=== PATIENT | female | born 1940 | race Caucasian/White ===

== ENCOUNTER 2019-10-02 10:52 | Inpatient (IN) | payer MEDICARE, OTHER ==
[2019-10-02] MEDS ORDERED: ACETAMINOPHEN 325 MG TABLET PO ONE (11:06)
--- NOTE | 2019-10-02 11:06 | ER Document Report ---
ED Medical Screen (RME) - General Chief Complaint: General Weakness Stated Complaint: WEAKNESS/BACK PAIN/LEG PAIN Time Seen by Provider: 10/02/19 11:01 - HPI Notes: 10/02/19 11:04 Patient is a 79-year-old female with a history of hypertension, recurrent kidney stones with 5 procedures over the past 6 months, recent fungal infection of the lower spine which she was on antibiotics for for 2 months and finished them September 08 presents with family for concern of increased lower back pain that radiates down left lower leg and decreased mobility significantly over the past 4 days. Patient has had some urinary frequency as well as occasional diarrhea. No fever, chest pain, shortness of breath. I have treated and performed a rapid initial assessment of this patient. A comprehensive ED assessment and evaluation of the patient, analysis of test results and completion of medical decision making process will be conducted by additional ED providers. PHYSICAL EXAMINATION: GENERAL: Well-appearing, well-nourished and in no acute distress. A&Ox4. Answers questions appropriately. - Related Data Allergies/Adverse Reactions: diazepam [From Valium] Allergy (Verified 10/02/19 11:02) morphine Allergy (Verified 10/02/19 11:02) Penicillins Allergy (Verified 10/02/19 11:02) Physical Exam - Vital signs Vitals: Temp Pulse Resp BP Pulse Ox 97.4 F 70 16 133/58 H 100 10/02/19 10:59 10/02/19 10:59 10/02/19 10:59 10/02/19 10:59 10/02/19 10:59 Course - Vital Signs Vital signs: Temp Pulse Resp BP Pulse Ox 97.4 F 70 16 133/58 H 100 10/02/19 10:59 10/02/19 10:59 10/02/19 10:59 10/02/19 10:59 10/02/19 10:59
--- NOTE | 2019-10-02 11:44 | ER Document Report ---
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 TRAVEL OUTSIDE OF THE [place] IN LAST 30 DAYS: No - HPI Patient complains to provider of: Low back pain radiating down the left leg through buttocks posteriorly. Onset: Other - A few days ago Onset/Duration: Gradual Quality of pain: Achy Severity: Severe Pain Level: 5 Exacerbated by: Movement, Other - Unable to get out of bed and walk as she had been doing 1 week ago. Relieved by: Other - Rest Similar symptoms previously: Yes Recently seen / treated by doctor: Yes Notes: Patient just relocated from [place] to [place] after having a protracted long stay in rehab status post multiple kidney stone passing and IV antibiotic treatment for a fungus mass in her lower back. Patient finished her therapy but 1 month ago and has was stable enough for transfer to [place] coming from a care home. Patient is now living with family members and noted in the past week this her pain is increased despite taking her pain medications and her muscle relaxants. No new injury is noted. Denies any fever or chills. Patient is incontinent of urine which is not new. - Related Data Allergies/Adverse Reactions: diazepam [From Valium] Allergy (Verified 10/02/19 11:02) morphine Allergy (Verified 10/02/19 11:02) Penicillins Allergy (Verified 10/02/19 11:02) Past Medical History - Social History Smoking Status: Never Smoker Chew tobacco use (# tins/day): No Frequency of alcohol use: None Lives with: Family Family History: Reviewed & Not Pertinent Patient has suicidal ideation: No Patient has homicidal ideation: No - Past Medical History Cardiac Medical History: Reports: Hx Heart Attack Neurological Medical History: Reports: Hx Cerebrovascular Accident Endocrine Medical History: Reports: Hx Diabetes Mellitus Type 2 Musculoskeletal Medical History: Reports Hx Arthritis, Reports Other - Back pain Infectious Medical History: Reports: Other - 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 Respiratory: No symptoms reported Gastrointestinal: No symptoms reported Genitourinary: Other - Urinary incontinence Musculoskeletal: See HPI, Back pain - Patient reports her left leg pain is worse despite taking pain medications. States she is unable to stand up and bear weight on the left leg. Physical Exam - Vital signs Vitals: Temp Pulse Resp BP Pulse Ox 97.4 F 70 16 133/58 H 100 10/02/19 10:59 10/02/19 10:59 10/02/19 10:59 10/02/19 10:59 10/02/19 10:59 Interpretation: Normal - Notes Notes: Generally weak patient with dry oral mucosa and tenting of her skin. - General General appearance: Appears well, Alert - HEENT Head: Normocephalic, Atraumatic Eyes: Normal Pupils: PERRL Mouth/Lips: Caries Mucous membranes: Dry - Respiratory Respiratory status: No respiratory distress Chest status: Nontender Breath sounds: Normal Chest palpation: Normal - Cardiovascular Rhythm: Regular Heart sounds: Normal auscultation Murmur: No - Abdominal Inspection: Normal Distension: No distension Bowel sounds: Normal Tenderness: Nontender Organomegaly: No organomegaly - Back Back: Normal, Nontender, Tender - Tenderness along midline in the lower lumbar region with radiation into the left buttocks. - Extremities General upper extremity: Normal inspection, Nontender, Normal color, Normal ROM, Normal temperature General lower extremity: Normal inspection, Nontender, Normal color, Normal ROM, Normal temperature, Normal weight bearing. No: Stephany's sign Hip: Pain with ROM, Unable to bear weight - Patient is unable to lift her leg and hold it off the gurney for 5 seconds on the left side. Patient has full range of motion of her ankle. Skin is warm and and pink. Left knee with decreased range of motion due to pain. - Neurological Neuro grossly intact: Yes Cognition: Normal Orientation: AAOx4 [place] Coma Scale Eye Opening: Spontaneous [place] Coma Scale Verbal: Oriented [place] Coma Scale Motor: Obeys Commands [place] Coma Scale Total: 15 Speech: Normal Motor strength normal: LUE, RUE, LLE, RLE Sensory: Normal - Psychological Associated symptoms: Normal affect, Normal mood - Skin Skin Temperature: Warm Skin Moisture: Dry Skin Color: Normal Irregularity with: Other - Tenting of skin Course - Re-evaluation Re-evalutation: 10/02/19 21:04 Patient with multiple medical problems including severe dehydration worsening sciatica pain due to discitis. Patient also has some metabolic acidosis with an elevated lactic acid level, and a urinary tract infection. - Vital Signs Vital signs: Temp Pulse Resp BP Pulse Ox 98.0 F 108 H 16 109/80 100 10/02/19 15:50 10/02/19 15:50 10/02/19 15:50 10/02/19 15:50 10/02/19 15:50 - Laboratory Result Diagrams: 10/02/19 13:05 10/02/19 13:05 Laboratory results interpreted by me: 10/02/19 10/02/19 10/02/19 03:05 11:14 13:05 Hgb 11.0 L Hct 33.2 L RDW 17.6 H Lymph % (Auto) 12.1 L Absolute Neuts (auto) 8.4 H Seg Neutrophils % 81.0 H Chloride Carbon Dioxide BUN Creatinine Est GFR ( Amer) Est GFR (MDRD) Non-Af Glucose Lactic Acid 2.4 H Albumin Urine Protein 100 H Urine Blood MODERATE H Leukocyte Esterase Rfl LARGE H Urine Ascorbic Acid 40 H 10/02/19 13:05 Hgb Hct RDW Lymph % (Auto) Absolute Neuts (auto) Seg Neutrophils % Chloride 112 H Carbon Dioxide 16 L BUN 34 H Creatinine 1.52 H Est GFR ( Amer) 40 L Est GFR (MDRD) Non-Af 33 L Glucose 115 H Lactic Acid Albumin 3.2 L Urine Protein Urine Blood Leukocyte Esterase Rfl Urine Ascorbic Acid - Diagnostic Test Radiology reviewed: Image reviewed, Reports reviewed Discharge - Discharge Clinical Impression: Urinary tract infection after period of immobility, Sciatica associated with disorder of lumbosacral spine, Discitis of lumbosacral region, Dehydration, Elevated lactic acid level Condition: Serious Disposition: ADMITTED INPATIENT Admitting Provider: Mikhail (Hospitalist) Unit Admitted: [facility]
[2019-10-02 11:54] LABS: APPEARANCE,URINE TURBID; BILIRUBIN,URINE NEGATIVE (NEGATIVE); COLOR,URINE YELLOW; GLUCOSE, URINE NEGATIVE (NEGATIVE); KETONES,URINE NEGATIVE (NEGATIVE); PROTEIN,URINE 100 mg/dL (NEGATIVE); URINE SPECIFIC GRAVITY 1.013; UROBILINOGEN,URINE NEGATIVE mg/dL (<2.0)
--- NOTE | 2019-10-02 12:25 | RADIOLOGY REPORT (SQ) ---
EXAM DESCRIPTION: L SPINE WHOLE COMPLETED DATE/TIME: 10/02/2019 12:01 pm REASON FOR STUDY: low back pain, recent fungal infxn of spine COMPARISON: None. NUMBER OF VIEWS: Five views including obliques. TECHNIQUE: AP, lateral, oblique, and sacral radiographic images acquired of the lumbar spine. LIMITATIONS: None. FINDINGS: MINERALIZATION: Normal. SEGMENTATION: Normal. No transitional anatomy. ALIGNMENT: Mild dextroscoliosis. There appears to be a grade 1-2 anterolisthesis of L5 on S1. VERTEBRAE: Maintained height. No fracture or worrisome bone lesion. DISCS: There is mild disc narrowing from L1-S1. Marginal osteophytes are present. POSTERIOR ELEMENTS: Hypertrophic facet changes are present from L4-S1. HARDWARE: None in the spine. PARASPINAL SOFT TISSUES: Normal. PELVIS: Intact as visualized. No fractures or worrisome bone lesions. SI joints intact. OTHER: No other significant finding. IMPRESSION: Mild scoliosis. Anterolisthesis of L5 on S1. Degenerative disc disease, spondylosis, a nd facet arthropathy. TECHNICAL DOCUMENTATION: JOB ID: [id number] [employer]- All Rights Reserved Reading location - IP/workstation name: [email or web address]
[2019-10-02] MEDS ORDERED: NORMAL SALINE 500 ML IV ONE ×2 (12:42→14:19)
[2019-10-02] MEDS ORDERED: HYDROMORPHONE HCL INJ/PF 2 MG/ML AMPULE IV ONE (12:49)
[2019-10-02] MEDS ORDERED: DEXAMETHASONE SOD PHOS INJ 10 MG/1 ML VIAL IV ONE (12:59)
[2019-10-02] MEDS ORDERED: CIPROFLOXACIN 400 MG/D5W RTU 400 MG/200 ML RTUPB IV SCH (13:00)
--- NOTE | 2019-10-02 13:38 | RADIOLOGY REPORT (SQ) ---
EXAM DESCRIPTION: CT LUMBAR SPINE WITHOUT COMPLETED DATE/TIME: 10/02/2019 1:17 pm REASON FOR STUDY: low back pain/left radiculopathy COMPARISON: None. TECHNIQUE: Axial images acquired through the lumbar spine without intravenous contrast. Images revi ewed with lung, soft tissue and bone windows. Reconstructed coronal and sagittal MPR images reviewed . All images stored on PACS. All CT scanners at this facility use dose modulation, iterative reconstruction, and/or weight based d osing when appropriate to reduce radiation dose to as low as reasonably achievable (ALARA). [facility]: Dose Right [facility]: CareDose [facility]: Dose Right [facility]: Teradose 4D [facility]: SupplierSync RADIATION DOSE: mGy. LIMITATIONS: None. FINDINGS: Bones are osteopenic. Grade 1 spondylolisthesis L5-S1. There is disc space narrowing and osteophyte formation at multiple levels. Erosive changes in the endplates at L5-S1. No obvious acu te disc herniation. Facet arthropathy, especially L4-5 and L5-S1. Sacrum intact as visualized. Dilated left renal collecting system. IMPRESSION: 1. Spondylosis, facet arthropathy and malalignment. Erosive endplate changes at L5-S1 probably due t o chronic inflammation, however cannot exclude discitis. Clinical correlation is needed. 2. Dilated left renal collecting system of uncertain chronicity and etiology. TECHNICAL DOCUMENTATION: JOB ID: [id number] Quality ID # [id number]: Final reports with documentation of one or more dose reduction techniques (e.g., Au tomated exposure control, adjustment of the mA and/or kV according to patient size, use of iterative reconstruction technique) 2010 [employer]- All Rights Reserved Reading location - IP/workstation name: [email or web address]
[2019-10-02 13:45] LABS: ABSOLUTE BASOPHILS # (AUTO) 0.1 10^3/uL (0.0-0.2); ABSOLUTE LYMPHOCYTES (AUTO) 1.2 10^3/uL (0.5-4.7); ABSOLUTE MONOCYTES (AUTO) 0.6 10^3/uL (0.1-1.4); ABSOLUTE NEUT (AUTO) 8.4 10^3/uL (1.7-8.2); BASOPHILS % (AUTO) 0.5 % (0-2); EOSINOPHILS % (AUTO) 0.2 % (0-6); HEMATOCRIT 33.2 % (36.0-47.0); LYMPHOCYTES % (AUTO) 12.1 % (13-45); MEAN CORPUSCULAR HEMOGLOBIN 29.5 pg (27.0-33.4); MEAN CORPUSCULAR VOLUME 89 fl (80-97); MONOCYTES % (AUTO) 6.2 % (3-13); PLATELET COUNT 348 10^3/uL (150-450); RED BLOOD COUNT 3.72 10^6/uL (3.72-5.28); RED CELL DISTRIBUTION WIDTH 17.6 % (11.5-14.0); TOTAL CELLS COUNTED % (AUTO) 100 %; WHITE BLOOD COUNT 10.3 10^3/uL (4.0-10.5)
--- NOTE | 2019-10-02 13:59 | RADIOLOGY REPORT (SQ) ---
EXAM DESCRIPTION: KNEE LEFT 3 VIEWS COMPLETED DATE/TIME: 10/02/2019 1:28 pm REASON FOR STUDY: pain COMPARISON: None. NUMBER OF VIEWS: Two views. TECHNIQUE: AP and lateral radiographic images acquired of the left knee. LIMITATIONS: None. FINDINGS: MINERALIZATION: Osteopenia. BONES: No acute fracture or dislocation. No worrisome bone lesions. JOINT: No effusion. SOFT TISSUES: Vascular calcifications. OTHER: No other significant finding. IMPRESSION: No acute findings. TECHNICAL DOCUMENTATION: JOB ID: [id number] [employer]- All Rights Reserved Reading location - IP/workstation name: [email or web address]
[2019-10-02 14:03] LABS: ALBUMIN 3.2 g/dL (3.5-5.0); ALKALINE PHOSPHATASE 109 U/L (38-126); ANION GAP 13 (5-19); ASPARTATE AMINO TRANSFERASE 24 U/L (14-36); BILIRUBIN,DIRECT 0.3 mg/dL (0.0-0.4); BILIRUBIN,TOTAL 0.3 mg/dL (0.2-1.3); BLOOD UREA NITROGEN 34 mg/dL (7-20); CALCIUM 9.2 mg/dL (8.4-10.2); CARBON DIOXIDE 16 mmol/L (22-30); CHLORIDE 112 mmol/L (98-107); GLUCOSE 115 mg/dL (75-110); POTASSIUM 4.1 mmol/L (3.6-5.0); TOTAL PROTEIN 6.4 g/dL (6.3-8.2)
--- NOTE | 2019-10-02 15:27 | RADIOLOGY REPORT (SQ) ---
EXAM DESCRIPTION: CHEST SINGLE VIEW COMPLETED DATE/TIME: 10/02/2019 2:52 pm REASON FOR STUDY: decreased breathsounds in bases COMPARISON: None. NUMBER OF VIEWS: One view. TECHNIQUE: Single frontal radiographic view of the chest acquired. LIMITATIONS: None. FINDINGS: LUNGS AND PLEURA: Subcentimeter calcified granuloma left upper lobe. No pleural effusion. Attenuated blood vessels and flattened quin-diaphragms. MEDIASTINUM AND HILAR STRUCTURES: No masses. Contour normal. HEART AND VASCULAR STRUCTURES: Heart normal in size. Normal vasculature. BONES: No acute findings. HARDWARE: None in the chest. OTHER: No other significant finding. IMPRESSION: COPD. NO ACUTE RADIOGRAPHIC FINDING IN THE CHEST. TECHNICAL DOCUMENTATION: JOB ID: [id number] [facility]- All Rights Reserved Reading location - IP/workstation name: [email or web address]
[2019-10-02] MEDS ORDERED: DOCUSATE SODIUM 100 MG CAPSULE PO PRN (17:40)
[2019-10-02] MEDS ORDERED: HYDROCODONE/ACETAMINOPHEN 7.5-325 MG TABLET PO PRN (17:50)
[2019-10-02] MEDS ORDERED: METHOCARBAMOL 500 MG TABLET PO PRN (17:50)
[2019-10-02] MEDS ORDERED: IPRATROPIUM/ALBUTEROL 0.5-2.5 MG/3 ML AMPUL NEB PRN (17:59)
--- NOTE | 2019-10-02 18:28 | PDOC H&P ---
History of Present Illness Admission Date/PCP: 10/02/19 15:16 Patient complains of: Back pain, polyuria History of Present Illness: JORGE DOBSON is a 79 year old female with a history of recently diagnosed fungal lumbar discitis [completed treatment], resolved diabetes mellitus, peptic ulcer disease s/p surgery, hypertension, CVA, hypothyroidism, depression, who presents with complaint of low back pain, urinary incontinence and polyuria. Polyuria and urinary incontinence have been present for about 2 weeks now. Patient endorses some chills. Denies fevers no dysuria. Of note, patient has been experiencing low back pain since November 2018 after sustaining a fracture in her back. 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 She had subsequently experienced sign ificant improvement in back pain and underwent physical therapy. About 2 weeks ago, patient still experiencing some urinary incontinence. Patient was discharged from SNF on September 16 but has been experiencing more difficulty with ambulation or weakness in her lower extremities since then. Past Medical History Endocrine Medical History: Reports: Diabetes Mellitus Type 2 Musculoskeltal Medical History: Reports: Arthritis, Other - Back pain Past Surgical History Past Surgical History: Reports: Other - Neck surgery Social History Information Source: Patient, Relative Lives with: Family Smoking Status: Former Smoker Electronic Cigarette use?: No Frequency of Alcohol Use: None Hx Recreational Drug Use: No - Advance Directive Resuscitation Status: Do Not Intubate Family History Family History: DM, Malignancy, Other - Heart disease Parental Family History Reviewed: Yes Children Family History Reviewed: NA Sibling(s) Family History Reviewed.: Yes Medication/Allergy Home Medications: Acetaminophen [Acetaminophen ER] 1,300 mg PO Q6HP PRN 10/02/19 Allopurinol [Zyloprim 100 mg Tablet] 100 mg PO DAILY 10/02/19 Aspirin [Adult Low Dose Aspirin EC] 81 mg PO DAILY 10/02/19 Aspirin/Acetaminophen/Caffeine [Excedrin Extra Strength Caplet] 2 each PO BIDP PRN 10/02/19 Atenolol [Tenormin] 12.5 mg PO DAILY 10/02/19 Atorvastatin Calcium [Lipitor 20 mg Tablet] 20 mg PO QHS 10/02/19 Cyclobenzaprine HCl [Flexeril 5 mg Tablet] 5 mg PO TID 10/02/19 Docusate Sodium [Colace] 100 mg PO BIDP PRN 10/02/19 Ergocalciferol (Vitamin D2) [Vitamin D2] 50,000 unit PO MO@1000 10/02/19 Ferrous Sulfate [Feosol 325 mg Tablet] 650 mg PO DAILY 10/02/19 Hydrocodone/Acetaminophen [Ottertail 7.5-325 mg Tablet] 1 tab PO Q6HP PRN 10/02/19 Hydroxyzine Pamoate [Vistaril 25 mg Capsule] 25 mg PO Q8HP PRN 10/02/19 Levothyroxine Sodium [Synthroid 0.1 mg Tablet] 0.1 mg PO DAILY 10/02/19 Lorazepam [Ativan 0.5 mg Tablet] 0.5 mg PO Q8HP PRN 10/02/19 Lubiprostone [Amitiza 24 Mcg Capsule] 24 mcg PO BID 10/02/19 Magnesium Hydroxide [Milk Of Magnesia] 311 mg PO DAILYP PRN 10/02/19 Ondansetron HCl [Zofran 4 mg Tablet] 1 tab PO Q6HP PRN 10/02/19 Polyethylene Glycol 3350 [Miralax Powder 17 gm/Packet] 1 packet PO BID 10/02/19 Sennosides [Senna] 8.6 mg PO DAILY 10/02/19 Sertraline HCl [Zoloft 50 mg Tablet] 50 mg PO DAILY 10/02/19 Tamsulosin HCl [Flomax] 0.4 mg PO DAILY 10/02/19 Allergies/Adverse Reactions: diazepam [From Valium] Allergy (Verified 10/02/19 11:02) morphine Allergy (Verified 10/02/19 11:02) Penicillins Allergy (Verified 10/02/19 11:02) Review of Systems Constitutional: PRESENT: chills. ABSENT: fever(s) Eyes: ABSENT: visual disturbances Nose, Mouth, and Throat: ABSENT: headache(s) Cardiovascular: ABSENT: chest pain Respiratory: ABSENT: dyspnea Gastrointestinal: PRESENT: diarrhea. ABSENT: abdominal pain, nausea, vomiting Genitourinary: PRESENT: other - Urinary incontinence. ABSENT: difficulty urinating, dysuria, hematuria Musculoskeletal: PRESENT: muscle weakness. ABSENT: joint swelling Neurological: ABSENT: confusion Endocrine: PRESENT: polyuria Physical Exam Vital Signs: Temp Pulse Resp BP Pulse Ox 98.0 F 108 H 16 109/80 100 10/02/19 15:50 10/02/19 15:50 10/02/19 15:50 10/02/19 15:50 10/02/19 15:50 Intake & Output 10/01/19 10/02/19 10/03/19 06:59 06:59 06:59 Intake Total 700 Balance 700 Weight 45.8 kg General appearance: PRESENT: no acute distress, cooperative Neck exam: ABSENT: JVD Respiratory exam: PRESENT: clear to auscultation elaina, unlabored. ABSENT: tachypnea, wheezes Cardiovascular exam: PRESENT: RRR, +S1, +S2. ABSENT: tachycardia GI/Abdominal exam: PRESENT: normal bowel sounds, soft. ABSENT: ascites, distended, firm, guarding, rebound, rigid, tenderness Musculoskeletal exam: PRESENT: other - Patient currently is not experiencing any tenderness on palpation of her mid spine and paraspinal regions as well as on straight leg test. She does endorse that she was having significant tenderness in those regions earlier when examined by the ER physician before receiving Dilaudid Neurological exam: PRESENT: alert, awake, oriented to person, oriented to place, oriented to time Results Laboratory Results: 10/02/19 13:05 10/02/19 13:05 10/02/19 10/02/19 10/02/19 03:05 11:14 13:05 WBC 10.3 RBC 3.72 Hgb 11.0 L Hct 33.2 L MCV 89 MCH 29.5 MCHC 33.0 RDW 17.6 H Plt Count 348 Seg Neutrophils % 81.0 H Sodium Potassium Chloride Carbon Dioxide Anion Gap BUN Creatinine Est GFR ( Amer) Glucose Lactic Acid 2.4 H Calcium Total Bilirubin AST Alkaline Phosphatase Total Protein Albumin Urine Color YELLOW Urine Appearance TURBID Urine pH 5.0 Ur Specific [place] 1.013 Urine Protein 100 H Urine Glucose (UA) NEGATIVE Urine Ketones NEGATIVE Urine Blood MODERATE H Urine RBC (Auto) 91 10/02/19 13:05 WBC RBC Hgb Hct MCV MCH MCHC RDW Plt Count Seg Neutrophils % Sodium 141.0 Potassium 4.1 Chloride 112 H Carbon Dioxide 16 L Anion Gap 13 BUN 34 H Creatinine 1.52 H Est GFR ( Amer) 40 L Glucose 115 H Lactic Acid Calcium 9.2 Total Bilirubin 0.3 AST 24 Alkaline Phosphatase 109 Total Protein 6.4 Albumin 3.2 L Urine Color Urine Appearance Urine pH Ur Specific [place] Urine Protein Urine Glucose (UA) Urine Ketones Urine Blood Urine RBC (Auto) Impressions: Lumbar Spine X-Ray 10/02/19 11:06 IMPRESSION: Mild scoliosis. Anterolisthesis of L5 on S1. Degenerative disc disease, spondylosis, and facet arthropathy. Lumbar Spine CT 10/02/19 12:50 IMPRESSION: 1. Spondylosis, facet arthropathy and malalignment. Erosive endplate changes at L5-S1 probably due to chronic inflammation, however cannot exclude discitis. Clinical correlation is needed. 2. Dilated left renal collecting system of uncertain chronicity and etiology. Knee X-Ray 10/02/19 12:52 IMPRESSION: No acute findings. Chest X-Ray 10/02/19 14:20 IMPRESSION: COPD. NO ACUTE RADIOGRAPHIC FINDING IN THE CHEST. Assessment and Plan - Diagnosis (1) Acute urinary tract infection Is this a current diagnosis for this admission?: Yes Plan: Patient does not meet sepsis criteria Repeat lactic acid following IV fluids Ceftriaxone Check urine culture IV fluids (2) Lumbosacral radiculopathy due to degenerative joint disease of spine Is this a current diagnosis for this admission?: Yes Plan: CT lumbar spine without contrast showed spondylolisthesis of L5-S1, multilevel degenerative joint disease, erosions in the endplates at L5-S1 No clear evidence of discitis on the CT at this time Given her recent onset of urinary incontinence about 2 weeks ago and worsening ambulation, I will get an MRI to ensure no spinal compression Consult placed to pain management Continue Vicodin as needed for pain Dilaudid 0.5 mg as needed for breakthrough pain Lidocaine patch PT OT (3) Elevated serum creatinine Is this a current diagnosis for this admission?: Yes Plan: Patient's family reports the patient was diagnosed with renal failure by PCP recently Current creatinine 5 may be secondary to CKD versus LUCERO on CKD Will give IV fluids and trend creatinine (4) Normal anion gap metabolic acidosis Is this a current diagnosis for this admission?: Yes Plan: Secondary to diarrhea. Patient reports that diarrhea is resolving at this time. IV fluids and monitor bicarbonate levels. (5) Iron deficiency anemia Qualifiers: Iron deficiency anemia type: other iron deficiency Qualified Code(s): D50.8 - Other iron deficiency anemias Is this a current diagnosis for this admission?: Yes Plan: Continue patient's ferrous sulfate Monitor hemoglobin (6) Septic discitis of lumbar region Is this a current diagnosis for this admission?: Yes Plan: Recently diagnosed in July 2019 secondary to [place] Patient and family reports that patient completed 6 weeks of antifungal IV treatment in [place] which ended on September 08, 2019. No clear evidence of discitis at this time. I will follow-up blood cultures. - Time Time Spent with patient: 35 or more minutes
[2019-10-02] MEDS: LIDOCAINE 5% (700 MG) TRANSDERMAL ADH..PATCH TP SCH (20:51)
[2019-10-02] MEDS: NORMAL SALINE 1000 ML 1,000 ML IV PRN (20:52)
[2019-10-02] MEDS: ATORVASTATIN CALCIUM 20 MG TABLET PO SCH (22:58)
[2019-10-02] MEDS: HEPARIN SOD (PORCINE) 5,000 UNIT/ML 1 ML VIAL SUBCUT SCH (22:59)
[2019-10-02] MEDS: FAMOTIDINE 20 MG TABLET PO SCH (22:59)
[2019-10-02] MEDS: MIRTAZAPINE 15 MG TABLET PO SCH (22:59)
[2019-10-03 05:06] LABS: ABSOLUTE MONOCYTES (AUTO) 0.6 10^3/uL (0.1-1.4); ABSOLUTE NEUT (AUTO) 9.4 10^3/uL (1.7-8.2); BASOPHILS % (AUTO) 0.3 % (0-2); HEMATOCRIT 30.7 % (36.0-47.0); HEMOGLOBIN 10.1 g/dL (12.0-15.5); LYMPHOCYTES % (AUTO) 9.2 % (13-45); MEAN CORPUSCULAR HEMOGLOBIN 29.4 pg (27.0-33.4); MEAN CORPUSCULAR HGB CONC 33.1 g/dL (32.0-36.0); MEAN CORPUSCULAR VOLUME 89 fl (80-97); PLATELET COUNT 287 10^3/uL (150-450); RED BLOOD COUNT 3.45 10^6/uL (3.72-5.28); SEGMENTED NEUTROPHILS % (AUTO) 85.5 % (42-78); TOTAL CELLS COUNTED % (AUTO) 100 %
[2019-10-03 05:23] LABS: ALBUMIN 2.6 g/dL (3.5-5.0); ALKALINE PHOSPHATASE 82 U/L (38-126); ANION GAP 10 (5-19); ASPARTATE AMINO TRANSFERASE 18 U/L (14-36); BILIRUBIN,DIRECT 0.3 mg/dL (0.0-0.4); BILIRUBIN,TOTAL 0.3 mg/dL (0.2-1.3); BLOOD UREA NITROGEN 33 mg/dL (7-20); CALCIUM 8.4 mg/dL (8.4-10.2); CARBON DIOXIDE 15 mmol/L (22-30); CHLORIDE 115 mmol/L (98-107); GLUCOSE 119 mg/dL (75-110); TOTAL PROTEIN 5.4 g/dL (6.3-8.2)
[2019-10-03 05:27] LABS: CREATINE KINASE < 20 U/L (30-135)
[2019-10-03] MEDS: LEVOTHYROXINE SODIUM 0.1 MG TABLET PO SCH (05:33)
[2019-10-03] MEDS: HEPARIN SOD (PORCINE) 5,000 UNIT/ML 1 ML VIAL SUBCUT SCH ×3 (05:33→21:42)
[2019-10-03] MEDS: HYDROMORPHONE HCL INJ/PF 2 MG/ML AMPULE IV PRN ×2 (08:55→16:21)
[2019-10-03] MEDS: ATENOLOL 50 MG TABLET PO SCH (10:04)
[2019-10-03] MEDS: FAMOTIDINE 20 MG TABLET PO SCH ×2 (10:04→21:42)
[2019-10-03] MEDS: TAMSULOSIN HCL 0.4 MG CAP.SR.24H PO SCH (10:04)
[2019-10-03] MEDS: ASPIRIN 81 MG TABLET, ENT COATED PO SCH (10:04)
[2019-10-03] MEDS: FERROUS SULFATE 325 MG TABLET PO SCH (10:04)
[2019-10-03] MEDS: CEFTRIAXONE 1 GM/D5W RTU 1 GM/50 ML RTUPB IV SCH (10:05)
--- NOTE | 2019-10-03 11:16 | PDOC PROGRESS REPORT ---
Subjective Progress Note for:: 10/03/19 Subjective:: Patient currently complains of some back pain in her right low back and her mid spine. Patient however says that she did not ask for any pain medication. Denies any fever or chills. Reason For Visit: UTI LUCERO NAGMA LUMBAR SPONDYLOSIS Physical Exam Vital Signs: Temp Pulse Resp BP Pulse Ox 98.7 F 68 18 100/41 L 98 10/03/19 07:22 10/03/19 07:22 10/03/19 07:22 10/03/19 07:22 10/03/19 07:22 Intake & Output 10/02/19 10/03/19 10/04/19 06:59 06:59 06:59 Intake Total 1350 Output Total 200 Balance 1150 Weight 46.4 kg General appearance: PRESENT: no acute distress, cooperative Neck exam: ABSENT: JVD Respiratory exam: PRESENT: clear to auscultation elaina, symmetrical, unlabored. ABSENT: tachypnea, wheezes Cardiovascular exam: PRESENT: +S1, +S2. ABSENT: tachycardia GI/Abdominal exam: PRESENT: normal bowel sounds, soft. ABSENT: rebound, rigid, tenderness Musculoskeletal exam: PRESENT: tenderness - Tenderness in lower mid spine more more in right lower paraspinal region in back Neurological exam: PRESENT: alert, awake, oriented to person, oriented to place, oriented to time, oriented to situation Results Laboratory Results: 10/03/19 04:16 10/03/19 04:16 10/02/19 10/02/19 10/02/19 03:05 11:14 13:05 WBC 10.3 RBC 3.72 Hgb 11.0 L Hct 33.2 L MCV 89 MCH 29.5 MCHC 33.0 RDW 17.6 H Plt Count 348 Seg Neutrophils % 81.0 H Sodium Potassium Chloride Carbon Dioxide Anion Gap BUN Creatinine Est GFR ( Amer) Glucose Lactic Acid 2.4 H Calcium Total Bilirubin AST Alkaline Phosphatase Total Protein Albumin Urine Color YELLOW Urine Appearance TURBID Urine pH 5.0 Ur Specific [place] 1.013 Urine Protein 100 H Urine Glucose (UA) NEGATIVE Urine Ketones NEGATIVE Urine Blood MODERATE H Urine RBC (Auto) 91 10/02/19 10/02/19 10/03/19 13:05 18:41 04:16 WBC 11.0 H RBC 3.45 L Hgb 10.1 L Hct 30.7 L MCV 89 MCH 29.4 MCHC 33.1 RDW 18.0 H Plt Count 287 Seg Neutrophils % 85.5 H Sodium 141.0 Potassium 4.1 Chloride 112 H Carbon Dioxide 16 L Anion Gap 13 BUN 34 H Creatinine 1.52 H Est GFR ( Amer) 40 L Glucose 115 H Lactic Acid 1.3 Calcium 9.2 Total Bilirubin 0.3 AST 24 Alkaline Phosphatase 109 Total Protein 6.4 Albumin 3.2 L Urine Color Urine Appearance Urine pH Ur Specific [place] Urine Protein Urine Glucose (UA) Urine Ketones Urine Blood Urine RBC (Auto) 10/03/19 04:16 WBC RBC Hgb Hct MCV MCH MCHC RDW Plt Count Seg Neutrophils % Sodium 140.4 Potassium 4.0 Chloride 115 H Carbon Dioxide 15 L Anion Gap 10 BUN 33 H Creatinine 1.33 H Est GFR ( Amer) 47 L Glucose 119 H Lactic Acid Calcium 8.4 Total Bilirubin 0.3 AST 18 Alkaline Phosphatase 82 Total Protein 5.4 L Albumin 2.6 L Urine Color Urine Appearance Urine pH Ur Specific [place] Urine Protein Urine Glucose (UA) Urine Ketones Urine Blood Urine RBC (Auto) 10/03/19 04:16 Creatine Kinase < 20 L Impressions: Lumbar Spine X-Ray 10/02/19 11:06 IMPRESSION: Mild scoliosis. Anterolisthesis of L5 on S1. Degenerative disc disease, spondylosis, and facet arthropathy. Lumbar Spine CT 10/02/19 12:50 IMPRESSION: 1. Spondylosis, facet arthropathy and malalignment. Erosive endplate changes at L5-S1 probably due to chronic inflammation, however cannot exclude discitis. C linical correlation is needed. 2. Dilated left renal collecting system of uncertain chronicity and etiology. Knee X-Ray 10/02/19 12:52 IMPRESSION: No acute findings. Chest X-Ray 10/02/19 14:20 IMPRESSION: COPD. NO ACUTE RADIOGRAPHIC FINDING IN THE CHEST. Assessment and Plan - Diagnosis (1) Acute urinary tract infection Is this a current diagnosis for this admission?: Yes Plan: Patient does not meet sepsis criteria Lactic acidosis is resolved Ceftriaxone day 2 of antibiotics Urine culture growing gram-negative rods (2) Lumbosacral radiculopathy due to degenerative joint disease of spine Is this a current diagnosis for this admission?: Yes Plan: CT lumbar spine without contrast showed spondylolisthesis of L5-S1, multilevel degenerative joint disease, erosions in the endplates at L5-S1 No clear evidence of discitis on the CT at this time Awaiting MRI of lumbar spine. It was delayed because patient has lexus however patient has had 2 MRIs done last month in an outside hospital and we have records for that Consult placed to pain management Continue Vicodin as needed for pain Dilaudid 0.5 mg as needed for breakthrough pain Lidocaine patch PT OT (3) Elevated serum creatinine Is this a current diagnosis for this admission?: Yes Plan: Patient's family reports the patient was diagnosed with renal failure by PCP recently secondary to CKD versus LUCERO on CKD Creatinine 1.5 on admission but improving with IV fluids. Continue with IV fluids. (4) Normal anion gap metabolic acidosis Is this a current diagnosis for this admission?: Yes Plan: Suspect this is secondary to diarrhea which seems to be resolving. However NAGMA to persist at this time Change IV fluids from NS to lactated Ringer's and check VBG in the morning (5) Iron deficiency anemia Qualifiers: Iron deficiency anemia type: other iron deficiency Qualified Code(s): D50.8 - Other iron deficiency anemias Is this a current diagnosis for this admission?: Yes Plan: Continue patient's ferrous sulfate Monitor hemoglobin (6) Septic discitis of lumbar region Is this a current diagnosis for this admission?: Yes Plan: Recently diagnosed in July 2019 secondary to [place] Patient and family reports that patient completed 6 weeks of antifungal IV treatment in [place] which ended on September 08, 2019. No clear evidence of discitis at this time. I will follow-up blood cultures. (7) Leukocytosis Qualifiers: Leukocytosis type: unspecified Qualified Code(s): D72.829 - Elevated white blood cell count, unspecified Is this a current diagnosis for this admission?: Yes Plan: Mild. Likely secondary to dexamethasone patient received in the ER yesterday. Continue to monitor CBC. - Time Time Spent with patient: 15-24 minutes
[2019-10-03] MEDS: NORMAL SALINE 1000 ML 1,000 ML IV PRN (12:53)
[2019-10-03] MEDS: LIDOCAINE 5% (700 MG) TRANSDERMAL ADH..PATCH TP SCH (12:54)
--- NOTE | 2019-10-03 15:39 | RADIOLOGY REPORT (SQ) ---
EXAM DESCRIPTION: MRI LUMBAR SPINE COMBO COMPLETED DATE/TIME: 10/03/2019 2:26 pm REASON FOR STUDY: lumbar pain, urinary incontinence COMPARISON: CT lumbar spine 10/02/2019 Lumbar spine plain films 10/02/2019 TECHNIQUE: Sagittal and Axial imaging includes T1, T1 post gadolinium, T2, STIR and gradient echo se quences. Coronal T2/HASTE imaging. CONTRAST TYPE AND DOSE: 8 mL Dotarem. RENAL FUNCTION: Not indicated. ACR Type II contrast agent associated with few, if any, unconfounded cases of NSF LIMITATIONS: None. 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 SEGMENTATION: No transitional anatomy. The lowest well-developed disc space is labeled L5-S1. ALIGNMENT: 25% anterolisthesis of L5 over S1 related to advanced bilateral facet arthropathy VERTEBRAE AND BONE MARROW: At the L5-S1 level, the vertebral body endplates are indistinct. There is marrow edema in the inferior half of L5 and the upper half of S1. Postcontrast, avid enhancement is present indicating discitis with adjacent vertebral body osteomyelitis. On axial images, no paraspi nal/psoas abscess is identified. On axial images there is high-grade bilateral foraminal narrowing right greater than left with enhanc ing granulation tissue flattening the proximal right S1 nerve root in the lateral recess. These alaniz ges are best shown on axial images 32-37. There is minimal S1 and S2 nerve root enhancement. These findings were called to Dr. Elizondo, 1515 hours 10/03/2019 DISC SIGNAL: Abnormal disc space loss of height and disc space enhancement at L5-S1 POSTERIOR ELEMENTS: Generally intact. No pars defect evident. HARDWARE: None in the spine. CORD AND CONUS: Normal in size and signal intensity. Conus at the L1 level. SOFT TISSUES: No aortic aneurysm seen. No bulky retroperitoneal adenopathy or mass. No paraspinal mas s or fluid. T11-12: At the upper edge of the field of view. Mild posterior disc bulging and mild bilateral face t hypertrophy is present without significant central or foraminal stenosis T12-L1: Broad diffuse posterior disc bulge and mild facet and ligament hypertrophy is present withou t significant central or foraminal stenosis L1-L2: Mild diffuse posterior disc bulging, moderate bilateral facet hypertrophy. Borderline central canal narrowing. Mild bilateral foraminal narrowing without significant nerve root impingement L2-L3: Mild diffuse posterior disc bulging, moderate bilateral facet hypertrophy. Borderline central canal narrowing. Mild bilateral foraminal narrowing without significant nerve root impingement L3-L4: Mild diffuse posterior disc bulging, moderate bilateral facet hypertrophy. Borderline central canal narrowing. Mild bilateral foraminal narrowing without significant nerve root impingement L4-L5: Mild diffuse posterior disc bulging, bulky bilateral facet hypertrophy. Borderline central ca nal narrowing. Mild to moderate bilateral foraminal narrowing without significant nerve root impinge ment L5-S1: Vertebral body endplate and disc changes from discitis with adjacent vertebral body osteomyeli tis. There is broad diffuse posterior disc bulging, grade 1 anterolisthesis of L5 over S1, and very bulky bilateral facet arthropathy right greater than left. This causes [id number] central malik l narrowing on axial T2 image 34, narrowing of the right lateral recess containing the proximal right S1 nerve root on axial image 35, and high-grade bilateral foraminal narrowing with bilateral exit ne rve root enhancement. There is also enhancement of the proximal right S1 nerve root in the lateral r ecess. No epidural abscess is identified. No paraspinal/psoas muscle abscess. SACRUM: Vertebral body endplate changes from osteomyelitis at the L5-S1 level OTHER: This report was discussed Dr. Elizondo, 1500 hours 10/03/2019 IMPRESSION: Discitis/ vertebral body osteomyelitis at L5-S1 COMMENT: Pertinent findings on the imaging study reported as a CRITICAL RESULT to ZIGGY Hernandez at15:02 on 10/03/2019. Category of Critical Result: Vertebral body osteomyelitis/discitis at L5-S1 TECHNICAL DOCUMENTATION: JOB ID: [id number] [employer]- All Rights Reserved Reading location - IP/workstation name: [email or web address]
[2019-10-03] MEDS: RINGERS SOLUTION,LACTATED 1,000 ML IV PRN (17:57)
[2019-10-03] MEDS: MIRTAZAPINE 15 MG TABLET PO SCH (21:43)
[2019-10-03] MEDS: GABAPENTIN 100 MG CAPSULE PO SCH (21:44)
[2019-10-03] MEDS: ATORVASTATIN CALCIUM 20 MG TABLET PO SCH (21:44)
[2019-10-04] MEDS: RINGERS SOLUTION,LACTATED 1,000 ML IV PRN ×2 (03:05→09:00)
[2019-10-04] MEDS: HYDROMORPHONE HCL 2 MG TABLET PO PRN ×3 (03:09→22:11)
[2019-10-04 05:26] LABS: ABSOLUTE BASOPHILS # (AUTO) 0.1 10^3/uL (0.0-0.2); ABSOLUTE LYMPHOCYTES (AUTO) 1.3 10^3/uL (0.5-4.7); ABSOLUTE MONOCYTES (AUTO) 0.7 10^3/uL (0.1-1.4); ABSOLUTE NEUT (AUTO) 5.4 10^3/uL (1.7-8.2); BASOPHILS % (AUTO) 0.7 % (0-2); EOSINOPHILS % (AUTO) 0.5 % (0-6); HEMATOCRIT 28.1 % (36.0-47.0); HEMOGLOBIN 9.3 g/dL (12.0-15.5); LYMPHOCYTES % (AUTO) 17.8 % (13-45); MEAN CORPUSCULAR HEMOGLOBIN 29.5 pg (27.0-33.4); MEAN CORPUSCULAR HGB CONC 33.1 g/dL (32.0-36.0); MEAN CORPUSCULAR VOLUME 89 fl (80-97); MONOCYTES % (AUTO) 8.9 % (3-13); PLATELET COUNT 216 10^3/uL (150-450); RED BLOOD COUNT 3.15 10^6/uL (3.72-5.28); RED CELL DISTRIBUTION WIDTH 17.8 % (11.5-14.0); SEGMENTED NEUTROPHILS % (AUTO) 72.1 % (42-78); TOTAL CELLS COUNTED % (AUTO) 100 %; VENOUS BLOOD PCO2 34.3 mmHg (35-63); VENOUS BLOOD PH 7.34 (7.30-7.42); WHITE BLOOD COUNT 7.4 10^3/uL (4.0-10.5)
[2019-10-04 05:57] LABS: ALBUMIN 2.2 g/dL (3.5-5.0); ALKALINE PHOSPHATASE 72 U/L (38-126); ANION GAP 5 (5-19); ASPARTATE AMINO TRANSFERASE 20 U/L (14-36); BILIRUBIN,DIRECT 0.2 mg/dL (0.0-0.4); BILIRUBIN,TOTAL 0.2 mg/dL (0.2-1.3); BLOOD UREA NITROGEN 26 mg/dL (7-20); C-REACTIVE PROTEIN 61.6 mg/L (<10.0); CALCIUM 7.9 mg/dL (8.4-10.2); CARBON DIOXIDE 17 mmol/L (22-30); CHLORIDE 118 mmol/L (98-107); GLUCOSE 102 mg/dL (75-110); POTASSIUM 4.2 mmol/L (3.6-5.0); TOTAL PROTEIN 4.9 g/dL (6.3-8.2)
[2019-10-04] MEDS: HEPARIN SOD (PORCINE) 5,000 UNIT/ML 1 ML VIAL SUBCUT SCH ×3 (06:01→22:13)
[2019-10-04] MEDS: LEVOTHYROXINE SODIUM 0.1 MG TABLET PO SCH (06:01)
[2019-10-04] MEDS: GABAPENTIN 100 MG CAPSULE PO SCH ×3 (06:01→22:10)
[2019-10-04 06:21] LABS: ERYTHROCYTE SEDIMENTATION RATE 90 mm/hr (0-30)
[2019-10-04] MEDS ORDERED: NORMAL SALINE 1000 ML 1,000 ML IV PRN (07:39)
[2019-10-04] MEDS: TAMSULOSIN HCL 0.4 MG CAP.SR.24H PO SCH (10:09)
[2019-10-04] MEDS: FAMOTIDINE 20 MG TABLET PO SCH ×2 (10:09→22:10)
[2019-10-04] MEDS: ATENOLOL 50 MG TABLET PO SCH (10:09)
[2019-10-04] MEDS: LIDOCAINE 5% (700 MG) TRANSDERMAL ADH..PATCH TP SCH (10:09)
[2019-10-04] MEDS: ASPIRIN 81 MG TABLET, ENT COATED PO SCH (10:09)
[2019-10-04] MEDS: FERROUS SULFATE 325 MG TABLET PO SCH (10:09)
[2019-10-04] MEDS: CEFTRIAXONE 1 GM/D5W RTU 1 GM/50 ML RTUPB IV SCH (10:10)
--- NOTE | 2019-10-04 11:16 | PDOC PROGRESS REPORT ---
Subjective Progress Note for:: 10/04/19 Subjective:: Patient still experiencing back pain and sciatica. Otherwise denies fever chills nausea or vomiting. Reason For Visit: UTI LUCERO NAGMA LUMBAR SPONDYLOSIS Physical Exam Vital Signs: Temp Pulse Resp BP Pulse Ox 98.1 F 60 16 105/74 98 10/04/19 07:57 10/04/19 07:57 10/04/19 07:57 10/04/19 07:57 10/04/19 07:57 Intake & Output 10/03/19 10/04/19 10/05/19 06:59 06:59 06:59 Intake Total 1350 2603 350 Output Total 200 0 Balance 1150 2603 350 Weight 46.4 kg 50 kg General appearance: PRESENT: no acute distress, cooperative Neck exam: ABSENT: JVD Respiratory exam: PRESENT: clear to auscultation elaina, symmetrical, unlabored. ABSENT: tachypnea, wheezes Cardiovascular exam: PRESENT: RRR, +S1, +S2. ABSENT: tachycardia GI/Abdominal exam: PRESENT: normal bowel sounds, soft. ABSENT: firm, guarding, rebound, rigid, tenderness Musculoskeletal exam: PRESENT: tenderness - in right lower and mid back Neurological exam: PRESENT: alert, awake, oriented to person, oriented to place, oriented to time, oriented to situation Results Laboratory Results: 10/04/19 05:13 10/04/19 05:13 10/04/19 10/04/19 10/04/19 05:13 05:13 05:13 WBC 7.4 RBC 3.15 L Hgb 9.3 L Hct 28.1 L MCV 89 MCH 29.5 MCHC 33.1 RDW 17.8 H Plt Count 216 Seg Neutrophils % 72.1 VBG pH 7.34 VBG pCO2 34.3 L VBG HCO3 18.0 L VBG Base Excess -7.0 Sodium 140.2 Potassium 4.2 Chloride 118 H Carbon Dioxide 17 L Anion Gap 5 BUN 26 H Creatinine 1.27 H Est GFR ( Amer) 49 L Glucose 102 Calcium 7.9 L Total Bilirubin 0.2 AST 20 Alkaline Phosphatase 72 C-Reactive Protein 61.6 H Total Protein 4.9 L Albumin 2.2 L 10/03/19 04:16 Creatine Kinase < 20 L Impressions: Lumbar Spine X-Ray 10/02/19 11:06 IMPRESSION: Mild scoliosis. Anterolisthesis of L5 on S1. Degenerative disc disease, spondylosis, and facet arthropathy. Lumbar Spine CT 10/02/19 12:50 IMPRESSION: 1. Spondylosis, facet arthropathy and malalignment. Erosive endplate changes at L5-S1 probably due to chronic inflammation, however cannot exclude discitis. Clinical correlation is needed. 2. Dilated left renal collecting system of uncertain chronicity and etiology. Knee X-Ray 10/02/19 12:52 IMPRESSION: No acute findings. Chest X-Ray 10/02/19 14:20 IMPRESSION: COPD. NO ACUTE RADIOGRAPHIC FINDING IN THE CHEST. Lumbar Spine MRI 10/03/19 00:00 IMPRESSION: Discitis/ vertebral body osteomyelitis at L5-S1 Assessment and Plan - Diagnosis (1) Discitis of lumbosacral region Is this a current diagnosis for this admission?: Yes Plan: Have obtained paper records from [facility] in [place] and on extensive chart review of those records. Recently diagnosed on 07/21/2019 with [place] glabrata discitis of L5-S1 via vertebral bone biopsy. ESR was 88. Completed 6 weeks of micafungin based off susceptibility finished on 07/09/2019. Repeat biopsy was negative for [place]. No evidence of malignancy on biopsy. Repeat ESR on 07/16/2019 was 65 with CRP of 5. MRI of lumbar spine on 10/03/2019 shows evidence of discitis/vertebral body osteomyelitis of L5-S1. ESR now 90 and CRP of 61.6. As patient shows no evidence of sepsis, I will await consultation with infectious disease on Sunday to discuss the need for repeat bone biopsy and possible retreatment of discitis with antifungals. In the meantime, continue ceftriaxone which patient is already on for UTI. (2) Acute urinary tract infection Is this a current diagnosis for this admission?: Yes Plan: E. coli UTI Ceftriaxone day 3 of antibiotics (3) Lumbosacral radiculopathy due to degenerative joint disease of spine Is this a current diagnosis for this admission?: Yes Plan: CT lumbar spine without contrast showed spondylolisthesis of L5-S1, multilevel degenerative joint disease, erosions in the endplates at L5-S1 Patient started on gabapentin and Dilaudid by pain management Lidocaine patch PT OT --home health Will certainly benefit from seeing a neurosurgeon outpatient (4) Elevated serum creatinine Is this a current diagnosis for this admission?: Yes Plan: Patient's family reports the patient was diagnosed with renal failure by PCP recently secondary to CKD versus LUCERO on CKD Creatinine 1.5 on admission but improving with IV fluids. Continue with IV fluids and trend creatinine. Last creatinine in August was 1.13. (5) Normal anion gap metabolic acidosis Is this a current diagnosis for this admission?: Yes Plan: Suspect this is secondary to diarrhea which seems to be resolving. However NAGMA to persist at this time Lactated Ringer's (6) Iron deficiency anemia Qualifiers: Iron deficiency anemia type: other iron deficiency Qualified Code(s): D50.8 - Other iron deficiency anemias Is this a current diagnosis for this admission?: Yes Plan: Continue patient's ferrous sulfate Monitor hemoglobin (7) Leukocytosis Qualifiers: Leukocytosis type: unspecified Qualified Code(s): D72.829 - Elevated white blood cell count, unspecified Is this a current diagnosis for this admission?: Yes Plan: Mild. Likely secondary to dexamethasone patient received in the ER. Resolved - Time Time Spent with patient: 15-24 minutes
[2019-10-04] MEDS: LOPERAMIDE HCL 2 MG CAPSULE PO SCH ×2 (14:21→22:12)
[2019-10-04] MEDS: MIRTAZAPINE 15 MG TABLET PO SCH (22:12)
[2019-10-04] MEDS: ONDANSETRON HCL INJ/PF 4 MG/2 ML SDV IV PRN (22:12)
[2019-10-04] MEDS: ATORVASTATIN CALCIUM 20 MG TABLET PO SCH (22:17)
[2019-10-05] MEDS: RINGERS SOLUTION,LACTATED 1,000 ML IV PRN ×2 (03:00→14:08)
[2019-10-05] MEDS: HYDROMORPHONE HCL 2 MG TABLET PO PRN ×4 (04:37→17:57)
[2019-10-05] MEDS: ONDANSETRON HCL INJ/PF 4 MG/2 ML SDV IV PRN (04:37)
[2019-10-05] MEDS: HEPARIN SOD (PORCINE) 5,000 UNIT/ML 1 ML VIAL SUBCUT SCH ×3 (05:35→22:49)
[2019-10-05] MEDS: LEVOTHYROXINE SODIUM 0.1 MG TABLET PO SCH (05:36)
[2019-10-05] MEDS: LOPERAMIDE HCL 2 MG CAPSULE PO SCH ×3 (05:36→22:49)
[2019-10-05] MEDS: GABAPENTIN 100 MG CAPSULE PO SCH ×3 (05:36→22:49)
[2019-10-05 08:28] LABS: HEMATOCRIT 31.8 % (36.0-47.0); HEMOGLOBIN 10.4 g/dL (12.0-15.5); MEAN CORPUSCULAR HEMOGLOBIN 29.6 pg (27.0-33.4); MEAN CORPUSCULAR HGB CONC 32.8 g/dL (32.0-36.0); MEAN CORPUSCULAR VOLUME 90 fl (80-97); PLATELET COUNT 234 10^3/uL (150-450); RED BLOOD COUNT 3.53 10^6/uL (3.72-5.28); RED CELL DISTRIBUTION WIDTH 18.1 % (11.5-14.0); WHITE BLOOD COUNT 6.9 10^3/uL (4.0-10.5)
[2019-10-05 08:44] LABS: ANION GAP 8 (5-19); BLOOD UREA NITROGEN 21 mg/dL (7-20); CALCIUM 8.3 mg/dL (8.4-10.2); CARBON DIOXIDE 20 mmol/L (22-30); CHLORIDE 114 mmol/L (98-107); GLUCOSE 92 mg/dL (75-110); POTASSIUM 3.8 mmol/L (3.6-5.0)
[2019-10-05 09:04] LABS: ERYTHROCYTE SEDIMENTATION RATE 100 mm/hr (0-30)
[2019-10-05] MEDS: CEFTRIAXONE 1 GM/D5W RTU 1 GM/50 ML RTUPB IV SCH (09:45)
[2019-10-05] MEDS: TAMSULOSIN HCL 0.4 MG CAP.SR.24H PO SCH (09:45)
[2019-10-05] MEDS: FERROUS SULFATE 325 MG TABLET PO SCH (09:45)
[2019-10-05] MEDS: ASPIRIN 81 MG TABLET, ENT COATED PO SCH (09:45)
[2019-10-05] MEDS: FAMOTIDINE 20 MG TABLET PO SCH ×2 (09:45→22:49)
[2019-10-05] MEDS: ATENOLOL 50 MG TABLET PO SCH (09:45)
[2019-10-05] MEDS: LIDOCAINE 5% (700 MG) TRANSDERMAL ADH..PATCH TP SCH (09:47)
--- NOTE | 2019-10-05 11:02 | PDOC PROGRESS REPORT ---
Subjective Progress Note for:: 10/05/19 Subjective:: Patient still complains of diarrhea but has had only 2 episodes since she was started on Imodium yesterday afternoon. Prior to that she had 5 episodes yesterday morning. Otherwise still complains of some back pain. Reason For Visit: UTI LUCERO NAGMA LUMBAR SPONDYLOSIS Physical Exam Vital Signs: Temp Pulse Resp BP Pulse Ox 97.8 F 58 L 16 123/44 L 100 10/05/19 07:35 10/05/19 07:35 10/05/19 07:35 10/05/19 07:35 10/05/19 07:35 Intake & Output 10/04/19 10/05/19 10/06/19 06:59 06:59 06:59 Intake Total 2603 2130 Output Total 0 Balance 2603 2130 Weight 50 kg 48.8 kg General appearance: PRESENT: no acute distress, cooperative Respiratory exam: PRESENT: clear to auscultation elaina, symmetrical, unlabored. ABSENT: tachypnea, wheezes Cardiovascular exam: PRESENT: RRR, +S1, +S2. ABSENT: tachycardia GI/Abdominal exam: PRESENT: normal bowel sounds, soft. ABSENT: guarding, rebound, rigid, tenderness Musculoskeletal exam: PRESENT: other - Tenderness mostly in paraspinal but also in mid back and lower region. Positive straight leg test. Neurological exam: PRESENT: alert, awake, oriented to person, oriented to place, oriented to time, oriented to situation Psychiatric exam: ABSENT: agitated Results Laboratory Results: 10/05/19 08:09 10/05/19 08:09 10/05/19 10/05/19 08:09 08:09 WBC 6.9 RBC 3.53 L Hgb 10.4 L Hct 31.8 L MCV 90 MCH 29.6 MCHC 32.8 RDW 18.1 H Plt Count 234 Sodium 141.9 Potassium 3.8 Chloride 114 H Carbon Dioxide 20 L Anion Gap 8 BUN 21 H Creatinine 1.28 H Est GFR ( Amer) 49 L Glucose 92 Calcium 8.3 L 10/02/19 11:14 Clean Catch Midstream Urine Culture - Final Escherichia Coli 10/03/19 04:16 Creatine Kinase < 20 L Impressions: Lumbar Spine X-Ray 10/02/19 11:06 IMPRESSION: Mild scoliosis. Anterolisthesis of L5 on S1. Degenerative disc disease, spondylosis, and facet arthropathy. Lumbar Spine CT 10/02/19 12:50 IMPRESSION: 1. Spondylosis, facet arthropathy and malalignment. Erosive endplate changes at L5-S1 probably due to chronic inflammation, however cannot exclude discitis. Clinical correlation is needed. 2. Dilated left renal collecting system of uncertain chronicity and etiology. Knee X-Ray 10/02/19 12:52 IMPRESSION: No acute findings. Chest X-Ray 10/02/19 14:20 IMPRESSION: COPD. NO ACUTE RADIOGRAPHIC FINDING IN THE CHEST. Lumbar Spine MRI 10/03/19 00:00 IMPRESSION: Discitis/ vertebral body osteomyelitis at L5-S1 Assessment and Plan - Diagnosis (1) Discitis of lumbosacral region Is this a current diagnosis for this admission?: Yes Plan: Have obtained paper records from [facility] in [place] and on extensive chart review of those records. Recently diagnosed on 07/21/2019 with [place] glabrata discitis of L5-S1 via vertebral bone biopsy. ESR was 88. Completed 6 weeks of micafungin based off susceptibility finished on 07/09/2019. Repeat biopsy was negative for [place]. No evidence of malignancy on biopsy. Repeat ESR on 07/16/2019 was 65 with CRP of 5. MRI of lumbar spine on 10/03/2019 shows evidence of discitis/vertebral body osteomyelitis of L5-S1. ESR now trending up to 100 and CRP of 61.6. Blood cultures are negative so far. As patient shows no evidence of sepsis, I will consult with infectious disease o n Sunday to discuss the need for repeat bone biopsy and possible retreatment of discitis with antifungals. In the meantime, continue ceftriaxone which patient is already on for UTI. (2) Acute urinary tract infection Is this a current diagnosis for this admission?: Yes Plan: E. coli UTI Ceftriaxone day 4 of antibiotics (3) Lumbosacral radiculopathy due to degenerative joint disease of spine Is this a current diagnosis for this admission?: Yes Plan: CT lumbar spine without contrast showed spondylolisthesis of L5-S1, multilevel degenerative joint disease, erosions in the endplates at L5-S1 Patient started on gabapentin and Dilaudid by pain management Lidocaine patch PT OT --home health Will certainly benefit from seeing a neurosurgeon outpatient (4) Normal anion gap metabolic acidosis Is this a current diagnosis for this admission?: Yes Plan: suspect this is secondary to diarrhea but NAGMA is resolving at this time (5) Iron deficiency anemia Qualifiers: Iron deficiency anemia type: other iron deficiency Qualified Code(s): D50.8 - Other iron deficiency anemias Is this a current diagnosis for this admission?: Yes Plan: Continue patient's ferrous sulfate Monitor hemoglobin (6) CKD (chronic kidney disease) stage 3, GFR 30-59 ml/min Is this a current diagnosis for this admission?: Yes Plan: LUCERO currently resolved and creatinine seems to be stabilizing around patient's likely baseline of 1.2-1.3 (7) Chronic diarrhea Is this a current diagnosis for this admission?: Yes Plan: Check C. difficile if stool starts to become non-formed - Time Time Spent with patient: 15-24 minutes
[2019-10-05] MEDS: MIRTAZAPINE 15 MG TABLET PO SCH (22:48)
[2019-10-05] MEDS: ATORVASTATIN CALCIUM 20 MG TABLET PO SCH (22:49)
[2019-10-06] MEDS: HEPARIN SOD (PORCINE) 5,000 UNIT/ML 1 ML VIAL SUBCUT SCH ×3 (06:17→21:49)
[2019-10-06] MEDS: LOPERAMIDE HCL 2 MG CAPSULE PO SCH ×3 (06:17→23:07)
[2019-10-06] MEDS: GABAPENTIN 100 MG CAPSULE PO SCH ×3 (06:17→21:47)
[2019-10-06] MEDS: LEVOTHYROXINE SODIUM 0.1 MG TABLET PO SCH (06:18)
[2019-10-06] MEDS: HYDROMORPHONE HCL 2 MG TABLET PO PRN ×4 (06:21→19:24)
[2019-10-06] MEDS: FERROUS SULFATE 325 MG TABLET PO SCH (09:27)
[2019-10-06] MEDS: FAMOTIDINE 20 MG TABLET PO SCH ×2 (09:27→21:47)
[2019-10-06] MEDS: ATENOLOL 50 MG TABLET PO SCH (09:27)
[2019-10-06] MEDS: ASPIRIN 81 MG TABLET, ENT COATED PO SCH (09:27)
[2019-10-06] MEDS: CEFTRIAXONE 1 GM/D5W RTU 1 GM/50 ML RTUPB IV SCH (09:29)
[2019-10-06] MEDS: TAMSULOSIN HCL 0.4 MG CAP.SR.24H PO SCH (09:33)
[2019-10-06] MEDS: LIDOCAINE 5% (700 MG) TRANSDERMAL ADH..PATCH TP SCH (09:59)
[2019-10-06] MEDS ORDERED: DEXAMETHASONE SOD PHOS INJ 10 MG/1 ML VIAL IV ONE (10:04)
--- NOTE | 2019-10-06 10:14 | PDOC PROGRESS REPORT ---
Subjective Progress Note for:: 10/06/19 Subjective:: Patient still complains of some back pain. States that the pain is persistent despite it already.the Dilaudid helps reduce it. Has not been able to do much ambulation given the pain. Otherwise has not had any episodes of diarrhea today. Notably she is on Imodium. Has mild abdominal pain. Reason For Visit: UTI LUCERO NAGMA LUMBAR SPONDYLOSIS Physical Exam Vital Signs: Temp Pulse Resp BP Pulse Ox 98.0 F 79 16 106/55 L 100 10/06/19 07:23 10/06/19 07:23 10/06/19 07:23 10/06/19 07:23 10/06/19 07:23 Intake & Output 10/05/19 10/06/19 10/07/19 06:59 06:59 06:59 Intake Total 2130 3099 Balance 2130 3099 Weight 48.8 kg 53.8 kg General appearance: PRESENT: no acute distress, cooperative Neck exam: ABSENT: JVD Respiratory exam: PRESENT: clear to auscultation elaina, symmetrical, unlabored. ABSENT: tachypnea, wheezes Cardiovascular exam: PRESENT: RRR, +S1, +S2. ABSENT: tachycardia GI/Abdominal exam: PRESENT: normal bowel sounds, soft, tenderness - Mildly tender. ABSENT: distended, firm, guarding, rebound, rigid Musculoskeletal exam: PRESENT: tenderness - Presenting paraspinal and mid spine on the low back. Positive straight leg test in the left leg Neurological exam: PRESENT: alert, awake, oriented to person, oriented to place, oriented to time, oriented to situation Results Laboratory Results: 10/05/19 08:09 10/05/19 08:09 10/03/19 04:16 Creatine Kinase < 20 L Impressions: Lumbar Spine X-Ray 10/02/19 11:06 IMPRESSION: Mild scoliosis. Anterolisthesis of L5 on S1. Degenerative disc disease, spondylosis, and facet arthropathy. Lumbar Spine CT 10/02/19 12:50 IMPRESSION: 1. Spondylosis, facet arthropathy and malalignment. Erosive endplate changes at L5-S1 probably due to chronic inflammation, however cannot exclude discitis. Clinical correlation is needed. 2. Dilated left renal collecting system of uncertain chronicity and etiology. Knee X-Ray 10/02/19 12:52 IMPRESSION: No acute findings. Chest X-Ray 10/02/19 14:20 IMPRESSION: COPD. NO ACUTE RADIOGRAPHIC FINDING IN THE CHEST. 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 Recently diagnosed on 07/21/2019 with Juana glabrata discitis of L5-S1 via vertebral bone biopsy. ESR was 88. Completed 6 weeks of micafungin based off susceptibility finished on 07/09/2019. Repeat biopsy was negative for Juana. No evidence of malignancy on biopsy. Repeat ESR on 07/16/2019 was 65 with CRP of 5. MRI of lumbar spine on 10/03/2019 shows evidence of discitis/vertebral body osteomyelitis of L5-S1. ESR now trending up to 100 and CRP of 61.6. Blood cultures are negative so far. As patient shows no evidence of sepsis, I will consult with infectious disease on today to discuss the need for repeat bone biopsy and possible retreatment of discitis with antifungals. In the meantime, I will hold off on starting antifungals. Patient has received ceftriaxone for 5 days for urinary tract infection which will be discontinuing today. (2) Acute urinary tract infection Is this a current diagnosis for this admission?: Yes Plan: E. coli UTI Completed 5-day course of ceftriaxone (3) Lumbosacral radiculopathy due to degenerative joint disease of spine Is this a current diagnosis for this admission?: Yes Plan: CT lumbar spine without contrast showed spondylolisthesis of L5-S1, multilevel degenerative joint disease, erosions in the endplates at L5-S1 Patient started on gabapentin and Dilaudid by pain management Lidocaine patch I will give a shot of dexamethasone today see if that helps the pain PT OT --home health Will certainly benefit from seeing a neurosurgeon outpatient (4) Iron deficiency anemia Qualifiers: Iron deficiency anemia type: other iron deficiency Qualified Code(s): D50.8 - Other iron deficiency anemias Is this a current diagnosis for this admission?: Yes Plan: Continue patient's ferrous sulfate Monitor hemoglobin (5) CKD (chronic kidney disease) stage 3, GFR 30-59 ml/min Is this a current diagnosis for this admission?: Yes Plan: LUCERO currently resolved and creatinine seems to be stabilizing around patient's likely baseline of 1.2-1.3 (6) Chronic diarrhea Is this a current diagnosis for this admission?: Yes Plan: Check C. difficile if stool starts to become non-formed Otherwise maintained on Imodium - Time Time Spent with patient: Less than 15 minutes
[2019-10-06] MEDS ORDERED: DEXAMETHASONE SOD PHOSPHATE INJ 4 MG/1 ML VIAL IV ONE (11:00)
[2019-10-06] MEDS ORDERED: DEXTROSE 50%-WATER 25 GM/50 ML DISP.SYRIN IV PRN ×2 (18:42)
[2019-10-06] MEDS ORDERED: DEXTROSE 40% GEL 15 GM TUBE PO PRN ×2 (18:42)
[2019-10-06] MEDS ORDERED: GLUCAGON,HUMAN RECOMB 1 MG INJ SUBCUT PRN (18:42)
[2019-10-06 21:24] LABS: C DIFFICILE GDH POSITIVE (NEGATIVE)
[2019-10-06] MEDS: ATORVASTATIN CALCIUM 20 MG TABLET PO SCH (21:47)
[2019-10-06] MEDS: MIRTAZAPINE 15 MG TABLET PO SCH (21:47)
[2019-10-07] MEDS: HYDROMORPHONE HCL 2 MG TABLET PO PRN ×4 (00:35→21:54)
[2019-10-07 05:06] LABS: INTERNATIONAL RATION (INR) 1.16; PROTHROMBIN TIME 14.9 SEC (11.4-15.4)
[2019-10-07 05:07] LABS: PARTIAL THROMBOPLASTIN TIME 35.1 SEC (23.5-35.8)
[2019-10-07] MEDS: HEPARIN SOD (PORCINE) 5,000 UNIT/ML 1 ML VIAL SUBCUT SCH (06:46)
[2019-10-07] MEDS: GABAPENTIN 100 MG CAPSULE PO SCH ×3 (06:47→21:51)
[2019-10-07] MEDS: LEVOTHYROXINE SODIUM 0.1 MG TABLET PO SCH (06:47)
[2019-10-07] MEDS: LOPERAMIDE HCL 2 MG CAPSULE PO SCH (06:47)
--- NOTE | 2019-10-07 09:27 | Progress Note ---
Provider Note Provider Note: [facility] Telephone Advice Consultation Chart reviewed. Patient is a 79-year-old woman who in 07/2019 was diagnosed with vertebral osteomyelitis/discitis of L5-S1 with Juana glabrata. This diagnosis was made in [place]. It is not clear to us how she became infected or what was the portal of entry, if at some point she was transiently fungemic and it seeded her back. She received 6 weeks of micafungin and her symptoms came back. She was complaining of severe back pain. On admission, her inflammation markers are elavated and imaging studies confirmed osteomyelitis of L5-S1. ID consulted for recommendations. Allergies: diazepam [From Valium] Allergy (Verified 10/03/19 00:34) morphine Allergy (Verified 10/03/19 00:34) Penicillins Allergy (Verified 10/03/19 00:34) acetaminophen [From Tylenol] Adverse Reaction (Verified 10/03/19 00:35) Medications: Aspirin [Adult Low Dose Aspirin EC] 81 mg PO DAILY 10/02/19 Atenolol [Tenormin] 12.5 mg PO DAILY 10/02/19 Atorvastatin Calcium [Lipitor 20 mg Tablet] 20 mg PO QHS 10/02/19 Cyclobenzaprine HCl [Flexeril 5 mg Tablet] 5 mg PO TID 10/02/19 Ergocalciferol (Vitamin D2) [Vitamin D2] 50,000 unit PO MO@1000 10/02/19 Hydrocodone/Acetaminophen [[place] 7.5-325 mg Tablet] 1 tab PO Q6HP PRN 10/02/19 Levothyroxine Sodium [Synthroid 0.1 mg Tablet] 0.1 mg PO DAILY 10/02/19 Ferrous Sulfate 324 mg PO BID 10/03/19 Methocarbamol 500 mg PO BIDP PRN 10/03/19 Mirtazapine 7.5 mg PO QHS 10/03/19 Vital Signs: Temp Pulse Resp BP Pulse Ox 97.5 F 50 L 16 98/44 L 98 10/07/19 08:04 10/07/19 08:04 10/07/19 08:04 10/07/19 08:04 10/07/19 08:04 Intake & Output 10/06/19 10/07/19 10/08/19 06:59 06:59 06:59 Intake Total 3099 1480 Balance 3099 1480 Weight 53.8 kg 49.6 kg Weight/Height Weight 49.6 kg Height 5 ft 2 in Laboratories: 10/05/19 08:09 10/05/19 08:09 MCV 90 fl (80-97) 10/05/19 08:09 MCH 29.6 pg (27.0-33.4) 10/05/19 08:09 MCHC 32.8 g/dL (32.0-36.0) 10/05/19 08:09 RDW 18.1 % (11.5-14.0) H 10/05/19 08:09 Seg Neutrophils % 72.1 % (42-78) 10/04/19 05:13 VBG pH 7.34 (7.30-7.42) 10/04/19 05:13 VBG pCO2 34.3 mmHg (35-63) L 10/04/19 05:13 VBG HCO3 18.0 mmol/L (20-32) L 10/04/19 05:13 VBG Base Excess -7.0 mmol/L 10/04/19 05:13 Chloride 114 mmol/L (98-107) H 10/05/19 08:09 Carbon Dioxide 20 mmol/L (22-30) L 10/05/19 08:09 Anion Gap 8 (5-19) 10/05/19 08:09 Est GFR ( Amer) 49 (>60) L 10/05/19 08:09 Glucose 92 mg/dL (75-110) 10/05/19 08:09 Lactic Acid 1.3 mmol/L (0.7-2.1) 10/02/19 18:41 Calcium 8.3 mg/dL (8.4-10.2) L 10/05/19 08:09 Total Bilirubin 0.2 mg/dL (0.2-1.3) 10/04/19 05:13 AST 20 U/L (14-36) 10/04/19 05:13 Alkaline Phosphatase 72 U/L (38-126) 10/04/19 05:13 C-Reactive Protein 61.6 mg/L (<10.0) H 10/04/19 05:13 Total Protein 4.9 g/dL (6.3-8.2) L 10/04/19 05:13 Albumin 2.2 g/dL (3.5-5.0) L 10/04/19 05:13 Urine Color YELLOW 10/02/19 11:14 Urine Appearance TURBID 10/02/19 11:14 Urine pH 5.0 (5.0-9.0) 10/02/19 11:14 Ur Specific [place] 1.013 10/02/19 11:14 Urine Protein 100 mg/dL (NEGATIVE) H 10/02/19 11:14 Urine Glucose (UA) NEGATIVE mg/dL (NEGATIVE) 10/02/19 11:14 Urine Ketones NEGATIVE mg/dL (NEGATIVE) 10/02/19 11:14 Urine Blood MODERATE (NEGATIVE) H 10/02/19 11:14 Urine RBC (Auto) 91 /HPF 10/02/19 11:14 10/03/19 04:16 Creatine Kinase < 20 L Radiology: Lumbar Spine X-Ray 10/02/19 11:06 IMPRESSION: Mild scoliosis. Anterolisthesis of L5 on S1. Degenerative disc disease, spondylosis, and facet arthropathy. Lumbar Spine CT 10/02/19 12:50 IMPRESSION: 1. Spondylosis, facet arthropathy and malalignment. Erosive endplate changes at L5-S1 probably due to chronic inflammation, however cannot exclude discitis. Clinical correlation is needed. 2. Dilated left renal collecting system of uncertain chronicity and etiology. Knee X-Ray 10/02/19 12:52 IMPRESSION: No acute findings. Chest X-Ray 10/02/19 14:20 IMPRESSION: COPD. NO ACUTE RADIOGRAPHIC FINDING IN THE CHEST. Lumbar Spine MRI 10/03/19 00:00 IMPRESSION: Discitis/ vertebral body osteomyelitis at L5-S1 Assessment and Recommendations: Patient evaluated for Juana glabrata L5-S1 discitis and vertebral osteomyelitis. She is s/p micafungin x 6 weeks, but she has been off antifungals for over 4 weeks. Ideally, will recommend biopsy for cultures and pathology. Would assess for further resistance in the setting of previous antifungal therapy. It was already resistant to fluconazole and itraconazole. Would request susceptibilities for isavuconazole and voriconazole which are oral options considering that the treatment of fungal osteomyelitis if for 6 months. Please let us know if this is not possible. Christel Bill MD [facility] [phone]
[2019-10-07] MEDS: TAMSULOSIN HCL 0.4 MG CAP.SR.24H PO SCH (09:46)
[2019-10-07] MEDS: FERROUS SULFATE 325 MG TABLET PO SCH (09:46)
[2019-10-07] MEDS: VANCOMYCIN HCL INJ 500 MG VIAL PO SCH ×3 (09:46→21:49)
[2019-10-07] MEDS: FAMOTIDINE 20 MG TABLET PO SCH ×2 (09:46→21:51)
[2019-10-07] MEDS: ATENOLOL 50 MG TABLET PO SCH (09:49)
[2019-10-07] MEDS: LIDOCAINE 5% (700 MG) TRANSDERMAL ADH..PATCH TP SCH (11:07)
--- NOTE | 2019-10-07 12:20 | PDOC PROGRESS REPORT ---
Subjective Progress Note for:: 10/07/19 Subjective:: Patient still expresses some back pain but a little better from yesterday. Worked with physical therapy yesterday. Had about 2-3 bowel movements yesterday. Denies fever or chills. Still expresses some abdominal pain. Reason For Visit: UTI LUCERO NAGMA LUMBAR SPONDYLOSIS Physical Exam Vital Signs: Temp Pulse Resp BP Pulse Ox 97.5 F 50 L 16 98/44 L 98 10/07/19 08:04 10/07/19 08:04 10/07/19 08:04 10/07/19 08:04 10/07/19 08:04 Intake & Output 10/06/19 10/07/19 10/08/19 06:59 06:59 06:59 Intake Total 3099 1480 Balance 3099 1480 Weight 53.8 kg 49.6 kg General appearance: PRESENT: no acute distress, cooperative Neck exam: ABSENT: JVD Respiratory exam: PRESENT: clear to auscultation elaina, unlabored. ABSENT: tachypnea, wheezes Cardiovascular exam: PRESENT: RRR, +S1, +S2. ABSENT: tachycardia GI/Abdominal exam: PRESENT: normal bowel sounds, soft. ABSENT: rebound, rigid, tenderness Musculoskeletal exam: PRESENT: tenderness - Mid spinal paraspinal regions in the lower back Neurological exam: PRESENT: alert, awake, oriented to person, oriented to place, oriented to time, oriented to situation Results Laboratory Results: 10/05/19 08:09 10/05/19 08:09 10/03/19 04:16 Creatine Kinase < 20 L Impressions: Lumbar Spine X-Ray 10/02/19 11:06 IMPRESSION: Mild scoliosis. Anterolisthesis of L5 on S1. Degenerative disc disease, spondylosis, and facet arthropathy. Lumbar Spine CT 10/02/19 12:50 IMPRESSION: 1. Spondylosis, facet arthropathy and malalignment. Erosive endplate changes at L5-S1 probably due to chronic inflammation, however cannot exclude discitis. Clinical correlation is needed. 2. Dilated left renal collecting system of uncertain chronicity and etiology. Knee X-Ray 10/02/19 12:52 IMPRESSION: No acute findings. Chest X-Ray 10/02/19 14:20 IMPRESSION: COPD. NO ACUTE RADIOGRAPHIC FINDING IN THE CHEST. Lumbar Spine MRI 10/03/19 00:00 IMPRESSION: Discitis/ vertebral body osteomyelitis at L5-S1 Assessment and Plan - Diagnosis (1) Discitis of lumbosacral region Is this a current diagnosis for this admission?: Yes Plan: Have obtained paper records from [facility] in [place] and on extensive chart review of those records. Recently diagnosed on 07/21/2019 with Juana glabrata discitis of L5-S1 via srikanth tebral bone biopsy. ESR was 88. Completed 6 weeks of micafungin based off susceptibility finished on 07/09/2019. Repeat biopsy was negative for Juana. No evidence of malignancy on biopsy. Repeat ESR on 07/16/2019 was 65 with CRP of 5. MRI of lumbar spine on 10/03/2019 shows evidence of discitis/vertebral body osteomyelitis of L5-S1. ESR now trending up to 100 and CRP of 61.6. Blood cultures are negative so far. I discussed case with ID yesterday volunteers that I do treatment for fungal osteomyelitis/discitis should be 6 weeks of IV antifungals then oral antifungal to complete a 6-month course. There is concern about patient being off antifungals for the past 4 weeks which could have left room for development of further resistance. ID recommending bone biopsy of the L5-S1 with aparicio sceptibility testing for voriconazole and isavuconazole which would be potential of oral options. Have discussed case with radiology and patient is scheduled for CT-guided L5-S1 biopsy tomorrow. Aspirin and heparin prophylaxis on hold. (2) C. difficile colitis Is this a current diagnosis for this admission?: Yes Plan: Vancomycin p.o. 125 mg every 6 hours started. Day 10/10. (3) Acute urinary tract infection Is this a current diagnosis for this admission?: Yes Plan: E. coli UTI Completed 5-day course of ceftriaxone (4) Lumbosacral radiculopathy due to degenerative joint disease of spine Is this a current diagnosis for this admission?: Yes Plan: CT lumbar spine without contrast showed spondylolisthesis of L5-S1, multilevel degenerative joint disease, erosions in the endplates at L5-S1 Patient started on gabapentin and Dilaudid by pain management Lidocaine patch. Dexamethasone shots often help. PT OT Will certainly benefit from seeing a neurosurgeon outpatient (5) Iron deficiency anemia Qualifiers: Iron deficiency anemia type: other iron deficiency Qualified Code(s): D50.8 - Other iron deficiency anemias Is this a current diagnosis for this admission?: Yes Plan: Continue patient's ferrous sulfate (6) CKD (chronic kidney disease) stage 3, GFR 30-59 ml/min Is this a current diagnosis for this admission?: Yes Plan: LUCERO resolved and creatinine seems to be stabilizing around patient's likely baseline of 1.2-1.3. Avoid nephrotoxic medications. - Time Time Spent with patient: 15-24 minutes
[2019-10-07] MEDS ORDERED: DEXAMETHASONE SOD PHOS INJ 10 MG/1 ML VIAL IV ONE (14:45)
[2019-10-07] MEDS: ATORVASTATIN CALCIUM 20 MG TABLET PO SCH (21:51)
[2019-10-07] MEDS: MIRTAZAPINE 15 MG TABLET PO SCH (21:51)
[2019-10-08] MEDS: VANCOMYCIN HCL INJ 500 MG VIAL PO SCH ×4 (03:20→21:46)
[2019-10-08 04:58] LABS: ANION GAP 10 (5-19); BLOOD UREA NITROGEN 32 mg/dL (7-20); CALCIUM 8.1 mg/dL (8.4-10.2); CARBON DIOXIDE 17 mmol/L (22-30); CHLORIDE 112 mmol/L (98-107); GLUCOSE 152 mg/dL (75-110)
[2019-10-08] MEDS: GABAPENTIN 100 MG CAPSULE PO SCH ×3 (05:50→21:47)
[2019-10-08] MEDS: LEVOTHYROXINE SODIUM 0.1 MG TABLET PO SCH (05:51)
[2019-10-08] MEDS: HYDROMORPHONE HCL 2 MG TABLET PO PRN ×3 (05:53→19:02)
[2019-10-08] MEDS: FERROUS SULFATE 325 MG TABLET PO SCH (09:08)
[2019-10-08] MEDS: TAMSULOSIN HCL 0.4 MG CAP.SR.24H PO SCH (09:09)
[2019-10-08] MEDS: LIDOCAINE 5% (700 MG) TRANSDERMAL ADH..PATCH TP SCH (09:09)
[2019-10-08] MEDS: ATENOLOL 50 MG TABLET PO SCH (09:09)
[2019-10-08] MEDS: FAMOTIDINE 20 MG TABLET PO SCH ×2 (09:09→21:47)
[2019-10-08] MEDS ORDERED: MIDAZOLAM 2 MG/2 ML INJ ONE (10:07)
[2019-10-08] MEDS ORDERED: FENTANYL CITRATE INJ/PF 100 MCG/2 ML AMPUL ONE (10:08)
[2019-10-08] MEDS ORDERED: BUPIVACAINE HCL 0.5 % INJ/PF 30 ML SDV ONE (10:48)
--- NOTE | 2019-10-08 13:01 | PDOC PROGRESS REPORT ---
Subjective Progress Note for:: 10/08/19 Subjective:: JORGE DOBSON is a 79 year old female with a history of recently diagnosed fungal lumbar discitis [completed treatment], resolved diabetes mellitus, peptic ulcer disease s/p surgery, hypertension, CVA, hypothyroidism, depression, who presents with complaint of low back pain, urinary incontinence and polyuria. Polyuria and urinary incontinence have been present for about 2 weeks now. Patient endorses some chills. Denies fevers no dysuria. Of note, patient has been experiencing low back pain since November 2018 after sustaining a fracture in her back. 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 She had subsequently experienced significant improvement in back pain and underwent physical therapy. About 2 weeks ago, patient still experiencing some urinary incontinence. Patient was discharged from SNF on September 16 but has been experiencing more difficulty with ambulation or weakness in her lower extremities since then. 10/08/2019. No acute events overnight. Patient still complaining of back and bilateral lower extremity pain, n.p.o. for vertebral bone biopsy today, denies any fever, chills, nausea, vomiting, diarrhea, constipation or any urinary symptoms. Ambulatory, having normal bowel and bladder movements, p.o. tolerant. Reason For Visit: UTI LUCERO NAGMA LUMBAR SPONDYLOSIS Physical Exam Vital Signs: Temp Pulse Resp BP Pulse Ox 98.6 F 57 L 15 103/52 L 99 10/08/19 08:04 10/08/19 08:04 10/08/19 08:04 10/08/19 08:04 10/08/19 08:04 Intake & Output 10/07/19 10/08/19 10/09/19 06:59 06:59 06:59 Intake Total 1480 1287 0 Balance 1480 1287 0 Weight 49.6 kg 48.2 kg General appearance: PRESENT: no acute distress, well-developed, well-nourished Head exam: PRESENT: atraumatic, normocephalic Respiratory exam: PRESENT: clear to auscultation elaina. ABSENT: rales, rhonchi, wheezes Cardiovascular exam: PRESENT: RRR. ABSENT: diastolic murmur, rubs, systolic murmur GI/Abdominal exam: PRESENT: normal bowel sounds, soft. ABSENT: distended, guarding, mass, organolmegaly, rebound, tenderness Extremities exam: PRESENT: tenderness - Lumbar spine. Neurological exam: PRESENT: alert, awake, oriented to person, oriented to place, oriented to time, oriented to situation, CN II-XII grossly intact. ABSENT: motor sensory deficit Results Laboratory Results: 10/05/19 08:09 10/08/19 04:30 10/08/19 04:30 Sodium 139.4 Potassium 5.0 Chloride 112 H Carbon Dioxide 17 L Anion Gap 10 BUN 32 H Creatinine 1.24 Est GFR ( Amer) 50 L Glucose 152 H Calcium 8.1 L 10/02/19 12:50 Blood Blood Culture - Final NO GROWTH IN 5 DAYS 10/02/19 13:05 Blood Blood Culture - Final NO GROWTH IN 5 DAYS 10/03/19 04:16 Creatine Kinase < 20 L Impressions: Lumbar Spine X-Ray 10/02/19 11:06 IMPRESSION: Mild scoliosis. Anterolisthesis of L5 on S1. Degenerative disc disease, spondylosis, and facet arthropathy. Lumbar Spine CT 10/02/19 12:50 IMPRESSION: 1. Spondylosis, facet arthropathy and malalignment. Erosive endplate changes at L5-S1 probably due to chronic inflammation, however cannot exclude discitis. Clinical correlation is needed. 2. Dilated left renal collecting system of uncertain chronicity and etiology. Knee X-Ray 10/02/19 12:52 IMPRESSION: No acute findings. Chest X-Ray 10/02/19 14:20 IMPRESSION: COPD. NO ACUTE RADIOGRAPHIC FINDING IN THE CHEST. Lumbar Spine MRI 10/03/19 00:00 IMPRESSION: Discitis/ vertebral body osteomyelitis at L5-S1 Assessment and Plan - Diagnosis (1) Discitis of lumbosacral region Is this a current diagnosis for this admission?: Yes Plan: As per previous attending note records from [facility] in [place] has been reviewed extensively with the following findings. Recently diagnosed on 07/21/2019 with Juana glabrata discitis of L5-S1 via vertebral bone biopsy. ESR was 88. Completed 6 weeks of micafungin based off susceptibility finished on 07/09/2019. Repeat biopsy was negative for Juana. No evidence of malignancy on biopsy. Repeat ESR on 07/16/2019 was 65 with CRP of 5. MRI of lumbar spine on 10/03/2019 shows evidence of discitis/vertebral body os teomyelitis of L5-S1. ESR now trending up to 100 and CRP of 61.6. Blood cultures are negative so far. As per ID specialist treatment for fungal osteomyelitis/discitis should be 6 weeks of IV antifungals then oral antifungal to complete a 6-month course. There is concern about patient being off antifungals for the past 4 weeks which could have left room for development of further resistance. ID recommending bone biopsy of the L5-S1 with susceptibility testing for voriconazole and isavuconazole which would be potential of oral options. Status post vertebral bone biopsy 10/08/2019. Follow-up pathology and culture results. (2) CKD (chronic kidney disease) stage 3, GFR 30-59 ml/min Is this a current diagnosis for this admission?: Yes Plan: Presented with LUCERO on CKD. LUCERO has resolved. Creatinine back to baseline. Electrolytes WNL. Euvolemic. Nonoliguric. Monitor volume status and electrolytes replace as needed. Avoid nephrotoxic meds. Outpatient nephrology follow-up. (3) Acute urinary tract infection Is this a current diagnosis for this admission?: Yes Plan: Due to E. coli. Resistant to penicillins, Bactrim and quinolones. Completed 5 days of IV ceftriaxone. Asymptomatic. Afebrile. WBC WNL. (4) C. difficile colitis Is this a current diagnosis for this admission?: Yes Plan: Still having persistent diarrhea. WBC WNL. Kidney function improving. Platelets WNL. Day 11/10 Vancomycin p.o. 125 mg every 6 hours started. Continue vancomycin. Monitor volume status and electrolytes replace as needed. (5) Iron deficiency anemia Qualifiers: Iron deficiency anemia type: other iron deficiency Qualified Code(s): D50.8 - Other iron deficiency anemias Is this a current diagnosis for this admission?: Yes Plan: Continue patient's ferrous sulfate (6) Lumbosacral radiculopathy due to degenerative joint disease of spine Is this a current diagnosis for this admission?: Yes Plan: History of multilevel DJD. MRI L-spine discitis/vertebral body osteomyelitis at L5-S1. Diffuse multilevel DJD. No signs or symptoms of cauda equina. Having normal bowel and bladder movements. Continue PT/OT. Continue gabapentin, opioid and non-opioid analgesics and lidocaine patch as needed. Monitor for fall and respiratory depression. Outpatient physical therapy, pain management, neurosurgery vs orthopedic surgery follow-up.
--- NOTE | 2019-10-08 13:55 | RADIOLOGY REPORT (SQ) ---
EXAM DESCRIPTION: CT BIOPSY BONE DEEP COMPLETED DATE/TIME: 10/08/2019 11:33 am REASON FOR STUDY: fungal l5-s1 discitis. L5-S1 DISC BIOPSY COMPARISON: MRI of the lumbar spine from 10/03/[address] of the lumbar spine without contrast from . FLUORO TIME: 5.5 seconds. 97 images submitted to PACS. LIMITATIONS: None. PROCEDURE: The procedure, risks, benefits, and alternatives were discussed with the patient in the p reprocedural area, and all questions were answered. Informed consent was obtained verbally and in wri ting. The patient was then brought to the CT suite, positioned prone on the CT gurney, and a time-out was p erformed. After that, axial images of the pelvis were obtained for targeting of the L5-S1 interverteb ral disc space. Based on review of the axial images an appropriate access site was selected on the le ft buttock. The area around the selected access site was then prepped and draped 2% chlorhexidine utilizing stand jerald sterile technique. After that, the access site was infiltrated 1% lidocaine and a skin incision w as made with a #11 blade. The periosteum of the left transverse process of the S1 vertebra was then anesthestized with bupivacaine. After that, an 11 gauge Osteo-Site Bateman coaxial needle was advance d into the intervertebral disc space via a transpedicular approach. The inner stylet of the coaxial needle was replaced for an 18 gauge biopsy needle and 5 core samples were obtained. The cannula of the Osteo-Site Bateman coaxial needle was then removed and axial images of the biopsied area were obtained to exclude an acute complication. The patient tolerated the procedure well without immediate complication. At the end of the procedure the patient's condition was unchanged from the preprocedural baseline. IV conscious sedation was administered at the direction of the performing physician by a ketan mackey. 1 milligrams of Versed and 100 micrograms of fentanyl. Physiologic monitoring was provided befo re, during, and after sedation. The total sedation time was 30 minutes. Documentation of [id number]-yc-ynhu time performing proceduralist spent monitoring the patient: 15 minutes. IMPRESSION: Successful CT-guided biopsy of the L5-S1 intervertebral disc space via a transpedicular approach as detailed above. COMMENT: Patient medication list reviewed:Yes- Quality ID# [id number]:Eligible professional attests to docu menting in the medical record they obtained, updated, or reviewed the patient's current medications. Quality ID #76: The patient was prepped and draped using maximum sterile barrier technique including cap, mask, sterile gown, sterile gloves, a large sterile sheet, hand hygiene, and 2% Chlorhexidine fo r cutaneous antisepsis. When ultrasound is used, sterile ultrasound techniques are followed requiring sterile gel and sterile probes. Quality ID 145: Final reports for procedures using fluoroscopy that document radiation exposure nevaeh flor, or exposure time and number of fluorographic images (if radiation exposure indices are not avail able) Quality ID# [id number]: Final reports with documentation of one or more dose reduction techniques (e.g., Aut omated exposure control, adjustment of the mA and/or kV according to patient size, use of iterative r econstruction technique) TECHNICAL DOCUMENTATION: JOB ID: [id number] [employer]- All Rights Reserved rev-01/16 Reading location - IP/workstation name: [email or web address]
[2019-10-08] MEDS: ATORVASTATIN CALCIUM 20 MG TABLET PO SCH (21:48)
[2019-10-08] MEDS: MIRTAZAPINE 15 MG TABLET PO SCH (21:48)
[2019-10-09] MEDS: VANCOMYCIN HCL INJ 500 MG VIAL PO SCH ×4 (03:20→21:46)
[2019-10-09 05:05] LABS: ABSOLUTE EOSINOPHILS # (AUTO) 0.1 10^3/uL (0.0-0.6); ABSOLUTE LYMPHOCYTES (AUTO) 1.8 10^3/uL (0.5-4.7); ABSOLUTE MONOCYTES (AUTO) 0.7 10^3/uL (0.1-1.4); ABSOLUTE NEUT (AUTO) 5.8 10^3/uL (1.7-8.2); BASOPHILS % (AUTO) 0.6 % (0-2); EOSINOPHILS % (AUTO) 0.9 % (0-6); HEMOGLOBIN 9.3 g/dL (12.0-15.5); LYMPHOCYTES % (AUTO) 21.3 % (13-45); MEAN CORPUSCULAR HEMOGLOBIN 29.3 pg (27.0-33.4); MEAN CORPUSCULAR VOLUME 89 fl (80-97); MONOCYTES % (AUTO) 8.6 % (3-13); PLATELET COUNT 262 10^3/uL (150-450); RED BLOOD COUNT 3.16 10^6/uL (3.72-5.28); RED CELL DISTRIBUTION WIDTH 17.6 % (11.5-14.0); SEGMENTED NEUTROPHILS % (AUTO) 68.6 % (42-78); TOTAL CELLS COUNTED % (AUTO) 100 %; WHITE BLOOD COUNT 8.5 10^3/uL (4.0-10.5)
[2019-10-09 05:25] LABS: ANION GAP 7 (5-19); BLOOD UREA NITROGEN 29 mg/dL (7-20); CALCIUM 8.1 mg/dL (8.4-10.2); CARBON DIOXIDE 19 mmol/L (22-30); CHLORIDE 112 mmol/L (98-107); GLUCOSE 81 mg/dL (75-110); POTASSIUM 4.7 mmol/L (3.6-5.0)
[2019-10-09] MEDS: GABAPENTIN 100 MG CAPSULE PO SCH ×3 (06:52→21:46)
[2019-10-09] MEDS: LEVOTHYROXINE SODIUM 0.1 MG TABLET PO SCH (06:52)
[2019-10-09] MEDS: CYCLOBENZAPRINE HCL 10 MG TABLET PO PRN (06:59)
--- NOTE | 2019-10-09 08:31 | PDOC CONSULTATION ---
Consultation Consult Date: 10/03/19 Provider Consulted: EVANS LAM Consult reason:: Pain History of Present Illness Admission Date/PCP: 10/02/19 15:16 History of Present Illness: JORGE DOBSON is a 79 year old female admitted yesterday for severe back pain and sciatica. She has a hx of discitis, fungal I believe, treated with IV medications while living in [place]. Her brother and pgopyf-hw-syw recently moved her down to [place] to help take care of her since she was not doing well on her own. She notes in the past week her pain has been severe and has not been able to ambulate. Pain outside of the office was treated with hydrocodone, which is not effective. IV Dilaudid was effective; has not tried PO Dilaudid. She has not tried neuropathics she believes. Past Medical History Cardiac Medical History: Reports: Myocardial Infarction Endocrine Medical History: Reports: Diabetes Mellitus Type 2 Musculoskeltal Medical History: Reports: Arthritis, Other - Back pain Psychiatric Medical History: Reports: Depression Past Surgical History Past Surgical History: Reports: Other - Neck surgery Social History Lives with: Family Smoking Status: Former Smoker Electronic Cigarette use?: No Frequency of Alcohol Use: None Hx Recreational Drug Use: No Drugs: None Hx Prescription Drug Abuse: No - Advance Directive Resuscitation Status: Do Not Intubate Family History Family History: Reviewed & Not Pertinent Parental Family History Reviewed: No Children Family History Reviewed: No Sibling(s) Family History Reviewed.: No Medication/Allergy Home Medications: Aspirin [Adult Low Dose Aspirin EC] 81 mg PO DAILY 10/02/19 Atenolol [Tenormin] 12.5 mg PO DAILY 10/02/19 Atorvastatin Calcium [Lipitor 20 mg Tablet] 20 mg PO QHS 10/02/19 Cyclobenzaprine HCl [Flexeril 5 mg Tablet] 5 mg PO TID 10/02/19 Ergocalciferol (Vitamin D2) [Vitamin D2] 50,000 unit PO MO@1000 10/02/19 Hydrocodone/Acetaminophen [[place]ington 7.5-325 mg Tablet] 1 tab PO Q6HP PRN 10/02/19 Levothyroxine Sodium [Synthroid 0.1 mg Tablet] 0.1 mg PO DAILY 10/02/19 Ferrous Sulfate 324 mg PO BID 10/03/19 Methocarbamol 500 mg PO BIDP PRN 10/03/19 Mirtazapine 7.5 mg PO QHS 10/03/19 Allergies/Adverse Reactions: diazepam [From Valium] Allergy (Verified 10/03/19 00:34) morphine Allergy (Verified 10/03/19 00:34) Penicillins Allergy (Verified 10/03/19 00:34) acetaminophen [From Tylenol] Adverse Reaction (Verified 10/03/19 00:35) Review of Systems Constitutional: PRESENT: weakness, weight loss. ABSENT: chills, fever(s), headache(s), night sweats Nose, Mouth, and Throat: ABSENT: headache(s) Cardiovascular: ABSENT: chest pain Respiratory: ABSENT: cough Gastrointestinal: ABSENT: abdominal pain, constipation Musculoskeletal: PRESENT: back pain Neurological: ABSENT: abnormal movements, abnormal speech, confusion, paresthesias Physical Exam Vital Signs: Temp Pulse Resp BP Pulse Ox 98.6 F 88 18 118/41 L 100 RA 10/03/19 15:10 10/03/19 15:10 10/03/19 15:10 10/03/19 15:10 10/03/19 15:10 General appearance: PRESENT: no acute distress, thin, other - very thin appearance; laying in curled up position on her right side with legs curled up towards her chest Head exam: PRESENT: atraumatic, normocephalic Eye exam: PRESENT: EOMI, PERRLA. ABSENT: scleral icterus Respiratory exam: PRESENT: clear to auscultation elaina. ABSENT: accessory muscle use Cardiovascular exam: PRESENT: RRR, other - (-)edema; pulses +2 b/l radial and dorsalis pedis GI/Abdominal exam: PRESENT: normal bowel sounds. ABSENT: distended, tenderness Extremities exam: PRESENT: other - Is able to move her BLE while laying in bed. ABSENT: calf tenderness, pedal edema, tenderness Neurological exam: PRESENT: alert, awake, oriented to person, oriented to place, oriented to time, oriented to situation, CN II-XII grossly intact - sensation intact BLE, strength 5/5 EHL, dorsi and plantar flexion; (-)clonus on ankle jerks Psychiatric exam: PRESENT: normal mood Additional comments: Pt's [id number] is present in room today Results Laboratory Results: Impressions: Lumbar Spine X-Ray 10/02/19 11:06 IMPRESSION: -Mild scoliosis. Anterolisthesis of L5 on S1. Degenerative disc disease, spondylosis, and facet arthropathy. Lumbar Spine CT 10/02/19 12:50 IMPRESSION: 1. Spondylosis, facet arthropathy and malalignment. Erosive endplate changes at L5-S1 probably due to chronic inflammation, however cannot exclude discitis. Clinical correlation is needed. 2. Dilated left renal collecting system of uncertain chronicity and etiology. 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 D/c hydrocodone and IV hydromorphone 2. Trial Dilaudid 2mg q4hr prn pain 3-5/5 3. Addition of Neurontin 100mg TID for radicular sx
[2019-10-09] MEDS: LIDOCAINE 5% (700 MG) TRANSDERMAL ADH..PATCH TP SCH (09:49)
[2019-10-09] MEDS: FERROUS SULFATE 325 MG TABLET PO SCH (09:49)
[2019-10-09] MEDS: FAMOTIDINE 20 MG TABLET PO SCH ×2 (09:49→21:47)
[2019-10-09] MEDS: TAMSULOSIN HCL 0.4 MG CAP.SR.24H PO SCH (09:49)
[2019-10-09] MEDS: CARVEDILOL 12.5 MG TABLET PO SCH ×2 (11:21→21:47)
[2019-10-09] MEDS: HYDROMORPHONE HCL 2 MG TABLET PO PRN ×2 (11:22→16:32)
--- NOTE | 2019-10-09 11:57 | PDOC PROGRESS REPORT ---
Subjective Progress Note for:: 10/09/19 Subjective:: JORGE DOBSON is a 79 year old female with a history of recently diagnosed fungal lumbar discitis [completed treatment], resolved diabetes mellitus, peptic ulcer disease s/p surgery, hypertension, CVA, hypothyroidism, depression, who presents with complaint of low back pain, urinary incontinence and polyuria. Polyuria and urinary incontinence have been present for about 2 weeks now. Patient endorses some chills. Denies fevers no dysuria. Of note, patient has been experiencing low back pain since November 2018 after sustaining a fracture in her back. In July 2019, she was diagnosed with fungal discitis of her lumbar spine at [facility] in [place] and was discharged to [facility] to complete 6 weeks of IV antifungal course which concluded on September 08. She had subsequently experienced significant improvement in back pain and underwent physical therapy. About 2 weeks ago, patient still experiencing some urinary incontinence. Patient was discharged from SNF on September 16 but has been experiencing more difficulty with ambulation or weakness in her lower extremities since then. 10/08/2019. No acute events overnight. Patient still complaining of back and bilateral lower extremity pain, n.p.o. for vertebral bone biopsy today, denies any fever, chills, nausea, vomiting, diarrhea, constipation or any urinary symptoms. Ambulatory, having normal bowel and bladder movements, p.o. tolerant. 10/09/2019. No acute events overnight. Patient still complaining of severe lumbar spine pain and persistent diarrhea. Denies any fever, chills, nausea, vomiting, diarrhea, constipation or any urinary symptoms. Cannot ambulate due to severe back pain, p.o. tolerant. Reason For Visit: UTI ULCERO NAGMA LUMBAR SPONDYLOSIS Physical Exam Vital Signs: Temp Pulse Resp BP Pulse Ox 98.2 F 65 16 110/54 L 99 10/09/19 07:29 10/09/19 07:29 10/09/19 07:29 10/09/19 07:29 10/09/19 07:29 Intake & Output 10/08/19 10/09/19 10/10/19 06:59 06:59 06:59 Intake Total 1287 450 Balance 1287 450 Weight 48.2 kg 55.1 kg General appearance: PRESENT: no acute distress, well-developed, well-nourished Head exam: PRESENT: atraumatic, normocephalic Respiratory exam: PRESENT: clear to auscultation elaina. ABSENT: rales, rhonchi, wheezes Cardiovascular exam: PRESENT: RRR. ABSENT: diastolic murmur, rubs, systolic murmur GI/Abdominal exam: PRESENT: normal bowel sounds, soft. ABSENT: distended, guarding, mass, organolmegaly, rebound, tenderness Extremities exam: PRESENT: tenderness - Lumbar spine. Neurological exam: PRESENT: alert, awake, oriented to person, oriented to place, oriented to time, oriented to situation, CN II-XII grossly intact. ABSENT: motor sensory deficit Results Laboratory Results: 10/09/19 04:24 10/09/19 04:24 10/09/19 10/09/19 04:24 04:24 WBC 8.5 RBC 3.16 L Hgb 9.3 L Hct 28.0 L MCV 89 MCH 29.3 MCHC 33.0 RDW 17.6 H Plt Count 262 Seg Neutrophils % 68.6 Sodium 138.0 Potassium 4.7 Chloride 112 H Carbon Dioxide 19 L Anion Gap 7 BUN 29 H Creatinine 1.15 Est GFR ( Amer) 55 L Glucose 81 Calcium 8.1 L 10/03/19 04:16 Creatine Kinase < 20 L Impressions: Lumbar Spine X-Ray 10/02/19 11:06 IMPRESSION: Mild scoliosis. Anterolisthesis of L5 on S1. Degenerative disc disease, spondylosis, and facet arthropathy. Lumbar Spine CT 10/02/19 12:50 IMPRESSION: 1. Spondylosis, facet arthropathy and malalignment. Erosive endplate changes at L5-S1 probably due to chronic inflammation, however cannot exclude discitis. Clinical correlation is needed. 2. Dilated left renal collecting system of uncertain chronicity and etiology. Knee X-Ray 10/02/19 12:52 IMPRESSION: No acute findings. Chest X-Ray 10/02/19 14:20 IMPRESSION: COPD. NO ACUTE RADIOGRAPHIC FINDING IN THE CHEST. 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 Confirmed with bone biopsy. As per records obtained from [facility] in [place]. Diagnosed 07/21/2019 with Juana glabrata discitis of L5-S1 via vertebral bone biopsy. Completed 6 weeks of micafungin based off susceptibility finished on 07/09/2019. Repeat biopsy was negative for Juana. No evidence of malignancy on biopsy. Repeat ESR on 07/16/2019 was 65 with CRP of 5. MRI of lumbar spine on 10/03/2019 shows evidence of discitis/vertebral body osteomyelitis of L5-S1. 10/12/2019. ESR 100. 10/04/2019 CRP 61.6. As per ID specialist treatment for fungal osteomyelitis/discitis should be 6 weeks of IV antifungals then oral antifungal to complete a 6-month course. There is concern about patient being off antifungals for the past 4 weeks which could have left room for development of further resistance. ID recommending bone biopsy of the L5-S1 with susceptibility testing for voriconazole and isavuconazole which would be potential of oral options. Status post vertebral bone biopsy 10/08/2019. Follow-up pathology and culture results. ID specialist consulted for resumption of any antifungals while waiting for bone marrow biopsy and fungal culture. (2) CKD (chronic kidney disease) stage 3, GFR 30-59 ml/min Is this a current diagnosis for this admission?: Yes Plan: Presented with LUCERO on CKD. LUCERO has resolved. Creatinine back to baseline. Electrolytes WNL. Euvolemic. Nonoliguric. Monitor volume status and electrolytes replace as needed. Avoid nephrotoxic meds. Outpatient nephrology follow-up. (3) Acute urinary tract infection Is this a current diagnosis for this admission?: Yes Plan: Due to E. coli. Resistant to penicillins, Bactrim and quinolones. Completed 5 days of IV ceftriaxone. Asymptomatic. Afebrile. WBC WNL. (4) C. difficile colitis Is this a current diagnosis for this admission?: Yes Plan: WBC WNL. Kidney function improving. Platelets WNL. Still having persistent diarrhea. Day 3 Vancomycin p.o. 125 mg every 6 hours started. Continue vancomycin. Monitor volume status and electrolytes replace as needed. (5) Iron deficiency anemia Qualifiers: Iron deficiency anemia type: other iron deficiency Qualified Code(s): D50.8 - Other iron deficiency anemias Is this a current diagnosis for this admission?: Yes Plan: Continue patient's ferrous sulfate (6) Lumbosacral radiculopathy due to degenerative joint disease of spine Is this a current diagnosis for this admission?: Yes Plan: History of multilevel DJD. MRI L-spine discitis/vertebral body osteomyelitis at L5-S1. Diffuse multilevel DJD. No signs or symptoms of cauda equina. Having normal bowel and bladder movements. Continue PT/OT. Continue gabapentin, opioid and non-opioid analgesics and lidocaine patch as needed. Monitor for fall and respiratory depression. Pain management consulted. Recommendations noted. Outpatient PCP, neurosurgery versus orthopedic and pain management follow-up.
[2019-10-09] MEDS ORDERED: LIDOCAINE 5% (700 MG) TRANSDERMAL ADH..PATCH TP ONE (13:00)
[2019-10-09] MEDS: HEPARIN SOD (PORCINE) 5,000 UNIT/ML 1 ML VIAL SUBCUT SCH ×2 (13:15→21:48)
--- NOTE | 2019-10-09 20:57 | Progress Note ---
Provider Note Provider Note: [facility] Telephone Advice Consultation Chart reviewed. Patient is a 79-year-old woman who in 07/2019 was diagnosed with vertebral osteomyelitis/discitis of L5-S1 with Juana glabrata. This diagnosis was made in [place]. It is not clear to us how she became infected or what was the portal of entry, if at some point she was transiently fungemic and it seeded her back. She received 6 weeks of micafungin and her symptoms came back. She was complaining of severe back pain. On admission, her inflammation markers are elevated and imaging studies confirmed osteomyelitis of L5-S1. A recommendation was made to obtain a new biopsy for cultures and susceptibilities. This was already obtained. Patient remains stable and blood cultures were finalized as negative. Allergies: diazepam [From Valium] Allergy (Verified 10/03/19 00:34) morphine Allergy (Verified 10/03/19 00:34) Penicillins Allergy (Verified 10/03/19 00:34) acetaminophen [From Tylenol] Adverse Reaction (Verified 10/03/19 00:35) Medications: Aspirin [Adult Low Dose Aspirin EC] 81 mg PO DAILY 10/02/19 Atenolol [Tenormin] 12.5 mg PO DAILY 10/02/19 Atorvastatin Calcium [Lipitor 20 mg Tablet] 20 mg PO QHS 10/02/19 Cyclobenzaprine HCl [Flexeril 5 mg Tablet] 5 mg PO TID 10/02/19 Ergocalciferol (Vitamin D2) [Vitamin D2] 50,000 unit PO MO@1000 10/02/19 Hydrocodone/Acetaminophen [[place] 7.5-325 mg Tablet] 1 tab PO Q6HP PRN 10/02/19 Levothyroxine Sodium [Synthroid 0.1 mg Tablet] 0.1 mg PO DAILY 10/02/19 Ferrous Sulfate 324 mg PO BID 10/03/19 Methocarbamol 500 mg PO BIDP PRN 10/03/19 Mirtazapine 7.5 mg PO QHS 10/03/19 Vital Signs: Temp Pulse Resp BP Pulse Ox 98.2 F 64 15 111/60 99 10/09/19 16:37 10/09/19 16:37 10/09/19 16:37 10/09/19 16:37 10/09/19 16:37 Intake & Output 10/08/19 10/09/19 10/10/19 06:59 06:59 06:59 Intake Total 7562 495 3259 Balance 1878 574 1831 Weight 48.2 kg 55.1 kg Weight/Height Weight 55.1 kg Height 5 ft 2 in Laboratories: 10/09/19 04:24 10/09/19 04:24 MCV 89 fl (80-97) 10/09/19 04:24 MCH 29.3 pg (27.0-33.4) 10/09/19 04:24 MCHC 33.0 g/dL (32.0-36.0) 10/09/19 04:24 RDW 17.6 % (11.5-14.0) H 10/09/19 04:24 Seg Neutrophils % 68.6 % (42-78) 10/09/19 04:24 VBG pH 7.34 (7.30-7.42) 10/04/19 05:13 VBG pCO2 34.3 mmHg (35-63) L 10/04/19 05:13 VBG HCO3 18.0 mmol/L (20-32) L 10/04/19 05:13 VBG Base Excess -7.0 mmol/L 10/04/19 05:13 Chloride 112 mmol/L (98-107) H 10/09/19 04:24 Carbon Dioxide 19 mmol/L (22-30) L 10/09/19 04:24 Anion Gap 7 (5-19) 10/09/19 04:24 Est GFR ( Amer) 55 (>60) L 10/09/19 04:24 Glucose 81 mg/dL (75-110) 10/09/19 04:24 Lactic Acid 1.3 mmol/L (0.7-2.1) 10/02/19 18:41 Calcium 8.1 mg/dL (8.4-10.2) L 10/09/19 04:24 Total Bilirubin 0.2 mg/dL (0.2-1.3) 10/04/19 05:13 AST 20 U/L (14-36) 10/04/19 05:13 Alkaline Phosphatase 72 U/L (38-126) 10/04/19 05:13 C-Reactive Protein 61.6 mg/L (<10.0) H 10/04/19 05:13 Total Protein 4.9 g/dL (6.3-8.2) L 10/04/19 05:13 Albumin 2.2 g/dL (3.5-5.0) L 10/04/19 05:13 Urine Color YELLOW 10/02/19 11:14 Urine Appearance TURBID 10/02/19 11:14 Urine pH 5.0 (5.0-9.0) 10/02/19 11:14 Ur Specific Bonnie 1.013 10/02/19 11:14 Urine Protein 100 mg/dL (NEGATIVE) H 10/02/19 11:14 Urine Glucose (UA) NEGATIVE mg/dL (NEGATIVE) 10/02/19 11:14 Urine Ketones NEGATIVE mg/dL (NEGATIVE) 10/02/19 11:14 Urine Blood MODERATE (NEGATIVE) H 10/02/19 11:14 Urine RBC (Auto) 91 /HPF 10/02/19 11:14 10/03/19 04:16 Creatine Kinase < 20 L Microbiology: Blood culture: Negative Tissue culture - in process Radiology: Lumbar Spine X-Ray 10/02/19 11:06 IMPRESSION: Mild scoliosis. Anterolisthesis of L5 on S1. Degenerative disc disease, spondylosis, and facet arthropathy. Lumbar Spine CT 10/02/19 12:50 IMPRESSION: 1. Spondylosis, facet arthropathy and malalignment. Erosive endplate changes at L5-S1 probably due to chronic inflammation, however cannot exclude discitis. Clinical correlation is needed. 2. Dilated left renal collecting system of uncertain chronicity and etiology. Knee X-Ray 10/02/19 12:52 IMPRESSION: No acute findings. Chest X-Ray 10/02/19 14:20 IMPRESSION: COPD. NO ACUTE RADIOGRAPHIC FINDING IN THE CHEST. 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 Assessment and Recommendations: Patient with vertebral osteomyelitis with Juana glabrata s/p 6 weeks of micafungin (susceptible) but off antifungal therapy for few weeks with severe back pain now. Bone biopsy has been done, but cultures and susceptibilities might take up to 2 weeks. As this requires a prolonged course of antifungals (min 6 months) and patient is symptomatic, will recommend to restart micafungin 100 mg daily x 4-6 weeks to give us time to obtain more information from cultures and susceptibilities to then transition to a susceptible oral agent. Will have to connect to primary care for follow up to avoid gap / interruption of treatment during this transition or better if possible to follow with [facility]. She will need a referral to be sent to [facility] at . Can call [phone] to schedule an appointment. Please call if questions. Christel Bill MD [facility] [phone]
[2019-10-09] MEDS: MIRTAZAPINE 15 MG TABLET PO SCH (21:46)
[2019-10-09] MEDS: ATORVASTATIN CALCIUM 20 MG TABLET PO SCH (21:47)
[2019-10-09] MEDS: PHARMACY COMMUNICATION ORDER MC SCH (21:48)
[2019-10-10] MEDS: VANCOMYCIN HCL INJ 500 MG VIAL PO SCH ×4 (03:24→22:04)
[2019-10-10] MEDS: HEPARIN SOD (PORCINE) 5,000 UNIT/ML 1 ML VIAL SUBCUT SCH ×3 (05:45→22:07)
[2019-10-10] MEDS: LEVOTHYROXINE SODIUM 0.1 MG TABLET PO SCH (05:45)
[2019-10-10] MEDS: GABAPENTIN 100 MG CAPSULE PO SCH ×3 (05:45→22:06)
[2019-10-10] MEDS: HYDROMORPHONE HCL 2 MG TABLET PO PRN ×2 (11:04→14:50)
[2019-10-10] MEDS: FERROUS SULFATE 325 MG TABLET PO SCH (11:05)
[2019-10-10] MEDS: ASPIRIN 81 MG TABLET, ENT COATED PO SCH (11:05)
[2019-10-10] MEDS: FAMOTIDINE 20 MG TABLET PO SCH ×2 (11:05→22:06)
[2019-10-10] MEDS: TAMSULOSIN HCL 0.4 MG CAP.SR.24H PO SCH (11:05)
[2019-10-10] MEDS: CARVEDILOL 12.5 MG TABLET PO SCH ×2 (11:05→22:08)
[2019-10-10] MEDS: LIDOCAINE 5% (700 MG) TRANSDERMAL ADH..PATCH TP SCH (11:06)
--- NOTE | 2019-10-10 11:15 | PDOC PROGRESS REPORT ---
Subjective Progress Note for:: 10/10/19 Subjective:: JORGE DOBSON is a 79 year old female with a history of recently diagnosed fungal lumbar discitis [completed treatment], resolved diabetes mellitus, peptic ulcer disease s/p surgery, hypertension, CVA, hypothyroidism, depression, who presents with complaint of low back pain, urinary incontinence and polyuria. Polyuria and urinary incontinence have been present for about 2 weeks now. Patient endorses some chills. Denies fevers no dysuria. Of note, patient has been experiencing low back pain since November 2018 after sustaining a fracture in her back. In July 2019, she was diagnosed with fungal discitis of her lumbar spine at [facility] in [place] and was discharged to [facility] to complete 6 weeks of IV antifungal course which concluded on September 08. She had subsequently experienced significant improvement in back pain and underwent physical therapy. About 2 weeks ago, patient still experiencing some urinary incontinence. Patient was discharged from SNF on September 16 but has been experiencing more difficulty with ambulation or weakness in her lower extremities since then. 10/08/2019. No acute events overnight. Patient still complaining of back and bilateral lower extremity pain, n.p.o. for vertebral bone biopsy today, denies any fever, chills, nausea, vomiting, diarrhea, constipation or any urinary symptoms. Ambulatory, having normal bowel and bladder movements, p.o. tolerant. 10/09/2019. No acute events overnight. Patient still complaining of severe lumbar spine pain and persistent diarrhea. Denies any fever, chills, nausea, vomiting, diarrhea, constipation or any urinary symptoms. Cannot ambulate due to severe back pain, p.o. tolerant. 10/10/2019. No acute events overnight. Had one loose bowel last night. Denies any fever, chills, nausea, vomiting, diarrhea, constipation or any urinary sympt oms. Received PT yesterday was able to walk with assistance. Complaining of persistent back pain. Reason For Visit: UTI LUCERO NAGMA LUMBAR SPONDYLOSIS Physical Exam Vital Signs: Temp Pulse Resp BP Pulse Ox 98.3 F 63 16 134/56 H 98 10/10/19 08:08 10/10/19 08:08 10/10/19 08:08 10/10/19 08:08 10/10/19 08:08 Intake & Output 10/09/19 10/10/19 10/11/19 06:59 06:59 06:59 Intake Total 450 2330 Balance 450 2330 Weight 55.1 kg 53.4 kg General appearance: PRESENT: no acute distress, well-developed, well-nourished Head exam: PRESENT: atraumatic, normocephalic Respiratory exam: PRESENT: clear to auscultation elaina. ABSENT: rales, rhonchi, wheezes Cardiovascular exam: PRESENT: RRR. ABSENT: diastolic murmur, rubs, systolic murmur GI/Abdominal exam: PRESENT: normal bowel sounds, soft. ABSENT: distended, guarding, mass, organolmegaly, rebound, tenderness Extremities exam: PRESENT: tenderness - Lumbar spine. Neurological exam: PRESENT: alert, awake, oriented to person, oriented to place, oriented to time, oriented to situation, CN II-XII grossly intact. ABSENT: motor sensory deficit Results Laboratory Results: 10/09/19 04:24 10/09/19 04:24 10/03/19 04:16 Creatine Kinase < 20 L Impressions: Lumbar Spine X-Ray 10/02/19 11:06 IMPRESSION: Mild scoliosis. Anterolisthesis of L5 on S1. Degenerative disc disease, spondylosis, and facet arthropathy. Lumbar Spine CT 10/02/19 12:50 IMPRESSION: 1. Spondylosis, facet arthropathy and malalignment. Erosive endplate changes at L5-S1 probably due to chronic inflammation, however cannot exclude discitis. Clinical correlation is needed. 2. Dilated left renal collecting system of uncertain chronicity and etiology. Knee X-Ray 10/02/19 12:52 IMPRESSION: No acute findings. Chest X-Ray 10/02/19 14:20 IMPRESSION: COPD. NO ACUTE RADIOGRAPHIC FINDING IN THE CHEST. 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 Confirmed with bone biopsy. As per records obtained from [facility] in [place]. Diagnosed 07/21/2019 with [place] glabrata discitis of L5-S1 via vertebral bone biopsy. Completed 6 weeks of micafungin based off susceptibility finished on 07/09/2019. Repeat biopsy was negative for [place]. No evidence of malignancy on biopsy. Repeat ESR on 07/16/2019 was 65 with CRP of 5. MRI of lumbar spine on 10/03/2019 shows evidence of discitis/vertebral body osteomyelitis of L5-S1. 10/12/2019. ESR 100. 10/04/2019 CRP 61.6. As per ID specialist treatment for fungal osteomyelitis/discitis should be 6 weeks of IV antifungals then oral antifungal to complete a 6-month course. There is concern about patient being off antifungals for the past 4 weeks which could have left room for development of further resistance. ID recommending bone biopsy of the L5-S1 with susceptibility testing for voriconazole and isavuconazole which would be potential of oral options. Status post vertebral bone biopsy 10/08/2019. Follow-up pathology and culture results. ID specialist consulted. Recommendations are to restart micafungin IV while waiting for results and follow-up with ID as outpatient. Micafungin day 1. We will place PICC line. Once diarrhea resolves patient can be sent home on micafungin to follow-up with ID specialist as outpatient. (2) CKD (chronic kidney disease) stage 3, GFR 30-59 ml/min Is this a current diagnosis for this admission?: Yes Plan: Presented with LUCERO on CKD. LUCERO has resolved. Creatinine back to baseline. Electrolytes WNL. Euvolemic. Nonoliguric. Monitor volume status and electrolytes replace as needed. Avoid nephrotoxic meds. Outpatient nephrology follow-up. (3) Acute urinary tract infection Is this a current diagnosis for this admission?: Yes Plan: Due to E. coli. Resistant to penicillins, Bactrim and quinolones. Completed 5 days of IV ceftriaxone. Asymptomatic. Afebrile. WBC WNL. (4) C. difficile colitis Is this a current diagnosis for this admission?: Yes Plan: WBC WNL. Kidney function improving. Platelets WNL. Still having persistent diarrhea. Day 01/08 Vancomycin p.o. 125 mg every 6 hours started. Continue vancomycin. Monitor volume status and electrolytes replace as needed. (5) Iron deficiency anemia Qualifiers: Iron deficiency anemia type: other iron deficiency Qualified Code(s): D50.8 - Other iron deficiency anemias Is this a current diagnosis for this admission?: Yes Plan: Continue patient's ferrous sulfate (6) Lumbosacral radiculopathy due to degenerative joint disease of spine Is this a current diagnosis for this admission?: Yes Plan: History of multilevel DJD. MRI L-spine discitis/vertebral body osteomyelitis at L5-S1. Diffuse multilevel DJD. No signs or symptoms of cauda equina. Having normal bowel and bladder movements. Continue PT/OT. Continue gabapentin, opioid and non-opioid analgesics and lidocaine patch as needed. Monitor for fall and respiratory depression. Outpatient physical therapy, pain management, neurosurgery vs orthopedic surgery follow-up.
[2019-10-10] MEDS: MICAFUNGIN SODIUM 100 MG in NORMAL SALINE 100 ML IV SCH (16:30)
--- NOTE | 2019-10-10 17:18 | RADIOLOGY REPORT (SQ) ---
EXAM DESCRIPTION: PICC INSERTION; FLUORO/CV PLACEMENT; U/S GUIDE FOR VASCULAR ACCESS COMPLETED DATE/TIME: 10/10/2019 3:35 pm REASON FOR STUDY: prolonged IV abx; IV ABX; IV ACCESS COMPARISON: None. FLUOROSCOPY TIME: 0.26 minutes. 1 image submitted to PACS. TECHNIQUE: Integrated into the Procedure. LIMITATIONS: None. PROCEDURE: The procedure, risks, benefits, and alternatives were discussed with the patient in the p reprocedural area, and all questions were answered. Informed consent was obtained verbally and in wri ting. The patient was then brought to the procedural suite, positioned supine on the fluoroscopy table, and a time-out was performed. At first the left upper extremity was evaluated with ultrasound and the brachial vein was found to be patent and compressible. The left upper extremity was then prepped and draped with 2% chlorhexidine utilizing standard sterile technique. After the skin over the brachial vein was anesthetized with 1% lidocaine, ultrasound guidance was used to access the vessel with a 21-gauge needle - a sonographic i mage was stored for documentation. A 0.018 inch guidewire was then inserted through the needle and ad vanced under fluoroscopic guidance into the SVC. After that, the needle was exchanged over the guidew evelina for a peel-away sheath. A 5 Montserratian double -lumen PICC was then cut to the appropriate length of 4 0 cm, inserted through the sheath and advanced under fluoroscopic guidance into the SVC. After that, the peel-away sheath was removed and a fluoroscopic image of the chest was obtained to confirm proper position of the catheter tip within SVC. The lumens of the PICC were then aspirated, flushed with sterile saline and heparinized. At the end of the procedure the PICC was secured in place and a sterile dressing applied over it. The patient tolerated the procedure well without immediate complication. At the end of the procedure the patient's condition was unchanged from the preprocedural baseline. No IV conscious sedation was administered. Physiologic monitoring was provided before, during, and after the procedure. Documentation of [id number] time performing proceduralist spent monitoring the patient: 15 minutes. IMPRESSION: Successful placement of a 5 Montserratian double-lumen PICC via the left brachial vein utilizin g fluoroscopic and sonographic guidance. COMMENT: Patient medication list reviewed: Yes- Quality ID# [id number]:Eligible professional attests to doc umenting in the medical record they obtained, updated, or reviewed the patient's current medications. . Quality ID [id number]: Final reports for procedures using fluoroscopy that document radiation exposure nevaeh flor, or exposure time and number of fluorographic images (if radiation exposure indices are not avail able) Quality ID #[id number]: The patient was prepped and draped using maximum sterile barrier technique including cap, mask, sterile gown, sterile gloves, a large sterile sheet, hand hygiene, and 2% Chlorhexidine fo r cutaneous antisepsis. When ultrasound is used, sterile ultrasound techniques are followed requiring sterile gel and sterile probes. TECHNICAL DOCUMENTATION: JOB ID: [id number] [employer]- All Rights Reserved rev-02/15 Reading location - IP/workstation name: [email or web address]
[2019-10-10] MEDS: MIRTAZAPINE 15 MG TABLET PO SCH (22:06)
[2019-10-10] MEDS: ATORVASTATIN CALCIUM 20 MG TABLET PO SCH (22:07)
[2019-10-10] MEDS: PHARMACY COMMUNICATION ORDER MC SCH (22:08)
[2019-10-10] MEDS: NORMAL SALINE 10 ML SDV (SCHEDULED) IV SCH (22:09)
[2019-10-11] MEDS: VANCOMYCIN HCL INJ 500 MG VIAL PO SCH ×4 (02:57→21:18)
[2019-10-11] MEDS: GABAPENTIN 100 MG CAPSULE PO SCH ×3 (05:19→21:17)
[2019-10-11] MEDS: HEPARIN SOD (PORCINE) 5,000 UNIT/ML 1 ML VIAL SUBCUT SCH ×3 (05:19→21:13)
[2019-10-11] MEDS: LEVOTHYROXINE SODIUM 0.1 MG TABLET PO SCH (05:19)
[2019-10-11 07:27] LABS: ANION GAP 5 (5-19); BLOOD UREA NITROGEN 18 mg/dL (7-20); CALCIUM 8.2 mg/dL (8.4-10.2); CARBON DIOXIDE 21 mmol/L (22-30); CHLORIDE 113 mmol/L (98-107); GLUCOSE 94 mg/dL (75-110)
[2019-10-11] MEDS: LIDOCAINE 5% (700 MG) TRANSDERMAL ADH..PATCH TP SCH (09:31)
[2019-10-11] MEDS: ASPIRIN 81 MG TABLET, ENT COATED PO SCH (09:32)
[2019-10-11] MEDS: TAMSULOSIN HCL 0.4 MG CAP.SR.24H PO SCH (09:32)
[2019-10-11] MEDS: FAMOTIDINE 20 MG TABLET PO SCH ×2 (09:32→21:17)
[2019-10-11] MEDS: FERROUS SULFATE 325 MG TABLET PO SCH (09:32)
[2019-10-11] MEDS: CARVEDILOL 12.5 MG TABLET PO SCH ×2 (09:33→21:17)
[2019-10-11] MEDS: NORMAL SALINE 10 ML SDV (SCHEDULED) IV SCH ×2 (09:34→21:18)
--- NOTE | 2019-10-11 09:34 | PDOC PROGRESS REPORT ---
Subjective Progress Note for:: 10/11/19 Subjective:: JORGE DOBSON is a 79 year old female with a history of recently diagnosed fungal lumbar discitis [completed treatment], resolved diabetes mellitus, peptic ulcer disease s/p surgery, hypertension, CVA, hypothyroidism, depression, who presents with complaint of low back pain, urinary incontinence and polyuria. Polyuria and urinary incontinence have been present for about 2 weeks now. Patient endorses some chills. Denies fevers no dysuria. Of note, patient has been experiencing low back pain since November 2018 after sustaining a fracture in her back. In July 2019, she was diagnosed with fungal discitis of her lumbar spine at [facility] in [place] and was discharged to [facility] to complete 6 weeks of IV antifungal course which concluded on September 08. She had subsequently experienced significant improvement in back pain and underwent physical therapy. About 2 weeks ago, patient still experiencing some urinary incontinence. Patient was discharged from SNF on September 16 but has been experiencing more difficulty with ambulation or weakness in her lower extremities since then. 10/08/2019. No acute events overnight. Patient still complaining of back and bilateral lower extremity pain, n.p.o. for vertebral bone biopsy today, denies any fever, chills, nausea, vomiting, diarrhea, constipation or any urinary symptoms. Ambulatory, having normal bowel and bladder movements, p.o. tolerant. 10/09/2019. No acute events overnight. Patient still complaining of severe lumbar spine pain and persistent diarrhea. Denies any fever, chills, nausea, vomiting, diarrhea, constipation or any urinary symptoms. Cannot ambulate due to severe back pain, p.o. tolerant. 10/10/2019. No acute events overnight. Had one loose bowel last night. Denies any fever, chills, nausea, vomiting, diarrhea, constipation or any urinary sympt oms. Received PT yesterday was able to walk with assistance. Complaining of persistent back pain. 10/11/2019. No acute events overnight. Patient still complaining of back pain. Had one watery stool last night. Reason For Visit: UTI LUCERO NAGMA LUMBAR SPONDYLOSIS Physical Exam Vital Signs: Temp Pulse Resp BP Pulse Ox 98.9 F 72 16 119/63 99 10/11/19 03:15 10/11/19 03:15 10/11/19 03:15 10/11/19 03:15 10/11/19 03:15 Intake & Output 10/10/19 10/11/19 10/12/19 06:59 06:59 06:59 Intake Total 2330 1720 Balance 2330 1720 Weight 53.4 kg 53.4 kg General appearance: PRESENT: no acute distress, well-developed, well-nourished Head exam: PRESENT: atraumatic, normocephalic Respiratory exam: PRESENT: clear to auscultation elaina. ABSENT: rales, rhonchi, wheezes Cardiovascular exam: PRESENT: RRR. ABSENT: diastolic murmur, rubs, systolic murmur GI/Abdominal exam: PRESENT: normal bowel sounds, soft. ABSENT: distended, guarding, mass, organolmegaly, rebound, tenderness Musculoskeletal exam: PRESENT: tenderness Results Laboratory Results: 10/09/19 04:24 10/11/19 06:05 10/11/19 06:05 Sodium 138.8 Potassium 5.0 Chloride 113 H Carbon Dioxide 21 L Anion Gap 5 BUN 18 Creatinine 0.99 Est GFR ( Amer) > 60 Glucose 94 Calcium 8.2 L 10/08/19 11:07 Bone - Back Fungal Smear - Final 10/08/19 11:07 Bone - Back Fungal Smear - Final 10/03/19 04:16 Creatine Kinase < 20 L Impressions: Lumbar Spine X-Ray 10/02/19 11:06 IMPRESSION: Mild scoliosis. Anterolisthesis of L5 on S1. Degenerative disc disease, spondylosis, and facet arthropathy. Lumbar Spine CT 10/02/19 12:50 IMPRESSION: 1. Spondylosis, facet arthropathy and malalignment. Erosive endplate changes at L5-S1 probably due to chronic inflammation, however cannot exclude discitis. Clinical correlation is needed. 2. Dilated left renal collecting system of uncertain chronicity and etiology. Knee X-Ray 10/02/19 12:52 IMPRESSION: No acute findings. Chest X-Ray 10/02/19 14:20 IMPRESSION: COPD. NO ACUTE RADIOGRAPHIC FINDING IN THE CHEST. 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 Guidance Fluoroscopy 10/10/19 00:00 IMPRESSION: Successful placement of a 5 Montenegrin double-lumen PICC via the left brachial vein utilizing fluoroscopic and sonographic guidance. Interventional Vascular Procedure 10/10/19 00:00 IMPRESSION: Successful placement of a 5 Montenegrin double-lumen PICC via the left brachial vein utilizing fluoroscopic and sonographic guidance. PICC Line Insertion 10/10/19 00:00 IMPRESSION: Successful placement of a 5 Montenegrin double-lumen PICC via the left brachial vein utilizing fluoroscopic and sonographic guidance. 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 Confirmed with bone biopsy. As per records obtained from [facility] in [place]. Diagnosed 07/21/2019 with [place] glabrata discitis of L5-S1 via vertebral bone biopsy. Completed 6 weeks of micafungin based off susceptibility finished on 07/09/2019. Repeat biopsy was negative for Ju[place]. No evidence of malignancy on biopsy. Repeat ESR on 07/16/2019 was 65 with CRP of 5. MRI of lumbar spine on 10/03/2019 shows evidence of discitis/vertebral body osteomyelitis of L5-S1. 10/12/2019. ESR 100. 10/04/2019 CRP 61.6. As per ID specialist treatment for fungal osteomyelitis/discitis should be 6 weeks of IV antifungals then oral antifungal to complete a 6-month course. There is concern about patient being off antifungals for the past 4 weeks which could have left room for development of further resistance. ID recommending bone biopsy of the L5-S1 with susceptibility testing for voriconazole and isavuconazole which would be potential of oral options. Status post vertebral bone biopsy 10/08/2019. Follow-up pathology and culture results. ID specialist consulted. Recommendations are to restart micafungin IV while waiting for results and follow-up with ID as outpatient. Micafungin day 2. Status post PICC line insertion 10/10/2019. Once diarrhea resolves patient can be sent home on micafungin to follow-up with ID specialist as outpatient. (2) CKD (chronic kidney disease) stage 3, GFR 30-59 ml/min Is this a current diagnosis for this admission?: Yes Plan: Presented with LUCERO on CKD. LUCERO has resolved. Creatinine back to baseline. Electrolytes WNL. Euvolemic. Nonoliguric. Monitor volume status and electrolytes replace as needed. Avoid nephrotoxic meds. Outpatient nephrology follow-up. (3) Acute urinary tract infection Is this a current diagnosis for this admission?: Yes Plan: Due to E. coli. Resistant to penicillins, Bactrim and quinolones. Completed 5 days of IV ceftriaxone. Asymptomatic. Afebrile. WBC WNL. (4) C. difficile colitis Is this a current diagnosis for this admission?: Yes Plan: WBC WNL. Kidney function improving. Platelets WNL. Still having persistent diarrhea. Day 02/07 Vancomycin p.o. 125 mg every 6 hours started. Continue vancomycin. Monitor volume status and electrolytes replace as needed. (5) Iron deficiency anemia Qualifiers: Iron deficiency anemia type: other iron deficiency Qualified Code(s): D50.8 - Other iron deficiency anemias Is this a current diagnosis for this admission?: Yes Plan: Continue patient's ferrous sulfate (6) Lumbosacral radiculopathy due to degenerative joint disease of spine Is this a current diagnosis for this admission?: Yes Plan: History of multilevel DJD. MRI L-spine discitis/vertebral body osteomyelitis at L5-S1. Diffuse multilevel DJD. No signs or symptoms of cauda equina. Having normal bowel and bladder movements. Continue PT/OT. Continue gabapentin, opioid and non-opioid analgesics and lidocaine patch as needed. Monitor for fall and respiratory depression. Outpatient physical therapy, pain management, neurosurgery vs orthopedic surgery follow-up.
[2019-10-11] MEDS: HYDROMORPHONE HCL 2 MG TABLET PO PRN ×3 (10:19→23:09)
[2019-10-11] MEDS: MICAFUNGIN SODIUM 100 MG in NORMAL SALINE 100 ML IV SCH (10:20)
[2019-10-11] MEDS: OXYCODONE-ACETAMINOPHEN 5-325 MG TABLET PO PRN ×2 (16:25→21:19)
[2019-10-11] MEDS: MIRTAZAPINE 15 MG TABLET PO SCH (21:17)
[2019-10-11] MEDS: ATORVASTATIN CALCIUM 20 MG TABLET PO SCH (21:17)
[2019-10-11] MEDS: PHARMACY COMMUNICATION ORDER MC SCH (21:17)
[2019-10-11] MEDS: CYCLOBENZAPRINE HCL 10 MG TABLET PO PRN (23:10)
[2019-10-12] MEDS: VANCOMYCIN HCL INJ 500 MG VIAL PO SCH ×4 (03:31→20:41)
[2019-10-12] MEDS: HEPARIN SOD (PORCINE) 5,000 UNIT/ML 1 ML VIAL SUBCUT SCH ×3 (05:08→22:00)
[2019-10-12] MEDS: HYDROMORPHONE HCL 2 MG TABLET PO PRN (05:09)
[2019-10-12] MEDS: LEVOTHYROXINE SODIUM 0.1 MG TABLET PO SCH (05:09)
[2019-10-12] MEDS: GABAPENTIN 100 MG CAPSULE PO SCH ×3 (05:09→22:02)
[2019-10-12] MEDS ORDERED: TRAMADOL HCL 50 MG TABLET PO PRN (09:06)
[2019-10-12] MEDS: ASPIRIN 81 MG TABLET, ENT COATED PO SCH (10:13)
[2019-10-12] MEDS: MICAFUNGIN SODIUM 100 MG in NORMAL SALINE 100 ML IV SCH (10:14)
[2019-10-12] MEDS: CARVEDILOL 12.5 MG TABLET PO SCH ×2 (10:14→22:04)
[2019-10-12] MEDS: LIDOCAINE 5% (700 MG) TRANSDERMAL ADH..PATCH TP SCH (10:14)
[2019-10-12] MEDS: FERROUS SULFATE 325 MG TABLET PO SCH (10:14)
[2019-10-12] MEDS: TAMSULOSIN HCL 0.4 MG CAP.SR.24H PO SCH (10:15)
[2019-10-12] MEDS: FAMOTIDINE 20 MG TABLET PO SCH ×2 (10:15→22:06)
[2019-10-12] MEDS: NORMAL SALINE 10 ML SDV (SCHEDULED) IV SCH ×2 (10:15→22:05)
[2019-10-12] MEDS ORDERED: ENALAPRILAT DIHYDRATE INJ/PF 2.5 MG/2 ML SDV IV SCH (11:05)
[2019-10-12] MEDS: OXYCODONE-ACETAMINOPHEN 5-325 MG TABLET PO PRN ×2 (13:08→20:41)
--- NOTE | 2019-10-12 14:18 | PDOC PROGRESS REPORT ---
Subjective Progress Note for:: 10/12/19 Subjective:: JORGE DOBSON is a 79 year old female with a history of recently diagnosed fungal lumbar discitis [completed treatment], resolved diabetes mellitus, peptic ulcer disease s/p surgery, hypertension, CVA, hypothyroidism, depression, who presents with complaint of low back pain, urinary incontinence and polyuria. Polyuria and urinary incontinence have been present for about 2 weeks now. Patient endorses some chills. Denies fevers no dysuria. Of note, patient has been experiencing low back pain since November 2018 after sustaining a fracture in her back. In July 2019, she was diagnosed with fungal discitis of her lumbar spine at [facility] in [place] and was discharged to [facility] to complete 6 weeks of IV antifungal course which concluded on September 08. She had subsequently experienced significant improvement in back pain and underwent physical therapy. About 2 weeks ago, patient still experiencing some urinary incontinence. Patient was discharged from SNF on September 16 but has been experiencing more difficulty with ambulation or weakness in her lower extremities since then. 10/08/2019. No acute events overnight. Patient still complaining of back and bilateral lower extremity pain, n.p.o. for vertebral bone biopsy today, denies any fever, chills, nausea, vomiting, diarrhea, constipation or any urinary symptoms. Ambulatory, having normal bowel and bladder movements, p.o. tolerant. 10/09/2019. No acute events overnight. Patient still complaining of severe lumbar spine pain and persistent diarrhea. Denies any fever, chills, nausea, vomiting, diarrhea, constipation or any urinary symptoms. Cannot ambulate due to severe back pain, p.o. tolerant. 10/10/2019. No acute events overnight. Had one loose bowel last night. Denies any fever, chills, nausea, vomiting, diarrhea, constipation or any urinary sympt oms. Received PT yesterday was able to walk with assistance. Complaining of persistent back pain. 10/11/2019. No acute events overnight. Patient still complaining of back pain. Had one watery stool last night. 10/12/2019. No acute events overnight. Still complaining of lower back pain. Diarrhea has resolved. Patient could eventually be discharged home today however her post discharge care not ready yet. Reason For Visit: UTI LUCERO NAGMA LUMBAR SPONDYLOSIS Physical Exam Vital Signs: Temp Pulse Resp BP Pulse Ox 98.6 F 69 16 106/47 L 92 10/12/19 11:23 10/12/19 11:23 10/12/19 11:23 10/12/19 11:23 10/12/19 11:23 Intake & Output 10/11/19 10/12/19 10/13/19 06:59 06:59 06:59 Intake Total 1720 2320 Output Total 0 Balance 1720 2320 Weight 53.4 kg 55.3 kg General appearance: PRESENT: no acute distress, well-developed, well-nourished Head exam: PRESENT: atraumatic, normocephalic Respiratory exam: PRESENT: clear to auscultation elaina. ABSENT: rales, rhonchi, wheezes Cardiovascular exam: PRESENT: RRR. ABSENT: diastolic murmur, rubs, systolic murmur GI/Abdominal exam: PRESENT: normal bowel sounds, soft. ABSENT: distended, guarding, mass, organolmegaly, rebound, tenderness Neurological exam: PRESENT: alert, awake, oriented to person, oriented to place, oriented to time, oriented to situation, CN II-XII grossly intact. ABSENT: motor sensory deficit Results Laboratory Results: 10/09/19 04:24 10/11/19 06:05 10/08/19 11:07 Back - Spine Gram Stain - Final 10/03/19 04:16 Creatine Kinase < 20 L Impressions: Lumbar Spine X-Ray 10/02/19 11:06 IMPRESSION: Mild scoliosis. Anterolisthesis of L5 on S1. Degenerative disc disease, spondylosis, and facet arthropathy. Lumbar Spine CT 10/02/19 12:50 IMPRESSION: 1. Spondylosis, facet arthropathy and malalignment. Erosive endplate changes at L5-S1 probably due to chronic inflammation, however cannot exclude discitis. Clinical correlation is needed. 2. Dilated left renal collecting system of uncertain chronicity and etiology. Knee X-Ray 10/02/19 12:52 IMPRESSION: No acute findings. Chest X-Ray 10/02/19 14:20 IMPRESSION: COPD. NO ACUTE RADIOGRAPHIC FINDING IN THE CHEST. 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 Guidance Fluoroscopy 10/10/19 00:00 IMPRESSION: Successful placement of a 5 [place] double-lumen PICC via the left brachial vein utilizing fluoroscopic and sonographic guidance. Interventional Vascular Procedure 10/10/19 00:00 IMPRESSION: Successful placement of a 5 [place] double-lumen PICC via the left brachial vein utilizing fluoroscopic and sonographic guidance. PICC Line Insertion 10/10/19 00:00 IMPRESSION: Successful placement of a 5 [place] double-lumen PICC via the left brachial vein utilizing fluoroscopic and sonographic guidance. 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 Confirmed with bone biopsy. As per records obtained from [facility] in [place]. Diagnosed 07/21/2019 with [place] glabrata discitis of L5-S1 via vertebral bone biopsy. Completed 6 weeks of micafungin based off susceptibility finished on 07/09/2019. Repeat biopsy was negative for [place]. No evidence of malignancy on biopsy. Repeat ESR on 07/16/2019 was 65 with CRP of 5. MRI of lumbar spine on 10/03/2019 shows evidence of discitis/vertebral body osteomyelitis of L5-S1. 10/12/2019. ESR 100. 10/04/2019 CRP 61.6. As per ID specialist treatment for fungal osteomyelitis/discitis should be 6 weeks of IV antifungals then oral antifungal to complete a 6-month course. There is concern about patient being off antifungals for the past 4 weeks which could have left room for development of further resistance. ID recommending bone biopsy of the L5-S1 with susceptibility testing for voriconazole and isavuconazole which would be potential of oral options. Status post vertebral bone biopsy 10/08/2019. Follow-up pathology and culture results. ID specialist consulted. Recommendations are to restart micafungin IV while waiting for results and follow-up with ID as outpatient. Micafungin day 3. Status post PICC line insertion 10/10/2019. Once diarrhea resolves patient can be sent home on micafungin to follow-up with ID specialist as outpatient. (2) CKD (chronic kidney disease) stage 3, GFR 30-59 ml/min Is this a current diagnosis for this admission?: Yes Plan: Presented with LUCERO on CKD. LUCERO has resolved. Creatinine back to baseline. Electrolytes WNL. Euvolemic. Nonoliguric. Monitor volume status and electrolytes replace as needed. Avoid nephrotoxic meds. Outpatient nephrology follow-up. (3) Acute urinary tract infection Is this a current diagnosis for this admission?: Yes Plan: Due to E. coli. Resistant to penicillins, Bactrim and quinolones. Completed 5 days of IV ceftriaxone. Asymptomatic. Afebrile. WBC WNL. (4) C. difficile colitis Is this a current diagnosis for this admission?: Yes Plan: WBC WNL. Kidney function improving. Platelets WNL. Diarrhea resolved. Day 03/10 Vancomycin p.o. 125 mg every 6 hours started. Continue vancomycin. Monitor volume status and electrolytes replace as needed. (5) Iron deficiency anemia Qualifiers: Iron deficiency anemia type: other iron deficiency Qualified Code(s): D50.8 - Other iron deficiency anemias Is this a current diagnosis for this admission?: Yes Plan: Continue patient's ferrous sulfate (6) Lumbosacral radiculopathy due to degenerative joint disease of spine Is this a current diagnosis for this admission?: Yes Plan: History of multilevel DJD. MRI L-spine discitis/vertebral body osteomyelitis at L5-S1. Diffuse multilevel DJD. No signs or symptoms of cauda equina. Having normal bowel and bladder movements. Continue PT/OT. Continue gabapentin, opioid and non-opioid analgesics and lidocaine patch as needed. Monitor for fall and respiratory depression. Outpatient physical therapy, pain management, neurosurgery vs orthopedic surgery follow-up.
[2019-10-12] MEDS: MIRTAZAPINE 15 MG TABLET PO SCH (22:02)
[2019-10-12] MEDS: PHARMACY COMMUNICATION ORDER MC SCH (22:04)
[2019-10-12] MEDS: ATORVASTATIN CALCIUM 20 MG TABLET PO SCH (22:04)
[2019-10-13] MEDS: VANCOMYCIN HCL INJ 500 MG VIAL PO SCH ×4 (04:02→21:23)
[2019-10-13] MEDS: OXYCODONE-ACETAMINOPHEN 5-325 MG TABLET PO PRN ×2 (04:03→18:47)
[2019-10-13] MEDS: HEPARIN SOD (PORCINE) 5,000 UNIT/ML 1 ML VIAL SUBCUT SCH ×3 (05:42→21:32)
[2019-10-13] MEDS: LEVOTHYROXINE SODIUM 0.1 MG TABLET PO SCH (06:48)
[2019-10-13] MEDS: GABAPENTIN 100 MG CAPSULE PO SCH ×3 (06:48→21:22)
[2019-10-13] MEDS: FERROUS SULFATE 325 MG TABLET PO SCH (09:34)
[2019-10-13] MEDS: ASPIRIN 81 MG TABLET, ENT COATED PO SCH (09:34)
[2019-10-13] MEDS: TAMSULOSIN HCL 0.4 MG CAP.SR.24H PO SCH (09:34)
[2019-10-13] MEDS: LIDOCAINE 5% (700 MG) TRANSDERMAL ADH..PATCH TP SCH (09:35)
[2019-10-13] MEDS: CARVEDILOL 12.5 MG TABLET PO SCH ×2 (09:35→21:22)
[2019-10-13] MEDS: NORMAL SALINE 10 ML SDV (SCHEDULED) IV SCH ×2 (09:36→22:14)
[2019-10-13] MEDS: FAMOTIDINE 20 MG TABLET PO SCH ×2 (09:59→21:22)
[2019-10-13] MEDS: HYDROMORPHONE HCL 2 MG TABLET PO PRN ×2 (09:59→14:28)
[2019-10-13] MEDS: MICAFUNGIN SODIUM 100 MG in NORMAL SALINE 100 ML IV SCH (10:56)
--- NOTE | 2019-10-13 13:55 | PDOC PROGRESS REPORT ---
Subjective Progress Note for:: 10/13/19 Subjective:: JORGE DOBSON is a 79 year old female with a history of recently diagnosed fungal lumbar discitis [completed treatment], resolved diabetes mellitus, peptic ulcer disease s/p surgery, hypertension, CVA, hypothyroidism, depression, who presents with complaint of low back pain, urinary incontinence and polyuria. Polyuria and urinary incontinence have been present for about 2 weeks now. Patient endorses some chills. Denies fevers no dysuria. Of note, patient has been experiencing low back pain since November 2018 after sustaining a fracture in her back. In July 2019, she was diagnosed with fungal discitis of her lumbar spine at [facility] in [place] and was discharged to [facility] to complete 6 weeks of IV antifungal course which concluded on September 08. She had subsequently experienced significant improvement in back pain and underwent physical therapy. About 2 weeks ago, patient still experiencing some urinary incontinence. Patient was discharged from SNF on September 16 but has been experiencing more difficulty with ambulation or weakness in her lower extremities since then. 10/08/2019. No acute events overnight. Patient still complaining of back and bilateral lower extremity pain, n.p.o. for vertebral bone biopsy today, denies any fever, chills, nausea, vomiting, diarrhea, constipation or any urinary symptoms. Ambulatory, having normal bowel and bladder movements, p.o. tolerant. 10/09/2019. No acute events overnight. Patient still complaining of severe lumbar spine pain and persistent diarrhea. Denies any fever, chills, nausea, vomiting, diarrhea, constipation or any urinary symptoms. Cannot ambulate due to severe back pain, p.o. tolerant. 10/10/2019. No acute events overnight. Had one loose bowel last night. Denies any fever, chills, nausea, vomiting, diarrhea, constipation or any urinary sympt oms. Received PT yesterday was able to walk with assistance. Complaining of persistent back pain. 10/11/2019. No acute events overnight. Patient still complaining of back pain. Had one watery stool last night. 10/12/2019. No acute events overnight. Still complaining of lower back pain. Diarrhea has resolved. Patient could eventually be discharged home today however her post discharge care not ready yet. 10/13/2019. No acute events overnight. Diarrhea has resolved. Still complaining of back pain. Patient could potentially be discharged home however her outpatient IV antibiotics has not been arranged yet. Reason For Visit: UTI LUCERO NAGMA LUMBAR SPONDYLOSIS Physical Exam Vital Signs: Temp Pulse Resp BP Pulse Ox 97.8 F 67 20 102/44 L 97 10/13/19 12:00 10/13/19 12:00 10/13/19 12:00 10/13/19 12:00 10/13/19 12:00 Intake & Output 10/12/19 10/13/19 10/14/19 06:59 06:59 06:59 Intake Total 2320 1570 Output Total 0 Balance 2320 1570 Weight 55.3 kg 55 kg General appearance: PRESENT: no acute distress, well-developed, well-nourished Head exam: PRESENT: atraumatic, normocephalic Respiratory exam: PRESENT: clear to auscultation elaina. ABSENT: rales, rhonchi, wheezes Cardiovascular exam: PRESENT: RRR. ABSENT: diastolic murmur, rubs, systolic m urmur GI/Abdominal exam: PRESENT: normal bowel sounds, soft. ABSENT: distended, guarding, mass, organolmegaly, rebound, tenderness Neurological exam: PRESENT: alert, awake, oriented to person, oriented to place, oriented to time, oriented to situation, CN II-XII grossly intact. ABSENT: motor sensory deficit Results Laboratory Results: 10/09/19 04:24 10/11/19 06:05 10/08/19 11:07 Back - Spine Gram Stain - Final 10/08/19 11:07 Back - Spine Body Fluid Culture - Final Yeast, Not [place] No Anaerobic Organisms 10/03/19 04:16 Creatine Kinase < 20 L Impressions: Lumbar Spine X-Ray 10/02/19 11:06 IMPRESSION: Mild scoliosis. Anterolisthesis of L5 on S1. Degenerative disc disease, spondylosis, and facet arthropathy. Lumbar Spine CT 10/02/19 12:50 IMPRESSION: 1. Spondylosis, facet arthropathy and malalignment. Erosive endplate changes at L5-S1 probably due to chronic inflammation, however cannot exclude discitis. Clinical correlation is needed. 2. Dilated left renal collecting system of uncertain chronicity and etiology. Knee X-Ray 10/02/19 12:52 IMPRESSION: No acute findings. Chest X-Ray 01/02/20 14:20 IMPRESSION: COPD. NO ACUTE RADIOGRAPHIC FINDING IN THE CHEST. 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 Guidance Fluoroscopy 10/10/19 00:00 IMPRESSION: Successful placement of a 5 [place] double-lumen PICC via the left brachial vein utilizing fluoroscopic and sonographic guidance. Interventional Vascular Procedure 10/10/19 00:00 IMPRESSION: Successful placement of a 5 [place] double-lumen PICC via the left brachial vein utilizing fluoroscopic and sonographic guidance. PICC Line Insertion 10/10/19 00:00 IMPRESSION: Successful placement of a 5 [place] double-lumen PICC via the left brachial vein utilizing fluoroscopic and sonographic guidance. 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 Confirmed with bone biopsy. As per records obtained from [facility] in [place]. Diagnosed 07/21/2019 with [place] glabrata discitis of L5-S1 via vertebral bone biopsy. Completed 6 weeks of micafungin based off susceptibility finished on 07/09/2019. Repeat biopsy was negative for [place]. No evidence of malignancy on biopsy. Repeat ESR on 07/16/2019 was 65 with CRP of 5. MRI of lumbar spine on 10/03/2019 shows evidence of discitis/vertebral body osteomyelitis of L5-S1. 10/12/2019. ESR 100. 10/04/2019 CRP 61.6. As per ID specialist treatment for fungal osteomyelitis/discitis should be 6 weeks of IV antifungals then oral antifungal to complete a 6-month course. There is concern about patient being off antifungals for the past 4 weeks which could have left room for development of further resistance. ID recommending bone biopsy of the L5-S1 with susceptibility testing for voriconazole and isavuconazole which would be potential of oral options. Status post vertebral bone biopsy 10/08/2019. Pathology report: Inflamed and necrotic tissue with reactive bone. No fungal organisms identified by special stains. No carcinoma is identified. ID specialist consulted. Recommendations are to restart micafungin IV while waiting for results and follow-up with ID as outpatient. Micafungin day 4. Status post PICC line insertion 10/10/2019. (2) C. difficile colitis Is this a current diagnosis for this admission?: Yes Plan: WBC WNL. Kidney function improving. Platelets WNL. Diarrhea resolved. Day 04/09 Vancomycin p.o. 125 mg every 6 hours started. Continue vancomycin. Monitor volume status and electrolytes replace as needed. (3) CKD (chronic kidney disease) stage 3, GFR 30-59 ml/min Is this a current diagnosis for this admission?: Yes Plan: Presented with LUCERO on CKD. LUCERO has resolved. Creatinine back to baseline. Electrolytes WNL. Euvolemic. Nonoliguric. Monitor volume status and electrolytes replace as needed. Avoid nephrotoxic meds. Outpatient nephrology follow-up. (4) Acute urinary tract infection Is this a current diagnosis for this admission?: Yes Plan: Due to E. coli. Resistant to penicillins, Bactrim and quinolones. Completed 5 days of IV ceftriaxone. Asymptomatic. Afebrile. WBC WNL. (5) Lumbosacral radiculopathy due to degenerative joint disease of spine Is this a current diagnosis for this admission?: Yes Plan: History of multilevel DJD. MRI L-spine discitis/vertebral body osteomyelitis at L5-S1. Diffuse multilevel DJD. No signs or symptoms of cauda equina. Having normal bowel and bladder movements. Continue PT/OT. Continue gabapentin, opioid and non-opioid analgesics and lidocaine patch as needed. Monitor for fall and respiratory depression. Outpatient physical therapy, pain management, neurosurgery vs orthopedic surgery follow-up. (6) Iron deficiency anemia Qualifiers: Iron deficiency anemia type: other iron deficiency Qualified Code(s): D50.8 - Other iron deficiency anemias Is this a current diagnosis for this admission?: Yes Plan: Continue patient's ferrous sulfate
[2019-10-13] MEDS: ATORVASTATIN CALCIUM 20 MG TABLET PO SCH (21:22)
[2019-10-13] MEDS: MIRTAZAPINE 15 MG TABLET PO SCH (21:30)
[2019-10-13] MEDS: PHARMACY COMMUNICATION ORDER MC SCH (23:55)
[2019-10-14] MEDS: HYDROMORPHONE HCL 2 MG TABLET PO PRN ×3 (00:18→20:23)
[2019-10-14] MEDS: VANCOMYCIN HCL INJ 500 MG VIAL PO SCH ×4 (03:07→20:24)
[2019-10-14] MEDS: OXYCODONE-ACETAMINOPHEN 5-325 MG TABLET PO PRN (03:12)
[2019-10-14] MEDS: HEPARIN SOD (PORCINE) 5,000 UNIT/ML 1 ML VIAL SUBCUT SCH ×3 (06:16→21:29)
[2019-10-14] MEDS: GABAPENTIN 100 MG CAPSULE PO SCH ×3 (06:16→21:23)
[2019-10-14] MEDS: LEVOTHYROXINE SODIUM 0.1 MG TABLET PO SCH (06:16)
[2019-10-14] MEDS: FAMOTIDINE 20 MG TABLET PO SCH ×2 (10:16→21:24)
[2019-10-14] MEDS: ASPIRIN 81 MG TABLET, ENT COATED PO SCH (10:18)
[2019-10-14] MEDS: TAMSULOSIN HCL 0.4 MG CAP.SR.24H PO SCH (10:18)
[2019-10-14] MEDS: CARVEDILOL 12.5 MG TABLET PO SCH ×2 (10:19→21:23)
[2019-10-14] MEDS: FERROUS SULFATE 325 MG TABLET PO SCH (10:19)
[2019-10-14] MEDS: LIDOCAINE 5% (700 MG) TRANSDERMAL ADH..PATCH TP SCH (10:19)
[2019-10-14] MEDS: MICAFUNGIN SODIUM 100 MG in NORMAL SALINE 100 ML IV SCH (10:20)
--- NOTE | 2019-10-14 10:26 | PDOC PROGRESS REPORT ---
Subjective Progress Note for:: 10/14/19 Subjective:: JORGE DOBSON is a 79 year old female with a history of recently diagnosed fungal lumbar discitis [completed treatment], resolved diabetes mellitus, peptic ulcer disease s/p surgery, hypertension, CVA, hypothyroidism, depression, who presents with complaint of low back pain, urinary incontinence and polyuria. Polyuria and urinary incontinence have been present for about 2 weeks now. Patient endorses some chills. Denies fevers no dysuria. Of note, patient has been experiencing low back pain since November 2018 after sustaining a fracture in her back. In July 2019, she was diagnosed with fungal discitis of her lumbar spine at [facility] in [place] and was discharged to [facility] to complete 6 weeks of IV antifungal course which concluded on September 08. She had subsequently experienced significant improvement in back pain and underwent physical therapy. About 2 weeks ago, patient still experiencing some urinary incontinence. Patient was discharged from SNF on September 16 but has been experiencing more difficulty with ambulation or weakness in her lower extremities since then. 10/08/2019. No acute events overnight. Patient still complaining of back and bilateral lower extremity pain, n.p.o. for vertebral bone biopsy today, denies any fever, chills, nausea, vomiting, diarrhea, constipation or any urinary symptoms. Ambulatory, having normal bowel and bladder movements, p.o. tolerant. 10/09/2019. No acute events overnight. Patient still complaining of severe lumbar spine pain and persistent diarrhea. Denies any fever, chills, nausea, vomiting, diarrhea, constipation or any urinary symptoms. Cannot ambulate due to severe back pain, p.o. tolerant. 10/10/2019. No acute events overnight. Had one loose bowel last night. Denies any fever, chills, nausea, vomiting, diarrhea, constipation or any urinary sympt oms. Received PT yesterday was able to walk with assistance. Complaining of persistent back pain. 10/11/2019. No acute events overnight. Patient still complaining of back pain. Had one watery stool last night. 10/12/2019. No acute events overnight. Still complaining of lower back pain. Diarrhea has resolved. Patient could eventually be discharged home today however her post discharge care not ready yet. 10/13/2019. No acute events overnight. Diarrhea has resolved. Still complaining of back pain. Patient could potentially be discharged home however her outpatient IV antibiotics has not been arranged yet. 10/14/2019. Patient had one episode of nonbloody watery diarrhea this morning, otherwise denies any fever, chills, nausea, vomiting, urinary symptoms. Reason For Visit: UTI LUCERO NAGMA LUMBAR SPONDYLOSIS Physical Exam Vital Signs: Temp Pulse Resp BP Pulse Ox 98.1 F 99 18 150/83 H 97 10/14/19 09:09 10/14/19 09:09 10/14/19 09:09 10/14/19 09:09 10/14/19 09:09 Intake & Output 10/13/19 10/14/19 10/15/19 06:59 06:59 06:59 Intake Total 1570 1940 Balance 1570 194 Weight 55 kg 55.6 kg General appearance: PRESENT: no acute distress, well-developed, well-nourished Head exam: PRESENT: atraumatic, normocephalic Respiratory exam: PRESENT: clear to auscultation elaina. ABSENT: rales, rhonchi, wheezes Cardiovascular exam: PRESENT: RRR. ABSENT: diastolic murmur, rubs, systolic murmur Neurological exam: PRESENT: alert, awake, oriented to person, oriented to place, oriented to time, oriented to situation, CN II-XII grossly intact. ABSENT: motor sensory deficit Results Laboratory Results: 10/09/19 04:24 10/11/19 06:05 10/03/19 04:16 Creatine Kinase < 20 L Impressions: Lumbar Spine X-Ray 10/02/19 11:06 IMPRESSION: Mild scoliosis. Anterolisthesis of L5 on S1. Degenerative disc disease, spondylosis, and facet arthropathy. Lumbar Spine CT 10/02/19 12:50 IMPRESSION: 1. Spondylosis, facet arthropathy and malalignment. Erosive endplate changes at L5-S1 probably due to chronic inflammation, however cannot exclude discitis. Clinical correlation is needed. 2. Dilated left renal collecting system of uncertain chronicity and etiology. Knee X-Ray 10/02/19 12:52 IMPRESSION: No acute findings. Chest X-Ray 10/02/19 14:20 IMPRESSION: COPD. NO ACUTE RADIOGRAPHIC FINDING IN THE CHEST. 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 Guidance Fluoroscopy 10/10/19 00:00 IMPRESSION: Successful placement of a 5 Sudanese double-lumen PICC via the left brachial vein utilizing fluoroscopic and sonographic guidance. Interventional Vascular Procedure 10/10/19 00:00 IMPRESSION: Successful placement of a 5 Sudanese double-lumen PICC via the left brachial vein utilizing fluoroscopic and sonographic guidance. PICC Line Insertion 10/10/19 00:00 IMPRESSION: Successful placement of a 5 Sudanese double-lumen PICC via the left brachial vein utilizing fluoroscopic and sonographic guidance. 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 Confirmed with bone biopsy. As per records obtained from [facility] in [place]. Diagnosed 07/21/2019 with Juana glabrata discitis of L5-S1 via vertebral bone biopsy. Completed 6 weeks of micafungin based off susceptibility finished on 07/09/2019. Repeat biopsy was negative for Juana. No evidence of malignancy on biopsy. Repeat ESR on 07/16/2019 was 65 with CRP of 5. MRI of lumbar spine on 10/03/2019 shows evidence of discitis/vertebral body osteomyelitis of L5-S1. 10/12/2019. ESR 100. 10/04/2019 CRP 61.6. As per ID specialist treatment for fungal osteomyelitis/discitis should be 6 weeks of IV antifungals then oral antifungal to complete a 6-month course. There is concern about patient being off antifungals for the past 4 weeks which could have left room for development of further resistance. ID recommending bone biopsy of the L5-S1 with susceptibility testing for voriconazole and isavuconazole which would be potential of oral options. Status post vertebral bone biopsy 10/08/2019. Pathology report: Inflamed and necrotic tissue with reactive bone. No fungal organisms identified by special stains. No carcinoma is identified. ID specialist consulted. Recommendations are to restart micafungin IV while waiting for results and follow-up with ID as outpatient. Micafungin day 5. Status post PICC line insertion 10/10/2019. (2) C. difficile colitis Is this a current diagnosis for this admission?: Yes Plan: WBC WNL. Kidney function improving. Platelets WNL. Diarrhea resolved. Day 05/10 Vancomycin p.o. 125 mg every 6 hours started. Continue vancomycin. Monitor volume status and electrolytes replace as needed. (3) CKD (chronic kidney disease) stage 3, GFR 30-59 ml/min Is this a current diagnosis for this admission?: Yes Plan: Presented with LUCERO on CKD. LUCERO has resolved. Creatinine back to baseline. Electrolytes WNL. Euvolemic. Nonoliguric. Monitor volume status and electrolytes replace as needed. Avoid nephrotoxic meds. Outpatient nephrology follow-up. (4) Acute urinary tract infection Is this a current diagnosis for this admission?: Yes Plan: Due to E. coli. Resistant to penicillins, Bactrim and quinolones. Completed 5 days of IV ceftriaxone. Asymptomatic. Afebrile. WBC WNL. (5) Lumbosacral radiculopathy due to degenerative joint disease of spine Is this a current diagnosis for this admission?: Yes Plan: History of multilevel DJD. MRI L-spine discitis/vertebral body osteomyelitis at L5-S1. Diffuse multilevel DJD. No signs or symptoms of cauda equina. Having normal bowel and bladder movements. Continue PT/OT. Continue gabapentin, opioid and non-opioid analgesics and lidocaine patch as needed. Monitor for fall and respiratory depression. Outpatient physical therapy, pain management, neurosurgery vs orthopedic surgery follow-up. (6) Iron deficiency anemia Qualifiers: Iron deficiency anemia type: other iron deficiency Qualified Code(s): D50.8 - Other iron deficiency anemias Is this a current diagnosis for this admission?: Yes Plan: Continue patient's ferrous sulfate
[2019-10-14] MEDS: NORMAL SALINE 10 ML SDV (SCHEDULED) IV SCH ×2 (10:29→21:26)
[2019-10-14 13:11] LABS: ANION GAP 6 (5-19); BLOOD UREA NITROGEN 26 mg/dL (7-20); CALCIUM 8.2 mg/dL (8.4-10.2); CARBON DIOXIDE 23 mmol/L (22-30); CHLORIDE 105 mmol/L (98-107); GLUCOSE 159 mg/dL (75-110); POTASSIUM 5.1 mmol/L (3.6-5.0)
[2019-10-14] MEDS: MIRTAZAPINE 15 MG TABLET PO SCH (21:23)
[2019-10-14] MEDS: ATORVASTATIN CALCIUM 20 MG TABLET PO SCH (21:24)
[2019-10-14] MEDS: PHARMACY COMMUNICATION ORDER MC SCH (21:36)
[2019-10-15] MEDS: VANCOMYCIN HCL INJ 500 MG VIAL PO SCH ×4 (02:44→22:50)
[2019-10-15] MEDS: OXYCODONE-ACETAMINOPHEN 5-325 MG TABLET PO PRN ×4 (02:44→23:05)
[2019-10-15] MEDS: HEPARIN SOD (PORCINE) 5,000 UNIT/ML 1 ML VIAL SUBCUT SCH ×3 (05:48→22:51)
[2019-10-15] MEDS: LEVOTHYROXINE SODIUM 0.1 MG TABLET PO SCH (05:48)
[2019-10-15] MEDS: GABAPENTIN 100 MG CAPSULE PO SCH ×3 (05:48→22:52)
[2019-10-15 06:33] LABS: ABSOLUTE BASOPHILS # (AUTO) 0.1 10^3/uL (0.0-0.2); ABSOLUTE EOSINOPHILS # (AUTO) 0.1 10^3/uL (0.0-0.6); ABSOLUTE LYMPHOCYTES (AUTO) 1.7 10^3/uL (0.5-4.7); ABSOLUTE MONOCYTES (AUTO) 0.6 10^3/uL (0.1-1.4); EOSINOPHILS % (AUTO) 1.6 % (0-6); HEMOGLOBIN 8.5 g/dL (12.0-15.5); MEAN CORPUSCULAR HEMOGLOBIN 29.2 pg (27.0-33.4); MEAN CORPUSCULAR HGB CONC 32.6 g/dL (32.0-36.0); MEAN CORPUSCULAR VOLUME 90 fl (80-97); MONOCYTES % (AUTO) 9.1 % (3-13); PLATELET COUNT 239 10^3/uL (150-450); RED CELL DISTRIBUTION WIDTH 17.2 % (11.5-14.0); SEGMENTED NEUTROPHILS % (AUTO) 62.3 % (42-78); TOTAL CELLS COUNTED % (AUTO) 100 %; WHITE BLOOD COUNT 6.4 10^3/uL (4.0-10.5)
--- NOTE | 2019-10-15 09:24 | PDOC PROGRESS REPORT ---
Subjective Progress Note for:: 10/15/19 Subjective:: JORGE DOBSON is a 79 year old female with a history of recently diagnosed fungal lumbar discitis [completed treatment], resolved diabetes mellitus, peptic ulcer disease s/p surgery, hypertension, CVA, hypothyroidism, depression, who presents with complaint of low back pain, urinary incontinence and polyuria. Polyuria and urinary incontinence have been present for about 2 weeks now. Patient endorses some chills. Denies fevers no dysuria. Of note, patient has been experiencing low back pain since November 2018 after sustaining a fracture in her back. In July 2019, she was diagnosed with fungal discitis of her lumbar spine at [facility] in [place] and was discharged to [facility] to complete 6 weeks of IV antifungal course which concluded on September 08. She had subsequently experienced significant improvement in back pain and underwent physical therapy. About 2 weeks ago, patient still experiencing some urinary incontinence. Patient was discharged from SNF on September 16 but has been experiencing more difficulty with ambulation or weakness in her lower extremities since then. 10/08/2019. No acute events overnight. Patient still complaining of back and bilateral lower extremity pain, n.p.o. for vertebral bone biopsy today, denies any fever, chills, nausea, vomiting, diarrhea, constipation or any urinary symptoms. Ambulatory, having normal bowel and bladder movements, p.o. tolerant. 10/09/2019. No acute events overnight. Patient still complaining of severe lumbar spine pain and persistent diarrhea. Denies any fever, chills, nausea, vomiting, diarrhea, constipation or any urinary symptoms. Cannot ambulate due to severe back pain, p.o. tolerant. 10/10/2019. No acute events overnight. Had one loose bowel last night. Denies any fever, chills, nausea, vomiting, diarrhea, constipation or any urinary sympt oms. Received PT yesterday was able to walk with assistance. Complaining of persistent back pain. 10/11/2019. No acute events overnight. Patient still complaining of back pain. Had one watery stool last night. 10/12/2019. No acute events overnight. Still complaining of lower back pain. Diarrhea has resolved. Patient could eventually be discharged home today however her post discharge care not ready yet. 10/13/2019. No acute events overnight. Diarrhea has resolved. Still complaining of back pain. Patient could potentially be discharged home however her outpatient IV antibiotics has not been arranged yet. 10/14/2019. Patient had one episode of nonbloody watery diarrhea this morning, otherwise denies any fever, chills, nausea, vomiting, urinary symptoms. 10/15/2019. No acute events overnight. Patient still complaining of persistent lower back pain. Patient had one large watery bowel movement last night, p.o. tolerant, has any fever, chills, nausea, vomiting, constipation or any urinary symptoms. Reason For Visit: UTI LUCERO NAGMA LUMBAR SPONDYLOSIS Physical Exam Vital Signs: Temp Pulse Resp BP Pulse Ox 97.8 F 68 18 122/42 L 98 10/15/19 07:09 10/15/19 07:09 10/15/19 07:09 10/15/19 07:09 10/15/19 07:09 Intake & Output 10/14/19 10/15/19 10/16/19 06:59 06:59 06:59 Intake Total 1940 840 Output Total 0 Balance 1940 840 Weight 55.6 kg 54.8 kg General appearance: PRESENT: no acute distress, well-developed, well-nourished Head exam: PRESENT: atraumatic, normocephalic Respiratory exam: PRESENT: clear to auscultation elaina. ABSENT: rales, rhonchi, wheezes Cardiovascular exam: PRESENT: RRR. ABSENT: diastolic murmur, rubs, systolic murmur GI/Abdominal exam: PRESENT: normal bowel sounds, soft. ABSENT: distended, guarding, mass, organolmegaly, rebound, tenderness Musculoskeletal exam: PRESENT: tenderness Neurological exam: PRESENT: alert, awake, oriented to person, oriented to place, oriented to time, oriented to situation, CN II-XII grossly intact. ABSENT: motor sensory deficit Results Laboratory Results: 10/15/19 06:23 10/14/19 12:30 10/14/19 10/15/19 12:30 06:23 WBC 6.4 RBC 2.90 L Hgb 8.5 L Hct 26.0 L MCV 90 MCH 29.2 MCHC 32.6 RDW 17.2 H Plt Count 239 Seg Neutrophils % 62.3 Sodium 134.2 L Potassium 5.1 H Chloride 105 Carbon Dioxide 23 Anion Gap 6 BUN 26 H Creatinine 1.36 H Est GFR ( Amer) 45 L Glucose 159 H Calcium 8.2 L 10/03/19 04:16 Creatine Kinase < 20 L Impressions: Lumbar Spine X-Ray 10/02/19 11:06 IMPRESSION: Mild scoliosis. Anterolisthesis of L5 on S1. Degenerative disc disease, spondylosis, and facet arthropathy. Lumbar Spine CT 10/02/19 12:50 IMPRESSION: 1. Spondylosis, facet arthropathy and malalignment. Erosive endplate changes at L5-S1 probably due to chronic inflammation, however cannot exclude discitis. Clinical correlation is needed. 2. Dilated left renal collecting system of uncertain chronicity and etiology. Knee X-Ray 10/02/19 12:52 IMPRESSION: No acute findings. Chest X-Ray 10/02/19 14:20 IMPRESSION: COPD. NO ACUTE RADIOGRAPHIC FINDING IN THE CHEST. 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 Guidance Fluoroscopy 10/10/19 00:00 IMPRESSION: Successful placement of a 5 Canadian double-lumen PICC via the left brachial vein utilizing fluoroscopic and sonographic guidance. Interventional Vascular Procedure 10/10/19 00:00 IMPRESSION: Successful placement of a 5 Canadian double-lumen PICC via the left brachial vein utilizing fluoroscopic and sonographic guidance. PICC Line Insertion 10/10/19 00:00 IMPRESSION: Successful placement of a 5 Canadian double-lumen PICC via the left brachial vein utilizing fluoroscopic and sonographic guidance. 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 Confirmed with bone biopsy. Repeat biopsy was negative for Ju[place] albicans, growing yeast, pending a speciation. No evidence of malignancy on biopsy. Status post vertebral bone biopsy 10/08/2019. Pathology report: Inflamed and necrotic tissue with reactive bone. No fungal organisms identified by special stains. No carcinoma is identified. ID specialist consulted. Recommendations are to restart micafungin IV while waiting for results and follow-up with ID as outpatient. As per records obtained from [facility] in [place]. Diagnosed 07/21/2019 with Ju[place] glabrata discitis of L5-S1 via vertebral bone biopsy. Completed 6 weeks of micafungin based off susceptibility finished on 07/09/2019. Repeat ESR on 07/16/2019 was 65 with CRP of 5. MRI of lumbar spine on 10/03/2019 shows evidence of discitis/vertebral body osteomyelitis of L5-S1. 10/12/2019. ESR 100. 10/04/2019 CRP 61.6. As per ID specialist treatment for fungal osteomyelitis/discitis should be 6 weeks of IV antifungals then oral antifungal to complete a 6-month course. There is concern about patient being off antifungals for the past 4 weeks which could have left room for development of further resistance. ID recommending bone biopsy of the L5-S1 with susceptibility testing for voriconazole and isavuconazole which would be potential of oral options. Micafungin day 6 Status post PICC line insertion 10/10/2019. Possible discharge home once outpatient antifungal have been set up. Discharge planning working on setting up outpatient antifungal. (2) C. difficile colitis Is this a current diagnosis for this admission?: Yes Plan: WBC WNL. Kidney function improving. Platelets WNL. Had one large watery bowel movement last night. Day 06/10 Vancomycin p.o. 125 mg every 6 hours started. Continue vancomycin. Monitor volume status and electrolytes replace as needed. (3) CKD (chronic kidney disease) stage 3, GFR 30-59 ml/min Is this a current diagnosis for this admission?: Yes Plan: Presented with LUCERO on CKD. LUCERO has resolved. Creatinine back to baseline. Electrolytes WNL. Euvolemic. Nonoliguric. Monitor volume status and electrolytes replace as needed. Avoid nephrotoxic meds. Outpatient nephrology follow-up. (4) Acute urinary tract infection Is this a current diagnosis for this admission?: Yes Plan: Due to E. coli. Resistant to penicillins, Bactrim and quinolones. Completed 5 days of IV ceftriaxone. Asymptomatic. Afebrile. WBC WNL. (5) Lumbosacral radiculopathy due to degenerative joint disease of spine Is this a current diagnosis for this admission?: Yes Plan: History of multilevel DJD. MRI L-spine discitis/vertebral body osteomyelitis at L5-S1. Diffuse multilevel DJD. No signs or symptoms of cauda equina. Having normal bowel and bladder movements. Continue PT/OT. Continue gabapentin, opioid and non-opioid analgesics and lidocaine patch as needed. Monitor for fall and respiratory depression. Outpatient physical therapy, pain management, neurosurgery vs orthopedic surgery follow-up. (6) Anemia Is this a current diagnosis for this admission?: Yes Plan: Likely anemia of chronic disease. Continue ferrous sulfate. Will obtain iron panel. Monitor H&H. Supportive transfusions.
[2019-10-15 09:36] LABS: ABSOLUTE RETICS # 0.077 10^6/uL (0.028-0.122); RETICULOCYTE COUNT (AUTO) 2.69 % (0.66-2.85)
[2019-10-15] MEDS: LIDOCAINE 5% (700 MG) TRANSDERMAL ADH..PATCH TP SCH (09:46)
[2019-10-15] MEDS: MICAFUNGIN SODIUM 100 MG in NORMAL SALINE 100 ML IV SCH (10:28)
[2019-10-15] MEDS: TAMSULOSIN HCL 0.4 MG CAP.SR.24H PO SCH (10:28)
[2019-10-15] MEDS: FERROUS SULFATE 325 MG TABLET PO SCH (10:28)
[2019-10-15] MEDS: CARVEDILOL 12.5 MG TABLET PO SCH ×2 (10:28→22:52)
[2019-10-15] MEDS: ASPIRIN 81 MG TABLET, ENT COATED PO SCH (10:28)
[2019-10-15] MEDS: NORMAL SALINE 1000 ML 1,000 ML IV PRN (10:29)
[2019-10-15] MEDS: NORMAL SALINE 10 ML SDV (AFTER EACH USE) IV PRN (10:29)
[2019-10-15] MEDS: FAMOTIDINE 20 MG TABLET PO SCH ×2 (10:29→23:05)
[2019-10-15] MEDS: NORMAL SALINE 10 ML SDV (SCHEDULED) IV SCH ×2 (10:29→22:53)
[2019-10-15 14:13] LABS: ANION GAP 9 (5-19); BLOOD UREA NITROGEN 26 mg/dL (7-20); CALCIUM 8.5 mg/dL (8.4-10.2); CARBON DIOXIDE 20 mmol/L (22-30); CHLORIDE 108 mmol/L (98-107); GLUCOSE 169 mg/dL (75-110); IRON(TIBC) 55.6 ug/dL (37-170); POTASSIUM 5.1 mmol/L (3.6-5.0)
[2019-10-15 15:19] LABS: FOLATE 8.61 ng/mL (>2.76)
[2019-10-15] MEDS: MIRTAZAPINE 15 MG TABLET PO SCH (22:52)
[2019-10-15] MEDS: ATORVASTATIN CALCIUM 20 MG TABLET PO SCH (22:52)
[2019-10-15] MEDS: PHARMACY COMMUNICATION ORDER MC SCH (23:05)
[2019-10-16] MEDS: NORMAL SALINE 1000 ML 1,000 ML IV PRN ×3 (00:13→20:20)
[2019-10-16] MEDS: HYDROMORPHONE HCL 2 MG TABLET PO PRN ×4 (00:17→20:26)
[2019-10-16] MEDS: LEVOTHYROXINE SODIUM 0.1 MG TABLET PO SCH (05:10)
[2019-10-16] MEDS: HEPARIN SOD (PORCINE) 5,000 UNIT/ML 1 ML VIAL SUBCUT SCH ×3 (05:10→21:44)
[2019-10-16] MEDS: VANCOMYCIN HCL INJ 500 MG VIAL PO SCH ×4 (05:10→20:19)
[2019-10-16] MEDS: GABAPENTIN 100 MG CAPSULE PO SCH (05:10)
[2019-10-16] MEDS: NORMAL SALINE 10 ML SDV (AFTER EACH USE) IV PRN (05:43)
[2019-10-16 06:11] LABS: ABSOLUTE BASOPHILS # (AUTO) 0.1 10^3/uL (0.0-0.2); ABSOLUTE EOSINOPHILS # (AUTO) 0.1 10^3/uL (0.0-0.6); ABSOLUTE LYMPHOCYTES (AUTO) 1.4 10^3/uL (0.5-4.7); ABSOLUTE MONOCYTES (AUTO) 0.5 10^3/uL (0.1-1.4); ABSOLUTE NEUT (AUTO) 3.8 10^3/uL (1.7-8.2); BASOPHILS % (AUTO) 1.1 % (0-2); EOSINOPHILS % (AUTO) 2.1 % (0-6); HEMATOCRIT 25.6 % (36.0-47.0); HEMOGLOBIN 8.5 g/dL (12.0-15.5); LYMPHOCYTES % (AUTO) 23.3 % (13-45); MEAN CORPUSCULAR HGB CONC 33.3 g/dL (32.0-36.0); MEAN CORPUSCULAR VOLUME 90 fl (80-97); MONOCYTES % (AUTO) 8.7 % (3-13); PLATELET COUNT 226 10^3/uL (150-450); RED BLOOD COUNT 2.84 10^6/uL (3.72-5.28); RED CELL DISTRIBUTION WIDTH 17.3 % (11.5-14.0); SEGMENTED NEUTROPHILS % (AUTO) 64.8 % (42-78); TOTAL CELLS COUNTED % (AUTO) 100 %; WHITE BLOOD COUNT 5.8 10^3/uL (4.0-10.5)
[2019-10-16 06:31] LABS: ANION GAP 5 (5-19); BLOOD UREA NITROGEN 26 mg/dL (7-20); CALCIUM 8.2 mg/dL (8.4-10.2); CARBON DIOXIDE 22 mmol/L (22-30); CHLORIDE 111 mmol/L (98-107); GLUCOSE 97 mg/dL (75-110); POTASSIUM 5.5 mmol/L (3.6-5.0)
[2019-10-16] MEDS ORDERED: ONDANSETRON HCL INJ/PF 4 MG/2 ML SDV IV PRN (08:30)
[2019-10-16] MEDS: ASPIRIN 81 MG TABLET, ENT COATED PO SCH (09:09)
[2019-10-16] MEDS: CARVEDILOL 12.5 MG TABLET PO SCH ×2 (09:09→21:42)
[2019-10-16] MEDS: TIZANIDINE HCL 4 MG TABLET PO SCH ×3 (09:09→17:20)
[2019-10-16] MEDS: FERROUS SULFATE 325 MG TABLET PO SCH (09:09)
[2019-10-16] MEDS: PANTOPRAZOLE SODIUM 40 MG TABLET.DR PO SCH (09:09)
[2019-10-16] MEDS: TAMSULOSIN HCL 0.4 MG CAP.SR.24H PO SCH (09:10)
[2019-10-16] MEDS: NORMAL SALINE 10 ML SDV (SCHEDULED) IV SCH ×2 (09:11→21:46)
[2019-10-16] MEDS: LIDOCAINE 5% (700 MG) TRANSDERMAL ADH..PATCH TP SCH (09:12)
[2019-10-16] MEDS: MICAFUNGIN SODIUM 100 MG in NORMAL SALINE 100 ML IV SCH (09:17)
--- NOTE | 2019-10-16 10:18 | PDOC PROGRESS REPORT ---
Subjective Progress Note for:: 10/16/19 Subjective:: JORGE DOBSON is a 79 year old female with a history of recently diagnosed fungal lumbar discitis [completed treatment], resolved diabetes mellitus, peptic ulcer disease s/p surgery, hypertension, CVA, hypothyroidism, depression, who presents with complaint of low back pain, urinary incontinence and polyuria. Polyuria and urinary incontinence have been present for about 2 weeks now. Patient endorses some chills. Denies fevers no dysuria. Of note, patient has been experiencing low back pain since November 2018 after sustaining a fracture in her back. In July 2019, she was diagnosed with fungal discitis of her lumbar spine at [facility] in [place] and was discharged to [facility] to complete 6 weeks of IV antifungal course which concluded on September 08. She had subsequently experienced significant improvement in back pain and underwent physical therapy. About 2 weeks ago, patient still experiencing some urinary incontinence. Patient was discharged from SNF on September 16 but has been experiencing more difficulty with ambulation or weakness in her lower extremities since then. 10/08/2019. No acute events overnight. Patient still complaining of back and bilateral lower extremity pain, n.p.o. for vertebral bone biopsy today, denies any fever, chills, nausea, vomiting, diarrhea, constipation or any urinary symptoms. Ambulatory, having normal bowel and bladder movements, p.o. tolerant. 10/09/2019. No acute events overnight. Patient still complaining of severe lumbar spine pain and persistent diarrhea. Denies any fever, chills, nausea, vomiting, diarrhea, constipation or any urinary symptoms. Cannot ambulate due to severe back pain, p.o. tolerant. 10/10/2019. No acute events overnight. Had one loose bowel last night. Denies any fever, chills, nausea, vomiting, diarrhea, constipation or any urinary sympt oms. Received PT yesterday was able to walk with assistance. Complaining of persistent back pain. 10/11/2019. No acute events overnight. Patient still complaining of back pain. Had one watery stool last night. 10/12/2019. No acute events overnight. Still complaining of lower back pain. Diarrhea has resolved. Patient could eventually be discharged home today however her post discharge care not ready yet. 10/13/2019. No acute events overnight. Diarrhea has resolved. Still complaining of back pain. Patient could potentially be discharged home however her outpatient IV antibiotics has not been arranged yet. 10/14/2019. Patient had one episode of nonbloody watery diarrhea this morning, otherwise denies any fever, chills, nausea, vomiting, urinary symptoms. 10/15/2019. No acute events overnight. Patient still complaining of persistent lower back pain. Patient had one large watery bowel movement last night, p.o. tolerant, has any fever, chills, nausea, vomiting, constipation or any urinary symptoms. 10/16/2019. No acute events overnight. Patient has not had any more diarrhea, complaining of persistent back pain, denies any fever, chills, nausea, vomiting, diarrhea, constipation or any urinary symptoms. Reason For Visit: UTI LUCERO NAGMA LUMBAR SPONDYLOSIS Physical Exam Vital Signs: Temp Pulse Resp BP Pulse Ox 98.6 F 72 15 119/49 L 98 10/16/19 07:38 10/16/19 07:38 10/16/19 04:00 10/16/19 07:38 10/16/19 07:38 Intake & Output 10/15/19 10/16/19 10/17/19 06:59 06:59 06:59 Intake Total 840 2004 Output Total 0 Balance 840 2004 Weight 54.8 kg 56.5 kg General appearance: PRESENT: no acute distress, well-developed, well-nourished Head exam: PRESENT: atraumatic, normocephalic Respiratory exam: PRESENT: clear to auscultation elaina. ABSENT: rales, rhonchi, w heezes Cardiovascular exam: PRESENT: RRR. ABSENT: diastolic murmur, rubs, systolic murmur GI/Abdominal exam: PRESENT: normal bowel sounds, soft. ABSENT: distended, guarding, mass, organolmegaly, rebound, tenderness Musculoskeletal exam: PRESENT: tenderness - Lumbar spine tenderness. Results Laboratory Results: 10/16/19 05:45 10/16/19 05:45 10/15/19 10/15/19 10/16/19 13:35 13:35 05:45 WBC 5.8 RBC 2.84 L Hgb 8.5 L Hct 25.6 L MCV 90 MCH 30.0 MCHC 33.3 RDW 17.3 H Plt Count 226 Seg Neutrophils % 64.8 Sodium 136.5 L Potassium 5.1 H Chloride 108 H Carbon Dioxide 20 L Anion Gap 9 BUN 26 H Creatinine 1.23 Est GFR ( Amer) 51 L Glucose 169 H Calcium 8.5 Iron 55.6 TIBC 212 L % Saturation 26 Ferritin 405.00 H Vitamin B12 529.0 Folate 8.61 10/16/19 05:45 WBC RBC Hgb Hct MCV MCH MCHC RDW Plt Count Seg Neutrophils % Sodium 138.1 Potassium 5.5 H Chloride 111 H Carbon Dioxide 22 Anion Gap 5 BUN 26 H Creatinine 1.41 H Est GFR ( Amer) 44 L Glucose 97 Calcium 8.2 L Iron TIBC % Saturation Ferritin Vitamin B12 Folate 10/15/19 12:03 Back Fluid - Not Specified Yeast/Fungus Identification - Final Not Reportable 10/15/19 12:03 Back Fluid - Not Specified Yeast/Fungus Identification - Final Not Reportable 10/15/19 12:03 Back Fluid - Not Specified Yeast/Fungus Identification - Final Not Reportable 10/15/19 12:03 Back Fluid - Not Specified Yeast/Fungus Identification - Final Not Reportable 10/03/19 04:16 Creatine Kinase < 20 L Impressions: Lumbar Spine X-Ray 10/02/19 11:06 IMPRESSION: Mild scoliosis. Anterolisthesis of L5 on S1. Degenerative disc d isease, spondylosis, and facet arthropathy. Lumbar Spine CT 10/02/19 12:50 IMPRESSION: 1. Spondylosis, facet arthropathy and malalignment. Erosive endplate changes at L5-S1 probably due to chronic inflammation, however cannot exclude discitis. Clinical correlation is needed. 2. Dilated left renal collecting system of uncertain chronicity and etiology. Knee X-Ray 10/02/19 12:52 IMPRESSION: No acute findings. Chest X-Ray 10/02/19 14:20 IMPRESSION: COPD. NO ACUTE RADIOGRAPHIC FINDING IN THE CHEST. 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 Guidance Fluoroscopy 10/10/19 00:00 IMPRESSION: Successful placement of a 5 Panamanian double-lumen PICC via the left brachial vein utilizing fluoroscopic and sonographic guidance. Interventional Vascular Procedure 10/10/19 00:00 IMPRESSION: Successful placement of a 5 [place]ian double-lumen PICC via the left brachial vein utilizing fluoroscopic and sonographic guidance. PICC Line Insertion 10/10/19 00:00 IMPRESSION: Successful placement of a 5 [place] double-lumen PICC via the left brachial vein utilizing fluoroscopic and sonographic guidance. 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 Confirmed with bone biopsy. Repeat biopsy was negative for [place] albicans, growing yeast, pending a speciation. No evidence of malignancy on biopsy. Status post vertebral bone biopsy 10/08/2019. Pathology report: Inflamed and necrotic tissue with reactive bone. No fungal organisms identified by special stains. No carcinoma is identified. ID specialist consulted. Recommendations are to restart micafungin IV while waiting for results and follow-up with ID as outpatient. As per records obtained from [facility] in [place]. Diagnosed 07/21/2019 with [place] glabrata discitis of L5-S1 via vertebral bone biopsy. Completed 6 weeks of micafungin based off susceptibility finished on 07/09/2019. Repeat ESR on 07/16/2019 was 65 with CRP of 5. MRI of lumbar spine on 10/03/2019 shows evidence of discitis/vertebral body osteomyelitis of L5-S1. 10/12/2019. ESR 100. 10/04/2019 CRP 61.6. As per ID specialist treatment for fungal osteomyelitis/discitis should be 6 weeks of IV antifungals then oral antifungal to complete a 6-month course. There is concern about patient being off antifungals for the past 4 weeks which could have left room for development of further resistance. ID recommending bone biopsy of the L5-S1 with susceptibility testing for voriconazole and isavuconazole which would be potential of oral options. Micafungin day 7 Status post PICC line insertion 10/10/2019. Possible discharge home once outpatient antifungal have been set up. Discharge planning working on setting up outpatient antifungal. (2) C. difficile colitis Is this a current diagnosis for this admission?: Yes Plan: WBC WNL. Kidney function improving. Platelets WNL. Had one regular bowel movement since yesterday. No diarrhea. Day 07/10 Vancomycin p.o. 125 mg every 6 hours started. Continue vancomycin. Monitor volume status and electrolytes replace as needed. (3) CKD (chronic kidney disease) stage 3, GFR 30-59 ml/min Is this a current diagnosis for this admission?: Yes Plan: Presented with LUCERO on CKD. LUCERO has resolved. Creatinine back to baseline. Electrolytes WNL. Euvolemic. Nonoliguric. Monitor volume status and electrolytes replace as needed. Avoid nephrotoxic meds. Outpatient nephrology follow-up. (4) Acute urinary tract infection Is this a current diagnosis for this admission?: Yes Plan: Due to E. coli. Resistant to penicillins, Bactrim and quinolones. Completed 5 days of IV ceftriaxone. Asymptomatic. Afebrile. WBC WNL. (5) Lumbosacral radiculopathy due to degenerative joint disease of spine Is this a current diagnosis for this admission?: Yes Plan: History of multilevel DJD. MRI L-spine discitis/vertebral body osteomyelitis at L5-S1. Diffuse multilevel DJD. No signs or symptoms of cauda equina. Having normal bowel and bladder movements. Continue PT/OT. Continue gabapentin, opioid and non-opioid analgesics and l idocaine patch as needed. Monitor for fall and respiratory depression. Outpatient physical therapy, pain management, neurosurgery vs orthopedic surgery follow-up. (6) Anemia Qualifiers: Chronic kidney disease stage: stage 3 (moderate) Is this a current diagnosis for this admission?: Yes Plan: Likely anemia of chronic disease as well as CKD. Iron panel indicative of anemia of chronic disease. Continue ferrous sulfate. Monitor H&H. Supportive transfusions. (7) Hyperkalemia Is this a current diagnosis for this admission?: Yes Plan: No acute EKG changes. Hyperkalemia protocol. Low potassium diet.
[2019-10-16] MEDS ORDERED: CALCIUM GLUCONATE 1000 MG/10 ML INJ IV ONE (11:00)
[2019-10-16] MEDS: ATORVASTATIN CALCIUM 20 MG TABLET PO SCH (21:45)
[2019-10-16] MEDS: MIRTAZAPINE 15 MG TABLET PO SCH (21:45)
[2019-10-16] MEDS: PHARMACY COMMUNICATION ORDER MC SCH (21:47)
[2019-10-16] MEDS ORDERED: PHARMACY COMMUNICATION ORDER MC SCH (22:00)
[2019-10-17] MEDS: VANCOMYCIN HCL INJ 500 MG VIAL PO SCH ×4 (02:10→21:55)
[2019-10-17] MEDS: HYDROMORPHONE HCL 2 MG TABLET PO PRN ×5 (02:13→22:06)
[2019-10-17] MEDS: OXYCODONE-ACETAMINOPHEN 5-325 MG TABLET PO PRN (05:06)
[2019-10-17] MEDS: PANTOPRAZOLE SODIUM 40 MG TABLET.DR PO SCH (05:07)
[2019-10-17] MEDS: LEVOTHYROXINE SODIUM 0.1 MG TABLET PO SCH (05:07)
[2019-10-17] MEDS: NORMAL SALINE 1000 ML 1,000 ML IV PRN ×3 (05:08→22:03)
[2019-10-17] MEDS: HEPARIN SOD (PORCINE) 5,000 UNIT/ML 1 ML VIAL SUBCUT SCH ×3 (05:09→21:54)
[2019-10-17 06:50] LABS: ANION GAP 6 (5-19); BLOOD UREA NITROGEN 18 mg/dL (7-20); CALCIUM 7.3 mg/dL (8.4-10.2); CARBON DIOXIDE 18 mmol/L (22-30); CHLORIDE 116 mmol/L (98-107); GLUCOSE 80 mg/dL (75-110); POTASSIUM 4.6 mmol/L (3.6-5.0)
--- NOTE | 2019-10-17 09:14 | PDOC PROGRESS REPORT ---
Subjective Progress Note for:: 10/17/19 Subjective:: JORGE DOBSON is a 79 year old female with a history of recently diagnosed fungal lumbar discitis [completed treatment], resolved diabetes mellitus, peptic ulcer disease s/p surgery, hypertension, CVA, hypothyroidism, depression, who presents with complaint of low back pain, urinary incontinence and polyuria. Polyuria and urinary incontinence have been present for about 2 weeks now. Patient endorses some chills. Denies fevers no dysuria. Of note, patient has been experiencing low back pain since November 2018 after sustaining a fracture in her back. In July 2019, she was diagnosed with fungal discitis of her lumbar spine at [facility] in [place] and was discharged to [facility] to complete 6 weeks of IV antifungal course which concluded on September 08. She had subsequently experienced significant improvement in back pain and underwent physical therapy. About 2 weeks ago, patient still experiencing some urinary incontinence. Patient was discharged from SNF on September 16 but has been experiencing more difficulty with ambulation or weakness in her lower extremities since then. 10/08/2019. No acute events overnight. Patient still complaining of back and bilateral lower extremity pain, n.p.o. for vertebral bone biopsy today, denies any fever, chills, nausea, vomiting, diarrhea, constipation or any urinary symptoms. Ambulatory, having normal bowel and bladder movements, p.o. tolerant. 10/09/2019. No acute events overnight. Patient still complaining of severe lumbar spine pain and persistent diarrhea. Denies any fever, chills, nausea, vomiting, diarrhea, constipation or any urinary symptoms. Cannot ambulate due to severe back pain, p.o. tolerant. 10/10/2019. No acute events overnight. Had one loose bowel last night. Denies any fever, chills, nausea, vomiting, diarrhea, constipation or any urinary sympt oms. Received PT yesterday was able to walk with assistance. Complaining of persistent back pain. 10/11/2019. No acute events overnight. Patient still complaining of back pain. Had one watery stool last night. 10/12/2019. No acute events overnight. Still complaining of lower back pain. Diarrhea has resolved. Patient could eventually be discharged home today however her post discharge care not ready yet. 10/13/2019. No acute events overnight. Diarrhea has resolved. Still complaining of back pain. Patient could potentially be discharged home however her outpatient IV antibiotics has not been arranged yet. 10/14/2019. Patient had one episode of nonbloody watery diarrhea this morning, otherwise denies any fever, chills, nausea, vomiting, urinary symptoms. 10/15/2019. No acute events overnight. Patient still complaining of persistent lower back pain. Patient had one large watery bowel movement last night, p.o. tolerant, has any fever, chills, nausea, vomiting, constipation or any urinary symptoms. 10/16/2019. No acute events overnight. Patient has not had any more diarrhea, complaining of persistent back pain, denies any fever, chills, nausea, vomiting, diarrhea, constipation or any urinary symptoms. 10/17/2019. No acute events overnight still complaining of persistent back pain mild improvement with initiation of tizanidine, diarrhea has resolved, denies any fever, chills, nausea, vomiting, diarrhea, constipation or any urinary symptoms. Reason For Visit: UTI LUCERO NAGMA LUMBAR SPONDYLOSIS Physical Exam Vital Signs: Temp Pulse Resp BP Pulse Ox 98.3 F 75 18 102/58 L 96 10/17/19 04:02 10/17/19 04:02 10/17/19 04:02 10/17/19 04:02 10/17/19 04:02 Intake & Output 10/16/19 10/17/19 10/18/19 06:59 06:59 06:59 Intake Total 2004 3105 Balance 2004 3105 Weight 56.5 kg 59.1 kg General appearance: PRESENT: no acute distress, well-developed, well-nourished Head exam: PRESENT: atraumatic, normocephalic Respiratory exam: PRESENT: clear to auscultation elaina. ABSENT: rales, rhonchi, wheezes Cardiovascular exam: PRESENT: RRR. ABSENT: diastolic murmur, rubs, systolic murmur GI/Abdominal exam: PRESENT: normal bowel sounds, soft. ABSENT: distended, guarding, mass, organolmegaly, rebound, tenderness Musculoskeletal exam: PRESENT: tenderness - Lumbar spine. Neurological exam: PRESENT: alert, awake, oriented to person, oriented to place, oriented to time, oriented to situation, CN II-XII grossly intact. ABSENT: motor sensory deficit Results Laboratory Results: 10/16/19 05:45 10/17/19 05:20 10/17/19 05:20 Sodium 139.6 Potassium 4.6 Chloride 116 H Carbon Dioxide 18 L Anion Gap 6 BUN 18 Creatinine 1.09 Est GFR ( Amer) 59 L Glucose 80 Calcium 7.3 L 10/08/19 11:07 Bone - Back Fungal Smear - Final 10/08/19 11:07 Bone - Back Fungal Smear - Final 10/08/19 11:07 Back - Spine Gram Stain - Final 10/08/19 11:07 Back - Spine Body Fluid Culture - Final Yeast, Not [place] Albicans No Anaerobic Organisms 10/03/19 04:16 Creatine Kinase < 20 L Impressions: Lumbar Spine X-Ray 10/02/19 11:06 IMPRESSION: Mild scoliosis. Anterolisthesis of L5 on S1. Degenerative disc disease, spondylosis, and facet arthropathy. Lumbar Spine CT 10/02/19 12:50 IMPRESSION: 1. Spondylosis, facet arthropathy and malalignment. Erosive endplate changes at L5-S1 probably due to chronic inflammation, however cannot exclude discitis. Clinical correlation is needed. 2. Dilated left renal collecting system of uncertain chronicity and etiology. Knee X-Ray 10/02/19 12:52 IMPRESSION: No acute findings. Chest X-Ray 10/02/19 14:20 IMPRESSION: COPD. NO ACUTE RADIOGRAPHIC FINDING IN THE CHEST. 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 Guidance Fluoroscopy 10/10/19 00:00 IMPRESSION: Successful placement of a 5 Finnish double-lumen PICC via the left brachial vein utilizing fluoroscopic and sonographic guidance. Interventional Vascular Procedure 10/10/19 00:00 IMPRESSION: Successful placement of a 5 Finnish double-lumen PICC via the left brachial vein utilizing fluoroscopic and sonographic guidance. PICC Line Insertion 10/10/19 00:00 IMPRESSION: Successful placement of a 5 Finnish double-lumen PICC via the left brachial vein utilizing fluoroscopic and sonographic guidance. 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 Confirmed with bone biopsy. Repeat biopsy was negative for [place] albicans, growing yeast, pending a speciation. No evidence of malignancy on biopsy. Status post vertebral bone biopsy 10/08/2019. Pathology report: Inflamed and necrotic tissue with reactive bone. No fungal organisms identified by special stains. No carcinoma is identified. ID specialist consulted. Recommendations are to restart micafungin IV while waiting for results and follow-up with ID as outpatient. As per records obtained from [facility] in [place]. Diagnosed 07/21/2019 with [place] glabrata discitis of L5-S1 via vertebral bone biopsy. Completed 6 weeks of micafungin based off susceptibility finished on 07/09/2019. Repeat ESR on 07/16/2019 was 65 with CRP of 5. MRI of lumbar spine on 10/03/2019 shows evidence of discitis/vertebral body osteomyelitis of L5-S1. 10/12/2019. ESR 100. 10/04/2019 CRP 61.6. As per ID specialist treatment for fungal osteomyelitis/discitis should be 6 weeks of IV antifungals then oral antifungal to complete a 6-month course. There is concern about patient being off antifungals for the past 4 weeks which could have left room for development of further resistance. ID recommending bone biopsy of the L5-S1 with susceptibility testing for voriconazole and isavuconazole which would be potential of oral options. Micafungin day 8 Status post PICC line insertion 10/10/2019. Unfortunately patient would not be able to afford paying for her antifungals if she is discharged home, discharge planning is working on transitioning patient for possible SNF placement. (2) C. difficile colitis Is this a current diagnosis for this admission?: Yes Plan: Resolved. WBC WNL. Kidney function improving. Platelets WNL. Day 07/14 Vancomycin p.o. 125 mg every 6 hours started. Continue vancomycin. Monitor volume status and electrolytes replace as needed. (3) CKD (chronic kidney disease) stage 3, GFR 30-59 ml/min Is this a current diagnosis for this admission?: Yes Plan: Presented with LUCERO on CKD. LUCERO has resolved. Creatinine back to baseline. Electrolytes WNL. Euvolemic. Nonoliguric. Monitor volume status and electrolytes replace as needed. Avoid nephrotoxic meds. Outpatient nephrology follow-up. (4) Acute urinary tract infection Is this a current diagnosis for this admission?: Yes Plan: Due to E. coli. Resistant to penicillins, Bactrim and quinolones. Completed 5 days of IV ceftriaxone. Asymptomatic. Afebrile. WBC WNL. (5) Lumbosacral radiculopathy due to degenerative joint disease of spine Is this a current diagnosis for this admission?: Yes Plan: History of multilevel DJD. MRI L-spine discitis/vertebral body osteomyelitis at L5-S1. Diffuse multilevel DJD. No signs or symptoms of cauda equina. Having normal bowel and bladder movements. Continue PT/OT. Continue gabapentin, opioid and non-opioid analgesics and lidocaine patch as needed. Monitor for fall and respiratory depression. Outpatient physical therapy, pain management, neurosurgery vs orthopedic surgery follow-up. (6) Anemia Qualifiers: Chronic kidney disease stage: stage 3 (moderate) Is this a current diagnosis for this admission?: Yes Plan: Likely anemia of chronic disease as well as CKD. Iron panel indicative of anemia of chronic disease. Continue ferrous sulfate. Monitor H&H. Supportive transfusions. (7) Hyperkalemia Is this a current diagnosis for this admission?: Yes Plan: Resolved. No acute EKG changes. Hyperkalemia protocol. Low potassium diet.
[2019-10-17] MEDS: LIDOCAINE 5% (700 MG) TRANSDERMAL ADH..PATCH TP SCH (10:58)
[2019-10-17] MEDS: TIZANIDINE HCL 4 MG TABLET PO SCH ×3 (10:59→17:32)
[2019-10-17] MEDS: ASPIRIN 81 MG TABLET, ENT COATED PO SCH (10:59)
[2019-10-17] MEDS: FERROUS SULFATE 325 MG TABLET PO SCH (10:59)
[2019-10-17] MEDS: TAMSULOSIN HCL 0.4 MG CAP.SR.24H PO SCH (10:59)
[2019-10-17] MEDS: MICAFUNGIN SODIUM 100 MG in NORMAL SALINE 100 ML IV SCH (10:59)
[2019-10-17] MEDS: NORMAL SALINE 10 ML SDV (SCHEDULED) IV SCH ×2 (11:05→21:54)
[2019-10-17] MEDS: CARVEDILOL 12.5 MG TABLET PO SCH ×2 (11:05→21:55)
[2019-10-17] MEDS ORDERED: MICAFUNGIN SODIUM INJ/PF 100 MG VIAL IV SCH (15:45)
[2019-10-17] MEDS ORDERED: MICAFUNGIN SODIUM 100 MG in NORMAL SALINE 100 ML IV SCH (18:00)
[2019-10-17] MEDS: ATORVASTATIN CALCIUM 20 MG TABLET PO SCH (21:54)
[2019-10-17] MEDS: MIRTAZAPINE 15 MG TABLET PO SCH (21:54)
[2019-10-17] MEDS: PHARMACY COMMUNICATION ORDER MC SCH (21:56)
[2019-10-18] MEDS ORDERED: HEPARIN SOD (PORCINE) 5,000 UNIT/ML 1 ML VIAL SUBCUT SCH (06:00)
[2019-10-18] MEDS: PANTOPRAZOLE SODIUM 40 MG TABLET.DR PO SCH (06:03)
[2019-10-18] MEDS: LEVOTHYROXINE SODIUM 0.1 MG TABLET PO SCH (06:03)
[2019-10-18] MEDS: HYDROMORPHONE HCL 2 MG TABLET PO PRN (06:03)
[2019-10-18] MEDS: VANCOMYCIN HCL INJ 500 MG VIAL PO SCH ×4 (06:06→21:16)
[2019-10-18] MEDS: HEPARIN SOD (PORCINE) 5,000 UNIT/ML 1 ML VIAL SUBCUT SCH ×2 (06:38→15:40)
[2019-10-18] MEDS: NORMAL SALINE 10 ML SDV (SCHEDULED) IV SCH ×2 (09:56→21:17)
[2019-10-18] MEDS: FERROUS SULFATE 325 MG TABLET PO SCH (09:56)
[2019-10-18] MEDS: ASPIRIN 81 MG TABLET, ENT COATED PO SCH (09:56)
[2019-10-18] MEDS: LIDOCAINE 5% (700 MG) TRANSDERMAL ADH..PATCH TP SCH (09:57)
[2019-10-18] MEDS: TAMSULOSIN HCL 0.4 MG CAP.SR.24H PO SCH (09:57)
[2019-10-18] MEDS: TIZANIDINE HCL 4 MG TABLET PO SCH ×3 (09:57→17:56)
[2019-10-18] MEDS: CARVEDILOL 12.5 MG TABLET PO SCH ×2 (09:57→21:16)
[2019-10-18] MEDS: MICAFUNGIN SODIUM 100 MG in NORMAL SALINE 100 ML IV SCH (09:58)
[2019-10-18] MEDS ORDERED: ASPIRIN 325 MG TABLET PO SCH (10:00)
--- NOTE | 2019-10-18 10:33 | PDOC PROGRESS REPORT ---
Subjective Progress Note for:: 10/18/19 Subjective:: JORGE DOBSON is a 79 year old female with a history of recently diagnosed fungal lumbar discitis [completed treatment], resolved diabetes mellitus, peptic ulcer disease s/p surgery, hypertension, CVA, hypothyroidism, depression, who presents with complaint of low back pain, urinary incontinence and polyuria. Polyuria and urinary incontinence have been present for about 2 weeks now. Patient endorses some chills. Denies fevers no dysuria. Of note, patient has been experiencing low back pain since November 2018 after sustaining a fracture in her back. In July 2019, she was diagnosed with fungal discitis of her lumbar spine at [facility] in [place] and was discharged to [facility] to complete 6 weeks of IV antifungal course which concluded on September 08. She had subsequently experienced significant improvement in back pain and underwent physical therapy. About 2 weeks ago, patient still experiencing some urinary incontinence. Patient was discharged from SNF on September 16 but has been experiencing more difficulty with ambulation or weakness in her lower extremities since then. 10/08/2019. No acute events overnight. Patient still complaining of back and bilateral lower extremity pain, n.p.o. for vertebral bone biopsy today, denies any fever, chills, nausea, vomiting, diarrhea, constipation or any urinary symptoms. Ambulatory, having normal bowel and bladder movements, p.o. tolerant. 10/09/2019. No acute events overnight. Patient still complaining of severe lumbar spine pain and persistent diarrhea. Denies any fever, chills, nausea, vomiting, diarrhea, constipation or any urinary symptoms. Cannot ambulate due to severe back pain, p.o. tolerant. 10/10/2019. No acute events overnight. Had one loose bowel last night. Denies any fever, chills, nausea, vomiting, diarrhea, constipation or any urinary sympt oms. Received PT yesterday was able to walk with assistance. Complaining of persistent back pain. 10/11/2019. No acute events overnight. Patient still complaining of back pain. Had one watery stool last night. 10/12/2019. No acute events overnight. Still complaining of lower back pain. Diarrhea has resolved. Patient could eventually be discharged home today however her post discharge care not ready yet. 10/13/2019. No acute events overnight. Diarrhea has resolved. Still complaining of back pain. Patient could potentially be discharged home however her outpatient IV antibiotics has not been arranged yet. 10/14/2019. Patient had one episode of nonbloody watery diarrhea this morning, otherwise denies any fever, chills, nausea, vomiting, urinary symptoms. 10/15/2019. No acute events overnight. Patient still complaining of persistent lower back pain. Patient had one large watery bowel movement last night, p.o. tolerant, has any fever, chills, nausea, vomiting, constipation or any urinary symptoms. 10/16/2019. No acute events overnight. Patient has not had any more diarrhea, complaining of persistent back pain, denies any fever, chills, nausea, vomiting, diarrhea, constipation or any urinary symptoms. 10/17/2019. No acute events overnight still complaining of persistent back pain mild improvement with initiation of tizanidine, diarrhea has resolved, denies any fever, chills, nausea, vomiting, diarrhea, constipation or any urinary symptoms. 10/18/2019. Still complaining of persistent lower back and left lower extremity pain, mild improvement with Dilaudid, diarrhea has resolved, p.o. tolerant, having normal bowel and bladder movement. Reason For Visit: UTI LUCERO NAGMA LUMBAR SPONDYLOSIS Physical Exam Vital Signs: Temp Pulse Resp BP Pulse Ox 98.1 F 62 17 148/65 H 95 10/18/19 08:43 10/18/19 08:43 10/18/19 08:43 10/18/19 08:43 10/18/19 08:43 Intake & Output 10/17/19 10/18/19 10/19/19 06:59 06:59 06:59 Intake Total 3105 3546 Balance 3105 3546 Weight 59.1 kg 60.2 kg General appearance: PRESENT: no acute distress, well-developed, well-nourished Head exam: PRESENT: atraumatic, normocephalic Respiratory exam: PRESENT: clear to auscultation elaina. ABSENT: rales, rhonchi, wheezes Cardiovascular exam: PRESENT: RRR. ABSENT: diastolic murmur, rubs, systolic murmur GI/Abdominal exam: PRESENT: normal bowel sounds, soft. ABSENT: distended, guarding, mass, organolmegaly, rebound, tenderness Extremities exam: PRESENT: full ROM. ABSENT: calf tenderness, clubbing, pedal edema Musculoskeletal exam: PRESENT: tenderness - Lumbar spine tenderness Neurological exam: PRESENT: alert, awake, oriented to person, oriented to place, oriented to time, oriented to situation, CN II-XII grossly intact. ABSENT: motor sensory deficit Results Laboratory Results: 10/16/19 05:45 10/17/19 05:20 10/08/19 11:07 Back - Spine Gram Stain - Final 10/08/19 11:07 Back - Spine Body Fluid Culture - Final Yeast, Not [place] Albicans No Anaerobic Organisms 10/15/19 12:03 Back Fluid - Not Specified Yeast/Fungus Identification - Final 10/15/19 12:03 Back Fluid - Not Specified Yeast/Fungus Identification - Final 10/08/19 11:07 Bone - Back Fungal Smear - Final 10/08/19 11:07 Bone - Back Fungal Smear - Final 10/03/19 04:16 Creatine Kinase < 20 L Impressions: Lumbar Spine X-Ray 10/02/19 11:06 IMPRESSION: Mild scoliosis. Anterolisthesis of L5 on S1. Degenerative disc disease, spondylosis, and facet arthropathy. Lumbar Spine CT 10/02/19 12:50 IMPRESSION: 1. Spondylosis, facet arthropathy and malalignment. Erosive endplate changes at L5-S1 probably due to chronic inflammation, however cannot exclude discitis. Clinical correlation is needed. 2. Dilated left renal collecting system of uncertain chronicity and etiology. Knee X-Ray 10/02/19 12:52 IMPRESSION: No acute findings. Chest X-Ray 10/02/19 14:20 IMPRESSION: COPD. NO ACUTE RADIOGRAPHIC FINDING IN THE CHEST. 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 Guidance Fluoroscopy 10/10/19 00:00 IMPRESSION: Successful placement of a 5 [place] double-lumen PICC via the left brachial vein utilizing fluoroscopic and sonographic guidance. Interventional Vascular Procedure 10/10/19 00:00 IMPRESSION: Successful placement of a 5 [place] double-lumen PICC via the left brachial vein utilizing fluoroscopic and sonographic guidance. PICC Line Insertion 10/10/19 00:00 IMPRESSION: Successful placement of a 5 [place] double-lumen PICC via the left brachial vein utilizing fluoroscopic and sonographic guidance. 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 Confirmed with bone biopsy. Repeat biopsy positive for Ju[place] glabrata pending sensitivity, negative for [place] albicans. Bone biopsy no evidence of malignancy on biopsy. Status post vertebral bone biopsy 10/08/2019. Pathology report: Inflamed and necrotic tissue with reactive bone. No fungal organisms identified by special stains. No carcinoma is identified. ID specialist consulted. Recommendations are to restart micafungin IV while waiting for results and follow-up with ID as outpatient. As per records obtained from [facility] in [place]. Diagnosed 07/21/2019 with Ju[place] glabrata discitis of L5-S1 via vertebral bone biopsy. Completed 6 weeks of micafungin based off susceptibility finished on 07/09/2019. Repeat ESR on 07/16/2019 was 65 with CRP of 5. MRI of lumbar spine on 10/03/2019 shows evidence of discitis/vertebral body osteomyelitis of L5-S1. 10/12/2019. ESR 100. 10/04/2019 CRP 61.6. As per ID specialist treatment for fungal osteomyelitis/discitis should be 6 weeks of IV antifungals then oral antifungal to complete a 6-month course. There is concern about patient being off antifungals for the past 4 weeks which could have left room for development of further resistance. ID recommending bone biopsy of the L5-S1 with susceptibility testing for voriconazole and isavuconazole which would be potential of oral options. Micafungin day 9 Status post PICC line insertion 10/10/2019. Unfortunately patient would not be able to afford paying for her antifungals if she is discharged home, discharge planning is working on transitioning patient for possible SNF placement. (2) C. difficile colitis Is this a current diagnosis for this admission?: Yes Plan: Resolved. WBC WNL. Kidney function improving. Platelets WNL. Day 11/14 Vancomycin p.o. 125 mg every 6 hours started. Continue vancomycin. Monitor volume status and electrolytes replace as needed. (3) CKD (chronic kidney disease) stage 3, GFR 30-59 ml/min Is this a current diagnosis for this admission?: Yes Plan: Presented with LUCERO on CKD. LUCERO has resolved. Creatinine back to baseline. Electrolytes WNL. Euvolemic. Nonoliguric. Monitor volume status and electrolytes replace as needed. Avoid nephrotoxic meds. Outpatient nephrology follow-up. (4) Acute urinary tract infection Is this a current diagnosis for this admission?: Yes Plan: Due to E. coli. Resistant to penicillins, Bactrim and quinolones. Completed 5 days of IV ceftriaxone. Asymptomatic. Afebrile. WBC WNL. (5) Lumbosacral radiculopathy due to degenerative joint disease of spine Is this a current diagnosis for this admission?: Yes Plan: History of multilevel DJD. MRI L-spine discitis/vertebral body osteomyelitis at L5-S1. Diffuse multilevel DJD. No signs or symptoms of cauda equina. Having normal bowel and bladder movements. Continue PT/OT. Continue gabapentin, opioid and non-opioid analgesics and lidocaine patch as needed. Monitor for fall and respiratory depression. Outpatient physical therapy, pain management, neurosurgery vs orthopedic surgery follow-up. (6) Anemia Qualifiers: Chronic kidney disease stage: stage 3 (moderate) Is this a current diagnosis for this admission?: Yes Plan: Likely anemia of chronic disease as well as CKD. Iron panel indicative of anemia of chronic disease. Continue ferrous sulfate. Monitor H&H. Supportive transfusions. (7) Hyperkalemia Is this a current diagnosis for this admission?: Yes Plan: Resolved. No acute EKG changes. Hyperkalemia protocol. Low potassium diet.
[2019-10-18] MEDS: GABAPENTIN 100 MG CAPSULE PO SCH ×2 (12:20→17:56)
[2019-10-18] MEDS: OXYCODONE-ACETAMINOPHEN 5-325 MG TABLET PO PRN (15:52)
[2019-10-18] MEDS: ATORVASTATIN CALCIUM 20 MG TABLET PO SCH (21:16)
[2019-10-18] MEDS: MIRTAZAPINE 15 MG TABLET PO SCH (21:16)
[2019-10-18] MEDS: PHARMACY COMMUNICATION ORDER MC SCH (21:17)
[2019-10-19] MEDS: TIZANIDINE HCL 4 MG TABLET PO SCH ×5 (00:32→23:15)
[2019-10-19] MEDS: GABAPENTIN 100 MG CAPSULE PO SCH ×5 (00:32→23:15)
[2019-10-19] MEDS: VANCOMYCIN HCL INJ 500 MG VIAL PO SCH ×4 (02:36→22:17)
[2019-10-19] MEDS: LEVOTHYROXINE SODIUM 0.1 MG TABLET PO SCH (06:16)
[2019-10-19] MEDS: PANTOPRAZOLE SODIUM 40 MG TABLET.DR PO SCH (06:16)
[2019-10-19] MEDS: ENOXAPARIN SODIUM INJ 40 MG/0.4 ML DISP.SYRIN SUBCUT SCH (09:59)
[2019-10-19] MEDS: FERROUS SULFATE 325 MG TABLET PO SCH (10:00)
[2019-10-19] MEDS: TAMSULOSIN HCL 0.4 MG CAP.SR.24H PO SCH (10:01)
[2019-10-19] MEDS: ASPIRIN 81 MG TABLET, ENT COATED PO SCH (10:01)
[2019-10-19] MEDS: CARVEDILOL 12.5 MG TABLET PO SCH ×2 (10:01→22:17)
[2019-10-19] MEDS: LIDOCAINE 5% (700 MG) TRANSDERMAL ADH..PATCH TP SCH (10:03)
[2019-10-19] MEDS: NORMAL SALINE 10 ML SDV (SCHEDULED) IV SCH ×2 (10:03→22:21)
[2019-10-19] MEDS: MICAFUNGIN SODIUM 100 MG in NORMAL SALINE 100 ML IV SCH (11:17)
--- NOTE | 2019-10-19 12:22 | PDOC PROGRESS REPORT ---
Subjective Progress Note for:: 10/19/19 Subjective:: JORGE DOBSON is a 79 year old female with a history of recently diagnosed fungal lumbar discitis [completed treatment], resolved diabetes mellitus, peptic ulcer disease s/p surgery, hypertension, CVA, hypothyroidism, depression, who presents with complaint of low back pain, urinary incontinence and polyuria. Polyuria and urinary incontinence have been present for about 2 weeks now. Patient endorses some chills. Denies fevers no dysuria. Of note, patient has been experiencing low back pain since November 2018 after sustaining a fracture in her back. In July 2019, she was diagnosed with fungal discitis of her lumbar spine at [facility] in [place] and was discharged to [facility] to complete 6 weeks of IV antifungal course which concluded on September 08. She had subsequently experienced significant improvement in back pain and underwent physical therapy. About 2 weeks ago, patient still experiencing some urinary incontinence. Patient was discharged from SNF on September 16 but has been experiencing more difficulty with ambulation or weakness in her lower extremities since then. 10/08/2019. No acute events overnight. Patient still complaining of back and bilateral lower extremity pain, n.p.o. for vertebral bone biopsy today, denies any fever, chills, nausea, vomiting, diarrhea, constipation or any urinary symptoms. Ambulatory, having normal bowel and bladder movements, p.o. tolerant. 10/09/2019. No acute events overnight. Patient still complaining of severe lumbar spine pain and persistent diarrhea. Denies any fever, chills, nausea, vomiting, diarrhea, constipation or any urinary symptoms. Cannot ambulate due to severe back pain, p.o. tolerant. 10/10/2019. No acute events overnight. Had one loose bowel last night. Denies any fever, chills, nausea, vomiting, diarrhea, constipation or any urinary sympt oms. Received PT yesterday was able to walk with assistance. Complaining of persistent back pain. 10/11/2019. No acute events overnight. Patient still complaining of back pain. Had one watery stool last night. 10/12/2019. No acute events overnight. Still complaining of lower back pain. Diarrhea has resolved. Patient could eventually be discharged home today however her post discharge care not ready yet. 10/13/2019. No acute events overnight. Diarrhea has resolved. Still complaining of back pain. Patient could potentially be discharged home however her outpatient IV antibiotics has not been arranged yet. 10/14/2019. Patient had one episode of nonbloody watery diarrhea this morning, otherwise denies any fever, chills, nausea, vomiting, urinary symptoms. 10/15/2019. No acute events overnight. Patient still complaining of persistent lower back pain. Patient had one large watery bowel movement last night, p.o. tolerant, has any fever, chills, nausea, vomiting, constipation or any urinary symptoms. 10/16/2019. No acute events overnight. Patient has not had any more diarrhea, complaining of persistent back pain, denies any fever, chills, nausea, vomiting, diarrhea, constipation or any urinary symptoms. 10/17/2019. No acute events overnight still complaining of persistent back pain mild improvement with initiation of tizanidine, diarrhea has resolved, denies any fever, chills, nausea, vomiting, diarrhea, constipation or any urinary symptoms. 10/18/2019. Still complaining of persistent lower back and left lower extremity pain, mild improvement with Dilaudid, diarrhea has resolved, p.o. tolerant, having normal bowel and bladder movement. 10/19/2019. No acute events overnight. Lower back pain much improved after ambulating yesterday, has had one bowel movement in the last 24 hours, denies any fever, chills, nausea, vomiting, diarrhea, constipation or any urinary symptoms. Reason For Visit: UTI LUCERO NAGMA LUMBAR SPONDYLOSIS Physical Exam Vital Signs: Temp Pulse Resp BP Pulse Ox 98.1 F 73 17 128/57 H 100 10/19/19 07:40 10/19/19 07:40 10/19/19 07:40 10/19/19 07:40 10/19/19 07:40 Intake & Output 10/18/19 10/19/19 10/20/19 06:59 06:59 06:59 Intake Total 3546 3305 Balance 3546 3305 Weight 60.2 kg 57.6 kg General appearance: PRESENT: no acute distress, well-developed, well-nourished Head exam: PRESENT: atraumatic, normocephalic Respiratory exam: PRESENT: clear to auscultation elaina. ABSENT: rales, rhonchi, wheezes Cardiovascular exam: PRESENT: RRR. ABSENT: diastolic murmur, rubs, systolic murmur GI/Abdominal exam: PRESENT: normal bowel sounds, soft. ABSENT: distended, guarding, mass, organolmegaly, rebound, tenderness Musculoskeletal exam: PRESENT: tenderness - lumber spine Neurological exam: PRESENT: alert, awake, oriented to person, oriented to place, oriented to time, oriented to situation, CN II-XII grossly intact. ABSENT: mo tor sensory deficit Results Laboratory Results: 10/16/19 05:45 10/17/19 05:20 10/03/19 04:16 Creatine Kinase < 20 L Impressions: Lumbar Spine X-Ray 10/02/19 11:06 IMPRESSION: Mild scoliosis. Anterolisthesis of L5 on S1. Degenerative disc disease, spondylosis, and facet arthropathy. Lumbar Spine CT 10/02/19 12:50 IMPRESSION: 1. Spondylosis, facet arthropathy and malalignment. Erosive endplate changes at L5-S1 probably due to chronic inflammation, however cannot exclude discitis. Clinical correlation is needed. 2. Dilated left renal collecting system of uncertain chronicity and etiology. Knee X-Ray 10/02/19 12:52 IMPRESSION: No acute findings. Chest X-Ray 10/02/19 14:20 IMPRESSION: COPD. NO ACUTE RADIOGRAPHIC FINDING IN THE CHEST. 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 Guidance Fluoroscopy 10/10/19 00:00 IMPRESSION: Successful placement of a 5 [place] Islander double-lumen PICC via the left brachial vein utilizing fluoroscopic and sonographic guidance. Interventional Vascular Procedure 10/10/19 00:00 IMPRESSION: Successful placement of a 5 [place] Island[place] double-lumen PICC via the left brachial vein utilizing fluoroscopic and sonographic guidance. PICC Line Insertion 10/10/19 00:00 IMPRESSION: Successful placement of a 5 [place] Island[place] double-lumen PICC via the left b rachial vein utilizing fluoroscopic and sonographic guidance. 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 Confirmed with bone biopsy. Repeat biopsy positive for Ju[place] glabrata pending sensitivity, negative for [place] albicans. Bone biopsy no evidence of malignancy on biopsy. Status post vertebral bone biopsy 10/08/2019. Pathology report: Inflamed and necrotic tissue with reactive bone. No fungal organisms identified by special stains. No carcinoma is identified. ID specialist consulted. Recommendations are to restart micafungin IV while w aiting for results and follow-up with ID as outpatient. As per records obtained from [facility] in [place]. Diagnosed 07/21/2019 with [place] glabrata discitis of L5-S1 via vertebral bone biopsy. Completed 6 weeks of micafungin based off susceptibility finished on 07/09/2019. Repeat ESR on 07/16/2019 was 65 with CRP of 5. MRI of lumbar spine on 10/03/2019 shows evidence of discitis/vertebral body osteomyelitis of L5-S1. 10/12/2019. ESR 100. 10/04/2019 CRP 61.6. As per ID specialist treatment for fungal osteomyelitis/discitis should be 6 weeks of IV antifungals then oral antifungal to complete a 6-month course. There is concern about patient being off antifungals for the past 4 weeks which could have left room for development of further resistance. ID recommending bone biopsy of the L5-S1 with susceptibility testing for voriconazole and isavuconazole which would be potential of oral options. Micafungin day 10 Status post PICC line insertion 10/10/2019. Unfortunately patient would not be able to afford paying for her antifungals if she is discharged home, discharge planning is working on transitioning patient for possible SNF placement. (2) C. difficile colitis Is this a current diagnosis for this admission?: Yes Plan: Resolved. WBC WNL. Kidney function improving. Platelets WNL. Day 09/13 Vancomycin p.o. 125 mg every 6 hours started. Continue vancomycin. Monitor volume status and electrolytes replace as needed. (3) CKD (chronic kidney disease) stage 3, GFR 30-59 ml/min Is this a current diagnosis for this admission?: Yes Plan: Presented with LUCERO on CKD. LUCERO has resolved. Creatinine back to baseline. Electrolytes WNL. Euvolemic. Nonoliguric. Monitor volume status and electrolytes replace as needed. Avoid nephrotoxic meds. Outpatient nephrology follow-up. (4) Acute urinary tract infection Is this a current diagnosis for this admission?: Yes Plan: Due to E. coli. Resistant to penicillins, Bactrim and quinolones. Completed 5 days of IV ceftriaxone. Asymptomatic. Afebrile. WBC WNL. (5) Lumbosacral radiculopathy due to degenerative joint disease of spine Is this a current diagnosis for this admission?: Yes Plan: History of multilevel DJD. MRI L-spine discitis/vertebral body osteomyelitis at L5-S1. Diffuse multilevel DJD. No signs or symptoms of cauda equina. Having normal bowel and bladder movements. Continue PT/OT. Continue gabapentin, opioid and non-opioid analgesics and lidocaine patch as needed. Monitor for fall and respiratory depression. Outpatient physical therapy, pain management, neurosurgery vs orthopedic surgery follow-up. (6) Anemia Qualifiers: Chronic kidney disease stage: stage 3 (moderate) Is this a current diagnosis for this admission?: Yes Plan: Likely anemia of chronic disease as well as CKD. Iron panel indicative of anemia of chronic disease. Continue ferrous sulfate. Monitor H&H. Supportive transfusions. (7) Hyperkalemia Is this a current diagnosis for this admission?: Yes Plan: Resolved. No acute EKG changes. Hyperkalemia protocol. Low potassium diet.
[2019-10-19] MEDS: OXYCODONE-ACETAMINOPHEN 5-325 MG TABLET PO PRN (22:15)
[2019-10-19] MEDS: ATORVASTATIN CALCIUM 20 MG TABLET PO SCH (22:15)
[2019-10-19] MEDS: MIRTAZAPINE 15 MG TABLET PO SCH (22:16)
[2019-10-19] MEDS: PHARMACY COMMUNICATION ORDER MC SCH (22:21)
[2019-10-20] MEDS: VANCOMYCIN HCL INJ 500 MG VIAL PO SCH (02:16)
[2019-10-20] MEDS: OXYCODONE-ACETAMINOPHEN 5-325 MG TABLET PO PRN ×4 (02:17→18:56)
[2019-10-20] MEDS: PANTOPRAZOLE SODIUM 40 MG TABLET.DR PO SCH (05:08)
[2019-10-20] MEDS: GABAPENTIN 100 MG CAPSULE PO SCH ×3 (05:08→18:55)
[2019-10-20] MEDS: LEVOTHYROXINE SODIUM 0.1 MG TABLET PO SCH (05:08)
[2019-10-20] MEDS: TIZANIDINE HCL 4 MG TABLET PO SCH ×3 (05:08→18:56)
[2019-10-20] MEDS ORDERED: CARVEDILOL 12.5 MG TABLET PO SCH (10:00)
[2019-10-20] MEDS: LIDOCAINE 5% (700 MG) TRANSDERMAL ADH..PATCH TP SCH (10:23)
[2019-10-20] MEDS: MICAFUNGIN SODIUM 100 MG in NORMAL SALINE 100 ML IV SCH (10:23)
[2019-10-20] MEDS: CARVEDILOL 6.25 MG TABLET PO SCH (10:23)
[2019-10-20] MEDS: FERROUS SULFATE 325 MG TABLET PO SCH (10:23)
[2019-10-20] MEDS: TAMSULOSIN HCL 0.4 MG CAP.SR.24H PO SCH (10:23)
[2019-10-20] MEDS: ASPIRIN 81 MG TABLET, ENT COATED PO SCH (10:23)
[2019-10-20] MEDS: ENOXAPARIN SODIUM INJ 40 MG/0.4 ML DISP.SYRIN SUBCUT SCH (10:24)
[2019-10-20] MEDS: NORMAL SALINE 10 ML SDV (SCHEDULED) IV SCH (10:24)
--- NOTE | 2019-10-20 10:52 | PDOC PROGRESS REPORT ---
Subjective Progress Note for:: 10/20/19 Subjective:: JORGE DOBSON is a 79 year old female with a history of recently diagnosed fungal lumbar discitis [completed treatment], resolved diabetes mellitus, peptic ulcer disease s/p surgery, hypertension, CVA, hypothyroidism, depression, who presents with complaint of low back pain, urinary incontinence and polyuria. Polyuria and urinary incontinence have been present for about 2 weeks now. Patient endorses some chills. Denies fevers no dysuria. Of note, patient has been experiencing low back pain since November 2018 after sustaining a fracture in her back. 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 She had subsequently experienced significant improvement in back pain and underwent physical therapy. About 2 weeks ago, patient still experiencing some urinary incontinence. Patient was discharged from SNF on September 16 but has been experiencing more difficulty with ambulation or weakness in her lower extremities since then. 10/08/2019. No acute events overnight. Patient still complaining of back and bilateral lower extremity pain, n.p.o. for vertebral bone biopsy today, denies any fever, chills, nausea, vomiting, diarrhea, constipation or any urinary symptoms. Ambulatory, having normal bowel and bladder movements, p.o. tolerant. 10/09/2019. No acute events overnight. Patient still complaining of severe lumbar spine pain and persistent diarrhea. Denies any fever, chills, nausea, vomiting, diarrhea, constipation or any urinary symptoms. Cannot ambulate due to severe back pain, p.o. tolerant. 10/10/2019. No acute events overnight. Had one loose bowel last night. Denies any fever, chills, nausea, vomiting, diarrhea, constipation or any urinary sympt oms. Received PT yesterday was able to walk with assistance. Complaining of persistent back pain. 10/11/2019. No acute events overnight. Patient still complaining of back pain. Had one watery stool last night. 10/12/2019. No acute events overnight. Still complaining of lower back pain. Diarrhea has resolved. Patient could eventually be discharged home today however her post discharge care not ready yet. 10/13/2019. No acute events overnight. Diarrhea has resolved. Still complaining of back pain. Patient could potentially be discharged home however her outpatient IV antibiotics has not been arranged yet. 10/14/2019. Patient had one episode of nonbloody watery diarrhea this morning, otherwise denies any fever, chills, nausea, vomiting, urinary symptoms. 10/15/2019. No acute events overnight. Patient still complaining of persistent lower back pain. Patient had one large watery bowel movement last night, p.o. tolerant, has any fever, chills, nausea, vomiting, constipation or any urinary symptoms. 10/16/2019. No acute events overnight. Patient has not had any more diarrhea, complaining of persistent back pain, denies any fever, chills, nausea, vomiting, diarrhea, constipation or any urinary symptoms. 10/17/2019. No acute events overnight still complaining of persistent back pain mild improvement with initiation of tizanidine, diarrhea has resolved, denies any fever, chills, nausea, vomiting, diarrhea, constipation or any urinary symptoms. 10/18/2019. Still complaining of persistent lower back and left lower extremity pain, mild improvement with Dilaudid, diarrhea has resolved, p.o. tolerant, having normal bowel and bladder movement. 10/19/2019. No acute events overnight. Lower back pain much improved after ambulating yesterday, has had one bowel movement in the last 24 hours, denies any fever, chills, nausea, vomiting, diarrhea, constipation or any urinary symptoms. 10/20/2018. No acute events overnight. Lower back pain improving, has had 1 regular bowel in the last 24 hours, denies any fever, chills, nausea, vomiting, diarrhea, constipation or any urinary symptoms. Reason For Visit: UTI LUCERO NAGMA LUMBAR SPONDYLOSIS Physical Exam Vital Signs: Temp Pulse Resp BP Pulse Ox 98.2 F 61 16 102/40 L 100 10/20/19 07:21 10/20/19 07:21 10/20/19 07:21 10/20/19 07:21 10/20/19 07:21 Intake & Output 10/19/19 10/20/19 10/21/19 06:59 06:59 06:59 Intake Total 3305 1140 Balance 3305 1140 Weight 57.6 kg 55.4 kg General appearance: PRESENT: no acute distress, well-developed, well-nourished Head exam: PRESENT: atraumatic, normocephalic Respiratory exam: PRESENT: clear to auscultation elaina. ABSENT: rales, rhonchi, wheezes Cardiovascular exam: PRESENT: RRR. ABSENT: diastolic murmur, rubs, systolic murmur Neurological exam: PRESENT: alert, awake, oriented to person, oriented to place, oriented to time, oriented to situation, CN II-XII grossly intact. ABSENT: motor sensory deficit Results Laboratory Results: 10/16/19 05:45 10/17/19 05:20 10/03/19 04:16 Creatine Kinase < 20 L Impressions: Lumbar Spine X-Ray 10/02/19 11:06 IMPRESSION: Mild scoliosis. Anterolisthesis of L5 on S1. Degenerative disc disease, spondylosis, and facet arthropathy. Lumbar Spine CT 10/02/19 12:50 IMPRESSION: 1. Spondylosis, facet arthropathy and malalignment. Erosive endplate changes at L5-S1 probably due to chronic inflammation, however cannot exclude discitis. Clinical correlation is needed. 2. Dilated left renal collecting system of uncertain chronicity and etiology. Knee X-Ray 10/02/19 12:52 IMPRESSION: No acute findings. Chest X-Ray 10/02/19 14:20 IMPRESSION: COPD. NO ACUTE RADIOGRAPHIC FINDING IN THE CHEST. 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 Guidance Fluoroscopy 10/10/19 00:00 IMPRESSION: Successful placement of a 5 [place]ian double-lumen PICC via the left brachial vein utilizing fluoroscopic and sonographic guidance. Interventional Vascular Procedure 10/10/19 00:00 IMPRESSION: Successful placement of a 5 [place]ivian double-lumen PICC via the left brachial vein utilizing fluoroscopic and sonographic guidance. PICC Line Insertion 10/10/19 00:00 IMPRESSION: Successful placement of a 5 [place]ivian double-lumen PICC via the left brachial vein utilizing fluoroscopic and sonographic guidance. 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 Confirmed with bone biopsy. Repeat biopsy positive for Ju[place] glabrata pending sensitivity, negative for Ju[place] albicans. Bone biopsy no evidence of malignancy on biopsy. Status post vertebral bone biopsy 10/08/2019. Pathology report: Inflamed and necrotic tissue with reactive bone. No fungal organisms identified by special stains. No carcinoma is identified. ID specialist consulted. Recommendations are to restart micafungin IV while waiting for results and follow-up with ID as outpatient. As per records obtained from [facility] in [place]. Diagnosed 07/21/2019 with [place] glabrata discitis of L5-S1 via vertebral bone biopsy. Completed 6 weeks of micafungin based off susceptibility finished on 07/09/2019. Repeat ESR on 07/16/2019 65 with CRP of 5. Repeat ESR on 10/12/2019 100. 10/04/2019 CRP 61.6. Repeat ESR on 10/19/1999 2093, CRP 19.5. MRI of lumbar spine on 10/03/2019 shows evidence of discitis/vertebral body osteomyelitis of L5-S1. As per ID specialist treatment for fungal osteomyelitis/discitis should be 6 weeks of IV antifungals then oral antifungal to complete a 6-month course. There is concern about patient being off antifungals for the past 4 weeks which could have left room for development of further resistance. ID recommending bone biopsy of the L5-S1 with susceptibility testing for voriconazole and isavuconazole which would be potential of oral options. Micafungin day 11 Status post PICC line insertion 10/10/2019. Unfortunately patient would not be able to afford paying for her antifungals if she is discharged home, discharge planning is working on transitioning patient for possible SNF placement. Fungal culture pending susceptibility to voriconazole. If Juana glabrata is sensitive to voriconazole patient can be switched to oral voriconazole as per ID recommendations if not she would have to be discharged on IV micafungin until reevaluated by ID specialist as outpatient, length of treatment will be determined based on outpatient ID follow-up and evaluation. (2) C. difficile colitis Is this a current diagnosis for this admission?: Yes Plan: Resolved. WBC WNL. Kidney function improving. Platelets WNL. Received 13 days of Vancomycin p.o. 125 mg every 6 hours started. Last day of vancomycin 10/20/2019. (3) CKD (chronic kidney disease) stage 3, GFR 30-59 ml/min Is this a current diagnosis for this admission?: Yes Plan: Presented with LUCERO on CKD. LUCERO has resolved. Creatinine back to baseline. Electrolytes WNL. Euvolemic. Nonoliguric. Monitor volume status and electrolytes replace as needed. Avoid nephrotoxic meds. Outpatient nephrology follow-up. (4) Acute urinary tract infection Is this a current diagnosis for this admission?: Yes Plan: Due to E. coli. Resistant to penicillins, Bactrim and quinolones. Completed 5 days of IV ceftriaxone. Asymptomatic. Afebrile. WBC WNL. (5) Lumbosacral radiculopathy due to degenerative joint disease of spine Is this a current diagnosis for this admission?: Yes Plan: History of multilevel DJD. MRI L-spine discitis/vertebral body osteomyelitis at L5-S1. Diffuse multilevel DJD. No signs or symptoms of cauda equina. Having normal bowel and bladder movements. Continue PT/OT. Continue gabapentin, opioid and non-opioid analgesics and lidocaine patch as needed. Monitor for fall and respiratory depression. Outpatient physical therapy, pain management, neurosurgery vs orthopedic surgery follow-up. (6) Anemia Qualifiers: Chronic kidney disease stage: stage 3 (moderate) Is this a current diagnosis for this admission?: Yes Plan: Likely anemia of chronic disease as well as CKD. Iron panel indicative of anemia of chronic disease. Continue ferrous sulfate. Monitor H&H. Supportive transfusions. (7) Hyperkalemia Is this a current diagnosis for this admission?: Yes Plan: Resolved.
[2019-10-21] MEDS: TIZANIDINE HCL 4 MG TABLET PO SCH ×5 (01:00→23:45)
[2019-10-21] MEDS: OXYCODONE-ACETAMINOPHEN 5-325 MG TABLET PO PRN ×4 (01:00→20:32)
[2019-10-21] MEDS: GABAPENTIN 100 MG CAPSULE PO SCH ×5 (01:00→23:45)
[2019-10-21] MEDS: MIRTAZAPINE 15 MG TABLET PO SCH ×2 (01:00→23:45)
[2019-10-21] MEDS: ATORVASTATIN CALCIUM 20 MG TABLET PO SCH ×2 (01:00→23:45)
[2019-10-21] MEDS: PHARMACY COMMUNICATION ORDER MC SCH ×2 (01:03→23:48)
[2019-10-21] MEDS: NORMAL SALINE 10 ML SDV (SCHEDULED) IV SCH ×3 (01:03→23:47)
[2019-10-21] MEDS: CARVEDILOL 6.25 MG TABLET PO SCH ×3 (01:04→23:45)
[2019-10-21] MEDS: LEVOTHYROXINE SODIUM 0.1 MG TABLET PO SCH (06:29)
[2019-10-21] MEDS: PANTOPRAZOLE SODIUM 40 MG TABLET.DR PO SCH (06:29)
[2019-10-21] MEDS: FERROUS SULFATE 325 MG TABLET PO SCH (09:51)
[2019-10-21] MEDS: TAMSULOSIN HCL 0.4 MG CAP.SR.24H PO SCH (09:51)
[2019-10-21] MEDS: ASPIRIN 81 MG TABLET, ENT COATED PO SCH (09:51)
[2019-10-21] MEDS: ENOXAPARIN SODIUM INJ 40 MG/0.4 ML DISP.SYRIN SUBCUT SCH (09:51)
[2019-10-21] MEDS: LIDOCAINE 5% (700 MG) TRANSDERMAL ADH..PATCH TP SCH (09:51)
[2019-10-21] MEDS: MICAFUNGIN SODIUM 100 MG in NORMAL SALINE 100 ML IV SCH (09:52)
--- NOTE | 2019-10-21 15:22 | PDOC PROGRESS REPORT ---
Subjective Progress Note for:: 10/21/19 Subjective:: Patient just returned to her room after walking with physical therapy. She is still having back discomfort. She also complains of increased muscle spasm in her legs as well as numbness in her toes. Reason For Visit: Fungal discitis, UTI LUCERO NAGMA LUMBAR SPONDYLOSIS Physical Exam Vital Signs: Temp Pulse Resp BP Pulse Ox 98.3 F 63 16 128/57 H 100 10/21/19 11:55 10/21/19 11:55 10/21/19 11:55 10/21/19 11:55 10/21/19 11:55 Intake & Output 10/20/19 10/21/19 10/22/19 06:59 06:59 06:59 Intake Total 1140 1330 600 Balance 1140 1330 600 Weight 55.4 kg 56.5 kg General appearance: PRESENT: cooperative, mild distress, other - Frail-appearing patient with kyphosis Head exam: PRESENT: atraumatic, normocephalic Eye exam: PRESENT: conjunctiva pale. ABSENT: scleral icterus Ear exam: PRESENT: normal external ear exam. ABSENT: bleeding, drainage Respiratory exam: PRESENT: clear to auscultation elaina, symmetrical, unlabored. ABSENT: rales, rhonchi, tachypnea, wheezes Cardiovascular exam: PRESENT: RRR, +S1, +S2 GI/Abdominal exam: PRESENT: normal bowel sounds, soft. ABSENT: distended, tenderness Rectal exam: PRESENT: deferred Extremities exam: ABSENT: pedal edema Musculoskeletal exam: PRESENT: ambulatory. ABSENT: normal inspection - Decreased muscle mass upper extremities Neurological exam: PRESENT: alert, awake, oriented to person, oriented to place, oriented to time, oriented to situation. ABSENT: motor sensory deficit - Gross sensation in her toes and feet was in fact intact. Psychiatric exam: PRESENT: appropriate affect. ABSENT: agitated, anxious Focused psych exam: ABSENT: delusional, restlessness Skin exam: PRESENT: dry, pallor, warm. ABSENT: rash Results Laboratory Results: 10/16/19 05:45 10/17/19 05:20 10/03/19 04:16 Creatine Kinase < 20 L Impressions: Lumbar Spine X-Ray 10/02/19 11:06 IMPRESSION: Mild scoliosis. Anterolisthesis of L5 on S1. Degenerative disc disease, spondylosis, and facet arthropathy. Lumbar Spine CT 10/02/19 12:50 IMPRESSION: 1. Spondylosis, facet arthropathy and malalignment. Erosive endplate changes at L5-S1 probably due to chronic inflammation, however cannot exclude discitis. Clinical correlation is needed. 2. Dilated left renal collecting system of uncertain chronicity and etiology. Knee X-Ray 10/02/19 12:52 IMPRESSION: No acute findings. Chest X-Ray 10/02/19 14:20 IMPRESSION: COPD. NO ACUTE RADIOGRAPHIC FINDING IN THE CHEST. 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 Guidance Fluoroscopy 10/10/19 00:00 IMPRESSION: Successful placement of a 5 [place]an double-lumen PICC via the left brachial vein utilizing fluoroscopic and sonographic guidance. Interventional Vascular Procedure 10/10/19 00:00 IMPRESSION: Successful placement of a 5 [place]an double-lumen PICC via the left brachial vein utilizing fluoroscopic and sonographic guidance. PICC Line Insertion 10/10/19 00:00 IMPRESSION: Successful placement of a 5 [place] double-lumen PICC via the left brachial vein utilizing fluoroscopic and sonographic guidance. Assessment and Plan - Diagnosis (1) Discitis of lumbosacral region Is this a current diagnosis for this admission?: Yes Plan: Still requires approximately 4 weeks of micafungin. I did look up adverse effects and anemia is 1 of them. This coupled with her chronic illness puts her at risk and therefore will need to monitor her hemoglobin. Her sed rate and CRP are coming down. I will recheck a CRP and use this as a singular marker for resolution. (2) C. difficile colitis Is this a current diagnosis for this admission?: Yes Plan: Resolved with antibiotic therapy (3) CKD (chronic kidney disease) stage 3, GFR 30-59 ml/min Is this a current diagnosis for this admission?: Yes Plan: Stable at this time. We will continue to monitor. (4) Acute urinary tract infection Is this a current diagnosis for this admission?: Yes Plan: E. coli cystitis. Resolved with antibiotics. (5) Anemia Qualifiers: Chronic kidney disease stage: stage 3 (moderate) Is this a current diagnosis for this admission?: Yes Plan: Hemoglobin has been 8.5. She has not required transfusions. We will continue to monitor. Anemia is an adverse effect of micafungin and she has underlying chronic kidney disease. (6) Lumbosacral radiculopathy due to degenerative joint disease of spine Is this a current diagnosis for this admission?: Yes Plan: She did report some abnormal sensation in her feet. Gross sensation was intact. We will continue current medications. Also we will continue to encourage physical therapy. (7) Hyperkalemia Is this a current diagnosis for this admission?: Yes Plan: Resolved at this time but we will continue to monitor renal function and serum potassium levels. - Plan Summary Summary: Requires an additional 4 weeks of micafungin. Awaiting placement for completion of long-term antibiotic therapy and physical therapy. - Time Time Spent with patient: 15-24 minutes Medications reviewed and adjusted accordingly: Yes
[2019-10-22] MEDS: OXYCODONE-ACETAMINOPHEN 5-325 MG TABLET PO PRN ×4 (03:50→22:55)
[2019-10-22] MEDS: TIZANIDINE HCL 4 MG TABLET PO SCH ×4 (05:11→23:27)
[2019-10-22] MEDS: LEVOTHYROXINE SODIUM 0.1 MG TABLET PO SCH (05:11)
[2019-10-22] MEDS: GABAPENTIN 100 MG CAPSULE PO SCH ×3 (05:11→22:55)
[2019-10-22] MEDS: PANTOPRAZOLE SODIUM 40 MG TABLET.DR PO SCH (05:11)
[2019-10-22 09:41] LABS: HEMATOCRIT 27.4 % (36.0-47.0); MEAN CORPUSCULAR HEMOGLOBIN 29.6 pg (27.0-33.4); MEAN CORPUSCULAR HGB CONC 32.7 g/dL (32.0-36.0); MEAN CORPUSCULAR VOLUME 90 fl (80-97); PLATELET COUNT 253 10^3/uL (150-450); RED BLOOD COUNT 3.03 10^6/uL (3.72-5.28); RED CELL DISTRIBUTION WIDTH 17.2 % (11.5-14.0)
[2019-10-22] MEDS: LIDOCAINE 5% (700 MG) TRANSDERMAL ADH..PATCH TP SCH (09:46)
[2019-10-22] MEDS: MICAFUNGIN SODIUM 100 MG in NORMAL SALINE 100 ML IV SCH (09:46)
[2019-10-22] MEDS: ASPIRIN 81 MG TABLET, ENT COATED PO SCH (09:47)
[2019-10-22] MEDS: FERROUS SULFATE 325 MG TABLET PO SCH (09:47)
[2019-10-22] MEDS: ENOXAPARIN SODIUM INJ 40 MG/0.4 ML DISP.SYRIN SUBCUT SCH (09:47)
[2019-10-22] MEDS: TAMSULOSIN HCL 0.4 MG CAP.SR.24H PO SCH (09:47)
[2019-10-22] MEDS: CARVEDILOL 6.25 MG TABLET PO SCH ×2 (09:47→22:56)
[2019-10-22] MEDS: NORMAL SALINE 10 ML SDV (SCHEDULED) IV SCH ×2 (09:48→23:03)
[2019-10-22 10:01] LABS: ALBUMIN 2.6 g/dL (3.5-5.0); ALKALINE PHOSPHATASE 84 U/L (38-126); ANION GAP 6 (5-19); ASPARTATE AMINO TRANSFERASE 25 U/L (14-36); BILIRUBIN,DIRECT 0.2 mg/dL (0.0-0.4); BILIRUBIN,TOTAL 0.2 mg/dL (0.2-1.3); BLOOD UREA NITROGEN 32 mg/dL (7-20); C-REACTIVE PROTEIN 15.5 mg/L (<10.0); CALCIUM 8.7 mg/dL (8.4-10.2); CARBON DIOXIDE 24 mmol/L (22-30); CHLORIDE 108 mmol/L (98-107); GLUCOSE 145 mg/dL (75-110); POTASSIUM 5.3 mmol/L (3.6-5.0); TOTAL PROTEIN 5.3 g/dL (6.3-8.2)
--- NOTE | 2019-10-22 16:02 | PDOC PROGRESS REPORT ---
Subjective Progress Note for:: 10/22/19 Subjective:: Patient is now developing a coccyx lesion. There is a foam dressing in place. The current regimen of pain medication and muscle spasm treatment is not very effective. It is creating a situation with the pain is limiting her mobility. Reason For Visit: UTI LUCERO NAGMA LUMBAR SPONDYLOSIS Physical Exam Vital Signs: Temp Pulse Resp BP Pulse Ox 97.6 F 77 19 113/50 L 100 10/22/19 12:00 10/22/19 12:00 10/22/19 12:00 10/22/19 12:00 10/22/19 12:00 Intake & Output 10/21/19 10/22/19 10/23/19 06:59 06:59 06:59 Intake Total 1330 1480 Balance 1330 1480 Weight 56.5 kg 56.2 kg General appearance: PRESENT: cooperative, mild distress Ear exam: PRESENT: normal external ear exam. ABSENT: bleeding, drainage Respiratory exam: PRESENT: clear to auscultation elaina, symmetrical, unlabored. ABSENT: rales, rhonchi, tachypnea, wheezes Cardiovascular exam: PRESENT: RRR, +S1, +S2 GI/Abdominal exam: PRESENT: normal bowel sounds, soft. ABSENT: distended, guarding, tenderness Rectal exam: PRESENT: deferred Gentrourinary exam: ABSENT: indwelling catheter Extremities exam: PRESENT: pedal edema Musculoskeletal exam: PRESENT: ambulatory Neurological exam: PRESENT: alert, awake, oriented to person, oriented to place, oriented to time, oriented to situation, CN II-XII grossly intact Psychiatric exam: PRESENT: appropriate affect. ABSENT: agitated, anxious Results Laboratory Results: 10/22/19 09:20 10/22/19 09:20 10/22/19 10/22/19 09:20 09:20 WBC 6.0 RBC 3.03 L Hgb 9.0 L Hct 27.4 L MCV 90 MCH 29.6 MCHC 32.7 RDW 17.2 H Plt Count 253 Sodium 137.9 Potassium 5.3 H Chloride 108 H Carbon Dioxide 24 Anion Gap 6 BUN 32 H Creatinine 1.27 H Est GFR ( Amer) 49 L Glucose 145 H Calcium 8.7 Magnesium 1.9 Total Bilirubin 0.2 AST 25 Alkaline Phosphatase 84 C-Reactive Protein 15.5 H Total Protein 5.3 L Albumin 2.6 L 10/15/19 12:03 Back Fluid - Not Specified Yeast/Fungus Identification - Final 10/15/19 12:03 Back Fluid - Not Specified Yeast/Fungus Identification - Final 10/15/19 12:03 Back Fluid - Not Specified Yeast/Fungus Identification - Final 10/15/19 12:03 Back Fluid - Not Specified Susceptibility Special Request - Final 10/03/19 04:16 Creatine Kinase < 20 L Impressions: Lumbar Spine X-Ray 10/02/19 11:06 IMPRESSION: Mild scoliosis. Anterolisthesis of L5 on S1. Degenerative disc disease, spondylosis, and facet arthropathy. Lumbar Spine CT 10/02/19 12:50 IMPRESSION: 1. Spondylosis, facet arthropathy and malalignment. Erosive endplate changes at L5-S1 probably due to chronic inflammation, however cannot exclude discitis. Clinical correlation is needed. 2. Dilated left renal collecting system of uncertain chronicity and etiology. Knee X-Ray 10/02/19 12:52 IMPRESSION: No acute findings. Chest X-Ray 10/02/19 14:20 IMPRESSION: COPD. NO ACUTE RADIOGRAPHIC FINDING IN THE CHEST. 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 Guidance Fluoroscopy 10/10/19 00:00 IMPRESSION: Successful placement of a 5 Chinese double-lumen PICC via the left brachial vein utilizing fluoroscopic and sonographic guidance. Interventional Vascular Procedure 10/10/19 00:00 IMPRESSION: Successful placement of a 5 Chinese double-lumen PICC via the left brachial vein utilizing fluoroscopic and sonographic guidance. PICC Line Insertion 10/10/19 00:00 IMPRESSION: Successful placement of a 5 Chinese double-lumen PICC via the left brachial vein utilizing fluoroscopic and sonographic guidance. Assessment and Plan - Diagnosis (1) Discitis of lumbosacral region Is this a current diagnosis for this admission?: Yes Plan: A total of 6 weeks of micafungin required with 6 months of oral therapy. Patient is tolerating the micafungin at this time. Juana glabrata has been isolated. (2) C. difficile colitis Is this a current diagnosis for this admission?: Yes Plan: Treated and resolved (3) CKD (chronic kidney disease) stage 3, GFR 30-59 ml/min Is this a current diagnosis for this admission?: Yes Plan: Appears to be back at baseline. (4) Acute urinary tract infection Is this a current diagnosis for this admission?: Yes Plan: Treated and resolved (5) Anemia Qualifiers: Chronic kidney disease stage: stage 3 (moderate) Is this a current diagnosis for this admission?: Yes Plan: Slowly improving (6) Lumbosacral radiculopathy due to degenerative joint disease of spine Is this a current diagnosis for this admission?: Yes Plan: Will increase Neurontin (7) Hyperkalemia Is this a current diagnosis for this admission?: Yes Plan: Potassium is slightly elevated again today. - Plan Summary Summary: Requires an additional 4 weeks of micafungin. Awaiting placement for completion of long-term antibiotic therapy and physical therapy. - Time Time Spent with patient: 15-24 minutes Medications reviewed and adjusted accordingly: Yes
[2019-10-22] MEDS: MIRTAZAPINE 15 MG TABLET PO SCH (22:55)
[2019-10-22] MEDS: ATORVASTATIN CALCIUM 20 MG TABLET PO SCH (22:56)
[2019-10-22] MEDS: PHARMACY COMMUNICATION ORDER MC SCH (23:03)
[2019-10-23] MEDS: LEVOTHYROXINE SODIUM 0.1 MG TABLET PO SCH (05:31)
[2019-10-23] MEDS: PANTOPRAZOLE SODIUM 40 MG TABLET.DR PO SCH (05:31)
[2019-10-23] MEDS: OXYCODONE-ACETAMINOPHEN 5-325 MG TABLET PO PRN ×3 (05:31→21:38)
[2019-10-23] MEDS: GABAPENTIN 100 MG CAPSULE PO SCH ×2 (05:32→14:04)
[2019-10-23] MEDS: TIZANIDINE HCL 4 MG TABLET PO SCH ×4 (05:33→23:00)
[2019-10-23] MEDS: CARVEDILOL 6.25 MG TABLET PO SCH ×2 (10:19→21:39)
[2019-10-23] MEDS: ENOXAPARIN SODIUM INJ 40 MG/0.4 ML DISP.SYRIN SUBCUT SCH (10:19)
[2019-10-23] MEDS: TAMSULOSIN HCL 0.4 MG CAP.SR.24H PO SCH (10:19)
[2019-10-23] MEDS: LIDOCAINE 5% (700 MG) TRANSDERMAL ADH..PATCH TP SCH (10:19)
[2019-10-23] MEDS: FERROUS SULFATE 325 MG TABLET PO SCH (10:19)
[2019-10-23] MEDS: ASPIRIN 81 MG TABLET, ENT COATED PO SCH (10:19)
[2019-10-23] MEDS: MICAFUNGIN SODIUM 100 MG in NORMAL SALINE 100 ML IV SCH (10:20)
[2019-10-23] MEDS: NORMAL SALINE 10 ML SDV (SCHEDULED) IV SCH ×2 (10:20→21:40)
[2019-10-23] MEDS: NORMAL SALINE 1000 ML 1,000 ML IV PRN (18:53)
[2019-10-23] MEDS: ATORVASTATIN CALCIUM 20 MG TABLET PO SCH (21:38)
[2019-10-23] MEDS: MIRTAZAPINE 15 MG TABLET PO SCH (21:38)
[2019-10-23] MEDS: GABAPENTIN 300 MG CAPSULE PO SCH (21:38)
[2019-10-23] MEDS: PHARMACY COMMUNICATION ORDER MC SCH (21:40)
--- NOTE | 2019-10-23 21:40 | PDOC PROGRESS REPORT ---
Subjective Progress Note for:: 10/23/19 Subjective:: Despite writing orders to reposition the patient every 2 hours she reports that this was not done yesterday. 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 She has been quite stiff and uncomfortable. Reason For Visit: UTI LUCERO NAGMA LUMBAR SPONDYLOSIS Physical Exam Vital Signs: Temp Pulse Resp BP Pulse Ox 98.4 F 81 18 122/46 L 100 10/23/19 20:00 10/23/19 20:00 10/23/19 20:00 10/23/19 20:00 10/23/19 20:00 Intake & Output 10/22/19 10/23/19 10/24/19 06:59 06:59 06:59 Intake Total 1480 1604 1311 Balance 1480 1604 1311 Weight 56.2 kg 56.2 kg General appearance: PRESENT: cooperative, mild distress, well-developed - Well- developed but frail 79-year-old female resting in bed Respiratory exam: PRESENT: clear to auscultation elaina, symmetrical, unlabored. ABSENT: rales, rhonchi, tachypnea, wheezes Cardiovascular exam: PRESENT: RRR, +S1, +S2 GI/Abdominal exam: PRESENT: normal bowel sounds, soft. ABSENT: distended, tenderness Rectal exam: PRESENT: deferred Neurological exam: PRESENT: alert, awake, oriented to person, oriented to place, oriented to time, oriented to situation, CN II-XII grossly intact Psychiatric exam: PRESENT: flat affect. ABSENT: agitated, anxious Results Laboratory Results: 10/22/19 09:20 10/22/19 09:20 10/03/19 04:16 Creatine Kinase < 20 L Impressions: Lumbar Spine X-Ray 10/02/19 11:06 IMPRESSION: Mild scoliosis. Anterolisthesis of L5 on S1. Degenerative disc disease, spondylosis, and facet arthropathy. Lumbar Spine CT 10/02/19 12:50 IMPRESSION: 1. Spondylosis, facet arthropathy and malalignment. Erosive endplate changes at L5-S1 probably due to chronic inflammation, however cannot exclude discitis. Clinical correlation is needed. 2. Dilated left renal collecting system of uncertain chronicity and etiology. Knee X-Ray 10/02/19 12:52 IMPRESSION: No acute findings. Chest X-Ray 10/02/19 14:20 IMPRESSION: COPD. NO ACUTE RADIOGRAPHIC FINDING IN THE CHEST. 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 Guidance Fluoroscopy 10/10/19 00:00 IMPRESSION: Successful placement of a 5 Iraqi double-lumen PICC via the left brachial vein utilizing fluoroscopic and sonographic guidance. Interventional Vascular Procedure 10/10/19 00:00 IMPRESSION: Successful placement of a 5 Iraqi double-lumen PICC via the left brachial vein utilizing fluoroscopic and sonographic guidance. PICC Line Insertion 10/10/19 00:00 IMPRESSION: Successful placement of a 5 Iraqi double-lumen PICC via the left brachial vein utilizing fluoroscopic and sonographic guidance. Assessment and Plan - Diagnosis (1) Discitis of lumbosacral region Is this a current diagnosis for this admission?: Yes Plan: The voriconazole ROXANA is 0.5 mcg and from the literature reviewed I believe this is higher than a reasonable serum concentration of the voriconazole. I will defer to infectious diseases for additional direction. At this time continue the micafungin for [place] gl[place]rata discitis. (2) C. difficile colitis Is this a current diagnosis for this admission?: Yes Plan: I requested a terminal clean for the room so that we can discontinue contact precautions (3) CKD (chronic kidney disease) stage 3, GFR 30-59 ml/min Is this a current diagnosis for this admission?: Yes Plan: The patient exhibits slightly increased BUN and creatinine. We will administer gentle IV fluids. She admits to only drinking a liter plus several glasses of fluids each day. I encouraged her to drink more. (4) Acute urinary tract infection Is this a current diagnosis for this admission?: Yes Plan: Treated and resolved. Monitor for recurrence. (5) Anemia Qualifiers: Chronic kidney disease stage: stage 3 (moderate) Is this a current diagnosis for this admission?: Yes Plan: Continue iron supplement (6) Lumbosacral radiculopathy due to degenerative joint disease of spine Is this a current diagnosis for this admission?: Yes Plan: I will increase the Neurontin again. I have also resume the patient's Robaxin. (7) Hyperkalemia Is this a current diagnosis for this admission?: Yes Plan: Serum potassium is up. This could be related to the increase in BUN and creatinine. The gentle IV fluids should help resolve this. (8) Infection due to [place] gl[place]rata Is this a current diagnosis for this admission?: Yes Plan: Isolated from the bone biopsy - Plan Summary Summary: Requires an additional 4 weeks of micafungin. Awaiting placement for completion of long-term antibiotic therapy and physical therapy. - Time Time Spent with patient: 15-24 minutes Anticipated discharge: SNF
[2019-10-23] MEDS ORDERED: GABAPENTIN 100 MG CAPSULE PO SCH (22:00)
[2019-10-24] MEDS: LEVOTHYROXINE SODIUM 0.1 MG TABLET PO SCH (05:31)
[2019-10-24] MEDS: GABAPENTIN 300 MG CAPSULE PO SCH ×3 (05:31→21:05)
[2019-10-24] MEDS: PANTOPRAZOLE SODIUM 40 MG TABLET.DR PO SCH (05:31)
[2019-10-24] MEDS: OXYCODONE-ACETAMINOPHEN 5-325 MG TABLET PO PRN ×4 (05:31→23:51)
[2019-10-24] MEDS: NORMAL SALINE 1000 ML 1,000 ML IV PRN (05:32)
[2019-10-24] MEDS: TIZANIDINE HCL 4 MG TABLET PO SCH ×4 (05:32→23:51)
[2019-10-24 07:43] LABS: ANION GAP 7 (5-19); BLOOD UREA NITROGEN 37 mg/dL (7-20); CALCIUM 8.7 mg/dL (8.4-10.2); CARBON DIOXIDE 24 mmol/L (22-30); CHLORIDE 108 mmol/L (98-107); GLUCOSE 110 mg/dL (75-110)
[2019-10-24] MEDS: CARVEDILOL 6.25 MG TABLET PO SCH ×2 (11:26→21:05)
[2019-10-24] MEDS: ASPIRIN 81 MG TABLET, ENT COATED PO SCH (11:26)
[2019-10-24] MEDS: ENOXAPARIN SODIUM INJ 40 MG/0.4 ML DISP.SYRIN SUBCUT SCH (11:26)
[2019-10-24] MEDS: FERROUS SULFATE 325 MG TABLET PO SCH (11:26)
[2019-10-24] MEDS: TAMSULOSIN HCL 0.4 MG CAP.SR.24H PO SCH (11:26)
[2019-10-24] MEDS: MICAFUNGIN SODIUM 100 MG in NORMAL SALINE 100 ML IV SCH (13:15)
[2019-10-24] MEDS: LIDOCAINE 5% (700 MG) TRANSDERMAL ADH..PATCH TP SCH (13:16)
[2019-10-24] MEDS: NORMAL SALINE 10 ML SDV (SCHEDULED) IV SCH ×2 (13:17→21:06)
--- NOTE | 2019-10-24 14:16 | PDOC PROGRESS REPORT ---
Subjective Progress Note for:: 10/24/19 Subjective:: Patient is resting comfortably. She has pillows to offload her sacral area. She reports that she was walking a fair bit yesterday. She walks some earlier. Yesterday she in fact went to the family room and sat for an hour. Left leg is slightly better with increased gabapentin. Reason For Visit: UTI LUCERO NAGMA LUMBAR SPONDYLOSIS Physical Exam Vital Signs: Temp Pulse Resp BP Pulse Ox 97.9 F 72 20 110/52 L 100 10/24/19 08:02 10/24/19 08:02 10/24/19 08:02 10/24/19 08:02 10/24/19 08:02 Intake & Output 10/23/19 10/24/19 10/25/19 06:59 06:59 06:59 Intake Total 1604 2311 Balance 1604 2311 Weight 56.2 kg 56.3 kg General appearance: PRESENT: cooperative, mild distress - Clearly uncomfortable when shifting in bed, thin, well-developed - Well-developed but frail-appearing 79-year-old patient resting in bed. Head exam: PRESENT: atraumatic, normocephalic Respiratory exam: PRESENT: clear to auscultation elaina, symmetrical, unlabored. ABSENT: accessory muscle use, prolonged expiratory phas, rales, rhonchi, tachypnea, wheezes Cardiovascular exam: PRESENT: RRR, +S1, +S2 GI/Abdominal exam: PRESENT: distended - Slightly distended, normal bowel sounds, soft. ABSENT: guarding, tenderness Rectal exam: PRESENT: deferred Extremities exam: ABSENT: pedal edema Musculoskeletal exam: PRESENT: ambulatory Neurological exam: PRESENT: alert, awake, oriented to person, oriented to place, oriented to time, oriented to situation, CN II-XII grossly intact Psychiatric exam: PRESENT: appropriate affect, normal mood. ABSENT: agitated, anxious Focused psych exam: ABSENT: delusional, restlessness Skin exam: PRESENT: dry, pallor, warm. ABSENT: rash Results Laboratory Results: 10/22/19 09:20 10/24/19 06:15 10/24/19 06:15 Sodium 139.3 Potassium 5.0 Chloride 108 H Carbon Dioxide 24 Anion Gap 7 BUN 37 H Creatinine 1.32 H Est GFR ( Amer) 47 L Glucose 110 Calcium 8.7 10/03/19 04:16 Creatine Kinase < 20 L Impressions: Lumbar Spine X-Ray 10/02/19 11:06 IMPRESSION: Mild scoliosis. Anterolisthesis of L5 on S1. Degenerative disc disease, spondylosis, and facet arthropathy. Lumbar Spine CT 10/02/19 12:50 IMPRESSION: 1. Spondylosis, facet arthropathy and malalignment. Erosive endplate changes at L5-S1 probably due to chronic inflammation, however cannot exclude discitis. Clinical correlation is needed. 2. Dilated left renal collecting system of uncertain chronicity and etiology. Knee X-Ray 10/02/19 12:52 IMPRESSION: No acute findings. Chest X-Ray 10/02/19 14:20 IMPRESSION: COPD. NO ACUTE RADIOGRAPHIC FINDING IN THE CHEST. 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 Guidance Fluoroscopy 10/10/19 00:00 IMPRESSION: Successful placement of a 5 Trinidadian double-lumen PICC via the left brachial vein utilizing fluoroscopic and sonographic guidance. Interventional Vascular Procedure 10/10/19 00:00 IMPRESSION: Successful placement of a 5 Trin[place] double-lumen PICC via the left brachial vein utilizing fluoroscopic and sonographic guidance. PICC Line Insertion 10/10/19 00:00 IMPRESSION: Successful placement of a 5 Trin[place] double-lumen PICC via the left brachial vein utilizing fluoroscopic and sonographic guidance. Assessment and Plan - Diagnosis (1) Discitis of lumbosacral region Is this a current diagnosis for this admission?: Yes Plan: Continue micafungin at this time. We will review with infectious diseases to see if an appropriate oral therapy is available. (2) C. difficile colitis Is this a current diagnosis for this admission?: Yes Plan: Treated and resolved. The room was "terminally cleaned "therefore contact precautions have been removed. (3) CKD (chronic kidney disease) stage 3, GFR 30-59 ml/min Is this a current diagnosis for this admission?: Yes Plan: Despite IV fluids renal function remains somewhat depressed. We will continue to monitor. Renal function does remain in stage III with a GFR between 30 and 59. (4) Acute urinary tract infection Is this a current diagnosis for this admission?: Yes Plan: Treated and resolved. Monitor for recurrence. Possible consideration given to recent infection and her urinary retention. (5) Anemia Qualifiers: Chronic kidney disease stage: stage 3 (moderate) Is this a current diagnosis for this admission?: Yes Plan: Hemoglobin remained stable (6) Lumbosacral radiculopathy due to degenerative joint disease of spine Is this a current diagnosis for this admission?: Yes Plan: Continue increased doses of gabapentin as it seems to be effective. (7) Hyperkalemia Is this a current diagnosis for this admission?: Yes Plan: Serum potassium is normal today. We will continue to monitor. (8) Infection due to [place] gl[place]rata Is this a current diagnosis for this admission?: Yes Plan: Plan as above. - Plan Summary Summary: Requires an additional 4 weeks of micafungin. Awaiting placement for completion of long-term antibiotic therapy and physical therapy. - Time Time Spent with patient: 15-24 minutes Medications reviewed and adjusted accordingly: Yes
[2019-10-24] MEDS: ATORVASTATIN CALCIUM 20 MG TABLET PO SCH (21:05)
[2019-10-24] MEDS: MIRTAZAPINE 15 MG TABLET PO SCH (21:05)
[2019-10-24] MEDS: PHARMACY COMMUNICATION ORDER MC SCH (21:07)
[2019-10-25] MEDS: OXYCODONE-ACETAMINOPHEN 5-325 MG TABLET PO PRN ×3 (05:20→22:53)
[2019-10-25] MEDS: TIZANIDINE HCL 4 MG TABLET PO SCH ×4 (05:21→23:07)
[2019-10-25] MEDS: PANTOPRAZOLE SODIUM 40 MG TABLET.DR PO SCH (05:21)
[2019-10-25] MEDS: LEVOTHYROXINE SODIUM 0.1 MG TABLET PO SCH (05:22)
[2019-10-25] MEDS: GABAPENTIN 300 MG CAPSULE PO SCH ×3 (05:22→22:54)
[2019-10-25] MEDS: ENOXAPARIN SODIUM INJ 40 MG/0.4 ML DISP.SYRIN SUBCUT SCH (10:34)
[2019-10-25] MEDS: TAMSULOSIN HCL 0.4 MG CAP.SR.24H PO SCH (10:35)
[2019-10-25] MEDS: ASPIRIN 81 MG TABLET, ENT COATED PO SCH (10:35)
[2019-10-25] MEDS: FERROUS SULFATE 325 MG TABLET PO SCH (10:35)
[2019-10-25] MEDS: CARVEDILOL 6.25 MG TABLET PO SCH ×2 (10:36→22:53)
[2019-10-25] MEDS: METHOCARBAMOL 500 MG TABLET PO PRN (10:36)
[2019-10-25] MEDS: LIDOCAINE 5% (700 MG) TRANSDERMAL ADH..PATCH TP SCH (10:39)
[2019-10-25] MEDS: NORMAL SALINE 10 ML SDV (SCHEDULED) IV SCH ×2 (10:40→22:54)
[2019-10-25] MEDS: MICAFUNGIN SODIUM 100 MG in NORMAL SALINE 100 ML IV SCH (10:40)
--- NOTE | 2019-10-25 14:34 | PDOC PROGRESS REPORT ---
Subjective Progress Note for:: 10/25/19 Subjective:: The patient is resting comfortably. She still is achy at times. She is in good spirits today. She does report that she is trying to drink more water. Reason For Visit: UTI LUCERO NAGMA LUMBAR SPONDYLOSIS Physical Exam Vital Signs: Temp Pulse Resp BP Pulse Ox 98.7 F 75 16 127/50 H 98 10/25/19 00:00 10/25/19 00:00 10/25/19 00:00 10/25/19 00:00 10/25/19 00:00 Intake & Output 10/24/19 10/25/19 10/26/19 06:59 06:59 06:59 Intake Total 2311 2784 Balance 2311 2784 Weight 56.3 kg 56.3 kg General appearance: PRESENT: no acute distress, cooperative, well-developed Head exam: PRESENT: atraumatic, normocephalic Eye exam: PRESENT: conjunctiva pale. ABSENT: scleral icterus Mouth exam: PRESENT: moist, tongue midline Respiratory exam: PRESENT: clear to auscultation elaina, symmetrical, unlabored. ABSENT: accessory muscle use, rales, rhonchi, tachypnea, wheezes Cardiovascular exam: PRESENT: RRR, +S1, +S2 GI/Abdominal exam: PRESENT: distended - Slightly distended, normal bowel sounds, soft. ABSENT: tenderness Rectal exam: PRESENT: deferred Gentrourinary exam: PRESENT: indwelling catheter Extremities exam: ABSENT: pedal edema Musculoskeletal exam: PRESENT: ambulatory - Ambulates but pain in her back increases with walking, normal inspection Neurological exam: PRESENT: alert, awake, oriented to person, oriented to place, oriented to time, oriented to situation, CN II-XII grossly intact Psychiatric exam: PRESENT: appropriate affect, normal mood. ABSENT: agitated, anxious Focused psych exam: ABSENT: delusional, restlessness Skin exam: PRESENT: other - Multiple ecchymotic areas especially on the arms. Minimal on the legs. She actually has some on the upper chest as well. Results Laboratory Results: 10/22/19 09:20 10/24/19 06:15 10/03/19 04:16 Creatine Kinase < 20 L Impressions: Lumbar Spine X-Ray 10/02/19 11:06 IMPRESSION: Mild scoliosis. Anterolisthesis of L5 on S1. Degenerative disc disease, spondylosis, and facet arthropathy. Lumbar Spine CT 10/02/19 12:50 IMPRESSION: 1. Spondylosis, facet arthropathy and malalignment. Erosive endplate changes at L5-S1 probably due to chronic inflammation, however cannot exclude discitis. C linical correlation is needed. 2. Dilated left renal collecting system of uncertain chronicity and etiology. Knee X-Ray 10/02/19 12:52 IMPRESSION: No acute findings. Chest X-Ray 10/02/19 14:20 IMPRESSION: COPD. NO ACUTE RADIOGRAPHIC FINDING IN THE CHEST. 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 Guidance Fluoroscopy 10/10/19 00:00 IMPRESSION: Successful placement of a 5 Burkinan double-lumen PICC via the left brachial vein utilizing fluoroscopic and sonographic guidance. Interventional Vascular Procedure 10/10/19 00:00 IMPRESSION: Successful placement of a 5 [place]kinan double-lumen PICC via the left brachial vein utilizing fluoroscopic and sonographic guidance. PICC Line Insertion 10/10/19 00:00 IMPRESSION: Successful placement of a 5 [place]kinan double-lumen PICC via the left brachial vein utilizing fluoroscopic and sonographic guidance. Assessment and Plan - Diagnosis (1) Discitis of lumbosacral region Is this a current diagnosis for this admission?: Yes Plan: Continue micafungin (2) Infection due to [place] gl[place]rata Is this a current diagnosis for this admission?: Yes (3) CKD (chronic kidney disease) stage 3, GFR 30-59 ml/min Is this a current diagnosis for this admission?: Yes Plan: Creatinine is still slightly elevated. The patient did receive IV fluids with no significant change. I will hold the IV fluids and continue to encourage her to drink more water. (4) Acute urinary tract infection Is this a current diagnosis for this admission?: Yes Plan: Treated and resolved. Monitor for recurrence. Possible consideration given to recent infection and her urinary retention. (5) Anemia Qualifiers: Chronic kidney disease stage: stage 3 (moderate) Is this a current diagnosis for this admission?: Yes Plan: Her hemoglobin has been stable. Continue to monitor. (6) Lumbosacral radiculopathy due to degenerative joint disease of spine Is this a current diagnosis for this admission?: Yes Plan: Continue the increased doses of gabapentin (7) Hyperkalemia Is this a current diagnosis for this admission?: Yes Plan: Last potassium checked was normal. We will reassess tomorrow. (8) C. difficile colitis Is this a current diagnosis for this admission?: Yes Plan: Treated and resolved - Plan Summary Summary: Requires an additional 4 weeks of micafungin. Awaiting placement for completion of long-term antibiotic therapy and physical therapy. - Time Time Spent with patient: 15-24 minutes Medications reviewed and adjusted accordingly: Yes Anticipated discharge: SNF
[2019-10-25] MEDS: ATORVASTATIN CALCIUM 20 MG TABLET PO SCH (22:53)
[2019-10-25] MEDS: MIRTAZAPINE 15 MG TABLET PO SCH (22:53)
[2019-10-25] MEDS: PHARMACY COMMUNICATION ORDER MC SCH (22:55)
[2019-10-26] MEDS: OXYCODONE-ACETAMINOPHEN 5-325 MG TABLET PO PRN ×3 (05:54→23:32)
[2019-10-26] MEDS: GABAPENTIN 300 MG CAPSULE PO SCH ×3 (05:54→21:25)
[2019-10-26] MEDS: TIZANIDINE HCL 4 MG TABLET PO SCH ×4 (05:55→23:32)
[2019-10-26] MEDS: PANTOPRAZOLE SODIUM 40 MG TABLET.DR PO SCH (05:55)
[2019-10-26] MEDS: LEVOTHYROXINE SODIUM 0.1 MG TABLET PO SCH (06:09)
[2019-10-26 06:47] LABS: ABSOLUTE LYMPHOCYTES (AUTO) 1.3 10^3/uL (0.5-4.7); ABSOLUTE MONOCYTES (AUTO) 0.7 10^3/uL (0.1-1.4); BASOPHILS % (AUTO) 0.7 % (0-2); HEMOGLOBIN 8.9 g/dL (12.0-15.5); TOTAL CELLS COUNTED % (AUTO) 100 %
[2019-10-26 06:54] LABS: ABSOLUTE EOSINOPHILS # (AUTO) 0.1 10^3/uL (0.0-0.6); ABSOLUTE NEUT (AUTO) 3.7 10^3/uL (1.7-8.2); EOSINOPHILS % (AUTO) 2.3 % (0-6); HEMATOCRIT 26.5 % (36.0-47.0); LYMPHOCYTES % (AUTO) 21.7 % (13-45); MEAN CORPUSCULAR HGB CONC 33.6 g/dL (32.0-36.0); MEAN CORPUSCULAR VOLUME 89 fl (80-97); MONOCYTES % (AUTO) 11.6 % (3-13); PLATELET COUNT 223 10^3/uL (150-450); RED BLOOD COUNT 2.97 10^6/uL (3.72-5.28); RED CELL DISTRIBUTION WIDTH 16.6 % (11.5-14.0); SEGMENTED NEUTROPHILS % (AUTO) 63.7 % (42-78); WHITE BLOOD COUNT 5.8 10^3/uL (4.0-10.5)
[2019-10-26 07:02] LABS: ANION GAP 7 (5-19); BLOOD UREA NITROGEN 36 mg/dL (7-20); CALCIUM 8.6 mg/dL (8.4-10.2); CARBON DIOXIDE 23 mmol/L (22-30); CHLORIDE 109 mmol/L (98-107); GLUCOSE 102 mg/dL (75-110); POTASSIUM 4.6 mmol/L (3.6-5.0)
[2019-10-26] MEDS: CARVEDILOL 6.25 MG TABLET PO SCH ×2 (09:21→21:25)
[2019-10-26] MEDS: LIDOCAINE 5% (700 MG) TRANSDERMAL ADH..PATCH TP SCH (09:21)
[2019-10-26] MEDS: TAMSULOSIN HCL 0.4 MG CAP.SR.24H PO SCH (09:22)
[2019-10-26] MEDS: FERROUS SULFATE 325 MG TABLET PO SCH (09:22)
[2019-10-26] MEDS: ASPIRIN 81 MG TABLET, ENT COATED PO SCH (09:22)
[2019-10-26] MEDS: ENOXAPARIN SODIUM INJ 40 MG/0.4 ML DISP.SYRIN SUBCUT SCH (09:22)
[2019-10-26] MEDS: MICAFUNGIN SODIUM 100 MG in NORMAL SALINE 100 ML IV SCH (09:23)
[2019-10-26] MEDS: METHOCARBAMOL 500 MG TABLET PO PRN (09:29)
[2019-10-26] MEDS: NORMAL SALINE 10 ML SDV (SCHEDULED) IV SCH ×2 (11:33→21:34)
--- NOTE | 2019-10-26 13:35 | PDOC PROGRESS REPORT ---
Subjective Progress Note for:: 10/26/19 Subjective:: Patient was very groggy. This is likely due to some overlap with her medications. We will need to space her medications and adjust doses. She otherwise has no new complaints. Reason For Visit: UTI LUCERO NAGMA LUMBAR SPONDYLOSIS Physical Exam Vital Signs: Temp Pulse Resp BP Pulse Ox 98.2 F 72 18 101/45 L 100 10/26/19 10:55 10/26/19 10:55 10/26/19 10:55 10/26/19 10:55 10/26/19 10:55 Intake & Output 10/25/19 10/26/19 10/27/19 06:59 06:59 06:59 Intake Total 2784 Balance 2784 Weight 56.3 kg 56.2 kg General appearance: PRESENT: no acute distress, cooperative, well-developed Head exam: PRESENT: atraumatic, normocephalic Respiratory exam: PRESENT: clear to auscultation elaina, symmetrical, unlabored. ABSENT: prolonged expiratory phas, rales, rhonchi, tachypnea, wheezes Cardiovascular exam: PRESENT: RRR, +S1, +S2 GI/Abdominal exam: PRESENT: distended - Slightly distended, normal bowel sounds, soft. ABSENT: guarding, tenderness Rectal exam: PRESENT: deferred Gentrourinary exam: ABSENT: indwelling catheter Extremities exam: ABSENT: pedal edema Musculoskeletal exam: PRESENT: ambulatory, normal inspection Neurological exam: PRESENT: alert, awake, oriented to person, oriented to place, oriented to time, oriented to situation, CN II-XII grossly intact, other - She is minimally dysarthric but her daughter and the patient report that this was worse earlier today. Focused psych exam: ABSENT: delusional, restlessness Results Laboratory Results: 10/26/19 05:45 10/26/19 05:45 10/25/19 10/26/19 10/26/19 20:45 05:45 05:45 WBC 5.8 RBC 2.97 L Hgb 8.9 L Hct 26.5 L MCV 89 MCH 30.0 MCHC 33.6 RDW 16.6 H Plt Count 223 Seg Neutrophils % 63.7 Sodium 138.8 Potassium 4.6 Chloride 109 H Carbon Dioxide 23 Anion Gap 7 BUN 36 H Creatinine 1.15 Est GFR ( Amer) 55 L Glucose 102 Calcium 8.6 Magnesium 1.8 10/03/19 04:16 Creatine Kinase < 20 L Impressions: Lumbar Spine X-Ray 10/02/19 11:06 IMPRESSION: Mild scoliosis. Anterolisthesis of L5 on S1. Degenerative disc disease, spondylosis, and facet arthropathy. Lumbar Spine CT 10/02/19 12:50 IMPRESSION: 1. Spondylosis, facet arthropathy and malalignment. Erosive endplate changes at L5-S1 probably due to chronic inflammation, however cannot exclude discitis. Clinical correlation is needed. 2. Dilated left renal collecting system of uncertain chronicity and etiology. Knee X-Ray 10/02/19 12:52 IMPRESSION: No acute findings. Chest X-Ray 10/02/19 14:20 IMPRESSION: COPD. NO ACUTE RADIOGRAPHIC FINDING IN THE CHEST. 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 Guidance Fluoroscopy 10/10/19 00:00 IMPRESSION: Successful placement of a 5 [place] double-lumen PICC via the left brachial vein utilizing fluoroscopic and sonographic guidance. Interventional Vascular Procedure 10/10/19 00:00 IMPRESSION: Successful placement of a 5 [place] double-lumen PICC via the left brachial vein utilizing fluoroscopic and sonographic guidance. PICC Line Insertion 10/10/19 00:00 IMPRESSION: Successful placement of a 5 [place] double-lumen PICC via the left brachial vein utilizing fluoroscopic and sonographic guidance. Assessment and Plan - Diagnosis (1) Discitis of lumbosacral region Is this a current diagnosis for this admission?: Yes Plan: Continue micafungin. Awaiting results of voriconazole sensitivity (2) Infection due to [place] gl[place]rata Is this a current diagnosis for this admission?: Yes Plan: The patient had this in [place] prior to moving here. She received 6 weeks of therapy. She is now slated for a total of 6 months. Initially 4 to 6 weeks of IV and then oral medication. Voriconazole is being tested for effectiveness. (3) CKD (chronic kidney disease) stage 3, GFR 30-59 ml/min Is this a current diagnosis for this admission?: Yes Plan: Still at stage III. Slowly improving. The patient is trying to drink more water. (4) Acute urinary tract infection Is this a current diagnosis for this admission?: Yes Plan: Treated and resolved (5) Anemia Qualifiers: Anemia type: due to chronic kidney disease Chronic kidney disease stage: stage 3 (moderate) Qualified Code(s): N18.3 - Chronic kidney disease, stage 3 (moderate); D63.1 - Anemia in chronic kidney disease Is this a current diagnosis for this admission?: Yes Plan: Chronic and stable. Continue to monitor. 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 This appears to be much more effective than her previous dosing. We will continue this dose for the time being. (7) Hyperkalemia Is this a current diagnosis for this admission?: Yes Plan: Normokalemic. Continue to monitor. (8) C. difficile colitis Is this a current diagnosis for this admission?: Yes Plan: Treated and resolved (9) Adverse effects of medication Qualifiers: Encounter type: initial encounter Qualified Code(s): T50.905A - Adverse effect of unspecified drugs, medicaments and biological substances, initial encounter Is this a current diagnosis for this admission?: Yes Plan: The patient's condition this morning he is due to some overlap with medications. I will decrease the maximum dose of her narcotic analgesic and remove 1 of the muscle relaxants. This should make a difference. Hopefully she will be able to maintain good pain control. - Plan Summary Summary: Requires an additional 4 weeks of micafungin. Awaiting placement for completion of long-term antibiotic therapy and physical therapy. 10/27/2019-this is a clear change from yesterday and the patient's condition over the last week. With combination of fever and distended painful abdomen I have ordered urgent lab studies as well as blood cultures and a plain film to start. The surgical list will be evaluating the patient as well. - Time Time Spent with patient: Less than 15 minutes Medications reviewed and adjusted accordingly: Yes
[2019-10-26] MEDS: MIRTAZAPINE 15 MG TABLET PO SCH (21:25)
[2019-10-26] MEDS: ATORVASTATIN CALCIUM 20 MG TABLET PO SCH (21:25)
[2019-10-26] MEDS: PHARMACY COMMUNICATION ORDER MC SCH (21:35)
[2019-10-27] MEDS: GABAPENTIN 300 MG CAPSULE PO SCH ×3 (06:44→21:11)
[2019-10-27] MEDS: LEVOTHYROXINE SODIUM 0.1 MG TABLET PO SCH (06:45)
[2019-10-27] MEDS: TIZANIDINE HCL 4 MG TABLET PO SCH ×3 (06:45→17:53)
[2019-10-27] MEDS: PANTOPRAZOLE SODIUM 40 MG TABLET.DR PO SCH (06:45)
[2019-10-27] MEDS: TAMSULOSIN HCL 0.4 MG CAP.SR.24H PO SCH (09:25)
[2019-10-27] MEDS: FERROUS SULFATE 325 MG TABLET PO SCH (09:25)
[2019-10-27] MEDS: ASPIRIN 81 MG TABLET, ENT COATED PO SCH (09:25)
[2019-10-27] MEDS: CARVEDILOL 6.25 MG TABLET PO SCH ×2 (09:25→21:10)
[2019-10-27] MEDS: MICAFUNGIN SODIUM 100 MG in NORMAL SALINE 100 ML IV SCH (09:25)
[2019-10-27] MEDS: NORMAL SALINE 10 ML SDV (SCHEDULED) IV SCH ×2 (09:26→22:12)
[2019-10-27] MEDS: LIDOCAINE 5% (700 MG) TRANSDERMAL ADH..PATCH TP SCH (09:27)
[2019-10-27] MEDS: ENOXAPARIN SODIUM INJ 40 MG/0.4 ML DISP.SYRIN SUBCUT SCH (09:27)
--- NOTE | 2019-10-27 13:22 | PDOC PROGRESS REPORT ---
Subjective Progress Note for:: 10/27/19 Subjective:: The patient looks uncomfortable. She reports a fever of 102.3 F last night. Her abdomen is distended and quite painful. She has been having bowel movements that have a foul odor. She cannot tell me what color they are. She states that it is different from when she had C. difficile. Reason For Visit: UTI LUCERO NAGMA LUMBAR SPONDYLOSIS Physical Exam Vital Signs: Temp Pulse Resp BP Pulse Ox 99.3 F 80 14 109/66 98 10/27/19 11:18 10/27/19 11:18 10/27/19 11:18 10/27/19 11:18 10/27/19 11:18 Intake & Output 10/26/19 10/27/19 10/28/19 06:59 06:59 06:59 Intake Total 1677 Balance 1677 Weight 56.2 kg 56.2 kg General appearance: PRESENT: cooperative, well-developed, other - Patient in moderate to severe distress. Clearly very uncomfortable. Head exam: PRESENT: atraumatic, normocephalic Ear exam: PRESENT: normal external ear exam. ABSENT: bleeding, drainage Respiratory exam: PRESENT: clear to auscultation elaina - Anteriorly, symmetrical, unlabored. ABSENT: rales, rhonchi, tachypnea, wheezes Cardiovascular exam: PRESENT: RRR, +S1, +S2 GI/Abdominal exam: PRESENT: distended, firm - Abdomen is definitely more tense than yesterday., hypoactive bowel sounds, tenderness - Diffusely, other - . Percussion was uncomfortable. Tympanitic to percussion Extremities exam: ABSENT: pedal edema Musculoskeletal exam: PRESENT: ambulatory - The patient has not been out of bed yet today because of the pain., normal inspection Neurological exam: PRESENT: alert, awake, oriented to person, oriented to place, oriented to time, oriented to situation, CN II-XII grossly intact Psychiatric exam: PRESENT: appropriate affect - Affect reflects her significant pain. ABSENT: agitated, anxious Focused psych exam: ABSENT: delusional, restlessness Skin exam: PRESENT: dry, pallor, warm. ABSENT: rash Results Laboratory Results: 10/26/19 05:45 10/26/19 05:45 10/03/19 04:16 Creatine Kinase < 20 L Impressions: Lumbar Spine X-Ray 10/02/19 11:06 IMPRESSION: Mild scoliosis. Anterolisthesis of L5 on S1. Degenerative disc disease, spondylosis, and facet arthropathy. Lumbar Spine CT 10/02/19 12:50 IMPRESSION: 1. Spondylosis, facet arthropathy and malalignment. Erosive endplate changes at L5-S1 probably due to chronic inflammation, however cannot exclude discitis. Clinical correlation is needed. 2. Dilated left renal collecting system of uncertain chronicity and etiology. Knee X-Ray 10/02/19 12:52 IMPRESSION: No acute findings. Chest X-Ray 10/02/19 14:20 IMPRESSION: COPD. NO ACUTE RADIOGRAPHIC FINDING IN THE CHEST. 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 Guidance Fluoroscopy 10/10/19 00:00 IMPRESSION: Successful placement of a 5 Guatemalan double-lumen PICC via the left brachial vein utilizing fluoroscopic and sonographic guidance. Interventional Vascular Procedure 10/10/19 00:00 IMPRESSION: Successful placement of a 5 Guatemalan double-lumen PICC via the left brachial vein utilizing fluoroscopic and sonographic guidance. PICC Line Insertion 10/10/19 00:00 IMPRESSION: Successful placement of a 5 Guatemalan double-lumen PICC via the left brachial vein utilizing fluoroscopic and sonographic guidance. Assessment and Plan - Diagnosis (1) Abdominal pain Qualifiers: Abdominal location: generalized Qualified Code(s): R10.84 - Generalized abdominal pain Is this a current diagnosis for this admission?: Yes Plan: The patient has acute onset moderate to severe abdominal pain. She is tender to palpation. She has decreased bowel sounds. She reports having multiple bowel movements but is not aware of any discoloration. Still has a foul odor. She confirms that this is different from when she had her C. difficile. Her appetit e has been fine up until today. She denies nausea or vomiting. She believes that she has had 6 bowel movements since last night. Because of the fever (102.3 Fahrenheit) I have ordered laboratory studies, blood cultures and a plain film of the abdomen to start. I will have surgery see the patient as well. (2) Discitis of lumbosacral region Is this a current diagnosis for this admission?: Yes Plan: Still awaiting opinion of infectious diseases whether or not voriconazole by mouth would be a reasonable option. 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 Looking for an oral alternative to the IV micafungin. Overall length of treatment will be 6 months. (4) CKD (chronic kidney disease) stage 3, GFR 30-59 ml/min Is this a current diagnosis for this admission?: Yes Plan: BUN is still elevated but slightly better than the previous result. Creatinine is back in the normal range. GFR is up to 55. These are yesterday's labs. I have ordered urgent labs now to help assess the abdomen (5) Acute urinary tract infection Is this a current diagnosis for this admission?: Yes Plan: Treated and resolved (6) Anemia Qualifiers: Chronic kidney disease stage: stage 3 (moderate) Is this a current diagnosis for this admission?: Yes Plan: The patient's hemoglobin has been stable. The stool has a foul odor but we are unable to determine the color. (7) Lumbosacral radiculopathy due to degenerative joint disease of spine Is this a current diagnosis for this admission?: Yes Plan: Better on increased dose of gabapentin (8) Hyperkalemia Is this a current diagnosis for this admission?: Yes Plan: Resolved. Continue to monitor (9) C. difficile colitis Is this a current diagnosis for this admission?: Yes Plan: Treated and resolved. This current episode is different in presentation from her C. difficile. She has not been on antibiotics for a while and is currently only on an antifungal medication. (10) Adverse effects of medication Qualifiers: Encounter type: subsequent encounter Qualified Code(s): T50.905D - Adverse effect of unspecified drugs, medicaments and biological substances, subsequent encounter Is this a current diagnosis for this admission?: Yes Plan: Yesterday she was slightly groggy. I believe it was a result of some overlap with medications. I discontinued 1 of her muscle relaxants and decrease the dose of her opiates. - Plan Summary Summary: Requires an additional 4 weeks of micafungin. Awaiting placement for completion of long-term antibiotic therapy and physical therapy. 10/27/2019-this is a clear change from yesterday and the patient's condition over the last week. With combination of fever and distended painful abdomen I have ordered urgent lab studies as well as blood cultures and a plain film to start. The surgical list will be evaluating the patient as well. - Time Time Spent with patient: 15-24 minutes Medications reviewed and adjusted accordingly: Yes
[2019-10-27 14:27] LABS: ABSOLUTE EOSINOPHILS # (AUTO) 0.1 10^3/uL (0.0-0.6); ABSOLUTE MONOCYTES (AUTO) 0.7 10^3/uL (0.1-1.4); ABSOLUTE NEUT (AUTO) 4.7 10^3/uL (1.7-8.2); BASOPHILS % (AUTO) 0.5 % (0-2); EOSINOPHILS % (AUTO) 1.6 % (0-6); HEMATOCRIT 26.9 % (36.0-47.0); HEMOGLOBIN 9.1 g/dL (12.0-15.5); LYMPHOCYTES % (AUTO) 15.3 % (13-45); MEAN CORPUSCULAR HEMOGLOBIN 29.9 pg (27.0-33.4); MEAN CORPUSCULAR HGB CONC 33.7 g/dL (32.0-36.0); MEAN CORPUSCULAR VOLUME 89 fl (80-97); MONOCYTES % (AUTO) 10.1 % (3-13); PLATELET COUNT 229 10^3/uL (150-450); RED BLOOD COUNT 3.03 10^6/uL (3.72-5.28); RED CELL DISTRIBUTION WIDTH 16.3 % (11.5-14.0); SEGMENTED NEUTROPHILS % (AUTO) 72.5 % (42-78); TOTAL CELLS COUNTED % (AUTO) 100 %; WHITE BLOOD COUNT 6.5 10^3/uL (4.0-10.5)
[2019-10-27 14:50] LABS: ANION GAP 8 (5-19); BLOOD UREA NITROGEN 38 mg/dL (7-20); CALCIUM 8.3 mg/dL (8.4-10.2); CARBON DIOXIDE 20 mmol/L (22-30); CHLORIDE 108 mmol/L (98-107); GLUCOSE 177 mg/dL (75-110); POTASSIUM 4.5 mmol/L (3.6-5.0)
--- NOTE | 2019-10-27 15:23 | RADIOLOGY REPORT (SQ) ---
EXAM DESCRIPTION: KUB/ABDOMEN (SINGLE VIEW) COMPLETED DATE/TIME: 10/27/2019 3:12 pm REASON FOR STUDY: abdo distension and pain COMPARISON: None. NUMBER OF VIEWS: One view. TECHNIQUE: Supine radiographic image of the abdomen acquired. LIMITATIONS: None. FINDINGS: BOWEL GAS PATTERN: Gas pattern is nonobstructive. There is large amount of stool througho ut the colon consistent with constipation. CALCIFICATIONS: No suspicious calcifications. SOFT TISSUES: No gross mass or suggestion of organomegaly. HARDWARE: Numerous surgical clips overlie the abdomen. BONES: No acute fracture. No worrisome bone lesions. OTHER: No other significant finding. IMPRESSION: Moderate constipation. TECHNICAL DOCUMENTATION: JOB ID: [id number] [employer]- All Rights Reserved Reading location - IP/workstation name: [email or web address]
--- NOTE | 2019-10-27 17:15 | PDOC CONSULTATION ---
Consultation Consult Date: 10/27/19 Attending physician:: ARIEL ROCHE Provider Consulted: ANAMIKA TORIBIO Consult reason:: Abdominal pain History of Present Illness Admission Date/PCP: 10/02/19 15:16 History of Present Illness: JORGE DOBSON is a 79 year old female hospital 3 weeks ago for osteomyelitis of the spine secondary to [place] infection. She is being treated with antifungals. Today she was complaining of increased abdominal pain. She was evaluated by Dr. Dale jackson, who consulted general surgery for further evaluation. Patient has had fever of 102 3 last p.m. She had decreased bowel function in the last 24 hours. According to her relative in the room, patient has recently recovered from a C. difficile infection. Patient states she is st ill having abdominal pain. No bowel movements today. Past Medical History Cardiac Medical History: Reports: Myocardial Infarction Endocrine Medical History: Reports: Diabetes Mellitus Type 2 Musculoskeltal Medical History: Reports: Arthritis, Other - Back pain Psychiatric Medical History: Reports: Depression Past Surgical History Past Surgical History: Patient's son-in-law states patient has had colonoscopies with polypectomies in the past. Past Surgical History: Reports: Other - Neck surgery Social History Lives with: Family Smoking Status: Former Smoker Electronic Cigarette use?: No Frequency of Alcohol Use: None Hx Recreational Drug Use: No Drugs: None Hx Prescription Drug Abuse: No - Advance Directive Resuscitation Status: Do Not Intubate Family History Family History: Reviewed & Not Pertinent Parental Family History Reviewed: No Children Family History Reviewed: No Sibling(s) Family History Reviewed.: No Medication/Allergy Home Medications: Aspirin [Adult Low Dose Aspirin EC] 81 mg PO DAILY 10/02/19 Atenolol [Tenormin] 12.5 mg PO DAILY 10/02/19 Atorvastatin Calcium [Lipitor 20 mg Tablet] 20 mg PO QHS 10/02/19 Cyclobenzaprine HCl [Flexeril 5 mg Tablet] 5 mg PO TID 10/02/19 Ergocalciferol (Vitamin D2) [Vitamin D2] 50,000 unit PO MO@1000 10/02/19 Hydrocodone/Acetaminophen [Whitney 7.5-325 mg Tablet] 1 tab PO Q6HP PRN 10/02/19 Levothyroxine Sodium [Synthroid 0.1 mg Tablet] 0.1 mg PO DAILY 10/02/19 Ferrous Sulfate 324 mg PO BID 10/03/19 Methocarbamol 500 mg PO BIDP PRN 10/03/19 Mirtazapine 7.5 mg PO QHS 10/03/19 Micafungin Sodium [Mycamine Inj/Pf 100 mg Sdv] 100 mg IV DAILY 30 Days #30 vial 10/12/19 Allergies/Adverse Reactions: diazepam [From Valium] Allergy (Verified 10/03/19 00:34) morphine Allergy (Verified 10/03/19 00:34) Penicillins Allergy (Verified 10/03/19 00:34) acetaminophen [From Tylenol] Adverse Reaction (Verified 10/03/19 00:35) Review of Systems ROS unobtainable: Due to mental status, Other - Patient is low-grade dementia; her history providing is consistent Physical Exam Vital Signs: Temp Pulse Resp BP Pulse Ox 99.0 F 82 16 121/53 L 100 10/27/19 16:00 10/27/19 16:00 10/27/19 16:00 10/27/19 16:00 10/27/19 16:00 Intake & Output 10/26/19 10/27/19 10/28/19 06:59 06:59 06:59 Intake Total 1677 Balance 1677 Weight 56.2 kg 56.2 kg 56.2 kg General appearance: PRESENT: no acute distress Head exam: PRESENT: normocephalic Eye exam: PRESENT: EOMI Mouth exam: PRESENT: dry mucosa Neck exam: PRESENT: full ROM Respiratory exam: PRESENT: rhonchi Cardiovascular exam: PRESENT: RRR Pulses: PRESENT: normal carotid pulses, normal radial pulses, normal femoral pulses GI/Abdominal exam: PRESENT: other - The abdomen is soft no peritoneal signs no rigidity. No evidence of umbilical or groin hernias. Rectal exam: PRESENT: deferred Musculoskeletal exam: PRESENT: other - Patient at bedrest Neurological exam: PRESENT: other - Acute oriented to person, place, situation. Results Laboratory Results: 10/27/19 13:45 10/27/19 13:45 10/27/19 10/27/19 13:45 13:45 WBC 6.5 RBC 3.03 L Hgb 9.1 L Hct 26.9 L MCV 89 MCH 29.9 MCHC 33.7 RDW 16.3 H Plt Count 229 Seg Neutrophils % 72.5 Sodium 136.1 L Potassium 4.5 Chloride 108 H Carbon Dioxide 20 L Anion Gap 8 BUN 38 H Creatinine 1.35 H Est GFR ( Amer) 46 L Glucose 177 H Calcium 8.3 L Magnesium 2.0 10/03/19 04:16 Creatine Kinase < 20 L Impressions: Lumbar Spine X-Ray 10/02/19 11:06 IMPRESSION: Mild scoliosis. Anterolisthesis of L5 on S1. Degenerative disc disease, spondylosis, and facet arthropathy. Lumbar Spine CT 10/02/19 12:50 IMPRESSION: 1. Spondylosis, facet arthropathy and malalignment. Erosive endplate changes at L5-S1 probably due to chronic inflammation, however cannot exclude discitis. Clinical correlation is needed. 2. Dilated left renal collecting system of uncertain chronicity and etiology. Knee X-Ray 10/02/19 12:52 IMPRESSION: No acute findings. Chest X-Ray 10/02/19 14:20 IMPRESSION: COPD. NO ACUTE RADIOGRAPHIC FINDING IN THE CHEST. 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 Guidance Fluoroscopy 10/10/19 00:00 IMPRESSION: Successful placement of a 5 Croatian double-lumen PICC via the left brachial vein utilizing fluoroscopic and sonographic guidance. Interventional Vascular Procedure 10/10/19 00:00 IMPRESSION: Successful placement of a 5 Croatian double-lumen PICC via the left brachial vein utilizing fluoroscopic and sonographic guidance. PICC Line Insertion 10/10/19 00:00 IMPRESSION: Successful placement of a 5 Croatian double-lumen PICC via the left brachial vein utilizing fluoroscopic and sonographic guidance. KUB X-Ray 10/27/19 00:00 IMPRESSION: Moderate constipation. Assessment & Plan - Diagnosis (1) Abdominal pain Qualifiers: Abdominal location: generalized Qualified Code(s): R10.84 - Generalized ab dominal pain Is this a current diagnosis for this admission?: Yes Plan: Impression: Abdominal pain of unclear etiology; no evidence of acute abdomen on physical examination; no indication for surgical intervention at this time. Recommendations: 1. I reviewed the laboratory profile and radiologic studies obtained today. Findings consistent with constipation only. 2. Spoke with Dr. Roche who provide cathartics. 3. We will follow patient with you to ensure clinical improvement. (2) C. 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
[2019-10-27 19:30] LABS: C DIFFICILE GDH POSITIVE (NEGATIVE)
[2019-10-27] MEDS ORDERED: BISACODYL 10 MG SUPP.RECT PR ONE (20:00)
[2019-10-27] MEDS ORDERED: BISACODYL 5 MG TABEC PO ONE (20:00)
[2019-10-27] MEDS: ATORVASTATIN CALCIUM 20 MG TABLET PO SCH (21:11)
[2019-10-27] MEDS: MIRTAZAPINE 15 MG TABLET PO SCH (21:11)
[2019-10-27] MEDS: PHARMACY COMMUNICATION ORDER MC SCH (22:00)
[2019-10-27] MEDS: VANCOMYCIN HCL INJ 500 MG VIAL PO SCH (22:11)
[2019-10-27] MEDS: RIFAMPIN 300 MG CAPSULE PO SCH (22:11)
[2019-10-27] MEDS: NORMAL SALINE 1000 ML 1,000 ML IV PRN (22:16)
--- NOTE | 2019-10-27 22:39 | Progress Note ---
Provider Note Provider Note: Critical care note: 10/27/2019 Critical care start time: 22:07 Critical care issue: Stool positive for C. difficile I was asked by the patient's nurse to evaluate her for her critical value of a stool positive for C. difficile. I discussed the findings with the patient who readily informed me that she had previously suffered from C. difficile and that it had been very difficult for her. She was unhappy to hear that she had reacquired this infection. I discussed with her the nature of the reinfection and the treatment that we will be providing due to this being a recurrent infection. She expressed understanding and was thankful for the immediate response. On exam patient was noted to have unlabored respirations with her chest clear to auscultation on exam, heart showed a regular rate and rhythm without murmurs, abdomen showed bowel sounds to be mildly hypoactive with a minimal generalized discomfort on palpation throughout the abdomen. The patient was treated with vancomycin 250 mg p.o. stat followed by 250 mg p.o. every 6 hours and also received rifampin 300 mg stat followed by rifampin 300 mg p.o. every 12 hours. Critical care end time: 22:24 Total critical care time: 17 minutes
[2019-10-28] MEDS: TIZANIDINE HCL 4 MG TABLET PO SCH ×4 (00:05→17:25)
[2019-10-28] MEDS: VANCOMYCIN HCL INJ 500 MG VIAL PO SCH ×4 (02:56→21:09)
[2019-10-28] MEDS: GABAPENTIN 300 MG CAPSULE PO SCH ×3 (05:00→21:15)
[2019-10-28] MEDS: LEVOTHYROXINE SODIUM 0.1 MG TABLET PO SCH (05:01)
[2019-10-28] MEDS: PANTOPRAZOLE SODIUM 40 MG TABLET.DR PO SCH (05:01)
[2019-10-28] MEDS: OXYCODONE-ACETAMINOPHEN 5-325 MG TABLET PO PRN ×2 (06:04→17:26)
[2019-10-28 06:11] LABS: APPEARANCE,URINE CLOUDY; BILIRUBIN,URINE NEGATIVE (NEGATIVE); COLOR,URINE YELLOW; GLUCOSE, URINE NEGATIVE (NEGATIVE); KETONES,URINE NEGATIVE (NEGATIVE); PROTEIN,URINE NEGATIVE (NEGATIVE); URINE SPECIFIC GRAVITY 1.012; UROBILINOGEN,URINE NEGATIVE mg/dL (<2.0)
--- NOTE | 2019-10-28 09:43 | Progress Note ---
Provider Note Provider Note: [facility] Telephone Advice Consultation Chart reviewed. Patient is a 79-year-old woman who in 07/2019 was diagnosed with vertebral osteomyelitis/discitis of L5-S1 with [place] glabrata. This diagnosis was made in [place]. It is not clear to us how she became infected or what was the portal of entry, if at some point she was transiently fungemic and it seeded her back. She received 6 weeks of micafungin and her symptoms came back. She was complaining of severe back pain. On admission, her inflammation markers are elevated and imaging studies confirmed osteomyelitis of L5-S1. A recommendation was made to obtain a new biopsy for cultures and susceptibilities. This was already obtained. Tissue cultures were positive for [place] glabrata intermediate to voriconazole. She continues on micafungin. Her hospital stay was complicated by C diff diarrhea. She now presented abdominal pain consistent with constipation, already evaluated by surgery. Her C diff toxin assay is positive as it can remain positive after infection but not necessarily represents a new infection. She was started on vancomycin po again. ID consulted for recommendations. Allergies: diazepam [From Valium] Allergy (Verified 10/03/19 00:34) morphine Allergy (Verified 10/03/19 00:34) Penicillins Allergy (Verified 10/03/19 00:34) acetaminophen [From Tylenol] Adverse Reaction (Verified 10/03/19 00:35) Medications: Aspirin [Adult Low Dose Aspirin EC] 81 mg PO DAILY 10/02/19 Atenolol [Tenormin] 12.5 mg PO DAILY 10/02/19 Atorvastatin Calcium [Lipitor 20 mg Tablet] 20 mg PO QHS 10/02/19 Cyclobenzaprine HCl [Flexeril 5 mg Tablet] 5 mg PO TID 10/02/19 Ergocalciferol (Vitamin D2) [Vitamin D2] 50,000 unit PO MO@1000 10/02/19 Hydrocodone/Acetaminophen [[place] 7.5-325 mg Tablet] 1 tab PO Q6HP PRN 10/02/19 Levothyroxine Sodium [Synthroid 0.1 mg Tablet] 0.1 mg PO DAILY 10/02/19 Ferrous Sulfate 324 mg PO BID 10/03/19 Methocarbamol 500 mg PO BIDP PRN 10/03/19 Mirtazapine 7.5 mg PO QHS 10/03/19 Vital Signs: Temp Pulse Resp BP Pulse Ox 98 F 81 20 124/58 L 96 10/28/19 07:48 10/28/19 07:48 10/28/19 07:48 10/28/19 07:48 10/28/19 07:48 Intake & Output 10/27/19 10/28/19 10/29/19 06:59 06:59 06:59 Intake Total 1677 2967 Balance 1677 2967 Weight 56.2 kg 56.2 kg Weight/Height Weight 56.2 kg Height 5 ft 2 in Laboratories: 10/27/19 13:45 10/27/19 13:45 MCV 89 fl (80-97) 10/27/19 13:45 MCH 29.9 pg (27.0-33.4) 10/27/19 13:45 MCHC 33.7 g/dL (32.0-36.0) 10/27/19 13:45 RDW 16.3 % (11.5-14.0) H 10/27/19 13:45 Seg Neutrophils % 72.5 % (42-78) 10/27/19 13:45 Retic Count (auto) 2.69 % (0.66-2.85) 10/15/19 06:23 VBG pH 7.34 (7.30-7.42) 10/04/19 05:13 VBG pCO2 34.3 mmHg (35-63) L 10/04/19 05:13 VBG HCO3 18.0 mmol/L (20-32) L 10/04/19 05:13 VBG Base Excess -7.0 mmol/L 10/04/19 05:13 Chloride 108 mmol/L (98-107) H 10/27/19 13:45 Carbon Dioxide 20 mmol/L (22-30) L 10/27/19 13:45 Anion Gap 8 (5-19) 10/27/19 13:45 Est GFR ( Amer) 46 (>60) L 10/27/19 13:45 Glucose 177 mg/dL (75-110) H 10/27/19 13:45 Lactic Acid 1.3 mmol/L (0.7-2.1) 10/02/19 18:41 Calcium 8.3 mg/dL (8.4-10.2) L 10/27/19 13:45 Magnesium 2.0 mg/dL (1.6-2.3) 10/27/19 13:45 Iron 55.6 ug/dL (37-170) 10/15/19 13:35 TIBC 212 ug/dL (250-450) L 10/15/19 13:35 % Saturation 26 % 10/15/19 13:35 Ferritin 405.00 ng/mL (11.1-264.0) H 10/15/19 13:35 Total Bilirubin 0.2 mg/dL (0.2-1.3) 10/22/19 09:20 AST 25 U/L (14-36) 10/22/19 09:20 Alkaline Phosphatase 84 U/L (38-126) 10/22/19 09:20 C-Reactive Protein 15.5 mg/L (<10.0) H 10/22/19 09:20 Total Protein 5.3 g/dL (6.3-8.2) L 10/22/19 09:20 Albumin 2.6 g/dL (3.5-5.0) L 10/22/19 09:20 Vitamin B12 529.0 pg/mL (239-931) 10/15/19 13:35 Folate 8.61 ng/mL (>2.76) 10/15/19 13:35 Urine Color YELLOW 10/27/19 15:00 Urine Appearance CLOUDY 10/27/19 15:00 Urine pH 5.0 (5.0-9.0) 10/27/19 15:00 Ur Specific Nora 1.012 10/27/19 15:00 Urine Protein NEGATIVE mg/dL (NEGATIVE) 10/27/19 15:00 Urine Glucose (UA) NEGATIVE mg/dL (NEGATIVE) 10/27/19 15:00 Urine Ketones NEGATIVE mg/dL (NEGATIVE) 10/27/19 15:00 Urine Blood MODERATE (NEGATIVE) H 10/27/19 15:00 Urine RBC (Auto) 64 /HPF 10/27/19 15:00 Stool Occult Blood NEGATIVE (NEGATIVE) 10/27/19 18:40 10/03/19 04:16 Creatine Kinase < 20 L Microbiology: Blood culture: 12 Negative Tissue Culture: 10/08 [place] glabrata (voriconazole ROXANA 0.5) Radiology: Lumbar Spine X-Ray 10/02/19 11:06 IMPRESSION: Mild scoliosis. Anterolisthesis of L5 on S1. Degenerative disc disease, spondylosis, and facet arthropathy. Lumbar Spine CT 10/02/19 12:50 IMPRESSION: 1. Spondylosis, facet arthropathy and malalignment. Erosive endplate changes at L5-S1 probably due to chronic inflammation, however cannot exclude discitis. Clinical correlation is needed. 2. Dilated left renal collecting system of uncertain chronicity and etiology. Knee X-Ray 10/02/19 12:52 IMPRESSION: No acute findings. Chest X-Ray 10/02/19 14:20 IMPRESSION: COPD. NO ACUTE RADIOGRAPHIC FINDING IN THE CHEST. 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 Guidance Fluoroscopy 10/10/19 00:00 IMPRESSION: Successful placement of a 5 Turkish double-lumen PICC via the left brachial vein utilizing fluoroscopic and sonographic guidance. Interventional Vascular Procedure 10/10/19 00:00 IMPRESSION: Successful placement of a 5 Turkish double-lumen PICC via the left brachial vein utilizing fluoroscopic and sonographic guidance. PICC Line Insertion 10/10/19 00:00 IMPRESSION: Successful placement of a 5 Turkish double-lumen PICC via the left brachial vein utilizing fluoroscopic and sonographic guidance. KUB X-Ray 10/27/19 00:00 IMPRESSION: Moderate constipation. Assessment and Recommendations: Very complex case of vertebral osteomyelitis/discitis with [place] glabrata (previously resistant to fluconazole per notes from [facility]) now intermediate to voriconazole. Unfortunately, no good oral options to treat this infection and treatment requires at least 6 months of therapy. I have contacted the team with [facility] to see if any alternatives in terms of close follow up at our infusion center to avoid any gaps in therapy. EOT will be late March 2020. She will need to continue micafungin with close monitoring due to risk of toxicity and bloodstream infection with PICC line, etc. Continue monitoring inflammation markers weekly. Will give final recommendations once we have arrangements with doctors in [place]. Ideally surgical debridement to control the infection and shorten the duration of therapy, but not sure she is a surgical candidate. May consider neurosurgery or ortho spine consult. Christel Bill MD [facility] [phone]
--- NOTE | 2019-10-28 10:08 | PDOC PROGRESS REPORT ---
Subjective Progress Note for:: 10/28/19 Subjective:: Having loose bowel movements. Denies any abdominal pain. Reason For Visit: UTI LUCREO NAGMA LUMBAR SPONDYLOSIS Physical Exam Vital Signs: Temp Pulse Resp BP Pulse Ox 98 F 81 20 124/58 L 96 10/28/19 07:48 10/28/19 07:48 10/28/19 07:48 10/28/19 07:48 10/28/19 07:48 Intake & Output 10/27/19 10/28/19 10/29/19 06:59 06:59 06:59 Intake Total 1677 2967 Balance 1677 2967 Weight 56.2 kg 56.2 kg General appearance: PRESENT: no acute distress GI/Abdominal exam: PRESENT: other - Soft, nondistended, nontender to palpation. Results Laboratory Results: 10/27/19 13:45 10/27/19 13:45 10/22/19 10/27/19 10/27/19 09:20 13:45 13:45 WBC 6.0 6.5 RBC 3.03 L 3.03 L Hgb 9.0 L 9.1 L Hct 27.4 L 26.9 L MCV 90 89 MCH 29.6 29.9 MCHC 32.7 33.7 RDW 17.2 H 16.3 H Plt Count 253 229 Seg Neutrophils % 72.5 Sodium 136.1 L Potassium 4.5 Chloride 108 H Carbon Dioxide 20 L Anion Gap 8 BUN 38 H Creatinine 1.35 H Est GFR ( Amer) 46 L Glucose 177 H Calcium 8.3 L Magnesium 2.0 Urine Color Urine Appearance Urine pH Ur Specific [place] Urine Protein Urine Glucose (UA) Urine Ketones Urine Blood Urine RBC (Auto) Stool Occult Blood 10/27/19 10/27/19 15:00 18:40 WBC RBC Hgb Hct MCV MCH MCHC RDW Plt Count Seg Neutrophils % Sodium Potassium Chloride Carbon Dioxide Anion Gap BUN Creatinine Est GFR ( Amer) Glucose Calcium Magnesium Urine Color YELLOW Urine Appearance CLOUDY Urine pH 5.0 Ur Specific [place] 1.012 Urine Protein NEGATIVE Urine Glucose (UA) NEGATIVE Urine Ketones NEGATIVE Urine Blood MODERATE H Urine RBC (Auto) 64 Stool Occult Blood NEGATIVE 10/03/19 04:16 Creatine Kinase < 20 L Impressions: Lumbar Spine X-Ray 10/02/19 11:06 IMPRESSION: Mild scoliosis. Anterolisthesis of L5 on S1. Degenerative disc disease, spondylosis, and facet arthropathy. Lumbar Spine CT 10/02/19 12:50 IMPRESSION: 1. Spondylosis, facet arthropathy and malalignment. Erosive endplate changes at L5-S1 probably due to chronic inflammation, however cannot exclude discitis. Clinical correlation is needed. 2. Dilated left renal collecting system of uncertain chronicity and etiology. Knee X-Ray 10/02/19 12:52 IMPRESSION: No acute findings. Chest X-Ray 10/02/19 14:20 IMPRESSION: COPD. NO ACUTE RADIOGRAPHIC FINDING IN THE CHEST. 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 Guidance Fluoroscopy 10/10/19 00:00 IMPRESSION: Successful placement of a 5 Syrian double-lumen PICC via the left brachial vein utilizing fluoroscopic and sonographic guidance. Interventional Vascular Procedure 10/10/19 00:00 IMPRESSION: Successful placement of a 5 Syrian double-lumen PICC via the left brachial vein utilizing fluoroscopic and sonographic guidance. PICC Line Insertion 10/10/19 00:00 IMPRESSION: Successful placement of a 5 Syrian double-lumen PICC via the left brachial vein utilizing fluoroscopic and sonographic guidance. KUB X-Ray 10/27/19 00:00 IMPRESSION: Moderate constipation. Assessment & Plan - Diagnosis (1) C. difficile colitis Is this a current diagnosis for this admission?: Yes Plan: Recommend prolonged p.o. antibiotic therapy for C. difficile colitis. No indication for surgical intervention. Will sign off. Call us for any problems. - Time Time Spent with patient: Less than 15 minutes
[2019-10-28] MEDS: ASPIRIN 81 MG TABLET, ENT COATED PO SCH (11:00)
[2019-10-28] MEDS: ENOXAPARIN SODIUM INJ 40 MG/0.4 ML DISP.SYRIN SUBCUT SCH (11:00)
[2019-10-28] MEDS: RIFAMPIN 300 MG CAPSULE PO SCH ×2 (11:00→21:19)
[2019-10-28] MEDS: TAMSULOSIN HCL 0.4 MG CAP.SR.24H PO SCH (11:00)
[2019-10-28] MEDS: POLYETHYLENE GLYCOL 3350 POWDER 17 GM/1 PACKET PO SCH (11:00)
[2019-10-28] MEDS: CARVEDILOL 6.25 MG TABLET PO SCH ×2 (11:00→21:10)
[2019-10-28] MEDS: FERROUS SULFATE 325 MG TABLET PO SCH (11:00)
[2019-10-28] MEDS: NORMAL SALINE 10 ML SDV (SCHEDULED) IV SCH ×2 (11:01→21:15)
[2019-10-28] MEDS: MICAFUNGIN SODIUM 100 MG in NORMAL SALINE 100 ML IV SCH (11:01)
[2019-10-28] MEDS: LIDOCAINE 5% (700 MG) TRANSDERMAL ADH..PATCH TP SCH (11:02)
[2019-10-28] MEDS: NORMAL SALINE 1000 ML 1,000 ML IV PRN (17:27)
--- NOTE | 2019-10-28 19:57 | PDOC PROGRESS REPORT ---
Subjective Progress Note for:: 10/28/19 Subjective:: JORGE DOBSON is a 79 year old female with a history of recently diagnosed fungal lumbar discitis [completed treatment], resolved diabetes mellitus, peptic ulcer disease s/p surgery, hypertension, CVA, hypothyroidism, depression, who was admitted 10/02/2023 UTI and LUCERO. Ultimately found to have L5/S1 discitis with osteomyelitis positive for [place] glabrata. Unfortunately, patient has subsequently developed C. difficile colitis. Patient was seen on afternoon rounds with her [id number] present. She was found resting in bed, comfortably, lying supine on room air. She reports that her primary complaint today is generalized abdominal discomfort with frequent bowel movements. She reports slight nausea but without emesis. She denies fever, chills, chest pain, palpitations, orthopnea, dyspnea, cough. Long discussion had today regarding the patient's course ([id number] was able to provide me significant and important background as the patient's prolonged length of stay is quite complicated). 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 Upon completion of initial treatment course, she moved to [place] to live with family members and shortly later was admitted to [facility]. Her prior antibiotic may be what has precipitated her C. difficile infection (she did receive a short course of Rocephin and Cipro here for treatment of her UTI at time of admission). Per ID's recommendations, we did discuss possible transfer to tertiary center where neurosurgery services would be available. They are agreeable to transfer should surgery feel that this would be beneficial to her overall treatment course. As it stands, the patient will require 6 months of IV micafungin with end of treatment date being late March 2020. All questions and concerns were answered. No concerns per nursing at this time. Reason For Visit: UTI LUCERO NAGMA LUMBAR SPONDYLOSIS Physical Exam Vital Signs: Temp Pulse Resp BP Pulse Ox 98.7 F 68 16 112/58 L 98 10/28/19 15:01 10/28/19 15:01 10/28/19 15:01 10/28/19 15:01 10/28/19 15:01 Intake & Output 10/27/19 10/28/19 10/29/19 06:59 06:59 06:59 Intake Total 1677 2967 940 Balance 1677 2967 940 Weight 56.2 kg 56.2 kg General appearance: PRESENT: no acute distress, cooperative, thin, well- developed, well-nourished Head exam: PRESENT: atraumatic, normocephalic Eye exam: PRESENT: conjunctiva pink, EOMI, PERRLA. ABSENT: scleral icterus Ear exam: PRESENT: normal external ear exam Mouth exam: PRESENT: moist, tongue midline Respiratory exam: PRESENT: clear to auscultation elaina, symmetrical, unlabored. ABSENT: rales, rhonchi, wheezes Cardiovascular exam: PRESENT: RRR. ABSENT: diastolic murmur, rubs, systolic murmur Pulses: PRESENT: normal dorsalis pedis pul Vascular exam: PRESENT: normal capillary refill GI/Abdominal exam: PRESENT: hyperactive bowel sounds, soft, tenderness. ABSENT: distended, guarding, mass, organolmegaly, rebound Rectal exam: PRESENT: deferred Extremities exam: PRESENT: full ROM. ABSENT: calf tenderness, clubbing, pedal edema Musculoskeletal exam: PRESENT: ambulatory Neurological exam: PRESENT: alert, awake, oriented to person, oriented to place, oriented to time, oriented to situation, CN II-XII grossly intact. ABSENT: motor sensory deficit Psychiatric exam: PRESENT: appropriate affect, normal mood. ABSENT: homicidal ideation, suicidal ideation Skin exam: PRESENT: dry, intact, warm. ABSENT: cyanosis, rash Results Laboratory Results: 10/27/19 13:45 10/27/19 13:45 10/22/19 10/27/19 10/27/19 09:20 15:00 18:40 WBC 6.0 RBC 3.03 L Hgb 9.0 L Hct 27.4 L MCV 90 MCH 29.6 MCHC 32.7 RDW 17.2 H Plt Count 253 Urine Color YELLOW Urine Appearance CLOUDY Urine pH 5.0 Ur Specific [place] 1.012 Urine Protein NEGATIVE Urine Glucose (UA) NEGATIVE Urine Ketones NEGATIVE Urine Blood MODERATE H Urine RBC (Auto) 64 Stool Occult Blood NEGATIVE 10/03/19 04:16 Creatine Kinase < 20 L Impressions: Lumbar Spine X-Ray 10/02/19 11:06 IMPRESSION: Mild scoliosis. Anterolisthesis of L5 on S1. Degenerative disc disease, spondylosis, and facet arthropathy. Lumbar Spine CT 10/02/19 12:50 IMPRESSION: 1. Spondylosis, facet arthropathy and malalignment. Erosive endplate changes at L5-S1 probably due to chronic inflammation, however cannot exclude discitis. Clinical correlation is needed. 2. Dilated left renal collecting system of uncertain chronicity and etiology. Knee X-Ray 10/02/19 12:52 IMPRESSION: No acute findings. Chest X-Ray 10/02/19 14:20 IMPRESSION: COPD. NO ACUTE RADIOGRAPHIC FINDING IN THE CHEST. 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 Guidance Fluoroscopy 10/10/19 00:00 IMPRESSION: Successful placement of a 5 [place] Islander double-lumen PICC via the left brachial vein utilizing fluoroscopic and sonographic guidance. Interventional Vascular Procedure 10/10/19 00:00 IMPRESSION: Successful placement of a 5 [place] Islander double-lumen PICC via the left brachial vein utilizing fluoroscopic and sonographic guidance. PICC Line Insertion 10/10/19 00:00 IMPRESSION: Successful placement of a 5 [place] Island[place] double-lumen PICC via the left brachial vein utilizing fluoroscopic and sonographic guidance. KUB X-Ray 10/27/19 00:00 IMPRESSION: Moderate constipation. 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 She received 6 weeks of therapy at that facility. MRI imaging here shows continued L5/S1 discitis with osteomyelitis. Infectious disease has been consulted. Per Dr. Bill's note today, patient has intermediate sensitivity to voriconazole. Unfortunately there are no good oral options to treat her infection and she requires at least [address] Bill has reached out to the [facility] ID team to see if there are additional recommendations and will follow up with additional notes. Per Dr. Bill's recommendations, I did speak with Dr. Yeung, [facility], to see if surgical debridement would be of any benefit. Per Dr. Yeung, the patient would be a poor surgical candidate at this time as she would likely require hardware for spine stabilization. He advised that so long as the patient remains neurologically intact it would be in her best interest to avoid any operative interventions. However, if she does develop neurological deficits or has recurrent discitis or fungemia following completion of antibiotic course, it would then be appropriate to evaluate for surgical interventions. Patient continues on IV micafungin. Will continue to monitor weekly LFTs, BCx, CRP, and SED rate. (2) Discitis of lumbosacral region Is this a current diagnosis for this admission?: Yes Plan: Secondary to #2. Evaluation and management as above. Physical therapy consultation. Discharge planning consulted. (3) C. difficile colitis Is this a current diagnosis for this admission?: Yes Plan: Unfortunately reoccurred. Continue p.o Vancomycin and Rifampin Will start lactobacillus. Infectious Disease is consulted. (4) Abdominal pain Qualifiers: Abdominal location: generalized Qualified Code(s): R10.84 - Generalized abdominal pain Is this a current diagnosis for this admission?: Yes Plan: Improved; secondary to C. difficile infection coinciding with profound constipation. KUB shows large stool burden. She is now passing large amounts of stool following advanced bowel regiment. We will continue to avoid narcotics as able. We will utilize nonpharmacological interventions. (5) Anemia Qualifiers: Anemia type: due to chronic kidney disease Chronic kidney disease stage: stage 3 (moderate) Qualified Code(s): N18.3 - Chronic kidney disease, stage 3 (moderate); D63.1 - Anemia in chronic kidney disease Is this a current diagnosis for this admission?: Yes Plan: Chronic and stable. No evidence of active bleeding. Continue to monitor. (6) CKD (chronic kidney disease) stage 3, GFR 30-59 ml/min Is this a current diagnosis for this admission?: Yes Plan: Still at stage III. Creatinine 1.52 at time of admission; improved to 0.99 on 10/11/2019. Today 1.35. Continue to encourage p.o. fluids. Continue gentle IV fluids. Avoid nephrotoxic medications as able. Follow-up chemistries. 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 (8) Acute urinary tract infection Is this a current diagnosis for this admission?: Yes Plan: Resolved. Received full course of antibiotic therapy. (9) Adverse effects of medication Qualifiers: Encounter type: initial encounter Qualified Code(s): T50.905A - Adverse effect of unspecified drugs, medicaments and biological substances, initial encounter Is this a current diagnosis for this admission?: Yes Plan: Secondary to concurrent use of narcotic analgesics and muscle relaxants. Previous provider decreased dosing and schedule; she has improved mentation, bowel movements, with fair pain control. We will continue to make all attempts to reduce polypharmacy. (10) Hyperkalemia Is this a current diagnosis for this admission?: Yes Plan: Resolved. We will continue to monitor chemistries
[2019-10-28] MEDS: ATORVASTATIN CALCIUM 20 MG TABLET PO SCH (21:11)
[2019-10-28] MEDS: PHARMACY COMMUNICATION ORDER MC SCH (21:14)
[2019-10-28] MEDS: MIRTAZAPINE 15 MG TABLET PO SCH (21:15)
[2019-10-29] MEDS: VANCOMYCIN HCL INJ 500 MG VIAL PO SCH ×4 (02:35→21:53)
[2019-10-29] MEDS: TIZANIDINE HCL 4 MG TABLET PO SCH ×5 (02:36→23:37)
[2019-10-29] MEDS: OXYCODONE-ACETAMINOPHEN 5-325 MG TABLET PO PRN (06:11)
[2019-10-29] MEDS: LEVOTHYROXINE SODIUM 0.1 MG TABLET PO SCH (06:11)
[2019-10-29] MEDS: PANTOPRAZOLE SODIUM 40 MG TABLET.DR PO SCH (06:11)
[2019-10-29] MEDS: GABAPENTIN 300 MG CAPSULE PO SCH ×3 (06:11→21:58)
[2019-10-29] MEDS: NORMAL SALINE 1000 ML 1,000 ML IV PRN ×3 (06:13→23:38)
[2019-10-29] MEDS: ASPIRIN 81 MG TABLET, ENT COATED PO SCH (10:10)
[2019-10-29] MEDS: TAMSULOSIN HCL 0.4 MG CAP.SR.24H PO SCH (10:10)
[2019-10-29] MEDS: CARVEDILOL 6.25 MG TABLET PO SCH ×2 (10:10→21:56)
[2019-10-29] MEDS: LACTOBACILLUS ACIDOPHILUS 250 MG TAB PO SCH ×2 (10:10→17:23)
[2019-10-29] MEDS: RIFAMPIN 300 MG CAPSULE PO SCH ×2 (10:10→21:58)
[2019-10-29] MEDS: FERROUS SULFATE 325 MG TABLET PO SCH (10:10)
[2019-10-29] MEDS: LIDOCAINE 5% (700 MG) TRANSDERMAL ADH..PATCH TP SCH (10:11)
[2019-10-29] MEDS: ENOXAPARIN SODIUM INJ 40 MG/0.4 ML DISP.SYRIN SUBCUT SCH (10:12)
[2019-10-29] MEDS: MICAFUNGIN SODIUM 100 MG in NORMAL SALINE 100 ML IV SCH (10:12)
[2019-10-29] MEDS: POLYETHYLENE GLYCOL 3350 POWDER 17 GM/1 PACKET PO SCH (10:16)
[2019-10-29] MEDS: NORMAL SALINE 10 ML SDV (SCHEDULED) IV SCH ×2 (10:17→21:58)
[2019-10-29 12:03] LABS: HEMOGLOBIN 8.6 g/dL (12.0-15.5); MEAN CORPUSCULAR HEMOGLOBIN 29.6 pg (27.0-33.4); MEAN CORPUSCULAR HGB CONC 33.1 g/dL (32.0-36.0); MEAN CORPUSCULAR VOLUME 89 fl (80-97); PLATELET COUNT 231 10^3/uL (150-450); RED BLOOD COUNT 2.91 10^6/uL (3.72-5.28); RED CELL DISTRIBUTION WIDTH 15.9 % (11.5-14.0)
[2019-10-29 12:26] LABS: ALBUMIN 2.4 g/dL (3.5-5.0); ALKALINE PHOSPHATASE 79 U/L (38-126); ANION GAP 5 (5-19); ASPARTATE AMINO TRANSFERASE 15 U/L (14-36); BILIRUBIN,TOTAL 0.3 mg/dL (0.2-1.3); BLOOD UREA NITROGEN 21 mg/dL (7-20); C-REACTIVE PROTEIN 36.4 mg/L (<10.0); CARBON DIOXIDE 19 mmol/L (22-30); CHLORIDE 115 mmol/L (98-107); GLUCOSE 158 mg/dL (75-110); POTASSIUM 4.5 mmol/L (3.6-5.0)
[2019-10-29 12:55] LABS: ERYTHROCYTE SEDIMENTATION RATE 96 mm/hr (0-30)
--- NOTE | 2019-10-29 17:09 | PDOC PROGRESS REPORT ---
Subjective Progress Note for:: 10/29/19 Subjective:: JORGE DOBSON is a 79 year old female with a history of recently diagnosed fungal lumbar discitis [completed treatment], resolved diabetes mellitus, peptic ulcer disease s/p surgery, hypertension, CVA, hypothyroidism, depression, who was admitted 10/02/2023 UTI and LUCERO. Ultimately found to have L5/S1 discitis with osteomyelitis positive for [place] glabrata. Unfortunately, patient has subsequently developed C. difficile colitis. Patient was seen on morning rounds with her [id number] present. She was found resting in bed, comfortably, lying supine on room air. She reports that she is feeling better today. Her abdominal discomfort is improved and nausea has resolved. She is now tolerating a regular diet. She has had multiple hard/formed stools since yesterday. Requests an enema for constipation today. She has had no diarrhea bowel movements x24 hours. She does report continued lower back pain but feels that it is adequately managed with pain medications when needed. Reviewed recommendations is made by [facility] with patient and family members; they understand that avoiding surgical intervention would be in her best interest at this time. She denies fever, chills, chest pain, palpitations, dyspnea. They have no other questions or concerns at this time. No concerns per nursing at this time. Reason For Visit: UTI LUCERO NAGMA LUMBAR SPONDYLOSIS Physical Exam Vital Signs: Temp Pulse Resp BP Pulse Ox 98.4 F 68 20 109/49 L 99 10/29/19 14:56 10/29/19 14:56 10/29/19 14:56 10/29/19 14:56 10/29/19 14:56 Intake & Output 10/28/19 10/29/19 10/30/19 06:59 06:59 06:59 Intake Total 2967 2870 1799 Output Total 1402 1 Balance 2967 1468 1798 Weight 56.2 kg 56.2 kg General appearance: PRESENT: no acute distress, cooperative, well-developed, well-nourished, other - Frail/chronically ill-appearing Head exam: PRESENT: atraumatic, normocephalic Eye exam: PRESENT: conjunctiva pink, EOMI, PERRLA. ABSENT: scleral icterus Ear exam: PRESENT: normal external ear exam Mouth exam: PRESENT: moist, tongue midline Respiratory exam: PRESENT: clear to auscultation elaina, symmetrical, unlabored. ABSENT: rales, rhonchi, wheezes Cardiovascular exam: PRESENT: RRR, +S1, +S2. ABSENT: diastolic murmur, rubs, systolic murmur Pulses: PRESENT: normal dorsalis pedis pul Vascular exam: PRESENT: normal capillary refill GI/Abdominal exam: PRESENT: normal bowel sounds, soft. ABSENT: distended, guarding, mass, organolmegaly, rebound, tenderness Rectal exam: PRESENT: deferred Extremities exam: PRESENT: full ROM. ABSENT: calf tenderness, clubbing, pedal edema Musculoskeletal exam: PRESENT: ambulatory Neurological exam: PRESENT: alert, awake, oriented to person, oriented to place, oriented to time, oriented to situation, CN II-XII grossly intact. ABSENT: motor sensory deficit Psychiatric exam: PRESENT: appropriate affect, normal mood. ABSENT: homicidal ideation, suicidal ideation Skin exam: PRESENT: dry, intact, warm. ABSENT: cyanosis, rash Results Laboratory Results: 10/29/19 11:35 10/29/19 11:35 10/29/19 10/29/19 11:35 11:35 WBC 5.0 RBC 2.91 L Hgb 8.6 L Hct 26.0 L MCV 89 MCH 29.6 MCHC 33.1 RDW 15.9 H Plt Count 231 Sodium 139.1 Potassium 4.5 Chloride 115 H Carbon Dioxide 19 L Anion Gap 5 BUN 21 H Creatinine 1.01 Est GFR ( Amer) > 60 Glucose 158 H Calcium 8.0 L Total Bilirubin 0.3 AST 15 Alkaline Phosphatase 79 C-Reactive Protein 36.4 H Total Protein 5.0 L Albumin 2.4 L 10/27/19 15:22 Blood Blood Culture (PCR) - Final Staphylococcus Species 10/03/19 04:16 Creatine Kinase < 20 L Impressions: Lumbar Spine X-Ray 10/02/19 11:06 IMPRESSION: Mild scoliosis. Anterolisthesis of L5 on S1. Degenerative disc disease, spondylosis, and facet arthropathy. Lumbar Spine CT 10/02/19 12:50 IMPRESSION: 1. Spondylosis, facet arthropathy and malalignment. Erosive endplate changes at L5-S1 probably due to chronic inflammation, however cannot exclude discitis. Clinical correlation is needed. 2. Dilated left renal collecting system of uncertain chronicity and etiology. Knee X-Ray 10/02/19 12:52 IMPRESSION: No acute findings. Chest X-Ray 10/02/19 14:20 IMPRESSION: COPD. NO ACUTE RADIOGRAPHIC FINDING IN THE CHEST. 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 Guidance Fluoroscopy 10/10/19 00:00 IMPRESSION: Successful placement of a 5 Slovak double-lumen PICC via the left brachial vein utilizing fluoroscopic and sonographic guidance. Interventional Vascular Procedure 10/10/19 00:00 IMPRESSION: Successful placement of a 5 [place]ak double-lumen PICC via the left brachial vein utilizing fluoroscopic and sonographic guidance. PICC Line Insertion 10/10/19 00:00 IMPRESSION: Successful placement of a 5 Slovak double-lumen PICC via the left brachial vein utilizing fluoroscopic and sonographic guidance. KUB X-Ray 10/27/19 00:00 IMPRESSION: Moderate constipation. 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 She received 6 weeks of therapy at that facility. MRI imaging here shows continued L5/S1 discitis with osteomyelitis. 10/29/2019: LFTs are normal. CRP 36.4. Sed rate 96 Infectious disease has been consulted. Per Dr. Bill's note today, patient has intermediate sensitivity to voriconazole. Unfortunately there are no good oral options to treat her infection and she requires at least [address] Bill has reached out to the [facility] ID team to see if there are additional recommendations and will follow up with additional notes. Per Dr. Bill's recommendations, I did speak with Dr. Yeung, [facility] neurosurgery, to see if surgical debridement would be of any benefit. Per Dr. Yeung, the patient would be a poor surgical candidate at this time as she would likely require hardware for spine stabilization. He advised that so long as the patient remains neurologically intact it would be in her best interest to avoid any operative interventions. However, if she does develop neurological deficits or has recurrent discitis or fungemia following completion of antibiotic course, it would then be appropriate to evaluate for surgical interventions. Patient continues on IV micafungin. EOT late March 2020 Will continue to monitor weekly LFTs, BCx, CRP, and SED rate. (2) Discitis of lumbosacral region Is this a current diagnosis for this admission?: Yes Plan: Secondary to #2. Evaluation and management as above. Physical therapy consultation. Discharge planning consulted. (3) C. difficile colitis Is this a current diagnosis for this admission?: Yes Plan: Improved. Continue p.o Vancomycin and Rifampin Will start lactobacillus. Infectious Disease is consulted. (4) Abdominal pain Qualifiers: Abdominal location: generalized Qualified Code(s): R10.84 - Generalized abdominal pain Is this a current diagnosis for this admission?: Yes Plan: Improved; secondary to C. difficile infection coinciding with profound consti pation. KUB shows large stool burden. She is now passing large amounts of stool following advanced bowel regiment. We will continue to avoid narcotics as able. We will utilize nonpharmacological interventions. (5) Anemia Qualifiers: Anemia type: due to chronic kidney disease Chronic kidney disease stage: stage 3 (moderate) Qualified Code(s): N18.3 - Chronic kidney disease, stage 3 (moderate); D63.1 - Anemia in chronic kidney disease Is this a current diagnosis for this admission?: Yes Plan: Chronic and stable. No evidence of active bleeding. Continue to monitor. (6) CKD (chronic kidney disease) stage 3, GFR 30-59 ml/min Is this a current diagnosis for this admission?: Yes Plan: Still at stage III; improving. Cr 10.01/BUN 21 Continue to encourage p.o. fluids. Continue gentle IV fluids. Avoid nephrotoxic medications as able. Follow-up chemistries. 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 (8) Acute urinary tract infection Is this a current diagnosis for this admission?: Yes Plan: Resolved. Received full course of antibiotic therapy. (9) Adverse effects of medication Qualifiers: Encounter type: initial encounter Qualified Code(s): T50.905A - Adverse effect of unspecified drugs, medicaments and biological substances, initial encounter Is this a current diagnosis for this admission?: Yes Plan: Secondary to concurrent use of narcotic analgesics and muscle relaxants. Previous provider decreased dosing and schedule; she has improved mentation, bowel movements, with fair pain control. We will continue to make all attempts to reduce polypharmacy. (10) Hyperkalemia Is this a current diagnosis for this admission?: Yes Plan: Resolved. We will continue to monitor chemistries - Time Time Spent with patient: 15-24 minutes Medications reviewed and adjusted accordingly: Yes Anticipated discharge: SNF Within: when bed available
[2019-10-29] MEDS ORDERED: NA PHOS,M-B/NA PHOS,DI-BA (ADULT) 133 ML ENEMA PR ONE (18:30)
[2019-10-29] MEDS: MIRTAZAPINE 15 MG TABLET PO SCH (21:55)
[2019-10-29] MEDS: ATORVASTATIN CALCIUM 20 MG TABLET PO SCH (21:57)
[2019-10-29] MEDS: PHARMACY COMMUNICATION ORDER MC SCH (21:59)
[2019-10-30] MEDS: VANCOMYCIN HCL INJ 500 MG VIAL PO SCH ×2 (04:05→08:00)
[2019-10-30] MEDS: PANTOPRAZOLE SODIUM 40 MG TABLET.DR PO SCH (06:12)
[2019-10-30] MEDS: LEVOTHYROXINE SODIUM 0.1 MG TABLET PO SCH (06:12)
[2019-10-30] MEDS: GABAPENTIN 300 MG CAPSULE PO SCH ×3 (06:12→21:34)
[2019-10-30] MEDS: TIZANIDINE HCL 4 MG TABLET PO SCH ×4 (06:12→23:35)
[2019-10-30] MEDS: NORMAL SALINE 1000 ML 1,000 ML IV PRN ×2 (07:57→17:13)
--- NOTE | 2019-10-30 09:03 | Progress Note ---
Provider Note Provider Note: [facility] Telephone Advice Follow Up Chart reviewed. Patient is a 79-year-old woman who in 07/2019 was diagnosed with vertebral osteomyelitis/discitis of L5-S1 with [place] glabrata. This diagnosis was made in [place]. It is not clear to us how she became infected or what was the portal of entry, if at some point she was transiently fungemic and it seeded her back. She did have a ureteral stent prior to this event and it was removed. Yeast might have translocated from tract and seeded her back, not clear. She received 6 weeks of micafungin and her symptoms came back. She was complaining of severe back pain. On admission, her inflammation markers are elevated and imaging studies confirmed osteomyelitis of L5-S1. A recommendation was made to obtain a new biopsy for cultures and susceptibilities. This was already obtained. Tissue cultures were positive for [place] glabrata intermediate to voriconazole. She continues on micafungin. Her hospital stay was complicated by C diff diarrhea for which she completed 10 days of vancomycin po. She is now presenting periods of diarrhea alternated with constipation. C diff toxin assay was positive, which can happen after a recent infection not necessarily representing a recurrence. She was started on vancomycin po and rifampin. On 10/27 she spiked a fever of 102. Blood cultures were done. They are both positive for CoNS (line and peripheral). She is afebrile and HD stable now, no leukocytosis, renal function stable. Allergies: diazepam [From Valium] Allergy (Verified 10/03/19 00:34) morphine Allergy (Verified 10/03/19 00:34) Penicillins Allergy (Verified 10/03/19 00:34) acetaminophen [From Tylenol] Adverse Reaction (Verified 10/03/19 00:35) Medications: Aspirin [Adult Low Dose Aspirin [facility]] 81 mg PO DAILY 10/02/19 Atenolol [Tenormin] 12.5 mg PO DAILY 10/02/19 Atorvastatin Calcium [Lipitor 20 mg Tablet] 20 mg PO QHS 10/02/19 Cyclobenzaprine HCl [Flexeril 5 mg Tablet] 5 mg PO TID 10/02/19 Ergocalciferol (Vitamin D2) [Vitamin D2] 50,000 unit PO MO@1000 10/02/19 Hydrocodone/Acetaminophen [[place] 7.5-325 mg Tablet] 1 tab PO Q6HP PRN 10/02/19 Levothyroxine Sodium [Synthroid 0.1 mg Tablet] 0.1 mg PO DAILY 10/02/19 Ferrous Sulfate 324 mg PO BID 10/03/19 Methocarbamol 500 mg PO BIDP PRN 10/03/19 Mirtazapine 7.5 mg PO QHS 10/03/19 Vital Signs: Temp Pulse Resp BP Pulse Ox 98.0 F 67 20 134/63 H 100 10/30/19 07:53 10/30/19 07:53 10/30/19 07:53 10/30/19 07:53 10/30/19 07:53 Intake & Output 10/29/19 10/30/19 10/31/19 06:59 06:59 06:59 Intake Total 2870 4350 1000 Output Total 1402 1 Balance 1468 4349 1000 Weight 56.2 kg 57.9 kg Weight/Height Weight 57.9 kg Height 5 ft 2 in Laboratories: 10/29/19 11:35 10/29/19 11:35 MCV 89 fl (80-97) 10/29/19 11:35 MCH 29.6 pg (27.0-33.4) 10/29/19 11:35 MCHC 33.1 g/dL (32.0-36.0) 10/29/19 11:35 RDW 15.9 % (11.5-14.0) H 10/29/19 11:35 Seg Neutrophils % 72.5 % (42-78) 10/27/19 13:45 Retic Count (auto) 2.69 % (0.66-2.85) 10/15/19 06:23 VBG pH 7.34 (7.30-7.42) 10/04/19 05:13 VBG pCO2 34.3 mmHg (35-63) L 10/04/19 05:13 VBG HCO3 18.0 mmol/L (20-32) L 10/04/19 05:13 VBG Base Excess -7.0 mmol/L 10/04/19 05:13 Chloride 115 mmol/L (98-107) H 10/29/19 11:35 Carbon Dioxide 19 mmol/L (22-30) L 10/29/19 11:35 Anion Gap 5 (5-19) 10/29/19 11:35 Est GFR ( Amer) > 60 (>60) 10/29/19 11:35 Glucose 158 mg/dL (75-110) H 10/29/19 11:35 Lactic Acid 1.3 mmol/L (0.7-2.1) 10/02/19 18:41 Calcium 8.0 mg/dL (8.4-10.2) L 10/29/19 11:35 Magnesium 2.0 mg/dL (1.6-2.3) 10/27/19 13:45 Iron 55.6 ug/dL (37-170) 10/15/19 13:35 TIBC 212 ug/dL (250-450) L 10/15/19 13:35 % Saturation 26 % 10/15/19 13:35 Ferritin 405.00 ng/mL (11.1-264.0) H 10/15/19 13:35 Total Bilirubin 0.3 mg/dL (0.2-1.3) 10/29/19 11:35 AST 15 U/L (14-36) 10/29/19 11:35 Alkaline Phosphatase 79 U/L (38-126) 10/29/19 11:35 C-Reactive Protein 36.4 mg/L (<10.0) H 10/29/19 11:35 Total Protein 5.0 g/dL (6.3-8.2) L 10/29/19 11:35 Albumin 2.4 g/dL (3.5-5.0) L 10/29/19 11:35 Vitamin B12 529.0 pg/mL (239-931) 10/15/19 13:35 Folate 8.61 ng/mL (>2.76) 10/15/19 13:35 Urine Color YELLOW 10/27/19 15:00 Urine Appearance CLOUDY 10/27/19 15:00 Urine pH 5.0 (5.0-9.0) 10/27/19 15:00 Ur Specific [place] 1.012 10/27/19 15:00 Urine Protein NEGATIVE mg/dL (NEGATIVE) 10/27/19 15:00 Urine Glucose (UA) NEGATIVE mg/dL (NEGATIVE) 10/27/19 15:00 Urine Ketones NEGATIVE mg/dL (NEGATIVE) 10/27/19 15:00 Urine Blood MODERATE (NEGATIVE) H 10/27/19 15:00 Urine RBC (Auto) 64 /HPF 10/27/19 15:00 Stool Occult Blood NEGATIVE (NEGATIVE) 10/27/19 18:40 10/27/19 15:22 Blood Blood Culture (PCR) - Final Staphylococcus Species 10/03/19 04:16 Creatine Kinase < 20 L Radiology: Lumbar Spine X-Ray 10/02/19 11:06 IMPRESSION: Mild scoliosis. Anterolisthesis of L5 on S1. Degenerative disc disease, spondylosis, and facet arthropathy. Lumbar Spine CT 10/02/19 12:50 IMPRESSION: 1. Spondylosis, facet arthropathy and malalignment. Erosive endplate changes at L5-S1 probably due to chronic inflammation, however cannot exclude discitis. Clinical correlation is needed. 2. Dilated left renal collecting system of uncertain chronicity and etiology. Knee X-Ray 10/02/19 12:52 IMPRESSION: No acute findings. Chest X-Ray 10/02/19 14:20 IMPRESSION: COPD. NO ACUTE RADIOGRAPHIC FINDING IN THE CHEST. 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 Guidance Fluoroscopy 10/10/19 00:00 IMPRESSION: Successful placement of a 5 [place] double-lumen PICC via the left brachial vein utilizing fluoroscopic and sonographic guidance. Interventional Vascular Procedure 10/10/19 00:00 IMPRESSION: Successful placement of a 5 [place] double-lumen PICC via the left brachial vein utilizing fluoroscopic and sonographic guidance. PICC Line Insertion 10/10/19 00:00 IMPRESSION: Successful placement of a 5 [place] double-lumen PICC via the left brachial vein utilizing fluoroscopic and sonographic guidance. KUB X-Ray 10/27/19 00:00 IMPRESSION: Moderate constipation. Assessment and Recommendations: 1- Juana glabrata L5-S1 discitis and vertebral osteomyelitis - old records reviewed and all documentation mentions resistance to fluconazole. New cultures demonstrated intermediate activity of voriconazole. She is currently on micafungin and unfortunately no goood oral alternatives to treat this infection. She is not a candidate for surgery as she will require hardware to stabilize the spine per neurosurgery and this might perpetuate the infection. Will recommend to continue micafungin and to have follow up with [facility] in 2-3 weeks to determine next step. She had bone biopsy done on 10/08 and has been on antifu ngal therapy for 4 weeks now. Please send referral to [facility] for new patient evaluation at and call [phone] for appointment. She will need close follow up for this challenging infection. 2- C diff infection - she had a positive GDH and toxin assay on 10/06 for which she completed 10 days of vancomycin po. She completed therapy few days ago and started having abdominal discomfort, diarrhea alternated with constipation. New C diff toxin assay was positive. She was evaluated by surgery which determined that her symptoms were due to constipation as suggested by KUB. She was started on vancomycin 250 mg po and rifampin. This is no longer standard of care. 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 This usually presents with alternating periods of diarrhea and constipation associated with cramps. Would consider this at this point and hold treatment for CDI. If a clinical decision is made to treat for CDI, then vancomycin taper over 2 months or fidaxomicin 200 mg bid x 10 days would be recommended per the guidelines, but again I'm not sure she is having a recurrence of CDI. 3- Catheter related CoNS bacteremia. She has 2 positive blood cultures from the line and peripheral with CoNS. There recommendation for catheter related BSI is to remove the line and repeat blood cultures, treat with cefazolin 2g every 8 hr x 5 days (mec A gene not detected). New catheter may be placed after 72 hr of negative blood cultures. Please call back if any questions. Christel Bill MD [facility] [phone]
[2019-10-30] MEDS: NORMAL SALINE 10 ML SDV (SCHEDULED) IV SCH ×2 (10:25→21:35)
[2019-10-30] MEDS: POLYETHYLENE GLYCOL 3350 POWDER 17 GM/1 PACKET PO SCH (10:25)
[2019-10-30] MEDS: CARVEDILOL 6.25 MG TABLET PO SCH ×2 (10:27→21:33)
[2019-10-30] MEDS: LACTOBACILLUS ACIDOPHILUS 250 MG TAB PO SCH ×2 (10:27→17:12)
[2019-10-30] MEDS: ASPIRIN 81 MG TABLET, ENT COATED PO SCH (10:28)
[2019-10-30] MEDS: FERROUS SULFATE 325 MG TABLET PO SCH (10:28)
[2019-10-30] MEDS: TAMSULOSIN HCL 0.4 MG CAP.SR.24H PO SCH (10:28)
[2019-10-30] MEDS: LIDOCAINE 5% (700 MG) TRANSDERMAL ADH..PATCH TP SCH (10:28)
[2019-10-30] MEDS: ENOXAPARIN SODIUM INJ 40 MG/0.4 ML DISP.SYRIN SUBCUT SCH (10:28)
[2019-10-30] MEDS: MICAFUNGIN SODIUM 100 MG in NORMAL SALINE 100 ML IV SCH (10:42)
[2019-10-30] MEDS ORDERED: CEFAZOLIN 2 GM/D5W RTU 2 GM/50 ML RTUPB IV SCH (12:00)
[2019-10-30] MEDS: CEFAZOLIN SODIUM 2 GM in DEXTROSE 5%-WATER 100 ML IV SCH ×3 (13:24→23:35)
[2019-10-30] MEDS ORDERED: GUAIFENESIN SYRP 200 MG/10 ML UDC PO PRN (18:25)
[2019-10-30] MEDS ORDERED: BENZOCAINE/MENTHOL SORE THROAT LOZENGE BUCCAL PRN (18:25)
--- NOTE | 2019-10-30 18:33 | PDOC PROGRESS REPORT ---
Subjective Progress Note for:: 10/30/19 Subjective:: JORGE DOBSON is a 79 year old female with a history of recently diagnosed fungal lumbar discitis [completed treatment], resolved diabetes mellitus, peptic ulcer disease s/p surgery, hypertension, CVA, hypothyroidism, depression, who was admitted 10/02/2023 UTI and LUCERO. Ultimately found to have L5/S1 discitis with osteomyelitis positive for [place] glabrata. Unfortunately, patient has subsequently developed C. difficile colitis. Patient was seen on morning rounds. She was found resting in bed, comfortably, on room air. She reports that she is feels fine today. She is now tolerating a regular diet. Bowel movements are normalizing. She does report continued lower back pain but feels that it is adequately managed with pain medications when needed. Discussed patient's course and current plan of care w/ her brother by phone. She denies fever, chills, chest pain, palpitations, dyspnea. No concerns per nursing at this time. Reason For Visit: UTI LUCERO NAGMA LUMBAR SPONDYLOSIS Physical Exam Vital Signs: Temp Pulse Resp BP Pulse Ox 98.5 F 82 20 134/60 H 99 10/30/19 15:18 10/30/19 15:18 10/30/19 15:18 10/30/19 15:18 10/30/19 15:18 Intake & Output 10/29/19 10/30/19 10/31/19 06:59 06:59 06:59 Intake Total 2870 4350 3376 Output Total 1402 1 Balance 1468 4349 3376 Weight 56.2 kg 57.9 kg General appearance: PRESENT: no acute distress, cooperative, well-developed, well-nourished, other - Frail/chronically ill-appearing Head exam: PRESENT: atraumatic, normocephalic Eye exam: PRESENT: conjunctiva pink, EOMI, PERRLA. ABSENT: scleral icterus Mouth exam: PRESENT: moist, tongue midline Teeth exam: PRESENT: poor dentation Respiratory exam: PRESENT: clear to auscultation elaina, symmetrical, unlabored. ABSENT: rales, rhonchi, wheezes Cardiovascular exam: PRESENT: RRR, +S1, +S2. ABSENT: diastolic murmur, rubs, systolic murmur Pulses: PRESENT: normal dorsalis pedis pul Vascular exam: PRESENT: normal capillary refill GI/Abdominal exam: PRESENT: normal bowel sounds, soft. ABSENT: distended, guarding, mass, organolmegaly, rebound, tenderness Rectal exam: PRESENT: deferred Extremities exam: PRESENT: full ROM. ABSENT: calf tenderness, clubbing, pedal edema Musculoskeletal exam: PRESENT: tenderness - Lower back Neurological exam: PRESENT: alert, awake, oriented to person, oriented to place, oriented to time, oriented to situation, CN II-XII grossly intact, other - Forgetful. ABSENT: motor sensory deficit Psychiatric exam: PRESENT: appropriate affect, normal mood. ABSENT: homicidal ideation, suicidal ideation Skin exam: PRESENT: dry, intact, warm. ABSENT: cyanosis, rash Results Laboratory Results: 10/29/19 11:35 10/29/19 11:35 10/27/19 15:22 Blood Blood Culture (PCR) - Final Staphylococcus Species 10/03/19 04:16 Creatine Kinase < 20 L Impressions: Lumbar Spine X-Ray 10/02/19 11:06 IMPRESSION: Mild scoliosis. Anterolisthesis of L5 on S1. Degenerative disc disease, spondylosis, and facet arthropathy. Lumbar Spine CT 10/02/19 12:50 IMPRESSION: 1. Spondylosis, facet arthropathy and malalignment. Erosive endplate changes at L5-S1 probably due to chronic inflammation, however cannot exclude discitis. Clinical correlation is needed. 2. Dilated left renal collecting system of uncertain chronicity and etiology. Knee X-Ray 10/02/19 12:52 IMPRESSION: No acute findings. Chest X-Ray 10/02/19 14:20 IMPRESSION: COPD. NO ACUTE RADIOGRAPHIC FINDING IN THE CHEST. 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 Guidance Fluoroscopy 10/10/19 00:00 IMPRESSION: Successful placement of a 5 [place] double-lumen PICC via the left brachial vein utilizing fluoroscopic and sonographic guidance. Interventional Vascular Procedure 10/10/19 00:00 IMPRESSION: Successful placement of a 5 [place] double-lumen PICC via the left brachial vein utilizing fluoroscopic and sonographic guidance. PICC Line Insertion 10/10/19 00:00 IMPRESSION: Successful placement of a 5 [place] double-lumen PICC via the left brachial vein utilizing fluoroscopic and sonographic guidance. KUB X-Ray 10/27/19 00:00 IMPRESSION: Moderate constipation. Assessment and Plan - Diagnosis (1) Infection due to [place] glabrata Is this a current diagnosis for this admission?: Yes Plan: The patient had this in [place] prior to moving here. She received 6 weeks of therapy at that facility. MRI imaging here shows continued L5/S1 discitis with osteomyelitis. 10/29/2019: LFTs are normal. CRP 36.4. Sed rate 96 Infectious disease has been consulted. Per Dr. Bill's note today, patient has intermediate sensitivity to voriconazole. Unfortunately there are no good oral options to treat her infection and she requires at least [address] Bill has reached out to the [facility] team to see if there are additional recommendations and will follow up with additional notes. Per Dr. Bill's recommendations, I did speak with Dr. Yeung, [facility] neurosurgery, to see if surgical debridement would be of any benefit. Per Dr. Yeung, the patient would be a poor surgical candidate at this time as she would likely require hardware for spine stabilization. He advised that so long as the patient remains neurologically intact it would be in her best interest to avoid any operative interventions. However, if she does develop neurological deficits or has recurrent discitis or fungemia following completion of antibiotic course, it would then be appropriate to evaluate for surgical interventions. Patient continues on IV micafungin. EOT late March 2020 Will continue to monitor weekly LFTs, BCx, CRP, and SED rate. (2) Coag negative Staphylococcus bacteremia Is this a current diagnosis for this admission?: Yes Plan: Blood cultures (10/27/2019; from a peripheral and PICC line) positive for coag negative staph. PICC line is removed. Patient is started on IV cefazolin 2 g every 8 hours x5 days. Repeat blood cultures planned for tomorrow. May reinsert PICC line once clear at 72. (3) Discitis of lumbosacral region Is this a current diagnosis for this admission?: Yes Plan: Secondary to #2. Evaluation and management as above. Physical therapy consultation. Discharge planning consulted. (4) C. difficile colitis Is this a current diagnosis for this admission?: Yes Plan: Resolved. 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 We will provide symptom management (5) Abdominal pain Qualifiers: Abdominal location: generalized Qualified Code(s): R10.84 - Generalized abdominal pain Is this a current diagnosis for this admission?: Yes Plan: Resolved KUB shows large stool burden. She is now passing large amounts of stool following advanced bowel regiment. We will continue to avoid narcotics as able. We will utilize nonpharmacological interventions. (6) Anemia Qualifiers: Anemia type: due to chronic kidney disease Chronic kidney disease stage: stage 3 (moderate) Qualified Code(s): N18.3 - Chronic kidney disease, stage 3 (moderate); D63.1 - Anemia in chronic kidney disease Is this a current diagnosis for this admission?: Yes Plan: Chronic and stable. No evidence of active bleeding. Continue to monitor. (7) CKD (chronic kidney disease) stage 3, GFR 30-59 ml/min Is this a current diagnosis for this admission?: Yes Plan: Still at stage III; improving. Cr 10.01/BUN 21 Continue to encourage p.o. fluids. Avoid nephrotoxic medications as able. Follow-up chemistries. (8) Lumbosacral radiculopathy due to degenerative joint disease of spine Is this a current diagnosis for this admission?: Yes Plan: We will continue gabapentin 300 mg every 8 Continue Zanaflex every 6 Lidoderm patches Oxycodone as needed Nonpharmacological interventions. (9) Acute urinary tract infection Is this a current diagnosis for this admission?: Yes Plan: Resolved. Received full course of antibiotic therapy. (10) Adverse effects of medication Qualifiers: Encounter type: initial encounter Qualified Code(s): T50.905A - Adverse effect of unspecified drugs, medicaments and biological substances, initial encounter Is this a current diagnosis for this admission?: Yes Plan: Secondary to concurrent use of narcotic analgesics and muscle relaxants. Previous provider decreased dosing and schedule; she has improved mentation, bowel movements, with fair pain control. We will continue to make all attempts to reduce polypharmacy. (11) Hyperkalemia Is this a current diagnosis for this admission?: Yes Plan: Resolved. We will continue to monitor chemistries - Time Time Spent with patient: 35 or more minutes Medications reviewed and adjusted accordingly: Yes Anticipated discharge: SNF
[2019-10-30] MEDS: ATORVASTATIN CALCIUM 20 MG TABLET PO SCH (21:34)
[2019-10-30] MEDS: MIRTAZAPINE 15 MG TABLET PO SCH (21:34)
[2019-10-30] MEDS: OXYCODONE-ACETAMINOPHEN 5-325 MG TABLET PO PRN (21:34)
[2019-10-30] MEDS: PHARMACY COMMUNICATION ORDER MC SCH (21:35)
[2019-10-31] MEDS: GABAPENTIN 300 MG CAPSULE PO SCH ×3 (06:24→21:26)
[2019-10-31] MEDS: TIZANIDINE HCL 4 MG TABLET PO SCH ×3 (06:24→18:31)
[2019-10-31] MEDS: LEVOTHYROXINE SODIUM 0.1 MG TABLET PO SCH (06:24)
[2019-10-31] MEDS: OXYCODONE-ACETAMINOPHEN 5-325 MG TABLET PO PRN ×2 (06:25→18:31)
[2019-10-31] MEDS: PANTOPRAZOLE SODIUM 40 MG TABLET.DR PO SCH (06:25)
[2019-10-31] MEDS: CEFAZOLIN SODIUM 2 GM in DEXTROSE 5%-WATER 100 ML IV SCH ×2 (06:26→12:27)
[2019-10-31] MEDS: ENOXAPARIN SODIUM INJ 40 MG/0.4 ML DISP.SYRIN SUBCUT SCH (10:51)
[2019-10-31] MEDS: POLYETHYLENE GLYCOL 3350 POWDER 17 GM/1 PACKET PO SCH (10:51)
[2019-10-31] MEDS: CARVEDILOL 6.25 MG TABLET PO SCH (10:51)
[2019-10-31] MEDS: LACTOBACILLUS ACIDOPHILUS 250 MG TAB PO SCH ×2 (10:51→18:30)
[2019-10-31] MEDS: FERROUS SULFATE 325 MG TABLET PO SCH (10:51)
[2019-10-31] MEDS: TAMSULOSIN HCL 0.4 MG CAP.SR.24H PO SCH (10:51)
[2019-10-31] MEDS: ASPIRIN 81 MG TABLET, ENT COATED PO SCH (10:51)
[2019-10-31] MEDS: MICAFUNGIN SODIUM 100 MG in NORMAL SALINE 100 ML IV SCH (11:05)
[2019-10-31] MEDS: LIDOCAINE 5% (700 MG) TRANSDERMAL ADH..PATCH TP SCH (11:05)
[2019-10-31] MEDS: NORMAL SALINE 10 ML SDV (SCHEDULED) IV SCH ×2 (11:33→21:24)
--- NOTE | 2019-10-31 15:35 | PDOC PROGRESS REPORT ---
Subjective Progress Note for:: 10/31/19 Subjective:: JORGE DOBSON is a 79 year old female with a history of recently diagnosed fungal lumbar discitis [completed treatment], resolved diabetes mellitus, peptic ulcer disease s/p surgery, hypertension, CVA, hypothyroidism, depression, who was admitted 10/02/2023 UTI and LUCERO. Ultimately found to have L5/S1 discitis with osteomyelitis positive for [place] gl[place]rata. Unfortunately, patient has subsequently developed C. difficile colitis. Patient was seen on morning rounds. She was found resting in bed, comfortably, on room air while eating her breakfast. She reports that she feels fine today. She does report continued lower back pain but feels that it is adequately managed with pain medications when needed. She denies fever, chills, chest pain, palpitations, dyspnea, cough, abdominal pain, nausea, vomiting, diarrhea, constipation. She has no questions or concerns at this time. No concerns per nursing at this time. Reason For Visit: UTI LUCERO NAGMA LUMBAR SPONDYLOSIS Physical Exam Vital Signs: Temp Pulse Resp BP Pulse Ox 97.4 F 66 19 164/73 H 100 10/31/19 11:42 10/31/19 11:42 10/31/19 08:05 10/31/19 11:42 10/31/19 11:42 Intake & Output 10/30/19 10/31/19 11/01/19 06:59 06:59 06:59 Intake Total 4350 4243 1054 Output Total 1 Balance 4349 4243 1054 Weight 57.9 kg 49.8 kg General appearance: PRESENT: no acute distress, cooperative, hard of hearing, thin, well-developed, well-nourished, other - Frail and chronically ill- appearing Head exam: PRESENT: atraumatic, normocephalic Eye exam: PRESENT: conjunctiva pink, EOMI, PERRLA. ABSENT: scleral icterus Ear exam: PRESENT: normal external ear exam Mouth exam: PRESENT: moist, tongue midline Teeth exam: PRESENT: poor dentation Respiratory exam: PRESENT: clear to auscultation elaina, symmetrical, unlabored. ABSENT: rales, rhonchi, wheezes Cardiovascular exam: PRESENT: RRR, +S1, +S2. ABSENT: diastolic murmur, rubs, systolic murmur Vascular exam: PRESENT: normal capillary refill GI/Abdominal exam: PRESENT: normal bowel sounds, soft. ABSENT: distended, guarding, mass, organolmegaly, rebound, tenderness Rectal exam: PRESENT: deferred Extremities exam: PRESENT: full ROM. ABSENT: calf tenderness, clubbing, pedal edema Neurological exam: PRESENT: alert, awake, oriented to person, oriented to place, oriented to time, oriented to situation, CN II-XII grossly intact, other - Intermittent forgetfulness and confusion. ABSENT: motor sensory deficit Psychiatric exam: PRESENT: appropriate affect, normal mood. ABSENT: homicidal ideation, suicidal ideation Skin exam: PRESENT: dry, intact, warm. ABSENT: cyanosis, rash Results Laboratory Results: 10/29/19 11:35 10/29/19 11:35 10/27/19 15:22 Blood Blood Culture (PCR) - Final Staphylococcus Species 10/27/19 15:22 Blood Blood Culture - Final Staphylococcus Capitis 10/27/19 13:45 Blood Blood Culture - Final Staphylococcus Epidermidis 10/03/19 04:16 Creatine Kinase < 20 L Impressions: Lumbar Spine X-Ray 10/02/19 11:06 IMPRESSION: Mild scoliosis. Anterolisthesis of L5 on S1. Degenerative disc disease, spondylosis, and facet arthropathy. Lumbar Spine CT 10/02/19 12:50 IMPRESSION: 1. Spondylosis, facet arthropathy and malalignment. Erosive endplate changes at L5-S1 probably due to chronic inflammation, however cannot exclude discitis. Clinical correlation is needed. 2. Dilated left renal collecting system of uncertain chronicity and etiology. Knee X-Ray 10/02/19 12:52 IMPRESSION: No acute findings. Chest X-Ray 10/02/19 14:20 IMPRESSION: COPD. NO ACUTE RADIOGRAPHIC FINDING IN THE CHEST. 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 Guidance Fluoroscopy 10/10/19 00:00 IMPRESSION: Successful placement of a 5 [place] double-lumen PICC via the left brachial vein utilizing fluoroscopic and sonographic guidance. Interventional Vascular Procedure 10/10/19 00:00 IMPRESSION: Successful placement of a 5 [place] double-lumen PICC via the left brachial vein utilizing fluoroscopic and sonographic guidance. PICC Line Insertion 10/10/19 00:00 IMPRESSION: Successful placement of a 5 [place] double-lumen PICC via the left brachial vein utilizing fluoroscopic and sonographic guidance. KUB X-Ray 10/27/19 00:00 IMPRESSION: Moderate constipation. 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 She received 6 weeks of therapy at that facility. MRI imaging here shows continued L5/S1 discitis with osteomyelitis. 10/29/2019: LFTs are normal. CRP 36.4. Sed rate 96 Infectious disease has been consulted. Per Dr. Bill's note today, patient has intermediate sensitivity to voriconazole. Unfortunately there are no good oral options to treat her infection and she requires at least [address] Bill has reached out to the [facility] ID team to see if there are additional recommendations and will follow up with additional notes. Per Dr. Bill's recommendations, I did speak with Dr. Yeung, [facility] neurosurgery, to see if surgical debridement would be of any benefit. Per Dr. Yeung, the patient would be a poor surgical candidate at this time as she would likely require hardware for spine stabilization. He advised that so long as the patient remains neurologically intact it would be in her best interest to avoid any operative interventions. However, if she does develop neurological deficits or has recurrent discitis or fungemia following completion of antibiotic course, it would then be appropriate to evaluate for surgical interventions. Patient continues on IV micafungin. EOT late March 2020 Will continue to monitor weekly LFTs, BCx, CRP, and SED rate. (2) Coag negative Staphylococcus bacteremia Is this a current diagnosis for this admission?: Yes Plan: Ruled out. Blood cultures (10/27/2019; PICC line) grewStaph epidermidis with numerous resistances Blood culture (10/27/2019; peripheral) grew pansensitive staph capitis Repeat cultures pending Per ID's recommendations: PICC line was removed. Patient was started on IV cefazolin 2 g every 8 hours. Received 1 day of therapy. Will discontinue as patient did not have bacteremia (ruled out once identification revealed two different species) Will plan to reinsert PICC once cultures are negative at 72h (3) Discitis of lumbosacral region Is this a current diagnosis for this admission?: Yes Plan: Secondary to #2. Evaluation and management as above. Physical therapy consultation. Discharge planning consulted. (4) C. difficile colitis Is this a current diagnosis for this admission?: Yes Plan: Resolved. 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 We will provide symptom management (5) Abdominal pain Qualifiers: Abdominal location: generalized Qualified Code(s): R10.84 - Generalized abdominal pain Is this a current diagnosis for this admission?: Yes Plan: Resolved KUB shows large stool burden. She is now passing large amounts of stool following advanced bowel regiment. We will continue to avoid narcotics as able. We will utilize nonpharmacological interventions. (6) Anemia Qualifiers: Anemia type: due to chronic kidney disease Chronic kidney disease stage: stage 3 (moderate) Qualified Code(s): N18.3 - Chronic kidney disease, stage 3 (moderate); D63.1 - Anemia in chronic kidney disease Is this a current diagnosis for this admission?: Yes Plan: Chronic and stable. No evidence of active bleeding. Continue to monitor. (7) CKD (chronic kidney disease) stage 3, GFR 30-59 ml/min Is this a current diagnosis for this admission?: Yes Plan: Still at stage III; improving. Cr 10.01/BUN 21 Continue to encourage p.o. fluids. Avoid nephrotoxic medications as able. Follow-up chemistries. (8) Lumbosacral radiculopathy due to degenerative joint disease of spine Is this a current diagnosis for this admission?: Yes Plan: We will continue gabapentin 300 mg every 8 Continue Zanaflex every 6 Lidoderm patches Oxycodone as needed Nonpharmacological interventions. (9) Acute urinary tract infection Is this a current diagnosis for this admission?: Yes Plan: Resolved. Received full course of antibiotic therapy. (10) Adverse effects of medication Qualifiers: Encounter type: initial encounter Qualified Code(s): T50.905A - Adverse effect of unspecified drugs, medicaments and biological substances, initial encounter Is this a current diagnosis for this admission?: Yes Plan: Secondary to concurrent use of narcotic analgesics and muscle relaxants. Previous provider decreased dosing and schedule; she has improved mentation, bowel movements, with fair pain control. We will continue to make all attempts to reduce polypharmacy. (11) Hyperkalemia Is this a current diagnosis for this admission?: Yes Plan: Resolved. We will continue to monitor chemistries - Time Time Spent with patient: 15-24 minutes Medications reviewed and adjusted accordingly: Yes Anticipated discharge: SNF Within: Other - 11/03/19 if bed available (following PICC placement)
[2019-10-31] MEDS: MIRTAZAPINE 15 MG TABLET PO SCH (21:27)
[2019-10-31] MEDS: CARVEDILOL 12.5 MG TABLET PO SCH (21:27)
[2019-10-31] MEDS: ATORVASTATIN CALCIUM 20 MG TABLET PO SCH (21:27)
[2019-10-31] MEDS: PHARMACY COMMUNICATION ORDER MC SCH (21:28)
[2019-10-31] MEDS ORDERED: CARVEDILOL 6.25 MG TABLET PO SCH (22:00)
[2019-11-01] MEDS: TIZANIDINE HCL 4 MG TABLET PO SCH ×4 (05:03→18:19)
[2019-11-01] MEDS: GABAPENTIN 300 MG CAPSULE PO SCH ×3 (05:09→21:33)
[2019-11-01] MEDS: LEVOTHYROXINE SODIUM 0.1 MG TABLET PO SCH (05:09)
[2019-11-01] MEDS: PANTOPRAZOLE SODIUM 40 MG TABLET.DR PO SCH (05:09)
[2019-11-01] MEDS: OXYCODONE-ACETAMINOPHEN 5-325 MG TABLET PO PRN ×3 (05:09→21:33)
[2019-11-01] MEDS: ASPIRIN 81 MG TABLET, ENT COATED PO SCH (10:07)
[2019-11-01] MEDS: FERROUS SULFATE 325 MG TABLET PO SCH (10:07)
[2019-11-01] MEDS: LIDOCAINE 5% (700 MG) TRANSDERMAL ADH..PATCH TP SCH (10:07)
[2019-11-01] MEDS: TAMSULOSIN HCL 0.4 MG CAP.SR.24H PO SCH (10:07)
[2019-11-01] MEDS: CARVEDILOL 12.5 MG TABLET PO SCH ×2 (10:07→21:33)
[2019-11-01] MEDS: ENOXAPARIN SODIUM INJ 40 MG/0.4 ML DISP.SYRIN SUBCUT SCH (10:07)
[2019-11-01] MEDS: LACTOBACILLUS ACIDOPHILUS 250 MG TAB PO SCH ×2 (10:07→18:19)
[2019-11-01] MEDS: POLYETHYLENE GLYCOL 3350 POWDER 17 GM/1 PACKET PO SCH (10:08)
[2019-11-01] MEDS: NORMAL SALINE 10 ML SDV (SCHEDULED) IV SCH ×2 (10:08→21:31)
--- NOTE | 2019-11-01 12:49 | PDOC PROGRESS REPORT ---
Subjective Progress Note for:: 11/01/19 Subjective:: JORGE DOBSON is a 79 year old female with a history of recently diagnosed fungal lumbar discitis [completed treatment], resolved diabetes mellitus, peptic ulcer disease s/p surgery, hypertension, CVA, hypothyroidism, depression, who was admitted 10/02/2023 UTI and LUCERO. Ultimately found to have L5/S1 discitis with osteomyelitis positive for [place] gl[place]rata. Unfortunately, patient has subsequently developed C. difficile colitis. Patient was seen on morning rounds. She was found resting in bed, comfortably, on room air. She reports that she feels fine today. She does report continued lower back pain but feels that it is adequately managed with pain medications when needed. She reports frequent, soft, stools today but denies associated discomfort. She denies fever, chills, chest pain, palpitations, dyspnea, cough, abdominal pain, nausea, vomiting, diarrhea, constipation. She has no questions or concerns at this time. No concerns per nursing at this time. Reason For Visit: UTI LUCERO NAGMA LUMBAR SPONDYLOSIS Physical Exam Vital Signs: Temp Pulse Resp BP Pulse Ox 97.4 F 91 19 147/58 H 95 11/01/19 08:00 11/01/19 08:00 11/01/19 08:00 11/01/19 08:00 11/01/19 08:00 Intake & Output 10/31/19 11/01/19 11/02/19 06:59 06:59 06:59 Intake Total 4243 1876 Output Total 2 Balance 4243 1874 Weight 49.8 kg 52.9 kg General appearance: PRESENT: no acute distress, cooperative, hard of hearing, thin, well-developed, well-nourished, other - Frail and chronically ill- appearing Head exam: PRESENT: atraumatic, normocephalic Eye exam: PRESENT: conjunctiva pink, EOMI, PERRLA. ABSENT: scleral icterus Mouth exam: PRESENT: moist, tongue midline Respiratory exam: PRESENT: clear to auscultation elaina, symmetrical, unlabored. ABSENT: rales, rhonchi, wheezes Cardiovascular exam: PRESENT: RRR, +S1, +S2. ABSENT: diastolic murmur, rubs, systolic murmur GI/Abdominal exam: PRESENT: normal bowel sounds, soft. ABSENT: distended, guarding, mass, organolmegaly, rebound, tenderness Rectal exam: PRESENT: deferred Extremities exam: PRESENT: full ROM. ABSENT: calf tenderness, clubbing, pedal edema Musculoskeletal exam: PRESENT: ambulatory Neurological exam: PRESENT: alert, awake, oriented to person, oriented to place, oriented to time, oriented to situation, CN II-XII grossly intact. ABSENT: motor sensory deficit Psychiatric exam: PRESENT: appropriate affect, normal mood. ABSENT: homicidal ideation, suicidal ideation Skin exam: PRESENT: dry, intact, warm. ABSENT: cyanosis, rash Results Laboratory Results: 10/29/19 11:35 10/29/19 11:35 10/27/19 15:22 Blood Blood Culture (PCR) - Final Staphylococcus Species 10/27/19 15:22 Blood Blood Culture - Final Staphylococcus Capitis 10/27/19 13:45 Blood Blood Culture - Final Staphylococcus Epidermidis 10/03/19 04:16 Creatine Kinase < 20 L Impressions: Lumbar Spine X-Ray 10/02/19 11:06 IMPRESSION: Mild scoliosis. Anterolisthesis of L5 on S1. Degenerative disc disease, spondylosis, and facet arthropathy. Lumbar Spine CT 10/02/19 12:50 IMPRESSION: 1. Spondylosis, facet arthropathy and malalignment. Erosive endplate changes at L5-S1 probably due to chronic inflammation, however cannot exclude discitis. Clinical correlation is needed. 2. Dilated left renal collecting system of uncertain chronicity and etiology. Knee X-Ray 10/02/19 12:52 IMPRESSION: No acute findings. Chest X-Ray 10/02/19 14:20 IMPRESSION: COPD. NO ACUTE RADIOGRAPHIC FINDING IN THE CHEST. 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 Guidance Fluoroscopy 10/10/19 00:00 IMPRESSION: Successful placement of a 5 [place] double-lumen PICC via the left brachial vein utilizing fluoroscopic and sonographic guidance. Interventional Vascular Procedure 10/10/19 00:00 IMPRESSION: Successful placement of a 5 [place] double-lumen PICC via the left brachial vein utilizing fluoroscopic and sonographic guidance. PICC Line Insertion 10/10/19 00:00 IMPRESSION: Successful placement of a 5 [place] double-lumen PICC via the left brachial vein utilizing fluoroscopic and sonographic guidance. KUB X-Ray 10/27/19 00:00 IMPRESSION: Moderate constipation. 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 She received 6 weeks of therapy at that facility. MRI imaging here shows continued L5/S1 discitis with osteomyelitis. 10/29/2019: LFTs are normal. CRP 36.4. Sed rate 96 Infectious disease has been consulted. Per Dr. Bill's note today, patient has intermediate sensitivity to vori conazole. Unfortunately there are no good oral options to treat her infection and she requires at least [address] Bill has reached out to the [facility] ID team to see if there are additional recommendations and will follow up with additional notes. Per Dr. Bill's recommendations, I did speak with Dr. Yeung, [facility] neurosurgery, to see if surgical debridement would be of any benefit. Per Dr. Yeung, the patient would be a poor surgical candidate at this time as she would likely require hardware for spine stabilization. He advised that so long as the patient remains neurologically intact it would be in her best interest to avoid any operative interventions. However, if she does develop neurological deficits or has recurrent discitis or fungemia following completion of an tibiotic course, it would then be appropriate to evaluate for surgical interventions. Patient continues on IV micafungin. EOT late March 2020 Will continue to monitor weekly LFTs, BCx, CRP, and SED rate. (2) Coag negative Staphylococcus bacteremia Is this a current diagnosis for this admission?: No Plan: Ruled out. Blood cultures (10/27/2019; PICC line) grewStaph epidermidis with numerous resistances Blood culture (10/27/2019; peripheral) grew pansensitive staph capitis Repeat cultures negative at 24 hours Per ID's recommendations: PICC line was removed. Patient was started on IV cefazolin 2 g every 8 hours. Received 1 day of therapy. Will discontinue as patient did not have bacteremia (ruled out once identification revealed two different species) Will plan to reinsert PICC once cultures are negative at 72h (3) Discitis of lumbosacral region Is this a current diagnosis for this admission?: Yes Plan: Secondary to #2. Evaluation and management as above. Physical therapy consultation. Discharge planning consulted. (4) C. difficile colitis Is this a current diagnosis for this admission?: Yes Plan: Resolved. 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 We will provide symptom management (5) Abdominal pain Qualifiers: Abdominal location: generalized Qualified Code(s): R10.84 - Generalized abdominal pain Is this a current diagnosis for this admission?: Yes Plan: Resolved KUB shows large stool burden. She is now passing large amounts of stool following advanced bowel regiment. We will continue to avoid narcotics as able. We will utilize nonpharmacological interventions. (6) Anemia Qualifiers: Anemia type: due to chronic kidney disease Chronic kidney disease stage: stage 3 (moderate) Qualified Code(s): N18.3 - Chronic kidney disease, stage 3 (moderate); D63.1 - Anemia in chronic kidney disease Is this a current diagnosis for this admission?: Yes Plan: Chronic and stable. No evidence of active bleeding. Continue to monitor. (7) CKD (chronic kidney disease) stage 3, GFR 30-59 ml/min Is this a current diagnosis for this admission?: Yes Plan: Still at stage III; improving. Cr 10.01/BUN 21 Continue to encourage p.o. fluids. Avoid nephrotoxic medications as able. Follow-up chemistries. (8) Lumbosacral radiculopathy due to degenerative joint disease of spine Is this a current diagnosis for this admission?: Yes Plan: We will continue gabapentin 300 mg every 8 Continue Zanaflex every 6 Lidoderm patches Oxycodone as needed Nonpharmacological interventions. (9) Acute urinary tract infection Is this a current diagnosis for this admission?: Yes Plan: Resolved. Received full course of antibiotic therapy. (10) Adverse effects of medication Qualifiers: Encounter type: initial encounter Qualified Code(s): T50.905A - Adverse effect of unspecified drugs, medicaments and biological substances, initial encounter Is this a current diagnosis for this admission?: Yes Plan: Secondary to concurrent use of narcotic analgesics and muscle relaxants. Previous provider decreased dosing and schedule; she has improved mentation, bowel movements, with fair pain control. We will continue to make all attempts to reduce polypharmacy. (11) Hyperkalemia Is this a current diagnosis for this admission?: Yes Plan: Resolved. We will continue to monitor chemistries - Time Time Spent with patient: 15-24 minutes Medications reviewed and adjusted accordingly: Yes Anticipated discharge: SNF Within: when bed available - Following PICC placement on Sunday
[2019-11-01] MEDS: MICAFUNGIN SODIUM 100 MG in NORMAL SALINE 100 ML IV SCH (13:51)
[2019-11-01] MEDS: PHARMACY COMMUNICATION ORDER MC SCH (21:31)
[2019-11-02] MEDS: TIZANIDINE HCL 4 MG TABLET PO SCH ×2 (00:39→06:13)
[2019-11-02] MEDS: GABAPENTIN 300 MG CAPSULE PO SCH ×3 (06:13→21:45)
[2019-11-02] MEDS: OXYCODONE-ACETAMINOPHEN 5-325 MG TABLET PO PRN ×3 (06:13→21:45)
[2019-11-02] MEDS: PANTOPRAZOLE SODIUM 40 MG TABLET.DR PO SCH (06:13)
[2019-11-02] MEDS: NORMAL SALINE 10 ML SDV (SCHEDULED) IV SCH ×2 (10:47→21:42)
[2019-11-02] MEDS: CARVEDILOL 12.5 MG TABLET PO SCH ×2 (10:52→21:45)
[2019-11-02] MEDS: BUSPIRONE HCL 10 MG TABLET PO SCH ×2 (10:52→21:45)
[2019-11-02] MEDS: ENOXAPARIN SODIUM INJ 40 MG/0.4 ML DISP.SYRIN SUBCUT SCH (10:52)
[2019-11-02] MEDS: LIDOCAINE 5% (700 MG) TRANSDERMAL ADH..PATCH TP SCH (10:53)
[2019-11-02] MEDS: POLYETHYLENE GLYCOL 3350 POWDER 17 GM/1 PACKET PO SCH (11:20)
--- NOTE | 2019-11-02 15:00 | PDOC PROGRESS REPORT ---
Subjective Progress Note for:: 11/02/19 Subjective:: JORGE DOBSON is a 79 year old female with a history of recently diagnosed fungal lumbar discitis [completed treatment], resolved diabetes mellitus, peptic ulcer disease s/p surgery, hypertension, CVA, hypothyroidism, depression, who was admitted 10/02/2023 UTI and LUCERO. Ultimately found to have L5/S1 discitis with osteomyelitis positive for [place] glabrata. Unfortunately, patient has subsequently developed C. difficile colitis. Patient was seen on morning rounds with brother at bedside. She was found resting in bed, comfortably, on room air. She reports that she feels fine today. She does report continued lower back pain but feels that it is adequately managed with pain medications when needed. She reports frequent, soft, stools overnight. She is somewhat tired today, but otherwise feels well. She denies fever, chills, chest pain, palpitations, dyspnea, cough, abdominal pain, nausea, vomiting, diarrhea, constipation. They have no questions or concerns at this time. No concerns per nursing at this time. Reason For Visit: UTI LUCERO NAGMA LUMBAR SPONDYLOSIS Physical Exam Vital Signs: Temp Pulse Resp BP Pulse Ox 98.7 F 81 16 133/60 H 100 11/02/19 09:10 11/02/19 09:10 11/02/19 09:10 11/02/19 09:10 11/02/19 09:10 Intake & Output 11/01/19 11/02/19 11/03/19 06:59 06:59 06:59 Intake Total 1876 2860 Output Total 2 Balance 1874 2860 Weight 52.9 kg 54.6 kg General appearance: PRESENT: no acute distress, cooperative, hard of hearing, thin, well-developed, well-nourished, other - Frail, elderly-appearing Head exam: PRESENT: atraumatic, normocephalic Eye exam: PRESENT: conjunctiva pink, EOMI, PERRLA. ABSENT: scleral icterus Ear exam: PRESENT: normal external ear exam Mouth exam: PRESENT: moist, tongue midline Teeth exam: PRESENT: poor dentation Respiratory exam: PRESENT: clear to auscultation elaina, symmetrical, unlabored. ABSENT: rales, rhonchi, wheezes Cardiovascular exam: PRESENT: RRR, +S1, +S2. ABSENT: diastolic murmur, rubs, systolic murmur Vascular exam: PRESENT: normal capillary refill GI/Abdominal exam: PRESENT: normal bowel sounds, soft. ABSENT: distended, guarding, mass, organolmegaly, rebound, tenderness Rectal exam: PRESENT: deferred Extremities exam: PRESENT: full ROM. ABSENT: calf tenderness, clubbing, pedal edema Musculoskeletal exam: PRESENT: ambulatory Neurological exam: PRESENT: alert, awake, oriented to person, oriented to place, oriented to time, oriented to situation, CN II-XII grossly intact. ABSENT: motor sensory deficit Psychiatric exam: PRESENT: appropriate affect, normal mood. ABSENT: homicidal ideation, suicidal ideation Skin exam: PRESENT: dry, intact, warm. ABSENT: cyanosis, rash Results Laboratory Results: 10/29/19 11:35 10/29/19 11:35 10/03/19 04:16 Creatine Kinase < 20 L Impressions: Lumbar Spine X-Ray 10/02/19 11:06 IMPRESSION: Mild scoliosis. Anterolisthesis of L5 on S1. Degenerative disc disease, spondylosis, and facet arthropathy. Lumbar Spine CT 10/02/19 12:50 IMPRESSION: 1. Spondylosis, facet arthropathy and malalignment. Erosive endplate changes at L5-S1 probably due to chronic inflammation, however cannot exclude discitis. Clinical correlation is needed. 2. Dilated left renal collecting system of uncertain chronicity and etiology. Knee X-Ray 10/02/19 12:52 IMPRESSION: No acute findings. Chest X-Ray 10/02/19 14:20 IMPRESSION: COPD. NO ACUTE RADIOGRAPHIC FINDING IN THE CHEST. 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 Guidance Fluoroscopy 10/10/19 00:00 IMPRESSION: Successful placement of a 5 Trinid[place] double-lumen PICC via the left brachial vein utilizing fluoroscopic and sonographic guidance. Interventional Vascular Procedure 10/10/19 00:00 IMPRESSION: Successful placement of a 5 Trinid[place] double-lumen PICC via the left brachial vein utilizing fluoroscopic and sonographic guidance. PICC Line Insertion 10/10/19 00:00 IMPRESSION: Successful placement of a 5 Trin[place] double-lumen PICC via the left brachial vein utilizing fluoroscopic and sonographic guidance. KUB X-Ray 10/27/19 00:00 IMPRESSION: Moderate constipation. 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 She received 6 weeks of therapy at that facility. MRI imaging here shows continued L5/S1 discitis with osteomyelitis. 10/29/2019: LFTs are normal. CRP 36.4. Sed rate 96 Next labs due 11/05/19 Infectious disease has been consulted. Per Dr. Bill's note today, patient has intermediate sensitivity to voriconazole. Unfortunately there are no good oral options to treat her infection and she requires at least [address] Bill has reached out to the [facility] ID team to see if there are additional recommendations and will follow up with additional notes. Per Dr. Bill's recommendations, I did speak with Dr. Yeung, [facility] neurosurg [facility], to see if surgical debridement would be of any benefit. Per Dr. Yeung, the patient would be a poor surgical candidate at this time as she would likely require hardware for spine stabilization. He advised that so long as the patient remains neurologically intact it would be in her best interest to avoid any operative interventions. However, if she does develop neurological deficits or has recurrent discitis or fungemia following completion of antibiotic course, it would then be appropriate to evaluate for surgical interventions. Patient continues on IV micafungin. EOT late March 2020 Will continue to monitor weekly LFTs, BCx, CRP, and SED rate. (2) Coag negative Staphylococcus bacteremia Is this a current diagnosis for this admission?: No Plan: Ruled out. Blood cultures (10/27/2019; PICC line) grewStaph epidermidis with numerous resistances Blood culture (10/27/2019; peripheral) grew pansensitive staph capitis Repeat cultures negative at 48 hours Per ID's recommendations: PICC line was removed. Patient was started on IV cefazolin 2 g every 8 hours. Received 1 day of therapy. Will discontinue as patient did not have bacteremia (ruled out once identification revealed two different species) Will plan to reinsert PICC tomorrow (3) Discitis of lumbosacral region Is this a current diagnosis for this admission?: Yes Plan: Secondary to #2. Evaluation and management as above. Physical therapy consultation. Discharge planning consulted. (4) C. difficile colitis Is this a current diagnosis for this admission?: Yes Plan: Resolved. 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 We will provide symptom management (5) Abdominal pain Qualifiers: Abdominal location: generalized Qualified Code(s): R10.84 - Generalized abdominal pain Is this a current diagnosis for this admission?: Yes Plan: Resolved KUB shows large stool burden. She is now passing large amounts of stool following advanced bowel regiment. We will continue to avoid narcotics as able. We will utilize nonpharmacological interventions. (6) Anemia Qualifiers: Anemia type: due to chronic kidney disease Chronic kidney disease stage: stage 3 (moderate) Qualified Code(s): N18.3 - Chronic kidney disease, stage 3 (moderate); D63.1 - Anemia in chronic kidney disease Is this a current diagnosis for this admission?: Yes Plan: Chronic and stable. No evidence of active bleeding. Continue to monitor. (7) CKD (chronic kidney disease) stage 3, GFR 30-59 ml/min Is this a current diagnosis for this admission?: Yes Plan: Still at stage III; improving. Cr 10.01/BUN 21 Continue to encourage p.o. fluids. Avoid nephrotoxic medications as able. Follow-up chemistries. (8) Lumbosacral radiculopathy due to degenerative joint disease of spine Is this a current diagnosis for this admission?: Yes Plan: We will continue gabapentin 300 mg every 8 Continue Zanaflex every 6 Lidoderm patches Oxycodone as needed Nonpharmacological interventions. (9) Acute urinary tract infection Is this a current diagnosis for this admission?: Yes Plan: Resolved. Received full course of antibiotic therapy. (10) Adverse effects of medication Qualifiers: Encounter type: initial encounter Qualified Code(s): T50.905A - Adverse effect of unspecified drugs, medicaments and biological substances, initial encounter Is this a current diagnosis for this admission?: Yes Plan: Secondary to concurrent use of narcotic analgesics and muscle relaxants. Previous provider decreased dosing and schedule; she has improved mentation, bowel movements, with fair pain control. We will continue to make all attempts to reduce polypharmacy. (11) Hyperkalemia Is this a current diagnosis for this admission?: Yes Plan: Resolved. We will continue to monitor chemistries - Time Time Spent with patient: 25-34 minutes Medications reviewed and adjusted accordingly: Yes Anticipated discharge: SNF Within: within 24 hours
[2019-11-02] MEDS: MICAFUNGIN SODIUM 100 MG in NORMAL SALINE 100 ML IV SCH (15:52)
[2019-11-02] MEDS: QUETIAPINE FUMARATE 25 MG TABLET PO SCH (21:45)
[2019-11-02] MEDS: PHARMACY COMMUNICATION ORDER MC SCH (21:46)
[2019-11-03] MEDS: GABAPENTIN 300 MG CAPSULE PO SCH ×3 (05:37→21:33)
[2019-11-03] MEDS: PANTOPRAZOLE SODIUM 40 MG TABLET.DR PO SCH (05:37)
[2019-11-03] MEDS: NORMAL SALINE 10 ML SDV (SCHEDULED) IV SCH ×2 (10:03→21:33)
[2019-11-03] MEDS: CARVEDILOL 12.5 MG TABLET PO SCH ×2 (10:04→21:33)
[2019-11-03] MEDS: BUSPIRONE HCL 10 MG TABLET PO SCH ×2 (10:04→21:33)
[2019-11-03] MEDS: LIDOCAINE 5% (700 MG) TRANSDERMAL ADH..PATCH TP SCH (10:04)
[2019-11-03] MEDS: ENOXAPARIN SODIUM INJ 40 MG/0.4 ML DISP.SYRIN SUBCUT SCH (10:04)
[2019-11-03] MEDS: POLYETHYLENE GLYCOL 3350 POWDER 17 GM/1 PACKET PO SCH (10:12)
--- NOTE | 2019-11-03 10:47 | RADIOLOGY REPORT (SQ) ---
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 TECHNIQUE: Fluoroscopic and ultrasound guided PICC placement. LIMITATIONS: None. PROCEDURE: After written consent and assessment were obtained, the patient was brought into the fluo roscopy room and placed supine on the table. Ultrasound evaluation of potential access sites were per formed. After successfully identifying a patent right basilic vein, the right arm was prepped and tonya ped in a sterile fashion along with the ultrasound probe. The entry site was anesthetized with 1% lid ocaine. A 21 gauge 7 cm needle was advanced through the skin and into the basilic vein under live ult rasound guidance. An ultrasound image was saved to PACS confirming access site. A .018 guide wire w as then inserted through the needle and into the venous system. The needle was then removed and an 11 blade scalpel was used to make a 1cm skin incision. A 5 fr peel-away sheath was advanced over the w evelina and into the venous system. A measurement was then made using the existing wire and live fluorosc opic guidance. The wire was then removed and trimmed. The PICC was advanced through the peel-away she ath and into the venous system. The peel-away sheath was removed and the catheter was adhered to the patients arm with a stat lock. The catheter was then aspirated and flushed and a sterile bandage was placed over the access site. A fluoroscopic spot image was saved to PACS confirming the catheter tip within the superior vena cava. IMPRESSION: SUCCESSFUL PLACEMENT OF A 5 FR DUAL LUMEN 32 CM PICC IN THE RIGHT BASILIC VEIN. COMMENT: Patient medication list reviewed: Yes- Quality ID# [id number]:Eligible professional attests to doc umenting in the medical record they obtained, updated, or reviewed the patient's current medications. . Quality ID 145: Final reports for procedures using fluoroscopy that document radiation exposure nevaeh flor, or exposure time and number of fluorographic images (if radiation exposure indices are not avail able) Quality ID #76: The patient was prepped and draped using maximum sterile barrier technique including cap, mask, sterile gown, sterile gloves, a large sterile sheet, hand hygiene, and 2% Chlorhexidine fo r cutaneous antisepsis. When ultrasound is used, sterile ultrasound techniques are followed requiring sterile gel and sterile probes. TECHNICAL DOCUMENTATION: JOB ID: [id number] [employer]- All Rights Reserved rev-02/15 Reading location - IP/workstation name: [email or web address]
--- NOTE | 2019-11-03 10:47 | RADIOLOGY REPORT (SQ) ---
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 TECHNIQUE: Fluoroscopic and ultrasound guided PICC placement. LIMITATIONS: None. PROCEDURE: After written consent and assessment were obtained, the patient was brought into the fluo roscopy room and placed supine on the table. Ultrasound evaluation of potential access sites were per formed. After successfully identifying a patent right basilic vein, the right arm was prepped and tonya ped in a sterile fashion along with the ultrasound probe. The entry site was anesthetized with 1% lid ocaine. A 21 gauge 7 cm needle was advanced through the skin and into the basilic vein under live ult rasound guidance. An ultrasound image was saved to PACS confirming access site. A .018 guide wire w as then inserted through the needle and into the venous system. The needle was then removed and an 11 blade scalpel was used to make a 1cm skin incision. A 5 fr peel-away sheath was advanced over the w evelina and into the venous system. A measurement was then made using the existing wire and live fluorosc opic guidance. The wire was then removed and trimmed. The PICC was advanced through the peel-away she ath and into the venous system. The peel-away sheath was removed and the catheter was adhered to the patients arm with a stat lock. The catheter was then aspirated and flushed and a sterile bandage was placed over the access site. A fluoroscopic spot image was saved to PACS confirming the catheter tip within the superior vena cava. IMPRESSION: SUCCESSFUL PLACEMENT OF A 5 FR DUAL LUMEN 32 CM PICC IN THE RIGHT BASILIC VEIN. COMMENT: Patient medication list reviewed: Yes- Quality ID# [id number]:Eligible professional attests to doc umenting in the medical record they obtained, updated, or reviewed the patient's current medications. . Quality ID 145: Final reports for procedures using fluoroscopy that document radiation exposure nevaeh flor, or exposure time and number of fluorographic images (if radiation exposure indices are not avail able) Quality ID #76: The patient was prepped and draped using maximum sterile barrier technique including cap, mask, sterile gown, sterile gloves, a large sterile sheet, hand hygiene, and 2% Chlorhexidine fo r cutaneous antisepsis. When ultrasound is used, sterile ultrasound techniques are followed requiring sterile gel and sterile probes. TECHNICAL DOCUMENTATION: JOB ID: [id number] [employer]- All Rights Reserved rev-02/15 Reading location - IP/workstation name: [facility]
--- NOTE | 2019-11-03 10:47 | RADIOLOGY REPORT (SQ) ---
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 TECHNIQUE: Fluoroscopic and ultrasound guided PICC placement. LIMITATIONS: None. PROCEDURE: After written consent and assessment were obtained, the patient was brought into the fluo roscopy room and placed supine on the table. Ultrasound evaluation of potential access sites were per formed. After successfully identifying a patent right basilic vein, the right arm was prepped and tonya ped in a sterile fashion along with the ultrasound probe. The entry site was anesthetized with 1% lid ocaine. A 21 gauge 7 cm needle was advanced through the skin and into the basilic vein under live ult rasound guidance. An ultrasound image was saved to PACS confirming access site. A .018 guide wire w as then inserted through the needle and into the venous system. The needle was then removed and an 11 blade scalpel was used to make a 1cm skin incision. A 5 fr peel-away sheath was advanced over the w evelina and into the venous system. A measurement was then made using the existing wire and live fluorosc opic guidance. The wire was then removed and trimmed. The PICC was advanced through the peel-away she ath and into the venous system. The peel-away sheath was removed and the catheter was adhered to the patients arm with a stat lock. The catheter was then aspirated and flushed and a sterile bandage was placed over the access site. A fluoroscopic spot image was saved to PACS confirming the catheter tip within the superior vena cava. IMPRESSION: SUCCESSFUL PLACEMENT OF A 5 FR DUAL LUMEN 32 CM PICC IN THE RIGHT BASILIC VEIN. COMMENT: Patient medication list reviewed: Yes- Quality ID# [id number]:Eligible professional attests to doc umenting in the medical record they obtained, updated, or reviewed the patient's current medications. . Quality ID 145: Final reports for procedures using fluoroscopy that document radiation exposure nevaeh flor, or exposure time and number of fluorographic images (if radiation exposure indices are not avail able) Quality ID #76: The patient was prepped and draped using maximum sterile barrier technique including cap, mask, sterile gown, sterile gloves, a large sterile sheet, hand hygiene, and 2% Chlorhexidine fo r cutaneous antisepsis. When ultrasound is used, sterile ultrasound techniques are followed requiring sterile gel and sterile probes. TECHNICAL DOCUMENTATION: JOB ID: [id number] [employer] All Rights Reserved rev-02/15 Reading location - IP/workstation name: [email or web address]
--- NOTE | 2019-11-03 12:24 | PDOC TRANSFER SUMMARY ---
Impression - Admit/DC Date/PCP Admission Date/Primary Care Provider: 10/02/19 15:16 Discharge Date: 11/03/19 - Discharge Diagnosis (1) Infection due to [place] Is this a current diagnosis for this admission?: Yes (2) Coag negative Staphylococcus bacteremia Is this a current diagnosis for this admission?: No (3) Discitis of lumbosacral region Is this a current diagnosis for this admission?: Yes (4) C. difficile colitis Is this a current diagnosis for this admission?: Yes (5) Abdominal pain Is this a current diagnosis for this admission?: Yes (6) Anemia Is this a current diagnosis for this admission?: Yes (7) CKD (chronic kidney disease) stage 3, GFR 30-59 ml/min Is this a current diagnosis for this admission?: Yes (8) Lumbosacral radiculopathy due to degenerative joint disease of spine Is this a current diagnosis for this admission?: Yes (9) Acute urinary tract infection Is this a current diagnosis for this admission?: Yes (10) Adverse effects of medication Is this a current diagnosis for this admission?: Yes (11) Hyperkalemia Is this a current diagnosis for this admission?: Yes (12) Dementia Is this a current diagnosis for this admission?: Yes - Additional Information Resuscitation Status: Do Not Intubate Discharge Diet: Regular Discharge Activity: Activity As Tolerated, Balance Activity w/Rest, Slowly Increase Activity, Supervised Activity Referrals: NICHOLE L[facility] MD [TELEMEDICINE] - (Follow up with [facility] in 2-3 weeks.) Prescriptions: Micafungin Sodium [Mycamine Inj/Pf 100 mg Sdv] 100 mg IV DAILY 30 Days #30 vial Home Medications: Aspirin [Adult Low Dose Aspirin EC] 81 mg PO DAILY 10/02/19 Atenolol [Tenormin] 12.5 mg PO DAILY 10/02/19 Atorvastatin Calcium [Lipitor 20 mg Tablet] 20 mg PO QHS 10/02/19 Cyclobenzaprine HCl [Flexeril 5 mg Tablet] 5 mg PO TID 10/02/19 Ergocalciferol (Vitamin D2) [Vitamin D2] 50,000 unit PO MO@1000 10/02/19 Hydrocodone/Acetaminophen [Aurora 7.5-325 mg Tablet] 1 tab PO Q6HP PRN 10/02/19 Levothyroxine Sodium [Synthroid 0.1 mg Tablet] 0.1 mg PO DAILY 10/02/19 Ferrous Sulfate 324 mg PO BID 10/03/19 Methocarbamol 500 mg PO BIDP PRN 10/03/19 Mirtazapine 7.5 mg PO QHS 10/03/19 Micafungin Sodium [Mycamine Inj/Pf 100 mg Sdv] 100 mg IV DAILY 30 Days #30 vial 10/12/19 History of Present Illiness History of Present Illness: Per H&P by Dr. Elizondo: JORGE DOBSON is a 79 year old female with a history of recently diagnosed fungal lumbar discitis [completed treatment], resolved diabetes mellitus, peptic ulcer disease s/p surgery, hypertension, CVA, hypothyroidism, depression, who presents with complaint of low back pain, urinary incontinence and polyuria. Polyuria and urinary incontinence have been present for about 2 weeks now. Patient endorses some chills. Denies fevers no dysuria. Of note, patient has been experiencing low back pain since November 2018 after sustaining a fracture in her back. 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 She had subsequently experienced significant improvement in back pain and underwent physical therapy. About 2 weeks ago, patient still experiencing some urinary incontinence. Patient was discharged from SNF on September 16 but has been experiencing more difficulty with ambulation or weakness in her lower extremities since then. Hospital Course Hospital Course: (1) Infection due to [place] MRI imaging here shows continued L5/S1 discitis with osteomyelitis. 10/29/2019: LFTs are normal. CRP 36.4. Sed rate 96 Next labs due 11/05/19 Infectious disease was consulted. Per Dr. Bill's note today, patient has intermediate sensitivity to voriconazole. Unfortunately there are no good oral options to treat her infection and she requires at least 6 months of therapy. Per ID's recommendations, spoke with Dr. Yeung, [facility], to see if surgical debridement would be of any benefit. Per Dr. Yeung, the patient would be a poor surgical candidate at this time as she would likely require hardware for spine stabilization. However, if she develops neurological deficits, or has recurrent discitis or fungemia following completion of antibiotic course, it would then be appropriate to evaluate for surgical interventions. Patient continues on IV micafungin. EOT March 30, 2020 Monitor weekly LFTs, BCx, CRP, and SED rate. (2) Coag negative Staphylococcus bacteremia Ruled out. Blood cultures (10/27/2019; PICC line) grewStaph epidermidis with numerous resistances Blood culture (10/27/2019; peripheral) grew pansensitive staph capitis Repeat cultures negative at 72 hours PICC line replaced 11/03/19 (3) Discitis of lumbosacral region Secondary to #1. Evaluation and management as above. (4) C. difficile colitis Resolved. Received full course of p.o. Vancomycin. (5) Abdominal pain Resolved; secondary to post C.diff colitis IBS KUB shows large stool burden. Bowel regiment; symptomatic treatment (6) Anemia (7) CKD (chronic kidney disease) stage 3, GFR 30-59 ml/min Resolved; now at baseline renal function. Cr 10.01/BUN 21 (8) Lumbosacral radiculopathy due to degenerative joint disease of spine Continue gabapentin 300 mg every 8 Lidoderm patches Oxycodone as needed Nonpharmacological interventions. (9) Acute urinary tract infection Resolved. Received full course of antibiotic therapy. (10) Adverse effects of medication Secondary to concurrent use of narcotic analgesics and muscle relaxants. Medications adjusted to reduce polypharmacy. Avoid narcotics. (11) Hyperkalemia Resolved. (12) Dementia Twice daily BuSpar. Low dose Seroquel nightly Physical Exam Vital Signs: Temp Pulse Resp BP Pulse Ox 97.7 F 66 16 127/72 H 100 11/03/19 07:54 11/03/19 07:54 11/03/19 07:54 11/03/19 07:54 11/03/19 07:54 Intake & Output 11/02/19 11/03/19 11/04/19 06:59 06:59 06:59 Intake Total 2860 1300 Output Total 700 Balance 2860 600 Weight 54.6 kg 46.9 kg General appearance: PRESENT: no acute distress, hard of hearing, thin, well- developed, well-nourished, other - Frail, chronically ill-appearing Head exam: PRESENT: atraumatic, normocephalic Eye exam: PRESENT: conjunctiva pink, EOMI, PERRLA. ABSENT: scleral icterus Ear exam: PRESENT: normal external ear exam Mouth exam: PRESENT: moist, tongue midline Teeth exam: PRESENT: poor dentation Respiratory exam: PRESENT: clear to auscultation elaina, symmetrical, unlabored. ABSENT: rales, rhonchi, wheezes Cardiovascular exam: PRESENT: RRR, +S1, +S2. ABSENT: diastolic murmur, rubs, systolic murmur Pulses: PRESENT: normal dorsalis pedis pul Vascular exam: PRESENT: normal capillary refill GI/Abdominal exam: PRESENT: normal bowel sounds, soft. ABSENT: distended, guarding, mass, organolmegaly, rebound, tenderness Rectal exam: PRESENT: deferred Extremities exam: PRESENT: full ROM. ABSENT: calf tenderness, clubbing, pedal edema Musculoskeletal exam: PRESENT: ambulatory Neurological exam: PRESENT: alert, awake, oriented to person, oriented to place, oriented to time, oriented to situation, CN II-XII grossly intact, other - Intermittently confused and forgetful (sundowning). ABSENT: motor sensory deficit Psychiatric exam: PRESENT: appropriate affect, normal mood. ABSENT: homicidal ideation, suicidal ideation Skin exam: PRESENT: dry, intact, warm. ABSENT: cyanosis, rash Results Laboratory Results: WBC 5.0 10^3/uL (4.0-10.5) 10/29/19 11:35 RBC 2.91 10^6/uL (3.72-5.28) L 10/29/19 11:35 Hgb 8.6 g/dL (12.0-15.5) L 10/29/19 11:35 Hct 26.0 % (36.0-47.0) L 10/29/19 11:35 MCV 89 fl (80-97) 10/29/19 11:35 MCH 29.6 pg (27.0-33.4) 10/29/19 11:35 MCHC 33.1 g/dL (32.0-36.0) 10/29/19 11:35 RDW 15.9 % (11.5-14.0) H 10/29/19 11:35 Plt Count 231 10^3/uL (150-450) 10/29/19 11:35 Lymph % (Auto) 15.3 % (13-45) 10/27/19 13:45 [place] % (Auto) 10.1 % (3-13) 10/27/19 13:45 Eos % (Auto) 1.6 % (0-6) 10/27/19 13:45 Baso % (Auto) 0.5 % (0-2) 10/27/19 13:45 Reticulocyte # 0.077 10^6/uL (0.028-0.122) 10/15/19 06:23 Absolute Neuts (auto) 4.7 10^3/uL (1.7-8.2) 10/27/19 13:45 Absolute Lymphs (auto) 1.0 10^3/uL (0.5-4.7) 10/27/19 13:45 Absolute Monos (auto) 0.7 10^3/uL (0.1-1.4) 10/27/19 13:45 Absolute Eos (auto) 0.1 10^3/uL (0.0-0.6) 10/27/19 13:45 Absolute Basos (auto) 0.0 10^3/uL (0.0-0.2) 10/27/19 13:45 Seg Neutrophils % 72.5 % (42-78) 10/27/19 13:45 ESR 96 mm/hr (0-30) H 10/29/19 11:35 Retic Count (auto) 2.69 % (0.66-2.85) 10/15/19 06:23 PT 14.9 SEC (11.4-15.4) 10/07/19 04:17 INR 1.16 10/07/19 04:17 APTT 35.1 SEC (23.5-35.8) 10/07/19 04:17 VBG pH 7.34 (7.30-7.42) 10/04/19 05:13 VBG pCO2 34.3 mmHg (35-63) L 10/04/19 05:13 VBG HCO3 18.0 mmol/L (20-32) L 10/04/19 05:13 VBG Base Excess -7.0 mmol/L 10/04/19 05:13 Sodium 139.1 mmol/L (137-145) 10/29/19 11:35 Potassium 4.5 mmol/L (3.6-5.0) 10/29/19 11:35 Chloride 115 mmol/L (98-107) H 10/29/19 11:35 Carbon Dioxide 19 mmol/L (22-30) L 10/29/19 11:35 Anion Gap 5 (5-19) 10/29/19 11:35 BUN 21 mg/dL (7-20) H 10/29/19 11:35 Creatinine 1.01 mg/dL (0.52-1.25) 10/29/19 11:35 Est GFR ( Amer) > 60 (>60) 10/29/19 11:35 Est GFR (MDRD) Non-Af 53 (>60) L 10/29/19 11:35 Glucose 158 mg/dL (75-110) H 10/29/19 11:35 Lactic Acid 1.3 mmol/L (0.7-2.1) 10/02/19 18:41 Calcium 8.0 mg/dL (8.4-10.2) L 10/29/19 11:35 Magnesium 2.0 mg/dL (1.6-2.3) 10/27/19 13:45 Iron 55.6 ug/dL (37-170) 10/15/19 13:35 TIBC 212 ug/dL (250-450) L 10/15/19 13:35 % Saturation 26 % 10/15/19 13:35 Ferritin 405.00 ng/mL (11.1-264.0) H 10/15/19 13:35 Total Bilirubin 0.3 mg/dL (0.2-1.3) 10/29/19 11:35 Direct Bilirubin 0.0 mg/dL (0.0-0.4) 10/29/19 11:35 Neonat Total Bilirubin Not Reportable 10/29/19 11:35 Neonat Direct Bilirubin Not Reportable 10/29/19 11:35 Neonat Indirect Bili Not Reportable 10/29/19 11:35 AST 15 U/L (14-36) 10/29/19 11:35 ALT 9 U/L (<35) 10/29/19 11:35 Alkaline Phosphatase 79 U/L (38-126) 10/29/19 11:35 Creatine Kinase < 20 U/L (30-135) L 10/03/19 04:16 C-Reactive Protein 36.4 mg/L (<10.0) H 10/29/19 11:35 Total Protein 5.0 g/dL (6.3-8.2) L 10/29/19 11:35 Albumin 2.4 g/dL (3.5-5.0) L 10/29/19 11:35 Vitamin B12 529.0 pg/mL (239-931) 10/15/19 13:35 Folate 8.61 ng/mL (>2.76) 10/15/19 13:35 Urine Color YELLOW 10/27/19 15:00 Urine Appearance CLOUDY 10/27/19 15:00 Urine pH 5.0 (5.0-9.0) 10/27/19 15:00 Ur Specific Holcomb 1.012 10/27/19 15:00 Urine Protein NEGATIVE mg/dL (NEGATIVE) 10/27/19 15:00 Urine Glucose (UA) NEGATIVE mg/dL (NEGATIVE) 10/27/19 15:00 Urine Ketones NEGATIVE mg/dL (NEGATIVE) 10/27/19 15:00 Urine Blood MODERATE (NEGATIVE) H 10/27/19 15:00 Urine Nitrite (Reflex) NEGATIVE (NEGATIVE) 10/27/19 15:00 Urine Bilirubin NEGATIVE (NEGATIVE) 10/27/19 15:00 Urine Urobilinogen NEGATIVE mg/dL (<2.0) 10/27/19 15:00 Leukocyte Esterase Rfl LARGE (NEGATIVE) H 10/27/19 15:00 Urine RBC (Auto) 64 /HPF 10/27/19 15:00 Urine Bacteria (Auto) 1+ /HPF 10/27/19 15:00 Urine WBC (Reflex) 82 /HPF 10/27/19 15:00 Urine WBC Clumps FEW /HPF 10/27/19 15:00 Squamous Epi Cells Auto 4 /HPF 10/27/19 15:00 Urine Mucus (Auto) RARE /LPF 10/27/19 15:00 Urine Ascorbic Acid 20 (NEGATIVE) H 10/27/19 15:00 Stool Occult Blood NEGATIVE (NEGATIVE) 10/27/19 18:40 Stl C. Difficile GDH Ag POSITIVE (NEGATIVE) 10/27/19 18:40 Stl C.difficile Tox A&B POSITIVE (NEGATIVE) 10/27/19 18:40 Impressions: Lumbar Spine X-Ray 10/02/19 11:06 IMPRESSION: Mild scoliosis. Anterolisthesis of L5 on S1. Degenerative disc disease, spondylosis, and facet arthropathy. Lumbar Spine CT 10/02/19 12:50 IMPRESSION: 1. Spondylosis, facet arthropathy and malalignment. Erosive endplate changes at L5-S1 probably due to chronic inflammation, however cannot exclude discitis. Clinical correlation is needed. 2. Dilated left renal collecting system of uncertain chronicity and etiology. Knee X-Ray 10/02/19 12:52 IMPRESSION: No acute findings. Chest X-Ray 10/02/19 14:20 IMPRESSION: COPD. NO ACUTE RADIOGRAPHIC FINDING IN THE CHEST. 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 Guidance Fluoroscopy 10/10/19 00:00 IMPRESSION: Successful placement of a 5 Croatian double-lumen PICC via the left brachial vein utilizing fluoroscopic and sonographic guidance. Interventional Vascular Procedure 10/10/19 00:00 IMPRESSION: Successful placement of a 5 Croatian double-lumen PICC via the left brachial vein utilizing fluoroscopic and sonographic guidance. PICC Line Insertion 10/10/19 00:00 IMPRESSION: Successful placement of a 5 Croatian double-lumen PICC via the left brachial vein utilizing fluoroscopic and sonographic guidance. KUB X-Ray 10/27/19 00:00 IMPRESSION: Moderate constipation. Plan Plan of Treatment: Patient to discharge to SNF for long-term antibiotics and physical rehabilitation. Follow-up with infectious disease at [facility] in 2 to 3 weeks. Follow-up with primary care provider within 1 week. Take medications as prescribed: Patient to continue IV micafungin through March 30, 2020. Follow with weekly LFTs, CRP, sed rate, and blood cultures. Return to the emergency department as needed for concerning symptoms. Time Spent: Greater than 30 Minutes Stroke Is this a Stroke Patient?: No Acute Heart Failure - Is this a Heart Failure Patient?: No
[2019-11-03] MEDS ORDERED: NORMAL SALINE 10 ML SDV (AFTER EACH USE) IV PRN (12:30)
[2019-11-03] MEDS: OXYCODONE-ACETAMINOPHEN 5-325 MG TABLET PO PRN (13:16)
[2019-11-03] MEDS: MICAFUNGIN SODIUM 100 MG in NORMAL SALINE 100 ML IV SCH (13:24)
[2019-11-03] MEDS: QUETIAPINE FUMARATE 25 MG TABLET PO SCH (21:33)
[2019-11-03] MEDS: PHARMACY COMMUNICATION ORDER MC SCH (21:34)
[2019-11-04] MEDS: OXYCODONE-ACETAMINOPHEN 5-325 MG TABLET PO PRN ×3 (00:37→21:15)
[2019-11-04] MEDS: PANTOPRAZOLE SODIUM 40 MG TABLET.DR PO SCH (05:10)
[2019-11-04] MEDS: LEVOTHYROXINE SODIUM 0.1 MG TABLET PO SCH (05:10)
[2019-11-04] MEDS: GABAPENTIN 300 MG CAPSULE PO SCH ×3 (05:10→21:15)
[2019-11-04] MEDS: BUSPIRONE HCL 10 MG TABLET PO SCH ×2 (08:22→21:15)
[2019-11-04] MEDS: LIDOCAINE 5% (700 MG) TRANSDERMAL ADH..PATCH TP SCH (10:27)
[2019-11-04] MEDS: POLYETHYLENE GLYCOL 3350 POWDER 17 GM/1 PACKET PO SCH (10:28)
[2019-11-04] MEDS: NORMAL SALINE 10 ML SDV (SCHEDULED) IV SCH ×2 (10:28→21:16)
[2019-11-04] MEDS: CARVEDILOL 12.5 MG TABLET PO SCH ×2 (10:29→21:15)
[2019-11-04] MEDS: CYCLOBENZAPRINE HCL 10 MG TABLET PO SCH ×3 (10:29→18:15)
[2019-11-04] MEDS: ENOXAPARIN SODIUM INJ 40 MG/0.4 ML DISP.SYRIN SUBCUT SCH (10:29)
[2019-11-04] MEDS: MICAFUNGIN SODIUM 100 MG in NORMAL SALINE 100 ML IV SCH (14:09)
[2019-11-04] MEDS: QUETIAPINE FUMARATE 25 MG TABLET PO SCH (21:15)
[2019-11-04] MEDS: PHARMACY COMMUNICATION ORDER MC SCH (21:16)
--- NOTE | 2019-11-04 21:54 | PDOC PROGRESS REPORT ---
Subjective Progress Note for:: 11/04/19 Subjective:: The patient is sitting on the edge of the bed. She does not understand why she is in contact precautions when her stools are formed. She otherwise has no new complaints. Still waiting disposition with the need for 6 months of IV caspofungin. Reason For Visit: UTI LUCERO NAGMA LUMBAR SPONDYLOSIS Physical Exam Vital Signs: Temp Pulse Resp BP Pulse Ox 98.1 F 73 18 108/63 100 11/04/19 15:16 11/04/19 15:16 11/04/19 15:16 11/04/19 15:16 11/04/19 15:16 Intake & Output 11/03/19 11/04/19 11/05/19 06:59 06:59 06:59 Intake Total 1300 1405 1080 Output Total 700 Balance 600 1405 1080 Weight 46.9 kg 44 kg General appearance: PRESENT: no acute distress, cooperative, thin, well- developed Head exam: PRESENT: atraumatic, normocephalic Respiratory exam: PRESENT: clear to auscultation elaina, symmetrical, unlabored. ABSENT: rales, rhonchi, tachypnea, wheezes Cardiovascular exam: PRESENT: RRR, +S1, +S2 GI/Abdominal exam: PRESENT: normal bowel sounds, soft. ABSENT: distended, guarding, tenderness Rectal exam: PRESENT: deferred Extremities exam: ABSENT: pedal edema Musculoskeletal exam: PRESENT: ambulatory Neurological exam: PRESENT: alert, awake, oriented to person, oriented to place, oriented to time, oriented to situation, CN II-XII grossly intact Psychiatric exam: PRESENT: appropriate affect. ABSENT: agitated, anxious Focused psych exam: ABSENT: delusional, restlessness Skin exam: PRESENT: dry, normal color, warm. ABSENT: rash Results Laboratory Results: 10/29/19 11:35 10/29/19 11:35 10/03/19 04:16 Creatine Kinase < 20 L Impressions: Lumbar Spine X-Ray 10/02/19 11:06 IMPRESSION: Mild scoliosis. Anterolisthesis of L5 on S1. Degenerative disc disease, spondylosis, and facet arthropathy. Lumbar Spine CT 10/02/19 12:50 IMPRESSION: 1. Spondylosis, facet arthropathy and malalignment. Erosive endplate changes at L5-S1 probably due to chronic inflammation, however cannot exclude discitis. Clinical correlation is needed. 2. Dilated left renal collecting system of uncertain chronicity and etiology. Knee X-Ray 10/02/19 12:52 IMPRESSION: No acute findings. Chest X-Ray 10/02/19 14:20 IMPRESSION: COPD. NO ACUTE RADIOGRAPHIC FINDING IN THE CHEST. 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 KUB X-Ray 10/27/19 00:00 IMPRESSION: Moderate constipation. Guidance Fluoroscopy 11/03/19 00:00 IMPRESSION: SUCCESSFUL PLACEMENT OF A 5 FR DUAL LUMEN 32 CM PICC IN THE RIGHT BASILIC VEIN. Interventional Vascular Procedure 11/03/19 00:00 IMPRESSION: SUCCESSFUL PLACEMENT OF A 5 FR DUAL LUMEN 32 CM PICC IN THE RIGHT BASILIC VEIN. PICC Line Insertion 11/03/19 00:00 IMPRESSION: SUCCESSFUL PLACEMENT OF A 5 FR DUAL LUMEN 32 CM PICC IN THE RIGHT BASILIC VEIN. Assessment and Plan - Diagnosis (1) Discitis of lumbosacral region Is this a current diagnosis for this admission?: Yes Plan: Continue micafungin. Trying to arrange infectious disease follow-up as an outpatient as she will need micafungin for 6 months total (2) Infection due to [place] Is this a current diagnosis for this admission?: Yes Plan: 6 months micafungin as above (3) C. difficile colitis Is this a current diagnosis for this admission?: Yes Plan: Patient developed diarrhea and retested positive on October 27. Treatment is completed. I discussed the case with infection control and we have ordered a terminal clean of the room and this will allow her to get off of contact precautions and more importantly ambulate in the hallway. (4) Acute urinary tract infection Is this a current diagnosis for this admission?: Yes Plan: From October 02. Treated and resolved. (5) CKD (chronic kidney disease) stage 3, GFR 30-59 ml/min Is this a current diagnosis for this admission?: Yes Plan: As of October 29 GFR was greater than 60. Weekly labs for surveillance of micafungin are ordered. (6) Anemia Qualifiers: Anemia type: due to chronic kidney disease Chronic kidney disease stage: stage 3 (moderate) Qualified Code(s): N18.3 - Chronic kidney disease, stage 3 (moderate); D63.1 - Anemia in chronic kidney disease Is this a current diagnosis for this admission?: Yes Plan: Chronic and stable. Continue to monitor. Anemia is a potential adverse effect of micafungin. 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 Continue current medications. Additionally, this is a chronic painful condition. The patient's ability to ambulate distances is limited by her pain. Physical therapy is working with the patient. She would benefit from a wheelchair as an outpatient. (8) Hyperkalemia Is this a current diagnosis for this admission?: Yes Plan: Currently normokalemic. Continue to monitor with weekly labs. (9) Adverse effects of medication Qualifiers: Encounter type: initial encounter Qualified Code(s): T50.905A - Adverse effect of unspecified drugs, medicaments and biological substances, initial encounter Is this a current diagnosis for this admission?: Yes Plan: No further interaction medications causing confusion. Pain medications have been decreased and spaced out. - Time Time Spent with patient: 15-24 minutes Medications reviewed and adjusted accordingly: Yes Anticipated discharge: Home with Homehealth
[2019-11-05] MEDS: LEVOTHYROXINE SODIUM 0.1 MG TABLET PO SCH (05:37)
[2019-11-05] MEDS: PANTOPRAZOLE SODIUM 40 MG TABLET.DR PO SCH (05:37)
[2019-11-05] MEDS: GABAPENTIN 300 MG CAPSULE PO SCH ×3 (05:37→21:35)
[2019-11-05] MEDS: OXYCODONE-ACETAMINOPHEN 5-325 MG TABLET PO PRN ×3 (05:39→20:13)
[2019-11-05] MEDS: BUSPIRONE HCL 10 MG TABLET PO SCH ×2 (09:17→21:34)
[2019-11-05] MEDS: CARVEDILOL 12.5 MG TABLET PO SCH ×2 (09:17→21:34)
[2019-11-05] MEDS: CYCLOBENZAPRINE HCL 10 MG TABLET PO SCH ×3 (09:18→17:48)
[2019-11-05] MEDS: ENOXAPARIN SODIUM INJ 40 MG/0.4 ML DISP.SYRIN SUBCUT SCH (09:19)
[2019-11-05] MEDS: NORMAL SALINE 10 ML SDV (SCHEDULED) IV SCH ×2 (09:20→21:35)
[2019-11-05] MEDS: POLYETHYLENE GLYCOL 3350 POWDER 17 GM/1 PACKET PO SCH (09:21)
[2019-11-05] MEDS: LIDOCAINE 5% (700 MG) TRANSDERMAL ADH..PATCH TP SCH (10:13)
--- NOTE | 2019-11-05 12:04 | PDOC PROGRESS REPORT ---
Subjective Progress Note for:: 11/05/19 Subjective:: Patient is still having formed stools. The patient's brother was present and we had a long discussion about issues surrounding his sister's care. The patient still has significant back pain but this is a chronic issue. Reason For Visit: UTI LUCERO NAGMA LUMBAR SPONDYLOSIS Physical Exam Vital Signs: Temp Pulse Resp BP Pulse Ox 98.1 F 73 19 107/57 L 98 11/05/19 07:04 11/05/19 07:04 11/05/19 07:04 11/05/19 07:04 11/05/19 07:04 Intake & Output 11/04/19 11/05/19 11/06/19 06:59 06:59 06:59 Intake Total 1405 2130 Balance 1405 2130 Weight 44 kg 46.1 kg General appearance: PRESENT: cooperative, mild distress, thin - From her back pain Head exam: PRESENT: atraumatic, normocephalic Respiratory exam: PRESENT: clear to auscultation eliana, symmetrical, unlabored. ABSENT: rales, rhonchi, tachypnea, wheezes Cardiovascular exam: PRESENT: RRR, +S1, +S2 GI/Abdominal exam: PRESENT: normal bowel sounds, soft. ABSENT: distended, tenderness Rectal exam: PRESENT: deferred Extremities exam: ABSENT: pedal edema Musculoskeletal exam: PRESENT: ambulatory - Somewhat limited due to back pain. Neurological exam: PRESENT: alert, awake, oriented to person, oriented to place, oriented to time, oriented to situation, CN II-XII grossly intact Psychiatric exam: PRESENT: appropriate affect. ABSENT: agitated, anxious Results Laboratory Results: 10/29/19 11:35 10/29/19 11:35 10/31/19 05:55 Blood Blood Culture - Final NO GROWTH IN 5 DAYS 10/31/19 05:22 Blood Blood Culture - Final NO GROWTH IN 5 DAYS 10/03/19 04:16 Creatine Kinase < 20 L Impressions: Lumbar Spine X-Ray 10/02/19 11:06 IMPRESSION: Mild scoliosis. Anterolisthesis of L5 on S1. Degenerative disc disease, spondylosis, and facet arthropathy. Lumbar Spine CT 10/02/19 12:50 IMPRESSION: 1. Spondylosis, facet arthropathy and malalignment. Erosive endplate changes at L5-S1 probably due to chronic inflammation, however cannot exclude discitis. Clinical correlation is needed. 2. Dilated left renal collecting system of uncertain chronicity and etiology. Knee X-Ray 10/02/19 12:52 IMPRESSION: No acute findings. Chest X-Ray 10/02/19 14:20 IMPRESSION: COPD. NO ACUTE RADIOGRAPHIC FINDING IN THE CHEST. 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 KUB X-Ray 10/27/19 00:00 IMPRESSION: Moderate constipation. Guidance Fluoroscopy 11/03/19 00:00 IMPRESSION: SUCCESSFUL PLACEMENT OF A 5 FR DUAL LUMEN 32 CM PICC IN THE RIGHT BASILIC VEIN. Interventional Vascular Procedure 11/03/19 00:00 IMPRESSION: SUCCESSFUL PLACEMENT OF A 5 FR DUAL LUMEN 32 CM PICC IN THE RIGHT BASILIC VEIN. PICC Line Insertion 11/03/19 00:00 IMPRESSION: SUCCESSFUL PLACEMENT OF A 5 FR DUAL LUMEN 32 CM PICC IN THE RIGHT BASILIC VEIN. Assessment and Plan - Diagnosis (1) Discitis of lumbosacral region Is this a current diagnosis for this admission?: Yes Plan: Needs to complete 6 months of IV micafungin therapy. We seem very close to a discharge plan. The patient will likely complete her micafungin therapy at home. (2) Infection due to [place] glabrata Is this a current diagnosis for this admission?: Yes Plan: As above (3) C. difficile colitis Is this a current diagnosis for this admission?: Yes Plan: The patient had a recurrence of diarrhea. Repeat testing on October 27 was positive for the toxin. She has completed a second course of antibiotic therapy. Terminal clean has been ordered to remove contact precautions. Continue probiotics. (4) Acute urinary tract infection Is this a current diagnosis for this admission?: Yes Plan: From October 02. Treated and resolved. (5) CKD (chronic kidney disease) stage 3, GFR 30-59 ml/min Is this a current diagnosis for this admission?: Yes Plan: As of October 29 GFR was greater than 60. Weekly labs for surveillance of micafungin are ordered. The next set of labs is due tomorrow. (6) Anemia Qualifiers: Anemia type: due to chronic kidney disease Chronic kidney disease stage: stage 3 (moderate) Qualified Code(s): N18.3 - Chronic kidney disease, stage 3 (moderate); D63.1 - Anemia in chronic kidney disease Is this a current diagnosis for this admission?: Yes Plan: Chronic and stable. Continue to monitor. Anemia is a potential adverse effect of micafungin. 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 Continue current medications. Additionally, this is a chronic painful condition. The patient's ability to ambulate distances is limited by her pain. Physical therapy is working with the patient. She would benefit from a wheelchair as an outpatient. (8) Hyperkalemia Is this a current diagnosis for this admission?: Yes Plan: Currently normokalemic. Continue to monitor with weekly labs. Laboratory studies ordered for tomorrow. (9) Adverse effects of medication Qualifiers: Encounter type: initial encounter Qualified Code(s): T50.905A - Adverse effect of unspecified drugs, medicaments and biological substances, initial encounter Is this a current diagnosis for this admission?: Yes Plan: No further interaction medications causing confusion. Pain medications have been decreased and spaced out. - Time Time Spent with patient: 15-24 minutes Medications reviewed and adjusted accordingly: Yes Anticipated discharge: Home with Homehealth
[2019-11-05] MEDS: LACTOBACILLUS ACIDOPHILUS 250 MG TAB PO SCH ×2 (12:42→17:48)
[2019-11-05] MEDS: MICAFUNGIN SODIUM 100 MG in NORMAL SALINE 100 ML IV SCH (13:37)
[2019-11-05] MEDS: QUETIAPINE FUMARATE 25 MG TABLET PO SCH (21:35)
[2019-11-05] MEDS: PHARMACY COMMUNICATION ORDER MC SCH (22:00)
[2019-11-06] MEDS: PANTOPRAZOLE SODIUM 40 MG TABLET.DR PO SCH (05:03)
[2019-11-06] MEDS: OXYCODONE-ACETAMINOPHEN 5-325 MG TABLET PO PRN ×2 (05:03→21:17)
[2019-11-06] MEDS: LEVOTHYROXINE SODIUM 0.1 MG TABLET PO SCH (05:03)
[2019-11-06] MEDS: GABAPENTIN 300 MG CAPSULE PO SCH ×3 (05:03→21:17)
[2019-11-06 05:56] LABS: ALBUMIN 3.2 g/dL (3.5-5.0); ALKALINE PHOSPHATASE 76 U/L (38-126); ANION GAP 13 (5-19); ASPARTATE AMINO TRANSFERASE 21 U/L (14-36); BILIRUBIN,DIRECT 0.2 mg/dL (0.0-0.4); BILIRUBIN,TOTAL 0.2 mg/dL (0.2-1.3); BLOOD UREA NITROGEN 31 mg/dL (7-20); CARBON DIOXIDE 16 mmol/L (22-30); CHLORIDE 112 mmol/L (98-107); GLUCOSE 112 mg/dL (75-110); POTASSIUM 4.9 mmol/L (3.6-5.0); TOTAL PROTEIN 6.1 g/dL (6.3-8.2)
[2019-11-06 06:54] LABS: ABSOLUTE BASOPHILS # (AUTO) 0.1 10^3/uL (0.0-0.2); ABSOLUTE EOSINOPHILS # (AUTO) 0.3 10^3/uL (0.0-0.6); ABSOLUTE LYMPHOCYTES (AUTO) 1.9 10^3/uL (0.5-4.7); ABSOLUTE MONOCYTES (AUTO) 0.8 10^3/uL (0.1-1.4); ABSOLUTE NEUT (AUTO) 5.9 10^3/uL (1.7-8.2); BASOPHILS % (AUTO) 0.8 % (0-2); EOSINOPHILS % (AUTO) 2.9 % (0-6); HEMATOCRIT 31.3 % (36.0-47.0); HEMOGLOBIN 10.6 g/dL (12.0-15.5); LYMPHOCYTES % (AUTO) 21.7 % (13-45); MEAN CORPUSCULAR HGB CONC 33.9 g/dL (32.0-36.0); MEAN CORPUSCULAR VOLUME 89 fl (80-97); MONOCYTES % (AUTO) 8.6 % (3-13); PLATELET COUNT 316 10^3/uL (150-450); RED BLOOD COUNT 3.53 10^6/uL (3.72-5.28); RED CELL DISTRIBUTION WIDTH 16.5 % (11.5-14.0); TOTAL CELLS COUNTED % (AUTO) 100 %; WHITE BLOOD COUNT 8.9 10^3/uL (4.0-10.5)
[2019-11-06] MEDS: POLYETHYLENE GLYCOL 3350 POWDER 17 GM/1 PACKET PO SCH (09:01)
[2019-11-06] MEDS: LACTOBACILLUS ACIDOPHILUS 250 MG TAB PO SCH ×2 (09:02→17:10)
[2019-11-06] MEDS: CYCLOBENZAPRINE HCL 10 MG TABLET PO SCH ×3 (09:02→17:10)
[2019-11-06] MEDS: ENOXAPARIN SODIUM INJ 40 MG/0.4 ML DISP.SYRIN SUBCUT SCH (09:03)
[2019-11-06] MEDS: BUSPIRONE HCL 10 MG TABLET PO SCH ×2 (09:03→21:15)
[2019-11-06] MEDS: LIDOCAINE 5% (700 MG) TRANSDERMAL ADH..PATCH TP SCH (09:03)
[2019-11-06] MEDS: CARVEDILOL 12.5 MG TABLET PO SCH ×2 (09:03→21:15)
[2019-11-06] MEDS: NORMAL SALINE 10 ML SDV (SCHEDULED) IV SCH ×2 (09:12→21:16)
[2019-11-06] MEDS: MICAFUNGIN SODIUM 100 MG in NORMAL SALINE 100 ML IV SCH (13:32)
--- NOTE | 2019-11-06 13:45 | PDOC DISCHARGE SUMMARY ---
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 difficile colitis Is this a current diagnosis for this admission?: Yes (4) Acute urinary tract infection Is this a current diagnosis for this admission?: Yes (5) CKD (chronic kidney disease) stage 3, GFR 30-59 ml/min Is this a current diagnosis for this admission?: Yes (6) Anemia Is this a current diagnosis for this admission?: Yes (7) Lumbosacral radiculopathy due to degenerative joint disease of spine Is this a current diagnosis for this admission?: Yes (8) Hyperkalemia Is this a current diagnosis for this admission?: Yes (9) Adverse effects of medication Is this a current diagnosis for this admission?: Yes - Assessment Summary: The patient has a Juana glabrata discitis/osteomyelitis. Micafungin is the only medication that appears to be effective. The patient will need a total of 6 months of therapy. - Additional Information Resuscitation Status: Do Not Intubate Discharge Diet: Regular Discharge Activity: Activity As Tolerated, Balance Activity w/Rest, Slowly Increase Activity, Supervised Activity Referrals: EVI KELSEY PA-C [PHYSICIAN CYBER THREAT ANALYST] - 11/11/19 1:30 pm (REFERRAL FOR APPT WITH [facility] IN 2 OR 3 WEEKS) NICHOEL L[address] MD [TELEMEDICINE] - (Call after discharge to make appointment. ) Prescriptions: Micafungin Sodium [Mycamine Inj/Pf 100 mg Sdv] 100 mg IV DAILY 30 Days #30 vial Home Medications: Aspirin [Adult Low Dose Aspirin EC] 81 mg PO DAILY 10/02/19 Atenolol [Tenormin] 12.5 mg PO DAILY 10/02/19 Atorvastatin Calcium [Lipitor 20 mg Tablet] 20 mg PO QHS 10/02/19 Cyclobenzaprine HCl [Flexeril 5 mg Tablet] 5 mg PO TID 10/02/19 Ergocalciferol (Vitamin D2) [Vitamin D2] 50,000 unit PO MO@1000 10/02/19 Hydrocodone/Acetaminophen [[place] 7.5-325 mg Tablet] 1 tab PO Q6HP PRN 10/02/19 Levothyroxine Sodium [Synthroid 0.1 mg Tablet] 0.1 mg PO DAILY 10/02/19 Ferrous Sulfate 324 mg PO BID 10/03/19 Methocarbamol 500 mg PO BIDP PRN 10/03/19 Mirtazapine 7.5 mg PO QHS 10/03/19 Micafungin Sodium [Mycamine Inj/Pf 100 mg Sdv] 100 mg IV DAILY 30 Days #30 vial 10/12/19 History of Present Illiness History of Present Illness: JORGE DOBSON is a 79 year old female with a history of recently diagnosed fungal lumbar discitis [completed treatment], resolved diabetes mellitus, peptic ulcer disease s/p surgery, hypertension, CVA, hypothyroidism, depression, who presents with complaint of low back pain, urinary incontinence and polyuria. Polyuria and urinary incontinence have been present for about 2 weeks now. Patient endorses some chills. Denies fevers no dysuria. Of note, patient has been experiencing low back pain since November 2018 after sustaining a fracture in her back. 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 She had subsequently experienced significant improvement in back pain and underwent physical therapy. About 2 weeks ago, patient still experiencing some urinary incontinence. Patient was discharged from SNF on September 16 but has been experiencing more difficulty with ambulation or weakness in her lower extremities since then. Hospital Course Hospital Course: (1) Infection due to [place] glabrata MRI imaging here shows continued L5/S1 discitis with osteomyelitis. 10/29/2019: LFTs are normal. CRP 36.4. Sed rate 96 Next labs due 11/05/19 Infectious disease was consulted. Per Dr. Bill's note today, patient has intermediate sensitivity to voriconazole. Unfortunately there are no good oral options to treat her infection and she requires at least 6 months of therapy. Per ID's recommendations, spoke with Dr. Yeung, [facility], to see if surgical debridement would be of any benefit. Per Dr. Yeung, the patient would be a poor surgical candidate at this time as she would likely require hardware for spine stabilization. However, if she develops neurological deficits, or has recurrent discitis or fungemia following completion of antibiotic course, it would then be appropriate to evaluate for surgical interventions. Patient continues on IV micafungin. EOT March 30, 2020 Monitor weekly LFTs, BCx, CRP, and SED rate. (2) Coag negative Staphylococcus bacteremia Ruled out. Blood cultures (10/27/2019; PICC line) grewStaph epidermidis with numerous resistances Blood culture (10/27/2019; peripheral) grew pansensitive staph capitis Repeat cultures negative at 72 hours PICC line replaced 11/03/19 (3) Discitis of lumbosacral region Secondary to #1. Evaluation and management as above. (4) C. difficile colitis Resolved. Received full course of p.o. Vancomycin. (5) Abdominal pain Resolved; secondary to post C.diff colitis IBS KUB shows large stool burden. Bowel regiment; symptomatic treatment (6) Anemia (7) CKD (chronic kidney disease) stage 3, GFR 30-59 ml/min Resolved; now at baseline renal function. Cr 10.01/BUN 21 (8) Lumbosacral radiculopathy due to degenerative joint disease of spine Continue gabapentin 300 mg every 8 Lidoderm patches Oxycodone as needed Nonpharmacological interventions. (9) Acute urinary tract infection Resolved. Received full course of antibiotic therapy. (10) Adverse effects of medication Secondary to concurrent use of narcotic analgesics and muscle relaxants. Medications adjusted to reduce polypharmacy. Avoid narcotics. (11) Hyperkalemia Resolved. (12) Dementia Twice daily BuSpar. Low dose Seroquel nightly Physical Exam Vital Signs: Temp Pulse Resp BP Pulse Ox 98.1 F 64 18 112/58 L 100 11/06/19 07:51 11/06/19 07:51 11/06/19 07:51 11/06/19 07:51 11/06/19 07:51 Intake & Output 11/05/19 11/06/19 11/07/19 06:59 06:59 06:59 Intake Total 2130 2387 Balance 2130 2387 Weight 46.1 kg 46.1 kg General appearance: PRESENT: no acute distress, cooperative, thin, well- developed Head exam: PRESENT: atraumatic, normocephalic Eye exam: PRESENT: conjunctiva pale. ABSENT: scleral icterus Respiratory exam: PRESENT: clear to auscultation elaina, symmetrical, unlabored. ABSENT: rales, rhonchi, tachypnea, wheezes Cardiovascular exam: PRESENT: RRR, +S1, +S2 Rectal exam: PRESENT: deferred Neurological exam: PRESENT: alert, awake, oriented to person, oriented to place, oriented to time, oriented to situation, CN II-XII grossly intact Psychiatric exam: PRESENT: appropriate affect. ABSENT: agitated, anxious Focused psych exam: ABSENT: delusional, restlessness Results Laboratory Results: WBC 8.9 10^3/uL (4.0-10.5) 11/06/19 05:15 RBC 3.53 10^6/uL (3.72-5.28) L 11/06/19 05:15 Hgb 10.6 g/dL (12.0-15.5) L 11/06/19 05:15 Hct 31.3 % (36.0-47.0) L 11/06/19 05:15 MCV 89 fl (80-97) 11/06/19 05:15 MCH 30.0 pg (27.0-33.4) 11/06/19 05:15 MCHC 33.9 g/dL (32.0-36.0) 11/06/19 05:15 RDW 16.5 % (11.5-14.0) H 11/06/19 05:15 Plt Count 316 10^3/uL (150-450) 11/06/19 05:15 Lymph % (Auto) 21.7 % (13-45) 11/06/19 05:15 [place] % (Auto) 8.6 % (3-13) 11/06/19 05:15 Eos % (Auto) 2.9 % (0-6) 11/06/19 05:15 Baso % (Auto) 0.8 % (0-2) 11/06/19 05:15 Reticulocyte # 0.077 10^6/uL (0.028-0.122) 10/15/19 06:23 Absolute Neuts (auto) 5.9 10^3/uL (1.7-8.2) 11/06/19 05:15 Absolute Lymphs (auto) 1.9 10^3/uL (0.5-4.7) 11/06/19 05:15 Absolute Monos (auto) 0.8 10^3/uL (0.1-1.4) 11/06/19 05:15 Absolute Eos (auto) 0.3 10^3/uL (0.0-0.6) 11/06/19 05:15 Absolute Basos (auto) 0.1 10^3/uL (0.0-0.2) 11/06/19 05:15 Seg Neutrophils % 66.0 % (42-78) 11/06/19 05:15 ESR 96 mm/hr (0-30) H 10/29/19 11:35 Retic Count (auto) 2.69 % (0.66-2.85) 10/15/19 06:23 PT 14.9 SEC (11.4-15.4) 10/07/19 04:17 INR 1.16 10/07/19 04:17 APTT 35.1 SEC (23.5-35.8) 10/07/19 04:17 VBG pH 7.34 (7.30-7.42) 10/04/19 05:13 VBG pCO2 34.3 mmHg (35-63) L 10/04/19 05:13 VBG HCO3 18.0 mmol/L (20-32) L 10/04/19 05:13 VBG Base Excess -7.0 mmol/L 10/04/19 05:13 Sodium 140.5 mmol/L (137-145) 11/06/19 05:15 Potassium 4.9 mmol/L (3.6-5.0) 11/06/19 05:15 Chloride 112 mmol/L (98-107) H 11/06/19 05:15 Carbon Dioxide 16 mmol/L (22-30) L 11/06/19 05:15 Anion Gap 13 (5-19) 11/06/19 05:15 BUN 31 mg/dL (7-20) H 11/06/19 05:15 Creatinine 1.34 mg/dL (0.52-1.25) H 11/06/19 05:15 Est GFR ( Amer) 46 (>60) L 11/06/19 05:15 Est GFR (MDRD) Non-Af 38 (>60) L 11/06/19 05:15 Glucose 112 mg/dL (75-110) H 11/06/19 05:15 Lactic Acid 1.3 mmol/L (0.7-2.1) 10/02/19 18:41 Calcium 9.0 mg/dL (8.4-10.2) 11/06/19 05:15 Magnesium 2.1 mg/dL (1.6-2.3) 11/06/19 05:15 Iron 55.6 ug/dL (37-170) 10/15/19 13:35 TIBC 212 ug/dL (250-450) L 10/15/19 13:35 % Saturation 26 % 10/15/19 13:35 Ferritin 405.00 ng/mL (11.1-264.0) H 10/15/19 13:35 Total Bilirubin 0.2 mg/dL (0.2-1.3) 11/06/19 05:15 Direct Bilirubin 0.2 mg/dL (0.0-0.4) 11/06/19 05:15 Neonat Total Bilirubin Not Reportable 11/06/19 05:15 Neonat Direct Bilirubin Not Reportable 11/06/19 05:15 Neonat Indirect Bili Not Reportable 11/06/19 05:15 AST 21 U/L (14-36) 11/06/19 05:15 ALT 13 U/L (<35) 11/06/19 05:15 Alkaline Phosphatase 76 U/L (38-126) 11/06/19 05:15 Creatine Kinase < 20 U/L (30-135) L 10/03/19 04:16 C-Reactive Protein 36.4 mg/L (<10.0) H 10/29/19 11:35 Total Protein 6.1 g/dL (6.3-8.2) L 11/06/19 05:15 Albumin 3.2 g/dL (3.5-5.0) L 11/06/19 05:15 Vitamin B12 529.0 pg/mL (239-931) 10/15/19 13:35 Folate 8.61 ng/mL (>2.76) 10/15/19 13:35 Urine Color YELLOW 10/27/19 15:00 Urine Appearance CLOUDY 10/27/19 15:00 Urine pH 5.0 (5.0-9.0) 10/27/19 15:00 Ur Specific [place] 1.012 10/27/19 15:00 Urine Protein NEGATIVE mg/dL (NEGATIVE) 10/27/19 15:00 Urine Glucose (UA) NEGATIVE mg/dL (NEGATIVE) 10/27/19 15:00 Urine Ketones NEGATIVE mg/dL (NEGATIVE) 10/27/19 15:00 Urine Blood MODERATE (NEGATIVE) H 10/27/19 15:00 Urine Nitrite (Reflex) NEGATIVE (NEGATIVE) 10/27/19 15:00 Urine Bilirubin NEGATIVE (NEGATIVE) 10/27/19 15:00 Urine Urobilinogen NEGATIVE mg/dL (<2.0) 10/27/19 15:00 Leukocyte Esterase Rfl LARGE (NEGATIVE) H 10/27/19 15:00 Urine RBC (Auto) 64 /HPF 10/27/19 15:00 Urine Bacteria (Auto) 1+ /HPF 10/27/19 15:00 Urine WBC (Reflex) 82 /HPF 10/27/19 15:00 Urine WBC Clumps FEW /HPF 10/27/19 15:00 Squamous Epi Cells Auto 4 /HPF 10/27/19 15:00 Urine Mucus (Auto) RARE /LPF 10/27/19 15:00 Urine Ascorbic Acid 20 (NEGATIVE) H 10/27/19 15:00 Stool Occult Blood NEGATIVE (NEGATIVE) 10/27/19 18:40 Stl C. Difficile GDH Ag POSITIVE (NEGATIVE) 10/27/19 18:40 Stl C.difficile Tox A&B POSITIVE (NEGATIVE) 10/27/19 18:40 Impressions: Lumbar Spine X-Ray 10/02/19 11:06 IMPRESSION: Mild scoliosis. Anterolisthesis of L5 on S1. Degenerative disc disease, spondylosis, and facet arthropathy. Lumbar Spine CT 10/02/19 12:50 IMPRESSION: 1. Spondylosis, facet arthropathy and malalignment. Erosive endplate changes at L5-S1 probably due to chronic inflammation, however cannot exclude discitis. Clinical correlation is needed. 2. Dilated left renal collecting system of uncertain chronicity and etiology. Knee X-Ray 10/02/19 12:52 IMPRESSION: No acute findings. Chest X-Ray 10/02/19 14:20 IMPRESSION: COPD. NO ACUTE RADIOGRAPHIC FINDING IN THE CHEST. 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 Guidance Fluoroscopy 10/10/19 00:00 IMPRESSION: Successful placement of a 5 Iranian double-lumen PICC via the left brachial vein utilizing fluoroscopic and sonographic guidance. Interventional Vascular Procedure 10/10/19 IMPRESSION: Successful placement of a 5 Iranian double-lumen PICC via the left brachial vein utilizing fluoroscopic and sonographic guidance. PICC Line Insertion 10/10/19 IMPRESSION: Successful placement of a 5 Iranian double-lumen PICC via the left brachial vein utilizing fluoroscopic and sonographic guidance. KUB X-Ray 10/27/19: IMPRESSION: Moderate constipation. Guidance Fluoroscopy 11/03/19 IMPRESSION: SUCCESSFUL PLACEMENT OF A 5 FR DUAL LUMEN 32 CM PICC IN THE RIGHT BASILIC VEIN. Interventional Vascular Procedure 11/03/19 IMPRESSION: SUCCESSFUL PLACEMENT OF A 5 FR DUAL LUMEN 32 CM PICC IN THE RIGHT BASILIC VEIN. PICC Line Insertion 11/03/19 IMPRESSION: SUCCESSFUL PLACEMENT OF A 5 FR DUAL LUMEN 32 CM PICC IN THE RIGHT BASILIC VEIN. Plan Health Concerns: The patient will need a total of 6 months of micafungin therapy for Juana glabrata discitis/osteomyelitis. The infectious disease service at [facility] will be following the patient. Plan of Treatment: Patient to discharge to SNF for long-term antibiotics and physical rehabilitation. [facility] Follow-up with primary care provider within 1 week. Take medications as prescribed: Patient to continue IV micafungin through March 30, 2020. Follow with weekly LFTs, CRP, sed rate, and blood cultures. Return to the emergency department as needed for concerning symptoms. Goals: Resolution of Juana infection of the spine Time Spent: Greater than 30 Minutes Stroke Is this a Stroke Patient?: No Acute Heart Failure - Is this a Heart Failure Patient?: No
[2019-11-06] MEDS: PHARMACY COMMUNICATION ORDER MC SCH (21:16)
[2019-11-06] MEDS: QUETIAPINE FUMARATE 25 MG TABLET PO SCH (21:17)
[2019-11-07] MEDS: OXYCODONE-ACETAMINOPHEN 5-325 MG TABLET PO PRN ×2 (05:27→14:01)
[2019-11-07] MEDS: PANTOPRAZOLE SODIUM 40 MG TABLET.DR PO SCH (05:28)
[2019-11-07] MEDS: LEVOTHYROXINE SODIUM 0.1 MG TABLET PO SCH (05:28)
[2019-11-07] MEDS: GABAPENTIN 300 MG CAPSULE PO SCH ×2 (05:28→13:37)
[2019-11-07] MEDS: BUSPIRONE HCL 10 MG TABLET PO SCH (08:15)
[2019-11-07] MEDS: POLYETHYLENE GLYCOL 3350 POWDER 17 GM/1 PACKET PO SCH (09:42)
[2019-11-07] MEDS: CYCLOBENZAPRINE HCL 10 MG TABLET PO SCH ×2 (09:45→13:37)
[2019-11-07] MEDS: CARVEDILOL 12.5 MG TABLET PO SCH (09:45)
[2019-11-07] MEDS: LACTOBACILLUS ACIDOPHILUS 250 MG TAB PO SCH (09:45)
[2019-11-07] MEDS: NORMAL SALINE 10 ML SDV (SCHEDULED) IV SCH (09:46)
[2019-11-07] MEDS: ENOXAPARIN SODIUM INJ 40 MG/0.4 ML DISP.SYRIN SUBCUT SCH (09:46)
[2019-11-07] MEDS: LIDOCAINE 5% (700 MG) TRANSDERMAL ADH..PATCH TP SCH (09:47)
[2019-11-07] MEDS: MICAFUNGIN SODIUM 100 MG in NORMAL SALINE 100 ML IV SCH (14:15)
[2019-11-07 16:11] VITALS: BP 95/49
[2019-11-08] MEDS ORDERED: ENOXAPARIN SODIUM INJ 30 MG/0.3 ML DISP.SYRIN SUBCUT SCH (08:00)
== END 2019-11-07 17:30 | disposition home health service (06) | DRG 478 ==
LOC: ER 10:52 → EH 15:16 → 3N 10-03 00:10 → 4S 10-19 02:23
PROVIDERS: ADMIT Internal Medicine; ATTEND Internal Medicine
PROC: 0QB03ZX Excision of Lumbar Vertebra, Percutaneous Approach, Diagnostic (ICD-10-PCS; principal; 2019-10-08)
PROC: 0QB13ZX Excision of Sacrum, Percutaneous Approach, Diagnostic (ICD-10-PCS; 2019-10-08)
PROC: 02HV33Z Insertion of Infusion Device into Superior Vena Cava, Percutaneous Approach (ICD-10-PCS; 2019-10-10)
PROC: B518ZZA Fluoroscopy of Superior Vena Cava, Guidance (ICD-10-PCS; 2019-10-10)
PROC: 02HV33Z Insertion of Infusion Device into Superior Vena Cava, Percutaneous Approach (ICD-10-PCS; 2019-11-03)
PROC: B548ZZA Ultrasonography of Superior Vena Cava, Guidance (ICD-10-PCS; 2019-11-03)
PROC: B518ZZA Fluoroscopy of Superior Vena Cava, Guidance (ICD-10-PCS; 2019-11-03)
DX: M46.37 Infection of intervertebral disc (pyogenic), lumbosacral region (principal); N39.0 Urinary tract infection, site not specified; E87.2 Acidosis; N17.9 Acute kidney failure, unspecified; A04.72 Enterocolitis due to Clostridium difficile, not specified as recurrent; Z16.32 Resistance to antifungal drug(s); B37.89 Other sites of candidiasis; Z16.11 Resistance to penicillins; M51.17 Intervertebral disc disorders with radiculopathy, lumbosacral region; M46.27 Osteomyelitis of vertebra, lumbosacral region; M47.897 Other spondylosis, lumbosacral region; K59.00 Constipation, unspecified; E86.0 Dehydration; E03.9 Hypothyroidism, unspecified; F32.9 Major depressive disorder, single episode, unspecified; B96.20 Unspecified Escherichia coli [E. coli] as the cause of diseases classified elsewhere; D63.1 Anemia in chronic kidney disease; E87.5 Hyperkalemia; D72.829 Elevated white blood cell count, unspecified; E11.22 Type 2 diabetes mellitus with diabetic chronic kidney disease; I12.9 Hypertensive chronic kidney disease with stage 1 through stage 4 chronic kidney disease, or unspecified chronic kidney disease; T40.605A Adverse effect of unspecified narcotics, initial encounter; T48.205A Adverse effect of unspecified drugs acting on muscles, initial encounter; Y92.230 Patient room in hospital as the place of occurrence of the external cause; N18.3 Chronic kidney disease, stage 3 (moderate); Z66 Do not resuscitate; Z88.0 Allergy status to penicillin; Z87.11 Personal history of peptic ulcer disease; Z88.8 Allergy status to other drugs, medicaments and biological substances; I25.2 Old myocardial infarction; Z86.73 Personal history of transient ischemic attack (TIA), and cerebral infarction without residual deficits; Z87.891 Personal history of nicotine dependence; Z82.49 Family history of ischemic heart disease and other diseases of the circulatory system; Z83.3 Family history of diabetes mellitus; Z79.82 Long term (current) use of aspirin; Z79.899 Other long term (current) drug therapy; Z88.5 Allergy status to narcotic agent; Z86.010 Personal history of colon polyps; F03.90 Unspecified dementia, unspecified severity, without behavioral disturbance, psychotic disturbance, mood disturbance, and anxiety
CPT/HCPCS: 20225; 36415; 36569; 71045; 72110; 72131; 72158; 74018; 76937; 77001; 80048; 80053; 81001; 82272; 82550; 82607; 82728; 82746; 82803; 83540; 83550; 83605; 83735; 85025; 85027; 85045; 85610; 85652; 85730; 86140; 87040; 87070; 87075; 87077; 87086; 87088; 87101; 87150; 87186; 87205; 87324; 87449; 88305; 88312; 88342; 94799; 96365; 96375; 99285; A9576; J0610; J0690; J0696; J0744; J1100; J1170; J1642; J1644; J1650; J2248; J2250; J2405; J3010; J3370; J3490; J7030; J7040; J7050; J7060; J7120

== ENCOUNTER → 2020-02-04 | Outpatient (CLI) | payer MEDICARE, OTHER ==
--- NOTE | 2020-02-04 09:48 | RADIOLOGY REPORT (SQ) ---
EXAM DESCRIPTION: CT ABD/PELVIS NO ORAL OR IV IMAGES COMPLETED DATE/TIME: 02/04/2020 9:13 am REASON FOR STUDY: N13.2 HYDRONEPHROSIS WITH RENAL AND URETERAL CALCULOUS OBSTRUCTION N13.2 HYDRONEP HROSIS WITH RENAL AND URETERAL CALCULOUS OBSTR COMPARISON: 10/20/2019 CT lumbar TECHNIQUE: CT scan of the abdomen and pelvis performed without intravenous or oral contrast. Images reviewed with lung, soft tissue, and bone windows. Reconstructed coronal and sagittal MPR images revi ewed. All images stored on PACS. All CT scanners at this facility use dose modulation, iterative reconstruction, and/or weight based d osing when appropriate to reduce radiation dose to as low as reasonably achievable (ALARA). [facility]: Dose Right [facility]: CareDose [facility]: Dose Right [facility]: Teradose 4D [facility]: Smart Audiosocket RADIATION DOSE: CT Rad equipment meets quality standard of care and radiation dose reduction techniq ues were employed. CTDIvol: 3.5 mGy. DLP: 175 mGy-cm.mGy. LIMITATIONS: None. FINDINGS: LOWER CHEST: No significant findings. No nodules or infiltrates. NON-CONTRASTED LIVER, SPLEEN, ADRENALS: Evaluation limited by lack of IV contrast. Mild diffuse thic kening of the left adrenal gland without discrete nodule. No identified significant masses. PANCREAS: No masses. No peripancreatic inflammatory changes. GALLBLADDER: No identified stones by CT criteria. No inflammatory changes to suggest cholecystitis. RIGHT KIDNEY AND URETER: No suspicious masses. Assessment limited by lack of IV contrast. No signif icant calcifications. Extrarenal pelvis with mild fullness. No caliceal dilation. LEFT KIDNEY AND URETER: No suspicious masses. Assessment limited by lack of IV contrast. No signifi cant calcifications. Moderate left-sided hydroureteronephrosis to the level of the mid ureter. No obstructing source identified on this noncontrast exam. Findings similar to CT dated . AORTA AND RETROPERITONEUM: Aortoiliac atherosclerosis without aneurysm. No retroperitoneal adenopath y, mass or hemorrhage. BOWEL AND PERITONEAL CAVITY: No evidence of intestinal obstruction. Evidence of prior gastric bypass . No focal bowel wall thickening. APPENDIX: Not clearly identified. PELVIS, BLADDER, AND ABDOMINAL WALL:Anti dependent gas within the urinary bladder. Incomplete bladde r distension. No pelvic free fluid, adenopathy or mass. BONES: No acute bony abnormality. No suspicious osseous lesions. Mild progressive degenerative alaniz ges at L5-S1 disc space with grade 1 anterolisthesis and endplate destruction. Lower lumbar facet ar thropathy. Multilevel lumbar spondylosis. OTHER: Surgical hardware within the upper abdomen IMPRESSION: 1. Moderate left-sided hydroureteronephrosis to the level of the mid ureter. No obstru cting source identified on this noncontrast exam. Findings similar to CT dated 10/02/2019. No nephrol ithiasis. CT IVP could be considered for further evaluation. 2. Mildly progressed degenerative changes at the L5-S1 disc space compatible with known history of d iscitis. 3. Gas within the urinary bladder, likely iatrogenic although infection not excluded. Recommend cor relation with patient history and urinalysis. 4. No other evidence of acute intra-abdominal/pelvic process. COMMENT: Quality ID # [id number]: Final reports with documentation of one or more dose reduction techniques (e.g., Automated exposure control, adjustment of the mA and/or kV according to patient size, use of iterative reconstruction technique) TECHNICAL DOCUMENTATION: JOB ID: [id number] 2010 [employer]- All Rights Reserved Reading location - IP/workstation name: [email or web address]
== END ==
LOC: RAD 08:58
PROVIDERS: ATTEND Internal Medicine Nephrology
DX: N13.2 Hydronephrosis with renal and ureteral calculous obstruction (principal)
CPT/HCPCS: 74176

== ENCOUNTER 2020-02-28 14:42 | Emergency (ER) | payer MEDICARE, OTHER ==
[2020-02-28 15:15] LABS: VENOUS BLOOD BASE EXCESS -6.5 mmol/L; VENOUS BLOOD HCO3 18.7 mmol/L (20-32); VENOUS BLOOD PCO2 36.3 mmHg (35-63); VENOUS BLOOD PH 7.33 (7.30-7.42)
[2020-02-28] MEDS: NORMAL SALINE 1000 ML 1,000 ML IV PRN ×2 (15:15→15:50)
[2020-02-28 15:16] LABS: HEMATOCRIT 35.9 % (36.0-47.0); MEAN CORPUSCULAR HEMOGLOBIN 30.4 pg (27.0-33.4); MEAN CORPUSCULAR HGB CONC 33.4 g/dL (32.0-36.0); MEAN CORPUSCULAR VOLUME 91 fl (80-97); PLATELET COUNT 149 10^3/uL (150-450); RED BLOOD COUNT 3.94 10^6/uL (3.72-5.28); RED CELL DISTRIBUTION WIDTH 13.7 % (11.5-14.0); WHITE BLOOD COUNT 8.2 10^3/uL (4.0-10.5)
[2020-02-28 15:22] LABS: INTERNATIONAL RATION (INR) 1.25; PROTHROMBIN TIME 15.8 SEC (11.4-15.4)
--- NOTE | 2020-02-28 15:42 | RADIOLOGY REPORT (SQ) ---
EXAM DESCRIPTION: CHEST SINGLE VIEW IMAGES COMPLETED DATE/TIME: 02/28/2020 3:24 pm REASON FOR STUDY: fever COMPARISON: AP chest 10/02/2019 EXAM PARAMETERS: NUMBER OF VIEWS: One view. TECHNIQUE: Single frontal radiographic view of the chest acquired. RADIATION DOSE: NA LIMITATIONS: None. FINDINGS: LUNGS AND PLEURA: No opacities, masses or pneumothorax. No pleural effusion. MEDIASTINUM AND HILAR STRUCTURES: No masses. Contour normal. HEART AND VASCULAR STRUCTURES: Heart normal in size. Normal vasculature. BONES: Old healed right lateral rib fractures HARDWARE: None in the chest. OTHER: No other significant finding. IMPRESSION: NO ACUTE RADIOGRAPHIC FINDING IN THE CHEST. TECHNICAL DOCUMENTATION: JOB ID: [id number] 2010 [employer]- All Rights Reserved Reading location - IP/workstation name: [email or web address]
[2020-02-28 15:44] LABS: ABSOLUTE LYMPHOCYTES# (MANUAL) 0.4 10^3/uL (0.5-4.7); ABSOLUTE MONOCYTES # (MANUAL) 0.2 10^3/uL (0.1-1.4); BASOPHILS % (MANUAL) 0 % (0-2); EOSINOPHILS % (MANUAL) 0 % (0-6); LYMPHOCYTES % (MANUAL) 5 % (13-45); MONOCYTES % (MANUAL) 3 % (3-13); SEGMENTED NEUTROPHILS % (MAN) 92 % (42-78); TOTAL CELLS COUNTED 100
[2020-02-28 15:46] LABS: PLATELET CLUMPS PRESENT; PLATELET COMMENT ADEQUATE; RBC MORPHOLOGY COMMENT NORMO-CYTIC/CHROMIC
[2020-02-28 15:48] LABS: ALBUMIN 3.3 g/dL (3.5-5.0); ALKALINE PHOSPHATASE 330 U/L (38-126); ANION GAP 10 (5-19); ASPARTATE AMINO TRANSFERASE 53 U/L (14-36); BILIRUBIN,DIRECT 0.2 mg/dL (0.0-0.4); BILIRUBIN,TOTAL 0.5 mg/dL (0.2-1.3); BLOOD UREA NITROGEN 46 mg/dL (7-20); CALCIUM 8.1 mg/dL (8.4-10.2); CARBON DIOXIDE 19 mmol/L (22-30); CHLORIDE 103 mmol/L (98-107); GLUCOSE 112 mg/dL (75-110); POTASSIUM 5.2 mmol/L (3.6-5.0); TOTAL PROTEIN 6.2 g/dL (6.3-8.2)
[2020-02-28] MEDS ORDERED: CEFTRIAXONE 1 GM/D5W RTU 1 GM/50 ML RTUPB IV ONE (15:50)
[2020-02-28] MEDS ORDERED: RINGERS LACTATED IV ONE (15:50)
--- NOTE | 2020-02-28 16:42 | RADIOLOGY REPORT (SQ) ---
EXAM DESCRIPTION: CT ABDOMEN NO ORAL OR IV IMAGES COMPLETED DATE/TIME: 02/28/2020 4:10 pm REASON FOR STUDY: Renal stent placed spiked temp distended COMPARISON: None. TECHNIQUE: CT scan of the abdomen performed without intravenous contrast and without oral contrast. Images reviewed with lung, soft tissue, and bone windows. Reconstructed coronal and sagittal MPR im ages reviewed. All images stored on PACS. All CT scanners at this facility use dose modulation, iterative reconstruction, and/or weight based d osing when appropriate to reduce radiation dose to as low as reasonably achievable (ALARA). [facility]: Dose Right [facility]: CareDose [facility]: Dose Right [facility]: Teradose 4D [facility]: [employer] Technologies RADIATION DOSE: CT Rad equipment meets quality standard of care and radiation dose reduction techniq ues were employed. CTDIvol: 5.0 mGy. DLP: 306 mGy-cm.mGy. LIMITATIONS: None. FINDINGS: LOWER CHEST: No significant findings. No nodules or infiltrates. NONCONTRASTED LIVER, SPLEEN, ADRENALS: Evaluation limited by lack of IV contrast. No identified sign ificant masses. PANCREAS: No masses. No peripancreatic inflammatory changes. GALLBLADDER: No identified stones by CT criteria. No inflammatory changes to suggest cholecystitis. RIGHT KIDNEY AND URETER: No suspicious masses. Assessment limited by lack of IV contrast. No signif icant calcifications. Extra renal pelvis. LEFT KIDNEY AND URETER: No suspicious masses. Assessment limited by lack of IV contrast. No signifi cant calcifications. Ureteral stent is in place but there is hydronephrosis and hydroureter. AORTA AND RETROPERITONEUM: No aneurysm. No retroperitoneal masses or adenopathy. BOWEL AND PERITONEAL CAVITY: Constipation. APPENDIX: Not identified ABDOMINAL WALL: No abdominal wall hernias. BONES: No significant findings. OTHER: No other significant finding. IMPRESSION: Persistent left hydronephrosis despite indwelling ureteral stent. L5-S1 unchanged. No acute process. TECHNICAL DOCUMENTATION: JOB ID: [id number] Quality ID # [id number]: Final reports with documentation of one or more dose reduction techniques (e.g., Au tomated exposure control, adjustment of the mA and/or kV according to patient size, use of iterative reconstruction technique) 2010 [employer]- All Rights Reserved Reading location - IP/workstation name: [email or web address]
--- NOTE | 2020-02-28 17:30 | ER Document Report ---
ED General <SWATHI ALEGRIA - Last Filed: 02/28/20 21:00> - General Mode of Arrival: Wheelchair Information source: Patient TRAVEL OUTSIDE OF THE [place] IN LAST 30 DAYS: No - HPI Onset: This morning Onset/Duration: Sudden Quality of pain: No pain Pain Level: 0 Associated symptoms: Chills, Weakness. denies: Productive cough, Diarrhea, Headache, Nausea, Vomiting Exacerbated by: Denies Relieved by: Denies Similar symptoms previously: No Recently seen / treated by doctor: Yes <LILLI FRITZ - Last Filed: 02/28/20 22:08> - General Chief Complaint: General Weakness Stated Complaint: FEVER/WEAKNESS/CHILLS Time Seen by Provider: 02/28/20 15:32 Primary Care Provider: LUIS ALBERTO DE OLIVEIRA PA [Primary Care Provider] - Follow up as needed Notes: Patient is a 79-year-old female was brought into the emergency room by EMS with complaint of generalized weakness and fever. On arrival to the emergency room patient's temperature was 103.0. She was given Tylenol in route by EMS. Patient has a recent past medical history of this past Sunday she had preop labs drawn at [place] for a ureteral stent procedure done this past in [place]. Patient states she is been feeling fine but today she felt a little weak her family member took her temperature and said that it was normal took it again because she was not feeling better about an hour and went up to 103 but seems to be bouncing up and down. Patient denies any shortness of breath chest pain dysuria abdominal pain she has had no nausea or vomiting. She does not know why she is having a temp of 103.0. On arrival to the emergency room patient's vital signs showed a heart rate of 79, blood pressure 103/47, respiratory rate of 25. She had a sat of 95%. (LILLI FRITZ) - Related Data Allergies/Adverse Reactions: diazepam [From Valium] Allergy (Verified 10/03/19 00:34) morphine Allergy (Verified 10/03/19 00:34) Penicillins Allergy (Verified 10/30/19 10:08) acetaminophen [From Tylenol] Adverse Reaction (Verified 10/03/19 00:35) Past Medical History - General Information source: Patient - Social History Smoking Status: Former Smoker Chew tobacco use (# tins/day): No Frequency of alcohol use: None Lives with: Family Family History: Reviewed & Not Pertinent Patient has homicidal ideation: No - Past Medical History Cardiac Medical History: Reports: Hx Coronary Artery Disease, Hx Heart Attack, Hx Hypertension Pulmonary Medical History: Denies: Hx Asthma, Hx Bronchitis, Hx COPD, Hx Pneumonia Neurological Medical History: Reports: Hx Cerebrovascular Accident. Denies: Hx Seizures Endocrine Medical History: Reports: Hx Diabetes Mellitus Type 2 Musculoskeletal Medical History: Reports Hx Arthritis Psychiatric Medical History: Reports: Hx Depression Past Surgical History: Reports: Other - Neck surgery - Immunizations Hx Diphtheria, Pertussis, Tetanus Vaccination: Yes - unknown <LILLI FRITZ - Last Filed: 02/28/20 22:08> Review of Systems - Review of Systems Constitutional: Fever, Weakness EENT: No symptoms reported Cardiovascular: No symptoms reported Respiratory: No symptoms reported Gastrointestinal: No symptoms reported Genitourinary: No symptoms reported Female Genitourinary: No symptoms reported Musculoskeletal: No symptoms reported Skin: No symptoms reported Hematologic/Lymphatic: No symptoms reported Neurological/Psychological: No symptoms reported -: Yes All other systems reviewed and negative <LILLI FRITZ - Last Filed: 02/28/20 22:08> Physical Exam - Vital signs Interpretation: Febrile - The rest of patient's vital signs showed a heart rate of 79, blood pressure 10/03/1946, respiratory rate of 25, sat of 95%. <LILLI FRITZ - Last Filed: 02/28/20 22:08> - Vital signs Vitals: Temp 103.0 F H 02/28/20 14:42 - Notes Notes: PHYSICAL EXAMINATION: GENERAL: Patient is a frail-appearing 79-year-old female who is in no apparent distress on physical exam but does appear ill. HEAD: Atraumatic, normocephalic. EYES: Pupils equal round and reactive to light, extraocular movements intact, conjunctiva are normal. ENT: Nares patent, oropharynx clear without exudates. Moist mucous membranes. NECK: Normal range of motion, supple without lymphadenopathy LUNGS: Breath sounds clear to auscultation bilaterally and equal. No wheezes rales or rhonchi. HEART: Regular rate and rhythm without murmurs ABDOMEN: Examination of patient's abdomen shows it to be moderately distended with tympany noted in the upper quadrants in a semierect position. Patient states that she normally has a flat belly and this is unusual for her. She does have bowel sounds present in all 4 quads. Female : deferred Musculoskeletal: Normal range of motion, no pitting or edema. No cyanosis. NEUROLOGICAL: Normal speech, normal gait. Normal sensory, motor exams PSYCH: Normal mood, normal affect. SKIN: Warm, Dry, normal turgor, no rashes or lesions noted. (LILLI FRITZ) Course - Laboratory Result Diagrams: 02/28/20 14:43 02/28/20 14:43 <SWATHI ALEGRIA - Last Filed: 02/28/20 21:00> - Laboratory Result Diagrams: 02/28/20 14:43 02/28/20 14:43 <LILLI FRITZ - Last Filed: 02/28/20 22:08> - Re-evaluation Re-evalutation: 02/28/20 17:33 Further history and patient she has a history of COPD and is a former smoker. She has had a recent ureteral stent placement on and . She has no cardiac history no history of congestive heart failure and she denies any dysuria. She has had no nausea vomiting or diarrhea with this attempt. 02/28/20 22:06 Discussed the case extensively my attending elected to go ahead and have the ER doctor also place in a central line. This was done without any problems. Patient also was accepted at [facility] talk to Dr. King will accept the patient from hospitalist point of view. Patient was elected to fly out since she was having critical issues with her blood pressure dropping below 80/39. She is also bradycardic at certain points down to 40 bpm. She is stable for transfer at this time. I have just gone in and reevaluate her patient is happy she is being transferred to care down to [facility] where her urologist is at. (LILLI FRITZ) - Vital Signs Vital signs: Temp Pulse Resp BP Pulse Ox 99.3 F 13 82/39 L 96 02/28/20 18:26 02/28/20 19:01 02/28/20 19:01 02/28/20 19:01 - Laboratory Laboratory results interpreted by me: 02/28/20 02/28/20 02/28/20 14:43 14:43 14:43 Hct 35.9 L Plt Count 149 L Seg Neuts % (Manual) 92 H Lymphocytes % (Manual) 5 L Abs Lymphs (Manual) 0.4 L PT 15.8 H VBG HCO3 Sodium 132.2 L Potassium 5.2 H Carbon Dioxide 19 L BUN 46 H Creatinine 1.90 H Est GFR ( Amer) 31 L Est GFR (MDRD) Non-Af 26 L Glucose 112 H Lactic Acid Calcium 8.1 L AST 53 H ALT 37 H Alkaline Phosphatase 330 H Total Protein 6.2 L Albumin 3.3 L Urine Protein Urine Blood Leukocyte Esterase Rfl Urine Ascorbic Acid 02/28/20 02/28/20 02/28/20 14:43 14:43 18:00 Hct Plt Count Seg Neuts % (Manual) Lymphocytes % (Manual) Abs Lymphs (Manual) PT VBG HCO3 18.7 L Sodium Potassium Carbon Dioxide BUN Creatinine Est GFR ( Amer) Est GFR (MDRD) Non-Af Glucose Lactic Acid 2.5 H Calcium AST ALT Alkaline Phosphatase Total Protein Albumin Urine Protein 100 H Urine Blood SMALL H Leukocyte Esterase Rfl SMALL H Urine Ascorbic Acid 40 H Discharge <SWATHI ALEGRIA - Last Filed: 02/28/20 21:00> <LILLI FRITZ - Last Filed: 02/28/20 22:08> - Discharge Clinical Impression: Sepsis Qualifiers: Sepsis type: sepsis due to unspecified organism Sepsis acute organ dysfunction status: with acute organ dysfunction Severe sepsis acute organ dysfunction type: acute renal failure Acute renal failure type: unspecified Severe sepsis shock status: without septic shock Qualified Code(s): A41.9 - Sepsis, unspecified organism Hypotension Qualifiers: Hypotension type: other hypotension type Qualified Code(s): I95.89 - Other hypotension Condition: Stable Disposition: [facility] Referrals: LUIS ALBERTO DE OLIVEIRA PA [Primary Care Provider] - Follow up as needed Procedures - Central Line Right Internal jugular Time completed: 20:50 Consent obtained: Yes Central line pre-insertion: Sterile PPE donned, Chloraprep applied, Sterile drapes applied Central line size (Fr.): 7 Central line lumen type: Triple Anesthetic type: 1% Lidocaine mL's of anesthesia: 4 Ultrasound guided: Yes CM at insertion site: 15 - secured with adhesive central line attachment kit Line secured with sutures: No Central line post-insertion: Blood return from lumens, Biopatch applied, Sterile dressing applied, Position confirmed w/ CXR Number of attempts: 1 Complications: No <SWATHI ALEGRIA - Last Filed: 02/28/20 21:00>
[2020-02-28] MEDS ORDERED: NORMAL SALINE 1000 ML 1,000 ML IV ONE (18:30)
[2020-02-28 19:03] LABS: AMORPHOUS SEDIMENT,URINE TRACE /HPF; APPEARANCE,URINE CLOUDY; BILIRUBIN,URINE NEGATIVE (NEGATIVE); COLOR,URINE YELLOW; GLUCOSE, URINE NEGATIVE (NEGATIVE); KETONES,URINE NEGATIVE (NEGATIVE); PROTEIN,URINE 100 mg/dL (NEGATIVE); URINE SPECIFIC GRAVITY 1.016; UROBILINOGEN,URINE NEGATIVE mg/dL (<2.0)
[2020-02-28] MEDS ORDERED: LIDOCAINE 1% INJ (10 MG/ML) 10 ML MDV INJ ONE (19:26)
--- NOTE | 2020-02-28 20:30 | EKG REPORT ---
SEVERITY:- BORDERLINE ECG - SINUS RHYTHM CONSIDER ANTERIOR INFARCT : Confirmed by: Sergio Kaba MD 28-Feb-2020 20:29:24
[2020-02-28] MEDS ORDERED: NOREPINEPHRINE BITARTRATE INJ/PF 4 MG/4 ML SDV IV ONE (21:27)
[2020-02-28] MEDS ORDERED: DEXTROSE 5%-WATER 250 ML with NOREPINEPHRINE BITARTRATE 4 MG IV PRN ×2 (21:30)
[2020-02-28] MEDS ORDERED: VANCOMYCIN HCL INJ 1000 MG VIAL IV ONE (22:02)
[2020-02-28] MEDS ORDERED: CEFEPIME 1 GM/D5W RTU 1 GM/50 ML RTUPB IV ONE (22:02)
--- NOTE | 2020-02-28 22:04 | RADIOLOGY REPORT (SQ) ---
EXAM DESCRIPTION: CLINICAL HISTORY: 79 years Female post central line COMPARISON: 02/28/2020 FINDINGS: The cardiomediastinal silhouette appears unremarkable. No consolidating infiltrates or pleural effusions. No pneumothorax. Placement of a central line in the right IJ with the tip at the junction of the SVC and right atrium. IMPRESSION: Right IJ placement with the tip in the SVC No pneumothorax
[2020-02-28 22:10] VITALS: BP 126/53
== END 2020-02-28 22:18 | disposition short-term general hospital (02) ==
LOC: ER 14:42
DX: A41.9 Sepsis, unspecified organism (principal); R65.20 Severe sepsis without septic shock; N17.9 Acute kidney failure, unspecified; N13.30 Unspecified hydronephrosis; R14.0 Abdominal distension (gaseous); I25.10 Atherosclerotic heart disease of native coronary artery without angina pectoris; I10 Essential (primary) hypertension; I25.2 Old myocardial infarction; E11.9 Type 2 diabetes mellitus without complications; Z96.0 Presence of urogenital implants; Z87.891 Personal history of nicotine dependence; Z88.8 Allergy status to other drugs, medicaments and biological substances; Z88.6 Allergy status to analgesic agent; Z88.5 Allergy status to narcotic agent; Z88.0 Allergy status to penicillin
CPT/HCPCS: 93005; 99285; 96361; 96365; 96367; 36415; 87040; 87086; 82962; 83605; 85025; 85610; 87077; 80053; 81001; 87186; 82803; 87150 ×26; 71045; 74150; 93010; 36556; J3490; J7060; J7030; J0696

== ENCOUNTER → 2020-03-26 | Outpatient (CLI) | payer MEDICARE, OTHER ==
[2020-03-26 11:07] LABS: ALBUMIN 3.4 g/dL (3.5-5.0); ALKALINE PHOSPHATASE 243 U/L (38-126); ANION GAP 6 (5-19); ASPARTATE AMINO TRANSFERASE 42 U/L (14-36); BILIRUBIN,TOTAL 0.2 mg/dL (0.2-1.3); BLOOD UREA NITROGEN 37 mg/dL (7-20); CALCIUM 8.4 mg/dL (8.4-10.2); CARBON DIOXIDE 23 mmol/L (22-30); CHLORIDE 108 mmol/L (98-107); GLUCOSE 93 mg/dL (75-110); TOTAL PROTEIN 6.3 g/dL (6.3-8.2)
[2020-03-26 11:40] LABS: POTASSIUM 6.1 mmol/L (3.6-5.0)
== END ==
LOC: OD 09:48
PROVIDERS: ATTEND Physician Assistant
DX: E87.5 Hyperkalemia (principal); R74.8 Abnormal levels of other serum enzymes
CPT/HCPCS: 36415; 80053

== ENCOUNTER → 2020-03-29 | Outpatient (CLI) | payer MEDICARE, OTHER ==
[2020-03-29 11:30] LABS: ALBUMIN 3.3 g/dL (3.5-5.0); ALKALINE PHOSPHATASE 199 U/L (38-126); ANION GAP 8 (5-19); ASPARTATE AMINO TRANSFERASE 35 U/L (14-36); BILIRUBIN,TOTAL 0.2 mg/dL (0.2-1.3); BLOOD UREA NITROGEN 38 mg/dL (7-20); CALCIUM 8.5 mg/dL (8.4-10.2); CARBON DIOXIDE 18 mmol/L (22-30); CHLORIDE 111 mmol/L (98-107); GLUCOSE 73 mg/dL (75-110); PHOSPHORUS 4.4 mg/dL (2.5-4.5); POTASSIUM 5.1 mmol/L (3.6-5.0); TOTAL PROTEIN 6.2 g/dL (6.3-8.2)
[2020-03-29 11:33] LABS: ABSOLUTE EOSINOPHILS # (AUTO) 0.2 10^3/uL (0.0-0.6); ABSOLUTE LYMPHOCYTES (AUTO) 1.3 10^3/uL (0.5-4.7); ABSOLUTE MONOCYTES (AUTO) 0.7 10^3/uL (0.1-1.4); ABSOLUTE NEUT (AUTO) 4.4 10^3/uL (1.7-8.2); BASOPHILS % (AUTO) 0.7 % (0-2); EOSINOPHILS % (AUTO) 2.4 % (0-6); HEMATOCRIT 33.6 % (36.0-47.0); HEMOGLOBIN 11.4 g/dL (12.0-15.5); LYMPHOCYTES % (AUTO) 20.1 % (13-45); MEAN CORPUSCULAR HEMOGLOBIN 30.5 pg (27.0-33.4); MEAN CORPUSCULAR HGB CONC 33.9 g/dL (32.0-36.0); MEAN CORPUSCULAR VOLUME 90 fl (80-97); MONOCYTES % (AUTO) 9.9 % (3-13); PLATELET COUNT 249 10^3/uL (150-450); RED BLOOD COUNT 3.74 10^6/uL (3.72-5.28); RED CELL DISTRIBUTION WIDTH 14.2 % (11.5-14.0); SEGMENTED NEUTROPHILS % (AUTO) 66.9 % (42-78); TOTAL CELLS COUNTED % (AUTO) 100 %; WHITE BLOOD COUNT 6.6 10^3/uL (4.0-10.5)
== END ==
LOC: OD 10:46
PROVIDERS: ATTEND Internal Medicine Nephrology
DX: N18.3 Chronic kidney disease, stage 3 (moderate) (principal)
CPT/HCPCS: 36415; 80053; 83735; 83970; 84100; 85025

== ENCOUNTER → 2020-06-04 | Day surgery (SDC) | payer MEDICARE, OTHER ==
[~2020-06-04] MED LIST: PROPOFOL INJ 200 MG/20 ML VIAL IV ONE
--- NOTE | 2020-06-04 09:06 | Operative Report ---
Operative Report DATE OF SURGERY: 06/04/20 Operative Report: The risk, benefits and alternatives of the procedure including the risk of bleeding, perforation requiring surgery have been explained to the patient in detail and informed consent has been obtained. Patient is taken back to the endoscopy suite and placed in a left, lateral decubital position. Timeout was called. Propofol medication is administered. Rectal examination is done which did not reveal any masses, tears or fissures. An Olympus videoscope was introduced into the patient's rectum. Scope was then carefully advanced all the way to the cecum. Cecum was identified by the usual anatomical landmarks including the ileocecal valve as well as the appendiceal office. Photodocumentation is obtained per scope was then sequentially pulled back via the various segments of the colon including the ascending colon, hepatic flexure, transverse colon, splenic flexure, descending colon and finally into the rectosigmoid portions of the colon. Retroflexion maneuvers performed. The risks benefits and alternatives of the procedure explained to the patient in detail and informed consent is obtained.A GIF Olympus video scope was inserted into the patient's mouth and hypopharynx, the esophagus is identified intubated and insufflated, the scope was then advanced through the esophagus stomach and duodenum ,retroflexion maneuver is done the esophagus stomach and first and second portions of the duodenum examined PREOPERATIVE DIAGNOSIS: Change in bowel habits history of peptic ulcer disease POSTOPERATIVE DIAGNOSIS: Evidence of gastric surgery in the past, inflammatory polyps in the pouch,. Gastritis is noted biopsies obtained. Melanosis coli. diverticulosis. Internal hemorrhoids OPERATION: Colonoscopy with biopsy. EGD with biopsy SURGEON: JAMEL PINO ANESTHESIA: LMAC TISSUE REMOVED OR ALTERED: As noted above. COMPLICATIONS: None. ESTIMATED BLOOD LOSS: None. INTRAOPERATIVE FINDINGS: As noted above. PROCEDURE: Patient tolerated the procedure well. No immediate postprocedure complications are noted. Patient is discharged in good condition. Discharge date 06/04/2020. Discharge diet: Regular. Discharge activity: Regular. 2 to 3-week follow-up to discuss findings. Patient is instructed to call the office or proceed to the emergency room should there be any further proximal questions. Wait on the pathology.
[2020-06-04 09:48] VITALS: BP 130/51
== END ==
LOC: END 07:05
PROVIDERS: ATTEND Internal Medicine Gastroenterology
DX: K63.89 Other specified diseases of intestine (principal); K57.30 Diverticulosis of large intestine without perforation or abscess without bleeding; K64.8 Other hemorrhoids; K29.80 Duodenitis without bleeding; K29.70 Gastritis, unspecified, without bleeding; K31.7 Polyp of stomach and duodenum; Z98.84 Bariatric surgery status; Z87.11 Personal history of peptic ulcer disease; I10 Essential (primary) hypertension; E03.9 Hypothyroidism, unspecified; Z87.891 Personal history of nicotine dependence; E11.9 Type 2 diabetes mellitus without complications; E78.5 Hyperlipidemia, unspecified; Z79.899 Other long term (current) drug therapy; Z88.5 Allergy status to narcotic agent; Z88.8 Allergy status to other drugs, medicaments and biological substances; Z03.818 Encounter for observation for suspected exposure to other biological agents ruled out
CPT/HCPCS: 43239; 45380; 88305 ×2; 00813; U0003; J2704; C9803; 813; 82962; 87635

== ENCOUNTER → 2020-06-09 | Outpatient (CLI) | payer MEDICARE, OTHER ==
[~2020-06-09] MED LIST changes: +FUROSEMIDE INJ/PF 40 MG/4 ML SDV ONE; -PROPOFOL INJ 200 MG/20 ML VIAL IV ONE
--- NOTE | 2020-06-09 15:36 | RADIOLOGY REPORT (SQ) ---
EXAM DESCRIPTION: NM RENAL WITH LASIX IMAGES COMPLETED DATE/TIME: 06/09/2020 3:03 pm REASON FOR STUDY: N20.0 CALCULUS OF KIDNEY N20.0 CALCULUS OF KIDNEY COMPARISON: None. RADIONUCLIDE AND DOSE: 5 millicuries Tc-99m MAG 3 The route of agent administration: Intravenous ADDITIONAL DRUGS AND DOSES: Lasix 20 mg. TECHNIQUE: Following administration of the radionuclide, flow images of the kidneys were acquired fo llowed by sequential imaging for 31 minutes. Intravenous Lasix was given at the midpoint of the study . Time activity curves were generated. LIMITATIONS: None. FINDINGS: ACTIVITY LEFT KIDNEY: 33.8 %. ACTIVITY RIGHT KIDNEY: 66.2 %. There is synchronous uptake in the kidneys with passage of the aortic bolus. There is greater uptake in the right kidney than in the left. The left kidney demonstrates relatively flat excretion curve. Right excretion curve is normal. IMPRESSION: Decreased renal function on the left. TECHNICAL DOCUMENTATION: JOB ID: [id number] 2010 [employer]- All Rights Reserved Reading location - IP/workstation name: [email or web address]
== END ==
LOC: RAD 13:36
PROVIDERS: ATTEND Student in an Organized Health Care Education/Training Program
DX: N20.0 Calculus of kidney (principal)
CPT/HCPCS: 78708; A9562; J1940

== ENCOUNTER 2020-06-24 06:34 | Day surgery (SDC) | payer MEDICARE, OTHER ==
[~2020-06-24 06:34] MED LIST changes: +CHONDR SU A NA/HYALUR INTRAOC KIT (SURGICARE) ONE; +EPINEPHRINE INJ/PF 1 MG/1 ML AMPULE ONE; -FUROSEMIDE INJ/PF 40 MG/4 ML SDV ONE; +KETOROLAC TROMETHAMINE 0.45% 4 DROP/0.4 ML DROPERETTE OS PRN; +LIDOCAINE 1%/PHENYLEPHRINE 1.5% 0.8 ML SYRINGE ONE
[2020-06-24] MEDS ORDERED: MIDAZOLAM 2 MG/2 ML INJ ONE (06:42)
[2020-06-24] MEDS: TETRACAINE HCL 0.5% OPH SOLN 4 ML OS PRN ×4 (06:55→07:34)
[2020-06-24] MEDS: BESIFLOXACIN HCL 0.6% OPH SUSP 5 ML BOTTLE OS PRN ×4 (06:56→07:55)
[2020-06-24] MEDS: CYCLOPENTOLATE 0.2%/PHENYLEPHRINE 1% OPH SOLN 2 ML OS PRN ×3 (06:56→07:27)
[2020-06-24] MEDS: TROPICAMIDE 1% OPH SOLN 15 ML OS PRN ×3 (06:56→07:27)
[2020-06-24] MEDS: EPINEPHRINE INJ/PF 1 MG/1 ML AMPULE ONE ×2 (07:43)
[2020-06-24] MEDS: LIDOCAINE 1%/PHENYLEPHRINE 1.5% 0.8 ML SYRINGE ONE ×2 (07:43)
[2020-06-24] MEDS: CHONDR SU A NA/HYALUR INTRAOC KIT (SURGICARE) ONE ×2 (07:43)
[2020-06-24] MEDS: DORZOLAMIDE HCL 2%/TIMOLOL MALEAT 0.5% OPH SOLN 10 ML OS PRN ×2 (07:55)
[2020-06-24] MEDS: PREDNISOLONE ACETATE 1% OPH SUSP 5 ML OS PRN ×2 (07:55)
--- NOTE | 2020-06-24 13:24 | Operative Report ---
Operative Report-[facility] Operative Report: DATE OF SURGERY: 06/24/2020 PREOPERATIVE DIAGNOSIS: Cataracts, left eye POSTOPERATIVE DIAGNOSIS: Cataract, left eye OPERATION: Cataract extraction with insertion of an IOL of the left eye. Intraocular Lens Model: [12.0 SN 60 WF] Underwent surgery for difficulty seeing driving SURGEON: Anival Zhu MD ANESTHESIA: Topical PROCEDURE: After obtaining appropriate consent, the patient's left eye was prepped and draped in a sterile fashion as well as the surgeon in the sterile manner and cataract surgery was started. First a paracentesis blade was used to make a side-port incision. Viscoelastic was used to inflate the anterior chamber. Next a 2.4 mm incision was made with a 2.4 mm blade, clear corneal temporarily. A continuous capsulorrhexis was made using a cystotome and Utrata forceps. Following this hydrodissection was carried out to make the lens fully loose and mobile and it was rotated 90 degrees. Following this, a divide and conquer technique was used to phacoemulsify the lens. The remaining cortex was removed with an irrigation/aspiration. Provisc was instilled into the capsular bag to inflate the bag.The intraocular lens was placed. The remaining viscoelastic material was removed with irrigation/aspiration. Following this, the incision was found to be watertight. Besivance and Cosopt was instilled into the eye and a protective shield was placed over the eye. The patient was returned to the postoperative recovery in a stable condition.
== END 2020-06-24 08:27 ==
LOC: SC 06:34
PROVIDERS: ATTEND Internal Medicine
DX: H25.812 Combined forms of age-related cataract, left eye (principal); H35.3131 Nonexudative age-related macular degeneration, bilateral, early dry stage; E11.9 Type 2 diabetes mellitus without complications; I10 Essential (primary) hypertension; E03.9 Hypothyroidism, unspecified; Z86.73 Personal history of transient ischemic attack (TIA), and cerebral infarction without residual deficits; M19.90 Unspecified osteoarthritis, unspecified site; Z87.891 Personal history of nicotine dependence; Z88.6 Allergy status to analgesic agent; Z88.0 Allergy status to penicillin; Z79.899 Other long term (current) drug therapy; I25.2 Old myocardial infarction; D64.9 Anemia, unspecified
CPT/HCPCS: 66984; V2632; J2250; J3490 ×3; A9270; J0171; 142

== ENCOUNTER 2020-07-15 06:37 | Day surgery (SDC) | payer MEDICARE, OTHER ==
[~2020-07-15 06:37] MED LIST changes: -CHONDR SU A NA/HYALUR INTRAOC KIT (SURGICARE) ONE; -EPINEPHRINE INJ/PF 1 MG/1 ML AMPULE ONE; +KETOROLAC TROMETHAMINE 0.45% 4 DROP/0.4 ML DROPERETTE OD PRN; -KETOROLAC TROMETHAMINE 0.45% 4 DROP/0.4 ML DROPERETTE OS PRN; -LIDOCAINE 1%/PHENYLEPHRINE 1.5% 0.8 ML SYRINGE ONE
[2020-07-15] MEDS: TETRACAINE HCL 0.5% OPH SOLN 4 ML OD PRN ×3 (07:01→07:26)
[2020-07-15] MEDS: TROPICAMIDE 1% OPH SOLN 15 ML OD PRN ×3 (07:01→07:22)
[2020-07-15] MEDS: BESIFLOXACIN HCL 0.6% OPH SUSP 5 ML BOTTLE OD PRN ×4 (07:02→07:42)
[2020-07-15] MEDS: CYCLOPENTOLATE 0.2%/PHENYLEPHRINE 1% OPH SOLN 2 ML OD PRN ×3 (07:02→07:22)
[2020-07-15] MEDS ORDERED: CHONDR SU A NA/HYALUR INTRAOC KIT (SURGICARE) ONE (07:06)
[2020-07-15] MEDS ORDERED: LIDOCAINE 1%/PHENYLEPHRINE 1.5% 1 ML VIAL ONE (07:06)
[2020-07-15] MEDS ORDERED: EPINEPHRINE INJ/PF 1 MG/1 ML AMPULE ONE (07:06)
[2020-07-15] MEDS ORDERED: MIDAZOLAM 2 MG/2 ML INJ ONE (07:21)
[2020-07-15] MEDS: DORZOLAMIDE HCL 2%/TIMOLOL MALEAT 0.5% OPH SOLN 10 ML OD PRN ×2 (07:42)
[2020-07-15] MEDS: PREDNISOLONE ACETATE 1% OPH SUSP 5 ML OD PRN ×2 (07:42)
--- NOTE | 2020-07-15 12:16 | Operative Report ---
Operative Report-[facility] Operative Report: DATE OF SURGERY: 07/15/2020 PREOPERATIVE DIAGNOSIS: Cataract, right eye POSTOPERATIVE DIAGNOSIS: Cataract, right eye OPERATION: Cataract extraction with insertion of an IOL of the right eye. Intraocular Lens Model: [11.5 diopter SN 60 WF] Patient underwent surgery for difficulty reading SURGEON: Anival Zhu MD ANESTHESIA: Topical PROCEDURE: After obtaining appropriate consent, the patient's right eye was prepped and draped in a sterile fashion as well as the surgeon in the sterile manner and cataract surgery was started. First a paracentesis blade was used to make a side-port incision. Viscoelastic was used to inflate the anterior chamber. Next a 2.4 mm incision was made with a 2.4 mm blade, clear corneal temporarily. A continuous capsulorrhexis was made using a cystotome and Utrata forceps. Following this hydrodissection was carried out to make the saranya fully loose and mobile and it was rotated. Following this, a divide and conquer technique was used to phacoemulsify the saranya. The remaining cortex was removed with an irrigation/aspiration. Provisc was instilled into the capsular bag to inflate the bag. The intraocular lens was placed. The remaining viscoelastic material was removed with irrigation/aspiration. Following this, the incision was found to be watertight. Besivance and Cosopt was instilled into the eye and a protective shield was placed over the eye. The patient was reurned to the postoperative recovery in a stable condition.
== END 2020-07-15 08:35 ==
LOC: SC 06:37
PROVIDERS: ATTEND Internal Medicine
DX: H25.811 Combined forms of age-related cataract, right eye (principal); Z96.1 Presence of intraocular lens; E11.36 Type 2 diabetes mellitus with diabetic cataract; I10 Essential (primary) hypertension; E03.9 Hypothyroidism, unspecified; Z86.73 Personal history of transient ischemic attack (TIA), and cerebral infarction without residual deficits; M19.90 Unspecified osteoarthritis, unspecified site; Z87.891 Personal history of nicotine dependence; I25.10 Atherosclerotic heart disease of native coronary artery without angina pectoris; I25.2 Old myocardial infarction
CPT/HCPCS: 66984; V2632; J2250; J3490 ×2; A9270; J0171; 142

== ENCOUNTER → 2020-09-03 | Outpatient (CLI) | payer MEDICARE, OTHER ==
--- NOTE | 2020-09-03 15:40 | WOMENS IMAGING REPORT ---
EXAM DESCRIPTION: BONE DENSITY HIP/SPINE IMAGES COMPLETED DATE/TIME: 09/03/2020 1:45 pm REASON FOR STUDY: M81.0 Z87.891 PERSONAL HISTORY OF NICOTINE DEPENDENCE M81.0 AGE-RELATED OSTEOPOR OSIS W/O CURRENT PATHOLOGICAL FRAC COMPARISON: None. TECHNIQUE: Dual-Energy X-ray Absorptiometry (DEXA) of the AP Spine and Hip. LIMITATIONS: None. FINDINGS: LUMBAR SPINE: The bone mineral density (BMD) measured from L1-L4 in the AP projection correlates with a T-score of 0.7, which is normal as defined by the World Health Organization. BMD Change vs Baseline: N/A HIP: The bone mineral density (BMD) measured in the left hip correlates with a T-score of -2.3, which is o steopenia as defined by the World Health Organization. BMD Change vs Baseline: N/A 10 year Fracture Risk Assessment: Major Osteoporotic Fracture: Not available. Hip Fracture: Not available. IMPRESSION: 1. LUMBAR SPINE WHO CLASSIFICATION: NORMAL. 2. HIP WHO CLASSIFICATION: OSTEOPENIA. OVERALL ASSESSMENT: WHO CLASSIFICATION: OSTEOPENIA. COMMENT: The World Health Organization defines low BMD as follows: T-score: Normal: At or above -1.0 Osteopenia: Between -1.0 and -2.5 Osteoporosis: At or below -2.5 without fractures Established osteoporosis: At or below -2.5 with fractures In general, you may wish to consider: Diagnosis Treatment Follow-up DEXA Normal BMD Prevention 2-3 years Osteopenia Prevention/Therapy 1-2 years Osteoporosis Therapy Yearly TECHNICAL DOCUMENTATION: JOB ID: [id number] 2010 [employer]- All Rights Reserved Reading location - IP/workstation name: [email or web address]
== END ==
LOC: RAD 13:30
PROVIDERS: ATTEND Physician Assistant
DX: M81.0 Age-related osteoporosis without current pathological fracture (principal); Z87.891 Personal history of nicotine dependence
CPT/HCPCS: 77080